=== PATIENT | male | born 1950 | race Caucasian/White ===

== ENCOUNTER 2019-11-08 09:12 | Outpatient (CLI) | payer MEDICARE, SELFPAY ==
[2019-11-08 09:25] LABS: Basophils Absolute Auto 0.04 K/mm3 (0.00-0.10); Basophils Percent Auto 0.5 % (0.0-1.0); Eosinophils Percent Auto 2.5 % (1.0-6.0); Hematocrit 52.2 % (37.0-46.0); Hemoglobin 17.5 g/dL (12.4-15.3); Immature Granulocyte Absolute 0.04 K/mm3 (0.00-0.00); Immature Granulocyte Percent A 0.5 % (0.0-0.0); Lymphocytes Absolute Auto 1.35 K/mm3 (1.10-4.50); Lymphocytes Percent Auto 16.7 % (18.0-42.0); Mean Corpuscular HGB Conc 33.5 g/dL (32.0-36.0); Mean Corpuscular Hemoglobin 31.8 pg (27.0-31.0); Mean Corpuscular Volume 94.7 fL (78.0-102.0); Monocytes Absolute Auto 0.78 K/mm3 (0.10-0.90); Monocytes Percent Auto 9.7 % (2.0-11.0); Neutrophils Absolute Auto 5.7 K/mm3 (1.7-7.2); Neutrophils Percent Auto 70.1 % (50.0-70.0); Platelet Count Result 274 K/mm3 (150-420); Red Blood Count 5.51 M/mm3 (4.70-6.10); Red Cell Distribution Width 13.2 % (11.6-14.4); White Blood Count 8.1 K/mm3 (4.8-10.8)
[2019-11-08 09:35] LABS: Hemoglobin A1C 10.1 % (<5.7)
[2019-11-08 10:08] LABS: Alanine Aminotransferase 43 U/L (16-63); Alkaline Phosphatase 67 U/L (46-116); Anion Gap 13.8 mmol/L (7-16); Aspartate Amino Transferase 22 U/L (15-37); Bilirubin,Total 0.5 mg/dL (0.00-1.00); Blood Urea Nitrogen 14 mg/dL (7-18); Carbon Dioxide 31 mmol/L (21-32); Chloride 100 mmol/L (98-108); Cholesterol 111 mg/dL (0-200); Estimated Glomerular Filt Rate 54; Glucose 254 mg/dL (70-99); HDL Direct 41 mg/dL (40-60); LDL Cholesterol Calculated 60 mg/dL (<130); Osmolality Calculated 299 mOsm/kg (285-295); Potassium 4.8 mmol/L (3.5-5.1); Sodium 140 mmol/L (136-145); Total Protein 7.9 g/dL (6.4-8.2); Triglycerides 51 mg/dL (0-150)
== END 2019-11-08 09:13 | disposition home or self-care (01) ==
LOC: CHSLAB 09:17
PROVIDERS: PCP Nurse Practitioner Family; Visit Provider Nurse Practitioner Family
DX: E11.9 Type 2 diabetes mellitus without complications (principal)
CPT/HCPCS: 36415; 80053; 80061; 83036; 85025

== ENCOUNTER 2020-03-27 08:07 | Outpatient (CLI) | payer MEDICARE, SELFPAY ==
[2020-03-27 08:27] LABS: Hemoglobin A1C 6.7 % (<5.7)
[2020-03-27 09:02] LABS: Creatinine Urine 129.05 mg/dL (40-278); MALB Creatinine Ratio 7.2 mg/g (0-30); Microalbumin Urine Random 9.4 mg/L
== END 2020-03-27 08:08 | disposition home or self-care (01) ==
PROVIDERS: PCP Nurse Practitioner Family; Visit Provider Nurse Practitioner Family
DX: E11.9 Type 2 diabetes mellitus without complications (principal)
CPT/HCPCS: 36415; 82043; 83036

== ENCOUNTER 2021-01-30 10:29 | Outpatient (CLI) | payer MEDICARE, SELFPAY ==
[2021-01-30 10:43] LABS: Basophils Absolute Auto 0.03 K/mm3 (0.00-0.10); Basophils Percent Auto 0.4 % (0.0-1.0); Eosinophils Percent Auto 2.6 % (1.0-6.0); Hematocrit 50.7 % (37.0-46.0); Hemoglobin 17.1 g/dL (12.4-15.3); Immature Granulocyte Absolute 0.04 K/mm3 (0.00-0.00); Immature Granulocyte Percent A 0.5 % (0.0-0.0); Lymphocytes Absolute Auto 1.41 K/mm3 (1.10-4.50); Lymphocytes Percent Auto 18.1 % (18.0-42.0); Mean Corpuscular HGB Conc 33.7 g/dL (32.0-36.0); Mean Corpuscular Volume 94.9 fL (78.0-102.0); Mean Platelet Volume 9.5 fl (8.7-11.0); Monocytes Absolute Auto 0.67 K/mm3 (0.10-0.90); Monocytes Percent Auto 8.6 % (2.0-11.0); Neutrophils Absolute Auto 5.5 K/mm3 (1.7-7.2); Neutrophils Percent Auto 69.8 % (50.0-70.0); Platelet Count Result 277 K/mm3 (150-420); Red Blood Count 5.34 M/mm3 (4.70-6.10); Red Cell Distribution Width 13.2 % (11.6-14.4); White Blood Count 7.8 K/mm3 (4.8-10.8)
[2021-01-30 11:28] LABS: Alanine Aminotransferase 52 U/L (16-63); Albumin Level 3.7 g/dL (3.4-5.0); Alkaline Phosphatase 64 U/L (46-116); Anion Gap 7 mmol/L (8-16); Aspartate Amino Transferase 25 U/L (15-37); Bilirubin,Total 0.5 mg/dL (0.00-1.00); Blood Urea Nitrogen 15 mg/dL (7-18); Calcium 10.2 mg/dL (8.5-10.1); Carbon Dioxide 33 mmol/L (21-32); Chloride 101 mmol/L (98-108); Cholesterol 175 mg/dL (0-200); Estimated Glomerular Filt Rate 43; Glucose 148 mg/dL (70-99); HDL Direct 43 mg/dL (40-60); LDL Cholesterol Calculated 123 mg/dL (<130); Osmolality Calculated 295 mOsm/kg (285-295); Potassium 4.2 mmol/L (3.5-5.1); Sodium 141 mmol/L (136-145); Total Protein 7.7 g/dL (6.4-8.2); Triglycerides 47 mg/dL (0-150)
== END 2021-01-30 10:30 | disposition home or self-care (01) ==
LOC: CHSLAB 10:32
PROVIDERS: PCP Nurse Practitioner Family; Visit Provider Nurse Practitioner Family
DX: E11.9 Type 2 diabetes mellitus without complications (principal)
CPT/HCPCS: 36415; 80053; 80061; 83036; 85025

== ENCOUNTER 2021-02-18 08:54 | Outpatient (CLI) | payer MEDICARE, SELFPAY ==
[2021-02-18 09:25] LABS: Basophils Absolute Auto 0.04 K/mm3 (0.00-0.10); Basophils Percent Auto 0.5 % (0.0-1.0); Eosinophils Percent Auto 2.7 % (1.0-6.0); Hemoglobin 17.1 g/dL (12.4-15.3); Immature Granulocyte Absolute 0.02 K/mm3 (0.00-0.00); Immature Granulocyte Percent A 0.3 % (0.0-0.0); Lymphocytes Absolute Auto 1.47 K/mm3 (1.10-4.50); Lymphocytes Percent Auto 19.6 % (18.0-42.0); Mean Corpuscular HGB Conc 33.5 g/dL (32.0-36.0); Mean Corpuscular Hemoglobin 31.7 pg (27.0-31.0); Mean Corpuscular Volume 94.4 fL (78.0-102.0); Mean Platelet Volume 9.6 fl (8.7-11.0); Monocytes Absolute Auto 0.77 K/mm3 (0.10-0.90); Monocytes Percent Auto 10.3 % (2.0-11.0); Neutrophils Percent Auto 66.6 % (50.0-70.0); Platelet Count Result 303 K/mm3 (150-420); Red Cell Distribution Width 13.1 % (11.6-14.4); White Blood Count 7.5 K/mm3 (4.8-10.8)
[2021-02-18 09:47] LABS: Alanine Aminotransferase 49 U/L (16-63); Albumin Level 3.7 g/dL (3.4-5.0); Alkaline Phosphatase 61 U/L (46-116); Anion Gap 5 mmol/L (8-16); Aspartate Amino Transferase 21 U/L (15-37); Bilirubin,Total 0.6 mg/dL (0.00-1.00); Blood Urea Nitrogen 19 mg/dL (7-18); Carbon Dioxide 32 mmol/L (21-32); Chloride 101 mmol/L (98-108); Estimated Glomerular Filt Rate 50; Glucose 128 mg/dL (70-99); Lactate Dehydrogenase 144 U/L (85-227); Osmolality Calculated 290 mOsm/kg (285-295); Potassium 4.5 mmol/L (3.5-5.1); Sodium 138 mmol/L (136-145); Total Protein 7.6 g/dL (6.4-8.2)
[2021-02-18 10:28] LABS: Erythrocyte Sedimentation Rate 4 mm/hr (0-20)
[2021-02-21 21:01] LABS: Erythropoietin (EPO) 7.1 mIU/mL (2.6-18.5)
== END 2021-02-18 08:55 | disposition home or self-care (01) ==
LOC: CHSLAB 08:56
PROVIDERS: PCP Family Medicine; Visit Provider Internal Medicine
DX: D75.1 Secondary polycythemia (principal)
CPT/HCPCS: 36415; 80053; 81270; 81403; 82668; 83615; 85025; 85652

== ENCOUNTER 2021-03-30 08:46 | Outpatient (CLI) | payer MEDICARE, SELFPAY ==
[2021-03-30 09:07] LABS: Basophils Absolute Auto 0.03 K/mm3 (0.00-0.10); Basophils Percent Auto 0.4 % (0.0-1.0); Eosinophils Absolute Auto 0.28 K/mm3 (0.02-0.50); Eosinophils Percent Auto 3.7 % (1.0-6.0); Hematocrit 51.9 % (37.0-46.0); Hemoglobin 17.4 g/dL (12.4-15.3); Immature Granulocyte Absolute 0.02 K/mm3 (0.00-0.00); Immature Granulocyte Percent A 0.3 % (0.0-0.0); Lymphocytes Absolute Auto 1.79 K/mm3 (1.10-4.50); Lymphocytes Percent Auto 23.8 % (18.0-42.0); Mean Corpuscular HGB Conc 33.5 g/dL (32.0-36.0); Mean Corpuscular Hemoglobin 32.2 pg (27.0-31.0); Mean Corpuscular Volume 95.9 fL (78.0-102.0); Mean Platelet Volume 9.3 fl (8.7-11.0); Monocytes Absolute Auto 0.78 K/mm3 (0.10-0.90); Monocytes Percent Auto 10.4 % (2.0-11.0); Neutrophils Absolute Auto 4.6 K/mm3 (1.7-7.2); Neutrophils Percent Auto 61.4 % (50.0-70.0); Platelet Count Result 324 K/mm3 (150-420); Red Blood Count 5.41 M/mm3 (4.70-6.10); White Blood Count 7.5 K/mm3 (4.8-10.8)
== END 2021-03-30 08:47 | disposition home or self-care (01) ==
LOC: CHSLAB 08:50
PROVIDERS: PCP Family Medicine
DX: D75.1 Secondary polycythemia (principal)
CPT/HCPCS: 36415; 85025

== ENCOUNTER 2021-04-27 07:49 | Outpatient (CLI) | payer MEDICARE, SELFPAY ==
[2021-04-27 08:12] LABS: Basophils Absolute Auto 0.03 K/mm3 (0.00-0.10); Basophils Percent Auto 0.4 % (0.0-1.0); Eosinophils Absolute Auto 0.26 K/mm3 (0.02-0.50); Eosinophils Percent Auto 3.3 % (1.0-6.0); Hematocrit 53.2 % (37.0-46.0); Hemoglobin 17.5 g/dL (12.4-15.3); Immature Granulocyte Absolute 0.03 K/mm3 (0.00-0.00); Immature Granulocyte Percent A 0.4 % (0.0-0.0); Lymphocytes Absolute Auto 1.82 K/mm3 (1.10-4.50); Lymphocytes Percent Auto 22.8 % (18.0-42.0); Mean Corpuscular HGB Conc 32.9 g/dL (32.0-36.0); Mean Corpuscular Hemoglobin 31.1 pg (27.0-31.0); Mean Corpuscular Volume 94.7 fL (78.0-102.0); Mean Platelet Volume 9.4 fl (8.7-11.0); Monocytes Absolute Auto 0.85 K/mm3 (0.10-0.90); Monocytes Percent Auto 10.6 % (2.0-11.0); Neutrophils Percent Auto 62.5 % (50.0-70.0); Platelet Count Result 307 K/mm3 (150-420); Red Blood Count 5.62 M/mm3 (4.70-6.10); Red Cell Distribution Width 13.2 % (11.6-14.4)
== END 2021-04-27 07:50 | disposition home or self-care (01) ==
PROVIDERS: PCP Family Medicine
DX: D75.1 Secondary polycythemia (principal)
CPT/HCPCS: 36415; 85025

== ENCOUNTER 2021-06-01 09:10 | Outpatient (CLI) | payer MEDICARE, SELFPAY ==
[2021-06-01 09:23] LABS: Basophils Absolute Auto 0.04 K/mm3 (0.00-0.10); Basophils Percent Auto 0.5 % (0.0-1.0); Eosinophils Absolute Auto 0.27 K/mm3 (0.02-0.50); Eosinophils Percent Auto 3.4 % (1.0-6.0); Hematocrit 51.5 % (37.0-46.0); Hemoglobin 16.9 g/dL (12.4-15.3); Immature Granulocyte Absolute 0.04 K/mm3 (0.00-0.00); Immature Granulocyte Percent A 0.5 % (0.0-0.0); Lymphocytes Absolute Auto 1.65 K/mm3 (1.10-4.50); Mean Corpuscular HGB Conc 32.8 g/dL (32.0-36.0); Mean Corpuscular Hemoglobin 31.8 pg (27.0-31.0); Mean Corpuscular Volume 96.8 fL (78.0-102.0); Mean Platelet Volume 9.1 fl (8.7-11.0); Monocytes Absolute Auto 0.85 K/mm3 (0.10-0.90); Monocytes Percent Auto 10.8 % (2.0-11.0); Neutrophils Percent Auto 63.8 % (50.0-70.0); Platelet Count Result 314 K/mm3 (150-420); Red Blood Count 5.32 M/mm3 (4.70-6.10); Red Cell Distribution Width 13.4 % (11.6-14.4); White Blood Count 7.9 K/mm3 (4.8-10.8)
== END 2021-06-01 09:11 | disposition home or self-care (01) ==
LOC: CHSLAB 09:16
PROVIDERS: PCP Family Medicine
DX: D75.1 Secondary polycythemia (principal)
CPT/HCPCS: 36415; 85025

== ENCOUNTER 2021-06-29 08:17 | Outpatient (CLI) | payer MEDICARE, SELFPAY ==
[2021-06-29 08:41] LABS: Basophils Absolute Auto 0.06 K/mm3 (0.00-0.10); Basophils Percent Auto 0.8 % (0.0-1.0); Eosinophils Absolute Auto 0.33 K/mm3 (0.02-0.50); Eosinophils Percent Auto 4.3 % (1.0-6.0); Hematocrit 52.3 % (37.0-46.0); Hemoglobin 17.3 g/dL (12.4-15.3); Immature Granulocyte Absolute 0.02 K/mm3 (0.00-0.00); Immature Granulocyte Percent A 0.3 % (0.0-0.0); Lymphocytes Absolute Auto 1.84 K/mm3 (1.10-4.50); Lymphocytes Percent Auto 24.1 % (18.0-42.0); Mean Corpuscular HGB Conc 33.1 g/dL (32.0-36.0); Mean Corpuscular Hemoglobin 31.7 pg (27.0-31.0); Mean Platelet Volume 9.4 fl (8.7-11.0); Monocytes Absolute Auto 0.87 K/mm3 (0.10-0.90); Monocytes Percent Auto 11.4 % (2.0-11.0); Neutrophils Absolute Auto 4.5 K/mm3 (1.7-7.2); Neutrophils Percent Auto 59.1 % (50.0-70.0); Platelet Count Result 320 K/mm3 (150-420); Red Blood Count 5.45 M/mm3 (4.70-6.10); Red Cell Distribution Width 13.2 % (11.6-14.4); White Blood Count 7.6 K/mm3 (4.8-10.8)
== END 2021-06-29 08:18 | disposition home or self-care (01) ==
LOC: CHSLAB 08:21
PROVIDERS: PCP Family Medicine
DX: D75.1 Secondary polycythemia (principal)
CPT/HCPCS: 36415; 85025

== ENCOUNTER 2021-07-27 08:27 | Outpatient (CLI) | payer MEDICARE, SELFPAY ==
[2021-07-27 08:38] LABS: Basophils Absolute Auto 0.03 K/mm3 (0.00-0.10); Basophils Percent Auto 0.4 % (0.0-1.0); Eosinophils Absolute Auto 0.28 K/mm3 (0.02-0.50); Eosinophils Percent Auto 3.8 % (1.0-6.0); Hematocrit 52.9 % (37.0-46.0); Hemoglobin 17.4 g/dL (12.4-15.3); Immature Granulocyte Absolute 0.01 K/mm3 (0.00-0.00); Immature Granulocyte Percent A 0.1 % (0.0-0.0); Lymphocytes Absolute Auto 1.83 K/mm3 (1.10-4.50); Lymphocytes Percent Auto 24.6 % (18.0-42.0); Mean Corpuscular HGB Conc 32.9 g/dL (32.0-36.0); Mean Corpuscular Hemoglobin 31.5 pg (27.0-31.0); Mean Corpuscular Volume 95.8 fL (78.0-102.0); Mean Platelet Volume 9.3 fl (8.7-11.0); Monocytes Absolute Auto 0.88 K/mm3 (0.10-0.90); Monocytes Percent Auto 11.8 % (2.0-11.0); Neutrophils Absolute Auto 4.4 K/mm3 (1.7-7.2); Neutrophils Percent Auto 59.3 % (50.0-70.0); Platelet Count Result 311 K/mm3 (150-420); Red Blood Count 5.52 M/mm3 (4.70-6.10); White Blood Count 7.4 K/mm3 (4.8-10.8)
== END 2021-07-27 08:28 | disposition home or self-care (01) ==
LOC: CHSLAB 08:30
PROVIDERS: PCP Family Medicine
DX: D75.1 Secondary polycythemia (principal)
CPT/HCPCS: 36415; 85025

== ENCOUNTER 2021-08-24 08:52 | Outpatient (CLI) | payer MEDICARE, SELFPAY ==
[2021-08-24 09:02] LABS: Basophils Absolute Auto 0.04 K/mm3 (0.00-0.10); Basophils Percent Auto 0.5 % (0.0-1.0); Eosinophils Absolute Auto 0.22 K/mm3 (0.02-0.50); Eosinophils Percent Auto 2.9 % (1.0-6.0); Hematocrit 54.7 % (37.0-46.0); Hemoglobin 17.9 g/dL (12.4-15.3); Immature Granulocyte Absolute 0.03 K/mm3 (0.00-0.00); Immature Granulocyte Percent A 0.4 % (0.0-0.0); Lymphocytes Absolute Auto 1.75 K/mm3 (1.10-4.50); Lymphocytes Percent Auto 23.1 % (18.0-42.0); Mean Corpuscular HGB Conc 32.7 g/dL (32.0-36.0); Mean Corpuscular Hemoglobin 31.3 pg (27.0-31.0); Mean Corpuscular Volume 95.6 fL (78.0-102.0); Mean Platelet Volume 9.2 fl (8.7-11.0); Monocytes Absolute Auto 0.92 K/mm3 (0.10-0.90); Monocytes Percent Auto 12.2 % (2.0-11.0); Neutrophils Absolute Auto 4.6 K/mm3 (1.7-7.2); Neutrophils Percent Auto 60.9 % (50.0-70.0); Platelet Count Result 322 K/mm3 (150-420); Red Blood Count 5.72 M/mm3 (4.70-6.10); Red Cell Distribution Width 13.1 % (11.6-14.4); White Blood Count 7.6 K/mm3 (4.8-10.8)
== END 2021-08-24 08:53 | disposition home or self-care (01) ==
LOC: CHSLAB 08:56
PROVIDERS: PCP Nurse Practitioner Family
DX: D75.1 Secondary polycythemia (principal)
CPT/HCPCS: 36415; 85025

== ENCOUNTER 2021-10-30 08:42 | Outpatient (CLI) | payer MEDICARE, SELFPAY ==
[2021-10-30 08:53] LABS: Basophils Absolute Auto 0.04 K/mm3 (0.00-0.10); Basophils Percent Auto 0.6 % (0.0-1.0); Eosinophils Absolute Auto 0.25 K/mm3 (0.02-0.50); Eosinophils Percent Auto 3.7 % (1.0-6.0); Hemoglobin 17.8 g/dL (12.4-15.3); Immature Granulocyte Absolute 0.01 K/mm3 (0.00-0.00); Immature Granulocyte Percent A 0.1 % (0.0-0.0); Lymphocytes Absolute Auto 1.29 K/mm3 (1.10-4.50); Lymphocytes Percent Auto 19.1 % (18.0-42.0); Mean Corpuscular Hemoglobin 31.3 pg (27.0-31.0); Mean Corpuscular Volume 94.9 fL (78.0-102.0); Mean Platelet Volume 9.3 fl (8.7-11.0); Monocytes Absolute Auto 0.77 K/mm3 (0.10-0.90); Monocytes Percent Auto 11.4 % (2.0-11.0); Neutrophils Absolute Auto 4.4 K/mm3 (1.7-7.2); Neutrophils Percent Auto 65.1 % (50.0-70.0); Platelet Count Result 298 K/mm3 (150-420); Red Blood Count 5.69 M/mm3 (4.70-6.10); Red Cell Distribution Width 13.2 % (11.6-14.4); White Blood Count 6.8 K/mm3 (4.8-10.8)
== END 2021-10-30 08:43 | disposition home or self-care (01) ==
LOC: CHSLAB 08:45
PROVIDERS: PCP Nurse Practitioner Family; Visit Provider Nurse Practitioner
DX: D75.1 Secondary polycythemia (principal)
CPT/HCPCS: 36415; 85025

== ENCOUNTER 2021-12-03 04:04 | Inpatient (IN) | payer MEDICARE, SELFPAY ==
[2021-12-03] VITALS (12 sets, daily range): BP systolic 150–193; BP diastolic 82–110; PULSE 68–80; RESP 15–18; TEMP 36.7–37; O2SAT 93–100; BMI 29.3
--- NOTE | ~2021-12-03 | MR_ITS ---
EXAMINATION: MR brain/brain stem wo con EXAM DATE: 12/05/2021 07:55 INDICATION: Dyphasia and new essential tremor. TECHNIQUE: Magnetic resonance imaging (MRI) of the brain/brain stem obtained without contrast. Melina al T1, axial diffusion, gradient echo (T2*), T1, T2, FLAIR sequences obtained. There is no prior st udy for comparison. FINDINGS: There are no areas of restricted diffusion to suggest acute infarction. There is no acute hemorrhage seen on the T2*, a hemosiderin sensitive sequence. No intraparenchymal brain mass lesion. There is moderate periventricular and subcortical T2/FLAIR signal hyperintensity, nonspecific but pr obably related to small vessel ischemic disease (microangiopathy). There is ventricular prominence out of proportion to sulci which is suspected most likely central atr ophy rather than hydrocephalus. Normal pressure hydrocephalus cannot be excluded (clinical triad debora chris/gait disturbance, dementia, urinary incontinence). There are no extra-axial collections. Flow voids are seen in the cerebral arteries on the T2-weighted sequences consistent with their expected p atency. The orbits are unremarkable. Soft tissue is unremarkable. IMPRESSION: 1. Chronic age related findings. Reviewed, dictated and finalized at location A. OUT OPERATOR
--- NOTE | ~2021-12-03 | CT_ITS ---
EXAMINATION: CTA chest PE protocol DATE: 12/03/2021 08:56 INDICATION: Chest pain and shortness of breath TECHNIQUE: Computed tomography (CT) pulmonary angiogram of the chest was performed with 100 mL Omnipa que-350 intravenous contrast. Additional 3D reconstructions utilizing coronal maximum intensity proje ction (MIP) were performed. Automated exposure control and iterative reconstruction technique were em ployed. The dose-length product was 884.89 mGy-cm. COMPARISON: 07/24/2008 FINDINGS: Excellent contrast opacification of the pulmonary arteries. There is mild streak artifact from dense contrast in the superior vena cava and right atrium. Minimal scattered respiratory motion artifact wh ich does not significantly limit evaluation. No pulmonary embolism. Unilateral calcified pleural plaq ues in the right hemithorax consistent with prior exudative pleural effusion. Linear atelectasis/scar ring in the anterior right middle lobe. Additional mild atelectasis/scarring at the anterior peripher y of the lingula. A few small calcified nodules in the right lower lobe and calcified right hilar lym ph nodes consistent with old granulomatous disease. Unchanged chronic 2 mm noncalcified granuloma in the right lower lobe. No pneumonia, pulmonary edema, pleural effusion or pneumothorax. Heart size is normal. Atherosclerotic coronary artery calcification. No pericardial effusion. No pathologically enl arged thoracic lymphadenopathy. Large calcified gallstone in the nearly decompressed gallbladder. Dif fuse hepatic steatosis. Mild to moderate thoracic spondylosis. Chronic appearing T12 compression frac ture with 40% anterior to central vertebral body height loss. Mild central compression fracture at th e superior endplate of T5 with <20% central vertebral body height loss. IMPRESSION: 1. No pulmonary embolism or other acute cardiopulmonary disease. 2. Cholelithiasis. 3. Diffuse hepatic steatosis. Reviewed, dictated and finalized at location A. S BOBBIN WINDER
--- NOTE | ~2021-12-03 | XR_ITS ---
EXAMINATION: XR chest 1V portable DATE: 12/03/2021 05:01 INDICATION: Chest pain TECHNIQUE: frontal view of the chest was obtained. COMPARISON: Chest radiograph dated 07/19/[address] dated 07/24/2008 FINDINGS: Calcified pleural plaques projecting over the right mid and upper lung zone. Calcified nodule in the right lower lung zones consistent with old granulomatous disease. No other airspace opacities, pulmon wilfrid edema, pleural effusion or pneumothorax. The cardiomediastinal silhouette is normal. IMPRESSION: 1. No acute cardiopulmonary disease. Reviewed, dictated and finalized at location A. WORKER ANIMAL
--- NOTE | ~2021-12-03 | CT_ITS ---
EXAMINATION: CT brain wo con DATE: 12/03/2021 08:55 INDICATION: Weakness and ataxia TECHNIQUE: Computed tomography (CT) of the head was performed without intravenous contrast. The dose- length product was 605.33 mGy-cm. Automated exposure control and iterative reconstruction technique w ere employed. COMPARISON: No prior studies for comparison. FINDINGS: Mild generalized parenchymal volume loss with compensatory dilation of the ventricles. Basi lar cisterns are patent. No midline shift. There are scattered mild periventricular and subcortical w boris matter changes, most likely related to small vessel ischemic disease (microangiopathy). Paranasa l sinuses and right mastoid air cells are pneumatized. There is a left mastoid effusion. No depressed skull fractures. IMPRESSION: 1. No acute intracranial abnormality. 2: Chronic age-related findings. 3: Left mastoid effusion. Reviewed, dictated and finalized at location B. RVISOR DRAWING
--- NOTE | 2021-12-03 03:24 | ECG_ITS ---
Measurements Intervals [place] Rate: 61 P: -49 LA: 157 QRS: 25 QRSD: 101 T: 46 QT: 374 QTc: 379 Interpretive Statements SINUS OR ECTOPIC ATRIAL RHYTHM MINIMAL Q WAVES- INFERIOR LEADS NONSPECIFIC ST & T-WAVE ABNORMALITY- ANTERIOR LEADS BASELINE ARTIFACT- I, II, III, AVR, AVL, AVF, V1-V3 BORDERLINE ECG Electronically Signed On 12-03-2021 5:53:42 OIL EXPELLER by Justin Ricks D.O.
--- NOTE | 2021-12-03 04:16 | ED.CHESTPAIN ---
HPI - Chest Pain General Chief Complaint: Chest Pain <Seb Reis MD - Last Filed: 12/04/21 13:58> Stated Complaint: CHEST PAIN <Seb Reis MD - Last Filed: 12/04/21 13:58> Time Seen by Provider: 12/03/21 04:16 <Seb Reis MD - Last Filed: 12/04/21 13:58> Source: patient <Seb Reis MD - Last Filed: 12/04/21 13:58> Limitations: no limitations <Seb Reis MD - Last Filed: 12/04/21 13:58> History of Present Illness HPI narrative: 71-year-old male, smoker with a history of hypertension, diabetes mellitus, CKD, Dyslipidemia, polycythemia, positive family history of coronary artery disease presents with -- left-sided chest pain for the past few days. His pain got worse 1 hour ago prior to coming to the ER. his maximum pain was rated as 5/10. His current pain level is 1/10. No nausea/vomiting. No shortness of breath. No radiation of the pain. No prior episodes of chest pain or cardiac intervention. the patient received sublingual nitro and aspirin EN route to the hospital. -- patient had a syncopal spell this morning while trying to get up to go to the bathroom. No injuries noted. No loss of consciousness. -- Patient is COVID vaccinated. EKG done by the EMS revealed prominent Q-waves in inferior leads with T flattening in aVL and standard lead 3 <Seb Reis MD - Last Filed: 12/04/21 13:58> MD complaint: chest pain <Seb Reis MD - Last Filed: 12/04/21 13:58> Onset (ago): day(s) <Seb Reis MD - Last Filed: 12/04/21 13:58> Timing of current episode: episodic <Seb Reis MD - Last Filed: 12/04/21 13:58> Prior episodes: No <Seb Reis MD - Last Filed: 12/04/21 13:58> Onset: during rest <Seb Reis MD - Last Filed: 12/04/21 13:58> Pain location: left chest <Seb Reis MD - Last Filed: 12/04/21 13:58> Pain radiation: none <Seb Reis MD - Last Filed: 12/04/21 13:58> Severity: mild <Seb Reis MD - Last Filed: 12/04/21 13:58> Quality: aching <Seb Reis MD - Last Filed: 12/04/21 13:58> Relieving factors: nothing <Seb Reis MD - Last Filed: 12/04/21 13:58> Exacerbating factors: nothing <Seb Reis MD - Last Filed: 12/04/21 13:58> Context: recent illness <Seb Reis MD - Last Filed: 12/04/21 13:58> Treatment prior to arrival: aspirin and nitroglycerin <Seb Reis MD - Last Filed: 12/04/21 13:58> Risk Factors Coronary artery disease risk factors: diabetes, smoking history and hypertension <Seb Reis MD - Last Filed: 12/04/21 13:58> Thoracic aortic dissection risk factors: longstanding hypertension <Seb Reis MD - Last Filed: 12/04/21 13:58> Pulmonary embolism risk factors: morbid obesity <Seb Reis MD - Last Filed: 12/04/21 13:58> Related Data Allergies/Adverse Reactions: Allergies Allergy/AdvReac Type Severity Reaction Status Date / Time Penicillins Allergy Intermediate rash Verified 12/03/21 04:20 <Seb Reis MD - Last Filed: 12/04/21 13:58> Review of Systems Review of Systems: All systems reviewed & are unremarkable except as noted in HPI and below <Seb Reis MD - Last Filed: 12/04/21 13:58> Constitutional: Constitutional: Reports as per HPI and Reports no additional constitutional complaints <Seb Reis MD - Last Filed: 12/04/21 13:58> Eyes: Eyes: Reports as per HPI and Reports no additional eye complaints <Seb Reis MD - Last Filed: 12/04/21 13:58> ENT: Reports system reviewed and no additional complaints, except as documented <Seb Reis MD - Last Filed: 12/04/21 13:58> Cardiovascular: Cardiovascular: Reports as per HPI, Reports no additional cardiovascular complaints and Reports chest pain at rest <Seb Reis MD - Last Filed: 12/04/21 13:58> R
[2021-12-03 04:43] LABS: Basophils Absolute Auto 0.04 K/mm3 (0.00-0.10); Basophils Percent Auto 0.4 % (0.0-1.0); Eosinophils Absolute Auto 0.18 K/mm3 (0.02-0.50); Hemoglobin 16.3 g/dL (12.4-15.3); Immature Granulocyte Absolute 0.03 K/mm3 (0.00-0.00); Immature Granulocyte Percent A 0.3 % (0.0-0.0); Lymphocytes Absolute Auto 0.98 K/mm3 (1.10-4.50); Lymphocytes Percent Auto 10.7 % (18.0-42.0); Mean Corpuscular Hemoglobin 31.6 pg (27.0-31.0); Mean Platelet Volume 9.1 fl (8.7-11.0); Monocytes Absolute Auto 0.89 K/mm3 (0.10-0.90); Monocytes Percent Auto 9.7 % (2.0-11.0); Neutrophils Absolute Auto 7.1 K/mm3 (1.7-7.2); Neutrophils Percent Auto 76.9 % (50.0-70.0); Platelet Count Result 302 K/mm3 (150-420); Red Blood Count 5.16 M/mm3 (4.70-6.10); Red Cell Distribution Width 13.2 % (11.6-14.4); White Blood Count 9.2 K/mm3 (4.8-10.8)
[2021-12-03 04:55] LABS: INR 1.1; Partial Thromboplastin Time 26.9 SEC (23.90-30.70); Prothrombin Time 11.8 Seconds (9.50-12.10)
[2021-12-03 05:05] LABS: Alanine Aminotransferase 43 U/L (16-63); Albumin Level 3.2 g/dL (3.4-5.0); Alkaline Phosphatase 52 U/L (46-116); Anion Gap 9 mmol/L (8-16); Aspartate Amino Transferase 26 U/L (15-37); Bilirubin,Total 0.5 mg/dL (0.00-1.00); Blood Urea Nitrogen 19 mg/dL (7-18); Calcium 9.9 mg/dL (8.5-10.1); Carbon Dioxide 30 mmol/L (21-32); Chloride 102 mmol/L (98-108); Estimated CRCL calculation 32 ml/min; Estimated Glomerular Filt Rate 32; Glucose 117 mg/dL (70-99); Lipase 87 U/L (73-393); NT Pro B Type Natriuretic Pept 3044 pg/mL (0-125); Osmolality Calculated 295 mOsm/kg (285-295); Potassium 3.4 mmol/L (3.5-5.1); Sodium 141 mmol/L (136-145); Total Protein 7.4 g/dL (6.4-8.2)
[2021-12-03 05:17] LABS: Troponin I 48.9 ng/L (0.00-60.4)
[2021-12-03 05:18] LABS: D Dimer 12.89 mg/L (0.19-0.50)
[2021-12-03] MEDS: HEPARIN SODIUM 5,000 UNITS/ML VIAL 7500 UNITS IV PUSH (05:47)
[2021-12-03] MEDS: HEPARIN SOD/D5W 100 UNITS/ML 25,000 UNITS/250 ML BAG 15 UNITS IV CONT (06:04)
[2021-12-03] MEDS: LACTATED RINGERS 1,000 ML 500 ML IV CONT (06:04)
[2021-12-03 07:14] LABS: SARS-CoV-2 RNA PCR Negative (Negative)
[2021-12-03 07:53] LABS: Anion Gap 8 mmol/L (8-16); Blood Urea Nitrogen 18 mg/dL (7-18); Calcium 9.4 mg/dL (8.5-10.1); Carbon Dioxide 29 mmol/L (21-32); Chloride 103 mmol/L (98-108); Estimated CRCL calculation 34 ml/min; Estimated Glomerular Filt Rate 35; Glucose 104 mg/dL (70-99); Osmolality Calculated 291 mOsm/kg (285-295); Potassium 3.2 mmol/L (3.5-5.1); Sodium 140 mmol/L (136-145)
[2021-12-03 07:54] LABS: Troponin I 47.1 ng/L (0.00-60.4)
[2021-12-03] MEDS: LACTATED RINGERS 1,000 ML 150 ML IV CONT (08:32)
[2021-12-03 08:58] LABS: Add Urine Microscopic? YES; Appearance Urine Clear (Clear); Bilirubin Urine Negative (Negative); Blood Urine Negative (Negative); Color Urine Light Yellow (Yellow); Glucose Urine UA Negative (Negative); Ketones Urine Trace (Negative); Leukocyte Esterase Ur Negative (Negative); Nitrate Urine Negative (Negative); Protein Urine Negative (Negative); Specific Grav Ur 1.015 (1.010-1.020); Urobilinogen Urine 0.2 mg/dL (0.2-1.0)
[2021-12-03 09:06] LABS: Base Excess ABG 3.9 mmol/L (0-2); HCO3 ABG 29.1 mmol/L (23-29); Oxygen Content ABG 21.5 %vol (16.0-22.0); Oxygen Saturation ABG 94.9 % (95-97); Oxyhemoglobin 93.2 % (94-100); PCO2 ABG 45.4 mmHg (35-45); PO2 ABG 71.9 mmHg (75-85); Total Hemoglobin 16.4 g/dL (12.0-18.0); pH ABG 7.43 (7.35-7.45)
[2021-12-03 09:07] LABS: Bacteria Urine Trace /hpf; RBC Urine 0-2 /hpf (0-2); WBC Urine None seen /hpf (0-3)
[2021-12-03 09:09] LABS: Modified Allen's Test Pass; Site Drawn RIGHT RADIAL
[2021-12-03 09:10] LABS: Device ROOM AIR
--- NOTE | 2021-12-03 10:49 | PC.NURSE ---
Patient arrived to [facility] via stretcher from ED. Able to transfer self by scooting onto bed. Telemetry initiated. Patient able to voice needs. Oriented to room and call light. at bedside.
[2021-12-03 11:11] LABS: Creatine Kinase 176 U/L (39-308)
[2021-12-03 11:47] LABS: Glucose Point of Care 90 mg/dl (65-105)
[2021-12-03] MEDS: ONDANSETRON INJ 4 MG/2 ML VIAL IV PUSH (12:17)
--- NOTE | 2021-12-03 12:19 | PC.NURSE ---
emesis of undigested food. long pieces of spaghetti noodles cool cloth for forehead and prn zofran given
[2021-12-03] MEDS: POTASSIUM CHLORIDE 20 MEQ TABLET 40 MEQ PO (12:56)
[2021-12-03 14:43] LABS: Troponin I 54.6 ng/L (0.00-60.4)
[2021-12-03] MEDS: POTASSIUM CHLORIDE 20 MEQ TABLET 40 MEQ (15:10)
[2021-12-03] MEDS: lisinopriL 5 MG TABLET PO (15:22)
[2021-12-03 16:46] LABS: Glucose Point of Care 93 mg/dl (65-105)
[2021-12-03] MEDS: DOCUSATE SODIUM 100 MG CAPSULE PO (16:49)
[2021-12-03] MEDS: glipiZIDE 5 MG TABLET PO (16:49)
--- NOTE | 2021-12-03 20:31 | PC.NURSE ---
Call from patient's . stated patient had not received BP medication today before coming to ER. Patient BP elevated. [employer] [facility] [facility] contacted and stated she will initiate orders.
[2021-12-03] MEDS: hydrALAZINE 10 MG TABLET PO (21:03)
[2021-12-03 21:15] LABS: Glucose Point of Care 75 mg/dl (65-105)
[2021-12-03 22:44] LABS: Glucose Point of Care 69 mg/dl (65-105)
[2021-12-03 23:36] LABS: Glucose Point of Care 92 mg/dl (65-105)
[2021-12-04] VITALS (8 sets, daily range): BP systolic 159–180; BP diastolic 82–105; PULSE 61–78; RESP 16–18; TEMP 36.6–36.9; O2SAT 94–98
[2021-12-04 05:18] LABS: Hemoglobin 15.3 g/dL (12.4-15.3); Mean Corpuscular HGB Conc 33.3 g/dL (32.0-36.0); Mean Corpuscular Hemoglobin 31.2 pg (27.0-31.0); Mean Corpuscular Volume 93.9 fL (78.0-102.0); Mean Platelet Volume 9.1 fl (8.7-11.0); Platelet Count Result 257 K/mm3 (150-420); Red Cell Distribution Width 13.5 % (11.6-14.4); White Blood Count 7.1 K/mm3 (4.8-10.8)
[2021-12-04 05:27] LABS: Hemoglobin A1C 6.7 % (<5.7)
[2021-12-04 05:32] LABS: Alanine Aminotransferase 38 U/L (16-63); Albumin Level 3.1 g/dL (3.4-5.0); Alkaline Phosphatase 48 U/L (46-116); Anion Gap 7 mmol/L (8-16); Aspartate Amino Transferase 30 U/L (15-37); Bilirubin,Total 0.5 mg/dL (0.00-1.00); Blood Urea Nitrogen 16 mg/dL (7-18); Calcium 9.4 mg/dL (8.5-10.1); Carbon Dioxide 30 mmol/L (21-32); Chloride 104 mmol/L (98-108); Estimated CRCL calculation 33 ml/min; Estimated Glomerular Filt Rate 33; Glucose 65 mg/dL (70-99); Magnesium 2.1 mg/dL (1.8-2.4); Osmolality Calculated 291 mOsm/kg (285-295); Potassium 3.4 mmol/L (3.5-5.1); Sodium 141 mmol/L (136-145); Total Protein 6.7 g/dL (6.4-8.2)
[2021-12-04 07:00] LABS: Glucose Point of Care 72 mg/dl (65-105)
[2021-12-04 07:47] LABS: Glucose Point of Care 53 mg/dl (65-105)
--- NOTE | 2021-12-04 07:57 | ECHO_ITS ---
Patient Info Name: Josh Veloz Ashburn Age: 71 years : 1950 Gender: Male Ht: 70 in Wt: 203 lbs BSA: 2.15 m2 HR: 71 bpm BP: 159 / 82 mmHg Technical Quality: Good Exam Date: 12/04/2021 8:52 AM Exam Location: [facility] Patient Status: Inpatient Admit Date: 12/03/2021 Staff Ordering Physician: Benja Ta [employer] Information Clerk: Cara Cordon Attending Provider: Cr Bosch MD Referring Physician: Keyon CALLES; Exam Type: CA echo doppler color flow Study Info Indications I51.9 - Heart disease, unspecified Complete two-dimensional, color flow and Doppler transthoracic echocardiogram is performed. Strain analysis performed. Summary 1. Complete two-dimensional, color flow and Doppler transthoracic echocardiogram is performed. 2. Left ventricular chamber dimension is normal. 3. Left ventricular systolic function is normal, estimated at 55-60%. 4. The left ventricular diastolic function is grade I diastolic dysfunction. 5. E/e' 14 is mildly elevated. 6. Global longitudinal strain is abnormal at -12.6%. 7. There is mild to moderate mitral valve regurgitation. 8. No pulmonary hypertension, estimated pulmonary arterial systolic pressure is 11 mmHg. Left Ventricle E/e' 14 is mildly elevated. Global longitudinal strain is abnormal at -12.6%. Left ventricular chamber dimension is normal. Left ventricular systolic function is normal, estimated at 55-60%. The left ventricular diastolic function is grade I diastolic dysfunction. Right Ventricle Right ventricular systolic function is normal and with normal TAPSE 2.3 cm. Right ventricular chamber dimension is normal. Left Atria Left atrial chamber dimension is normal. Right Atria Right atrial chamber dimension is normal. Aortic Valve The aortic valve is trileaflet. There is no aortic valve stenosis. There is no aortic valve regurgitation. Pulmonic Valve There is no pulmonic regurgitation. Mitral Valve There is no mitral valve stenosis. There is mild to moderate mitral valve regurgitation. Tricuspid Valve There is no tricuspid valve regurgitation. No pulmonary hypertension, estimated pulmonary arterial systolic pressure is 11 mmHg. Pericardium/Pleural There is no pericardial effusion. Inferior Vena Cava Normal inferior vena cava with >50% collapse upon inspiration consistent with normal right atrial pressure, 5 mmHg. Aorta The aortic root size at the sinus of Valsalva is normal. Left Ventricular Outflow Tract Name Value Normal LVOT 2D LVOT Diameter 2.1 cm LVOT Doppler LVOT Peak Velocity 100 cm/s LVOT Peak Gradient 4 mmHg LVOT Mean Gradient 2 mmHg LVOT VTI 21 cm LVOT VTI/AV VTI Ratio 0.9 LVOT Stroke Volume 71 ml Mitral Valve Name Value Normal MV Doppler ---
[2021-12-04] MEDS: buPROPion HCL XL (24 HR) 150 MG TABCR 300 MG PO (08:26)
[2021-12-04] MEDS: CALCIUM CARBONATE (OSCAL) 500 MG TABLET PO (08:26)
[2021-12-04] MEDS: ENOXAPARIN 40 MG/0.4 ML SYRINGE SUB-Q (08:26)
[2021-12-04] MEDS: DOCUSATE SODIUM 100 MG CAPSULE PO ×2 (08:27→17:04)
[2021-12-04] MEDS: lisinopriL 5 MG TABLET PO (08:28)
--- NOTE | 2021-12-04 09:06 | PM.IMHP ---
H&P: HPI History of Present Illness Date/Time: 12/04/21 09:06 this is a 71-year-old male who presented to urgent care with complaints of left-sided chest pain and generalized weakness. Patient has a past medical history of nicotine dependence, osteoporosis, polycythemia, type 2 diabetes, hypertension, CKD and nerve palsy of the left eye. According to patient he has had several unexplained falls. He did note head trauma during one of the falls with no apparent injury. During this assessment I noticed the patient had essential tremors. Patient has not informed his primary care physician of these essential tremors and cannot recall when this started. Patient also describes difficulty swallowing for the past couple of days. Vital signs 98.1, 71, 16, 95, 159/82, WBCs 9.2, hemoglobin 16.3, hematocrit 48.0, platelets 302, D-dimer 12.89, sodium 140, potassium 3.2, BUN 18, creatinine 1.91, glucose 104, troponin 47.1, BNP 3044, UA with trace of ketones and bacteria, ABG pH 7.43 CO2 45.5 O2 71.9 bicarb 29.1, CT of the head no acute findings chest x-ray unremarkable, CTA no PE noted., EKG sinus rhythm with a heart rate of 61. Patient will be admitted to rule out HI versus CVA. The patient denies SOB, palpitation, extremity numbness, lightheadedness, dizziness, constipation, diarrhea, chills, or fever. Patient complains of continuous left below the nipple chest discomfort. He also notes that he is having difficulty swallowing. I did examine patient while drinking water no apparent dysphagia. Will consult speech therapy. Chief Complaint: cp, multiple falls Review of Systems Review of Systems: A 14 organ system Review of Systems was performed and pertinent positives included in the HPI, otherwise remaining ROS is negative. [facility] Past Medical History Medical History Age-related cataract of both eyes Need for 23-polyvalent pneumococcal polysaccharide vaccine Nicotine dependence Osteopenia Polycythemia Sixth nerve palsy of left eye Type 2 diabetes mellitus Surgical History Surgical History No history of previous surgery Family History Family History Brother Family history of type 2 diabetes mellitus Family history of coronary artery disease Mother Breast cancer Father Diabetes mellitus Social History Social History Smoking packs per day: 0.20 Smoking cigarettes per day: 4.0 Years smoked: 35 Smoking pack-years: 7.00 Smoking status: Current every day smoker Tobacco type: cigarettes Second hand tobacco smoke exposure: Yes Alcohol intake: never Alcohol use details: 1 drink every 2 weeks Substance use: never Substance use type: marijuana Additional living arrangements comments: , has 2 children 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 Gender identity (if verbalized by the patient): Male Spiritual care concerns: No Meds Home Medications and Allergies Home Medications Medication Instructions Recorded Confirmed Type calcium carbonate 500 mg calcium 500 mg PO DAILY #90 cap 11/03/20 12/03/21 Rx (1,250 mg) capsule ergocalciferol (vitamin D2) 50 mcg 2,000 unit PO DAILY #90 tablet 11/03/20 12/03/21 Rx (2,000 unit) tablet vitamins A,C,J-hkif-cwoebs 7,160 1 tablet PO DAILY #180 tablet 11/03/20 12/03/21 Rx unit-113 mg-100 unit tablet lisinopril 5 mg tablet 5 mg PO DAILY #90 tablet 07/28/21 12/03/21 Rx bupropion HCl 150 mg 24 hr tablet, 300 mg PO QAM #60 tablet 11/09/21 12/03/21 Rx extended release glipizide 5 mg tablet 5 mg PO BID #180 tablet 11/09/21 12/03/21 Rx Allergies Allergy/AdvReac Type Severity Reaction Status Date / Time Penicillins Allergy Intermediate rash Verified 12/03/21 04:20 Vital Signs Vital Signs - 24 hr 02
[2021-12-04] MEDS: hydrALAZINE 5 MG TABLET PO ×4 (09:32→21:08)
[2021-12-04] MEDS: POTASSIUM CHLORIDE 20 MEQ TABLET 40 MEQ PO (10:13)
[2021-12-04] MEDS: ASPIRIN 325 MG ENTERIC TABLET PO (10:13)
[2021-12-04] MEDS: ATORVASTATIN 10 MG TABLET PO (10:14)
[2021-12-04] MEDS: CLOPIDOGREL BISULFATE 75 MG TABLET PO (10:14)
[2021-12-04 10:58] LABS: Folic Acid 7.7 ng/mL (8.6->20); Vitamin B12 294 pg/mL (193-986)
[2021-12-04 11:09] LABS: Thyroid Stimulating Hormone Reflex 1.37 u/IU/mL (0.36-3.74)
[2021-12-04 11:48] LABS: Glucose Point of Care 110 mg/dl (65-105)
[2021-12-04 16:24] LABS: Glucose Point of Care 67 mg/dl (65-105)
[2021-12-04 21:18] LABS: Glucose Point of Care 107 mg/dl (65-105)
[2021-12-05] VITALS: BP 168/82; PULSE 65; RESP 14; TEMP 36.5; O2SAT 96
[2021-12-05 04:00] VITALS: BP 173/95; PULSE 66; PULSE 69; RESP 18; TEMP 36.7; O2SAT 96
--- NOTE | 2021-12-05 04:26 | PC.NURSE ---
Addendum entered by Seb Alfaro RN 12/05/21 05:27: This telegraphic typewriter mechanic contacted the Nurse practitioner, Benja Ta, about how Josh's bp being elevated consistently throughout the night. Benja verbalized to this telegraphic typewriter mechanic that even though the criteria for the prn hydralazine has not been met yet to go ahead and administer the medication to the pt. This telegraphic typewriter mechanic verbalized back to give the prn hydralazine and confirmed the okay to give per SEED PELLETER. Original Note: This telegraphic typewriter mechanic contacted the Nurse practitioner, Benja Ta about how Josh's bp have been elevated consistently throughout the night. Benja verbalized to this telegraphic typewriter mechanic that even though the criteria for the prn hydralazine is not been met yet to go ahead and administer the medication to the pt. This telegraphic typewriter mechanic verbalized back to give the prn hydralazine and confirmed the okay to give per SEED PELLETER.
[2021-12-05] MEDS: hydrALAZINE HCL 20 MG/ML VIAL 5 MG IV PUSH (04:40)
[2021-12-05 05:07] LABS: Hemoglobin 14.9 g/dL (12.4-15.3); Mean Corpuscular HGB Conc 33.1 g/dL (32.0-36.0); Mean Corpuscular Hemoglobin 30.9 pg (27.0-31.0); Mean Corpuscular Volume 93.4 fL (78.0-102.0); Mean Platelet Volume 9.3 fl (8.7-11.0); Platelet Count Result 257 K/mm3 (150-420); Red Blood Count 4.82 M/mm3 (4.70-6.10); Red Cell Distribution Width 13.2 % (11.6-14.4)
[2021-12-05 05:18] LABS: Anion Gap 9 mmol/L (8-16); Blood Urea Nitrogen 14 mg/dL (7-18); Calcium 8.8 mg/dL (8.5-10.1); Carbon Dioxide 27 mmol/L (21-32); Chloride 103 mmol/L (98-108); Estimated CRCL calculation 5 ml/min; Estimated Glomerular Filt Rate 36; Glucose 107 mg/dL (70-99); Osmolality Calculated 288 mOsm/kg (285-295); Potassium 3.6 mmol/L (3.5-5.1); Sodium 139 mmol/L (136-145)
[2021-12-05 05:51] VITALS: BP 173/90
[2021-12-05 06:55] VITALS: BP 172/91
[2021-12-05 07:23] LABS: Glucose Point of Care 89 mg/dl (65-105)
[2021-12-05 08:00] VITALS: BP 164/72; PULSE 74; PULSE 78; RESP 18; TEMP 36.3; O2SAT 95
[2021-12-05] MEDS: ENOXAPARIN 40 MG/0.4 ML SYRINGE SUB-Q (08:25)
[2021-12-05] MEDS: CLOPIDOGREL BISULFATE 75 MG TABLET PO (08:26)
[2021-12-05] MEDS: hydrALAZINE 5 MG TABLET PO (08:26)
[2021-12-05] MEDS: POTASSIUM CHLORIDE 20 MEQ TABLET 40 MEQ PO (08:27)
[2021-12-05] MEDS: CALCIUM CARBONATE (OSCAL) 500 MG TABLET PO (08:27)
[2021-12-05] MEDS: lisinopriL 5 MG TABLET PO (08:28)
[2021-12-05] MEDS: buPROPion HCL XL (24 HR) 150 MG TABCR 300 MG PO (08:28)
[2021-12-05] MEDS: ASPIRIN 325 MG ENTERIC TABLET PO (08:29)
[2021-12-05] MEDS: ATORVASTATIN 10 MG TABLET PO (08:29)
--- NOTE | 2021-12-05 09:43 | P.DS_ITS ---
DS: Admitting Diagnosis Discharge Date 12/05/2021 Admitting Diagnosis Generalized weakness, atypical chest pain DS: Discharge Diagnosis Discharge Diagnosis (1) Atypical chest pain: Code(s): R07.89 - Other chest pain Status: Acute Assessment and Plan: * Not believed to be cardiac related * Possible musculoskeletal related due to patient's multiple falls * Chest x-ray does not indicate fracture or dislocation * EKG sinus with a heart rate of 61 * Troponin 48.9>47.1>54.6 (2) Muscle weakness (generalized): Code(s): M62.81 - Muscle weakness (generalized) Status: Acute Assessment and Plan: * Etiology unknown * Will rule out CVA versus Parkinson's. MRI and CT does not indicate any new infarcts * Patient will discharge with outpatient PT * Speech therapy eval no further intervention needed * Patient will need referral to a neurologist (3) Elevated serum creatinine: Code(s): R79.89 - Other specified abnormal findings of blood chemistry Status: Acute Assessment and Plan: * Improved * BUN/Cr 19/2.08, 191.91/ , 18/2.00, 14/1.89 baseline cr 1.30-1.61 * Repeat BMP in 3 days with results going to primary care physician * CK within normal limits (4) Hypertension: Code(s): I10 - Essential (primary) hypertension Status: Acute Assessment and Plan: * Blood pressure 164/72 blood pressure improved but remain elevated * Continue lisinopril 5 mg daily added hydralazine 10 mg 3 times daily * Patient instructed to take his blood pressure readings daily record results and follow-up with his primary care physician for possible medication adjustments (5) Obesity (BMI 30-39.9): Code(s): E66.9 - Obesity, unspecified Status: Acute Assessment and Plan: * Educated on healthy lifestyle (6) Polycythemia: Code(s): D75.1 - Secondary polycythemia Status: Acute Assessment and Plan: * Chronic * RBCs 5.16>7.0 * Follow-up with primary care physician (7) Type 2 diabetes mellitus: Code(s): E11.9 - Type 2 diabetes mellitus without complications Status: Acute Assessment and Plan: * Patient with hypoglycemic episodes * Discontinue glipizide * Patient instructed to take blood sugar readings 2 times a day record results and give findings to primary care physician for medication adjustment * A1c 6.7 (8) Multiple falls: Code(s): R29.6 - Repeated falls Status: Acute Assessment and Plan: * Rule out CVA versus Parkinson's * Patient was discharged with PT * MRI and CT does not indicate CVA * Patient will need a neurology consult (9) Tremor: Code(s): R25.1 - Tremor, unspecified Status: Acute Assessment and Plan: * Rule out CVA versus Parkinson's * CT no new findings, MRI unremarkable, echo grade 1 diastolic congestive heart failure * Left message with patient's PCP for possible neuro consult (10) Elevated d-dimer: Code(s): R79.89 - Other specified abnormal findings of blood chemistry Status: Acute Assessment and Plan: * Elevated D-dimer * CTA negative for PE, possibly secondary to injury due to falls (11) Elevated brain natriuretic peptide (BNP) level: Code(s): R79.89 - Other specified abnormal findings of blood chemistry Status: Acute Assessment and Plan: * BNP 3044 * Chest x-ray did not indicate pulmonary edema * Echo indicates grade 1 diastolic dysfunction no intervention needed patient is not experiencing any shortness of
--- NOTE | 2021-12-05 09:43 | PM.DS ---
DS: Admitting Diagnosis Discharge Date 12/05/2021 Admitting Diagnosis Generalized weakness, atypical chest pain DS: Discharge Diagnosis Discharge Diagnosis (1) Atypical chest pain: Code(s): R07.89 - Other chest pain Status: Acute Assessment and Plan: Not believed to be cardiac related Possible musculoskeletal related due to patient's multiple falls Chest x-ray does not indicate fracture or dislocation EKG sinus with a heart rate of 61 Troponin 48.9>47.1>54.6 (2) Muscle weakness (generalized): Code(s): M62.81 - Muscle weakness (generalized) Status: Acute Assessment and Plan: Etiology unknown Will rule out CVA versus Parkinson's. MRI and CT does not indicate any new infarcts Patient will discharge with outpatient PT Speech therapy eval no further intervention needed Patient will need referral to a neurologist (3) Elevated serum creatinine: Code(s): R79.89 - Other specified abnormal findings of blood chemistry Status: Acute Assessment and Plan: Improved BUN/Cr 19/2.08, 191.91/ , 18/2.00, 14/1.89 baseline cr 1.30-1.61 Repeat BMP in 3 days with results going to primary care physician CK within normal limits (4) Hypertension: Code(s): I10 - Essential (primary) hypertension Status: Acute Assessment and Plan: Blood pressure 164/72 blood pressure improved but remain elevated Continue lisinopril 5 mg daily added hydralazine 10 mg 3 times daily Patient instructed to take his blood pressure readings daily record results and follow-up with his primary care physician for possible medication adjustments (5) Obesity (BMI 30-39.9): Code(s): E66.9 - Obesity, unspecified Status: Acute Assessment and Plan: Educated on healthy lifestyle (6) Polycythemia: Code(s): D75.1 - Secondary polycythemia Status: Acute Assessment and Plan: Chronic RBCs 5.16>7.0 Follow-up with primary care physician (7) Type 2 diabetes mellitus: Code(s): E11.9 - Type 2 diabetes mellitus without complications Status: Acute Assessment and Plan: Patient with hypoglycemic episodes Discontinue glipizide Patient instructed to take blood sugar readings 2 times a day record results and give findings to primary care physician for medication adjustment A1c 6.7 (8) Multiple falls: Code(s): R29.6 - Repeated falls Status: Acute Assessment and Plan: Rule out CVA versus Parkinson's Patient was discharged with PT MRI and CT does not indicate CVA Patient will need a neurology consult (9) Tremor: Code(s): R25.1 - Tremor, unspecified Status: Acute Assessment and Plan: Rule out CVA versus Parkinson's CT no new findings, MRI unremarkable, echo grade 1 diastolic congestive heart failure Left message with patient's PCP for possible neuro consult (10) Elevated d-dimer: Code(s): R79.89 - Other specified abnormal findings of blood chemistry Status: Acute Assessment and Plan: Elevated D-dimer CTA negative for PE, possibly secondary to injury due to falls (11) Elevated brain natriuretic peptide (BNP) level: Code(s): R79.89 - Other specified abnormal findings of blood chemistry Status: Acute Assessment and Plan: BNP 3044 Chest x-ray did not indicate pulmonary edema Echo indicates grade 1 diastolic dysfunction no intervention needed patient is not experiencing any shortness of breath or edema. Will need to follow-up with primary care physician DS: Summary Hospital Course Hospital Course: this is a 71-year-old male who presented to ED with complaints of left-sided chest pain and generalized weakness. Patient has a past medical history of nicotine dependence, osteoporosis, polycythemia, type 2 diabetes, hypertension, CKD and nerve palsy of the left eye. According to patient he had several unexplained falls. He did note head trauma during
[2021-12-05] MEDS: cloNIDine HCL 0.1 MG TABLET PO (09:58)
--- NOTE | 2021-12-07 11:30 | PC.NURSE ---
Discharge call back complete, nursing went over instructions, no questions regarding instructions, care was excellent, no concerns regarding care
[2021-12-07 15:02] LABS: RPR Screen Non-Reactive (Non-Reactive)
== END 2021-12-05 11:10 | disposition home or self-care (01) | DRG 313 ==
LOC: CHSED 10:10 → CHS2ND 10:16
PROVIDERS: Emergency Medicine; Nurse Practitioner; Admitting Provider Internal Medicine; Emergency Provider Internal Medicine Critical Care Medicine; PCP Nurse Practitioner Family; Visit Provider Internal Medicine
DX: R07.89 Other chest pain (principal); I12.9 Hypertensive chronic kidney disease with stage 1 through stage 4 chronic kidney disease, or unspecified chronic kidney disease; E11.22 Type 2 diabetes mellitus with diabetic chronic kidney disease; N18.9 Chronic kidney disease, unspecified; D75.1 Secondary polycythemia; M62.81 Muscle weakness (generalized); M81.0 Age-related osteoporosis without current pathological fracture; M85.80 Other specified disorders of bone density and structure, unspecified site; E66.9 Obesity, unspecified; R29.6 Repeated falls; R79.89 Other specified abnormal findings of blood chemistry; R25.1 Tremor, unspecified; R79.1 Abnormal coagulation profile; F17.210 Nicotine dependence, cigarettes, uncomplicated; H49.22 Sixth [abducent] nerve palsy, left eye
CPT/HCPCS: 36415; 36600; 70450; 70551; 71045; 71275; 80048; 80053; 81001; 82550; 82607; 82746; 82805; 82948; 83036; 83690; 83735; 83880; 84443; 84484; 85025; 85027; 85380; 85610; 85730; 86592; 87040; 92610; 93005; 93306; 96361; 96365; 96366; 96372; 96375; 97110; 97161; 97165; 97530; 99285; A9270; C9803; G0378; J0360; J1644; J1650; J2405; J7120; Q9967; U0003; U0005

== ENCOUNTER 2021-12-09 09:47 | Outpatient (RCR) | payer MEDICARE, SELFPAY ==
--- NOTE | 2021-12-09 11:01 | PTOPEVAL ---
Thank you for referring Josh Robert to [facility].? The patient is scheduled to be seen for therapy? __3__x/week for 12 visits. Please review, sign, date and return this plan of care ELIA. I agree with and certify that the following plan of care is medically necessary. Referring Physician Date Admitting Provider: Attending Provider: Javier Hampton DO Referring Provider: *PT Outpatient Evaluation Start: 12/09/21 10:07 Freq: Status: Active Protocol: Document 12/09/21 10:07 NICHOLAS (Rec: 12/09/21 11:00 NICHOLAS [email or web address]) Therapy Assessment Status Assessment Status Assessment Status Evaluation Evaluation Information Problem Diagnosis frequent falls, weakness Onset 11/11/21 Subjective Information Pt. reports that he has Query Text:As Reported By Patient/ noticed difficulty in regards Family to his walking and balance over the past month. Pt. reports that he has had 3 falls in the past 2 months. He reports that he has just started using a walker and was not using a walker prior to the past several days. He states that he has not driven in the past month due to his imparied balance. He reports that his has been assisting with his l.e. dressing. He states that his biggest concern is the frequent falls and balance issues. Prior Level of Function Activity Level (Last 3 Months) Occupation retired Hand Dominance Right Activity of Daily Living Ability Independent Indoor/Home Mobility Independent Community Mobility Independent Stairs Ability Independent Functional Cognition (Planning, Shopping Independent , Taking Medications) Cooking Yes Cleaning Yes Laundry Yes Shopping Yes Driving Yes Pain Assessment Self Report Self Report Pain Level 0 Pain Score Pain Score 0: Self Report Lower Extremity Muscle Strength Testing General Lower Extremity Strength Gross Lower Extremity Strength -bilateral hip flexion 4/5 -bilateral knee flexion 4/5 -bilateral knee extension 4/5 -bilateral ankle dorsiflexio
--- NOTE | 2022-01-08 16:37 | PTOPEVAL ---
Thank you for referring Josh Robert to [facility].? The patient is scheduled to be seen for therapy? __2__x/week for 6 visits. Please review, sign, date and return this plan of care ELIA. I agree with and certify that the following plan of care is medically necessary. Referring Physician Date Admitting Provider: Attending Provider: Javier Hampton DO Referring Provider: *PT Outpatient Evaluation Start: 12/09/21 10:07 Freq: Status: Active Protocol: Document 01/08/22 15:18 NICHOLAS (Rec: 01/08/22 16:37 NICHOLAS [email or web address]) Therapy Assessment Status Assessment Status Assessment Status Progress Evaluation Information Problem Subjective Information Pt. has noticed Query Text:As Reported By Patient/ improvement in the patients Family condition. She states that he is going without his walker in the home. Pt. reports that he still requires the walker in the community. He would like to be able to completely go without his walker and be able to walk in the yard and request to continue PT. Pain Assessment Self Report Self Report Pain Level 0 Pain Score Pain Score 0: Self Report Lower Extremity Muscle Strength Testing General Lower Extremity Strength Gross Lower Extremity Strength -bilateral hip flexion 4+/5 -bilateral knee flexion 4+/5 -bilateral knee extension 4+/5 -bilateral ankle dorsiflexion 4+/5 Balance Assessment Tinetti Balance Assessment Sitting Balance Steady, safe Ability to Arise Able, w/o using arms Attempts to Arise Arises on 1st attempt Immediate Standing Balance Steady w/o support Standing Balance Steady, wide stance Nudged Response Steady Standing with Eyes Closed Unsteady Step Pattern Turning 360 Degrees Discontinuous steps Stability Turning 360 Degrees Steady Sitting Down Safe, steady Initiation of Gait No hesitancy Right Foot Step Length Does pass stance foot Right Foot Step Height Completely clears floor Left Foot Step Length Does pass stance foot Left Foot Step Height Completely clears floor Step Symmetry Step length appears equal Step Continuity Stopping or discontinuity Path Description Mild/moderate deviation Trunk Description Marked sway or uses aide Walking Stance Heels apart Assistive Devices Used Ye
== END 2022-01-28 15:36 | disposition home or self-care (01) ==
LOC: CHSPT 09:47
PROVIDERS: PCP Family Medicine; Visit Provider Family Medicine
DX: R29.6 Repeated falls (principal); M62.81 Muscle weakness (generalized); G25.9 Extrapyramidal and movement disorder, unspecified
CPT/HCPCS: 97110; 97112; 97161; 97530

== ENCOUNTER 2021-12-10 08:29 | Outpatient (CLI) | payer MEDICARE, SELFPAY ==
[2021-12-10 09:15] LABS: Basophils Absolute Auto 0.04 K/mm3 (0.00-0.10); Basophils Percent Auto 0.5 % (0.0-1.0); Eosinophils Absolute Auto 0.23 K/mm3 (0.02-0.50); Eosinophils Percent Auto 3.1 % (1.0-6.0); Hematocrit 54.6 % (37.0-46.0); Hemoglobin 18.3 g/dL (12.4-15.3); Immature Granulocyte Absolute 0.03 K/mm3 (0.00-0.00); Immature Granulocyte Percent A 0.4 % (0.0-0.0); Lymphocytes Absolute Auto 1.18 K/mm3 (1.10-4.50); Lymphocytes Percent Auto 16.1 % (18.0-42.0); Mean Corpuscular HGB Conc 33.5 g/dL (32.0-36.0); Mean Corpuscular Hemoglobin 31.2 pg (27.0-31.0); Mean Platelet Volume 9.4 fl (8.7-11.0); Monocytes Absolute Auto 0.68 K/mm3 (0.10-0.90); Monocytes Percent Auto 9.3 % (2.0-11.0); Neutrophils Absolute Auto 5.2 K/mm3 (1.7-7.2); Neutrophils Percent Auto 70.6 % (50.0-70.0); Platelet Count Result 368 K/mm3 (150-420); Red Blood Count 5.87 M/mm3 (4.70-6.10); Red Cell Distribution Width 13.5 % (11.6-14.4); White Blood Count 7.3 K/mm3 (4.8-10.8)
[2021-12-10 11:30] LABS: Alanine Aminotransferase 71 U/L (16-63); Albumin Level 3.7 g/dL (3.4-5.0); Alkaline Phosphatase 100 U/L (46-116); Anion Gap 11 mmol/L (8-16); Aspartate Amino Transferase 29 U/L (15-37); Bilirubin,Total 0.6 mg/dL (0.00-1.00); Blood Urea Nitrogen 24 mg/dL (7-18); Calcium 10.3 mg/dL (8.5-10.1); Carbon Dioxide 27 mmol/L (21-32); Chloride 98 mmol/L (98-108); Estimated Glomerular Filt Rate 28; Glucose 178 mg/dL (70-99); Osmolality Calculated 290 mOsm/kg (285-295); Potassium 4.2 mmol/L (3.5-5.1); Sodium 136 mmol/L (136-145); Total Protein 8.6 g/dL (6.4-8.2)
== END 2021-12-10 08:30 | disposition home or self-care (01) ==
LOC: CHSLAB 08:31
PROVIDERS: PCP Nurse Practitioner Family; Visit Provider Nurse Practitioner
DX: M62.81 Muscle weakness (generalized) (principal); R29.6 Repeated falls; N19 Unspecified kidney failure; D75.1 Secondary polycythemia
CPT/HCPCS: 36415; 80053; 85025

== ENCOUNTER 2021-12-14 07:42 | Outpatient (CLI) | payer MEDICARE, SELFPAY ==
--- NOTE | 2021-12-14 08:35 | EST_ITS ---
Patient Info Name: Josh Robert Age: 71 years : 1950 Gender: Male Ht: 70 in Wt: 203 lbs BSA: 2.15 m2 HR: 91 bpm BP: 140 / 81 mmHg Heart Rhythm: Sinus Rhythm Exam Date: 12/14/2021 8:43 AM Exam Location: [facility] Patient Status: Outpatient Admit Date: 12/14/2021 Staff Ordering Physician: Javier Hampton DO Attending Provider: Javier Hampton DO Exercise Technologist: Jemima Orr CRT Exercise Physician: Callie Mondragon CEP Exam Type: CA stress hazel w NM Study Info A nuclear stress test was performed. History/Risk Factors Hypertension: Yes History/Risk Factors HTN. Summary 1. 1. Negative lexiscan stress test for ischemic ST changes by ECG criteria. 2. 2. Stable hemodynamics throughout the test. 3. 3. Nuclear scan to follow and will be reported separately. Please correlate with it. Protocol: LEXISCAN Stress ECG Details Stage: REST Duration (min): 1 min : 43 sec HR (bpm): 92 SBP (mmHg): 140 DBP (mmHg): 86 Stage: REST Duration (min): 5 min : 2 sec HR (bpm): 90 SBP (mmHg): 140 DBP (mmHg): 86 Stage: STAGE 1 Duration (min): 0 min : 7 sec HR (bpm): 89 SBP (mmHg): 140 DBP (mmHg): 86 Stage: RECOVERY Duration (min): 0 min : 52 sec HR (bpm): 104 SBP (mmHg): 140 DBP (mmHg): 86 Stage: RECOVERY Duration (min): 1 min : 53 sec HR (bpm): 101 SBP (mmHg): 116 DBP (mmHg): 68 Stage: RECOVERY Duration (min): 2 min : 52 sec HR (bpm): 95 SBP (mmHg): 103 DBP (mmHg): 68 Stage: RECOVERY Duration (min): 3 min : 53 sec HR (bpm): 96 SBP (mmHg): 124 DBP (mmHg): 77 Stage: RECOVERY Duration (min): 4 min : 53 sec HR (bpm): 99 SBP (mmHg): 115 DBP (mmHg): 79 Stage: RECOVERY Duration (min): 5 min : 52 sec HR (bpm): 97 SBP (mmHg): 115 DBP (mmHg): 79 Stage: RECOVERY Duration (min): 6 min : 11 sec HR (bpm): 100 SBP (mmHg): 115 DBP (mmHg): 79 Rest HR: 90 bpm Peak HR: 105 bpm Rest Sys BP: 140 mmHg Peak Sys BP: 124 mmHg Max Pred HR: 151 bpm % Max Pred HR: 70 % Target HR: 128 bpm Max RPP: 13,020 bpm*mmHg Termination Reason: Completed Protocol Cardiac Symptoms: Dyspnea Total Time: 0 min : 7 sec Rest Alfaro BP: 86 mmHg Peak Alfaro BP: 77 mmHg Total Dose: 0.4 mg Resting ECG Normal sinus rhythm, inferior infarct, age indeterminate. Stress ECG No ST changes. Arrhythmias Isolated multifocal PVC's. Report Signatures
--- NOTE | 2021-12-14 17:47 | WPDCARIOSTRE ---
Nuclear Stress Test INDICATIONS Indications: Chest pain PROCEDURE Procedure Performed: Myocardial Perf Spect-Multi Procedure: Patient underwent a lexiscan stress test and immediately was injected with 34.4 mCi of cardiolyte. Multiple tomographic images were obtained. These are of good quality. There is a large size, severe intensity inferior perfusion defect during stress imaging. A separate resting images were obtained after patient was injected with 10.4 mCi of cardiolyte. Multiple tomographic images were obtained. These are of good quality. There is a large size, severe intensity inferior perfusion defect during rest imaging. CONCLUSION Conclusion: 1. Myocardial perfusion imaging demonstrating fixed large size inferior perfusion defect suggestive of diaphragmatic attenuation artifact or prior myocardial infarct/scar. 2. No evidence of reversible ischemia. 3. Left ventriculogram demonstrates abnormal measured ejection fraction of 37% with global hypokinesis of left ventricle. 4. TID score is not elevated at 1.2.
== END 2021-12-14 07:43 | disposition home or self-care (01) ==
LOC: CHSCARD 07:43
PROVIDERS: PCP Family Medicine; Visit Provider Family Medicine
DX: R07.89 Other chest pain (principal)
CPT/HCPCS: 78452; 93017; A9502; J2785

== ENCOUNTER 2021-12-31 10:02 | Outpatient (CLI) | payer MEDICARE, SELFPAY ==
[2021-12-31 10:21] LABS: Basophils Absolute Auto 0.03 K/mm3 (0.00-0.10); Basophils Percent Auto 0.4 % (0.0-1.0); Eosinophils Absolute Auto 0.23 K/mm3 (0.02-0.50); Eosinophils Percent Auto 2.7 % (1.0-6.0); Hematocrit 49.1 % (37.0-46.0); Hemoglobin 16.3 g/dL (12.4-15.3); Immature Granulocyte Absolute 0.03 K/mm3 (0.00-0.00); Immature Granulocyte Percent A 0.4 % (0.0-0.0); Lymphocytes Absolute Auto 1.45 K/mm3 (1.10-4.50); Lymphocytes Percent Auto 17.3 % (18.0-42.0); Mean Corpuscular HGB Conc 33.2 g/dL (32.0-36.0); Mean Corpuscular Hemoglobin 31.2 pg (27.0-31.0); Mean Corpuscular Volume 93.9 fL (78.0-102.0); Mean Platelet Volume 9.5 fl (8.7-11.0); Monocytes Absolute Auto 0.86 K/mm3 (0.10-0.90); Monocytes Percent Auto 10.3 % (2.0-11.0); Neutrophils Absolute Auto 5.8 K/mm3 (1.7-7.2); Neutrophils Percent Auto 68.9 % (50.0-70.0); Platelet Count Result 287 K/mm3 (150-420); Red Blood Count 5.23 M/mm3 (4.70-6.10); Red Cell Distribution Width 13.1 % (11.6-14.4); White Blood Count 8.4 K/mm3 (4.8-10.8)
== END 2021-12-31 10:03 | disposition home or self-care (01) ==
LOC: CHSLAB 10:04
PROVIDERS: PCP Family Medicine; Visit Provider Nurse Practitioner
DX: D75.1 Secondary polycythemia (principal)
CPT/HCPCS: 36415; 85025

== ENCOUNTER 2022-02-04 09:08 | Outpatient (CLI) | payer MEDICARE, SELFPAY ==
[2022-02-04 09:30] LABS: Hemoglobin A1C 6.9 % (<5.7)
[2022-02-04 09:46] LABS: Alanine Aminotransferase 12 U/L (16-63); Albumin Level 3.5 g/dL (3.4-5.0); Alkaline Phosphatase 75 U/L (46-116); Anion Gap 9 mmol/L (8-16); Aspartate Amino Transferase 20 U/L (15-37); Bilirubin,Total 0.5 mg/dL (0.00-1.00); Blood Urea Nitrogen 27 mg/dL (7-18); Calcium 9.3 mg/dL (8.5-10.1); Carbon Dioxide 26 mmol/L (21-32); Chloride 100 mmol/L (98-108); Cholesterol 116 mg/dL (0-200); Estimated Glomerular Filt Rate 39; Glucose 204 mg/dL (70-99); HDL Direct 40 mg/dL (40-60); LDL Cholesterol Calculated 61 mg/dL (<130); Osmolality Calculated 291 mOsm/kg (285-295); Potassium 4.2 mmol/L (3.5-5.1); Sodium 135 mmol/L (136-145); Total Protein 7.9 g/dL (6.4-8.2); Triglycerides 76 mg/dL (0-150)
== END 2022-02-04 09:09 | disposition home or self-care (01) ==
LOC: CHSLAB 09:11
PROVIDERS: PCP Family Medicine; Visit Provider Nurse Practitioner Family
DX: I25.10 Atherosclerotic heart disease of native coronary artery without angina pectoris (principal); I25.84 Coronary atherosclerosis due to calcified coronary lesion; I42.0 Dilated cardiomyopathy; E11.69 Type 2 diabetes mellitus with other specified complication; E78.5 Hyperlipidemia, unspecified
CPT/HCPCS: 36415; 80053; 80061; 83036

== ENCOUNTER 2022-05-06 10:32 | Outpatient (CLI) | payer MEDICARE, SELFPAY ==
[2022-05-06 10:46] LABS: Basophils Absolute Auto 0.03 K/mm3 (0.00-0.10); Basophils Percent Auto 0.4 % (0.0-1.0); Eosinophils Absolute Auto 0.21 K/mm3 (0.02-0.50); Eosinophils Percent Auto 2.8 % (1.0-6.0); Hematocrit 50.7 % (37.0-46.0); Hemoglobin 17.1 g/dL (12.4-15.3); Immature Granulocyte Absolute 0.02 K/mm3 (0.00-0.00); Immature Granulocyte Percent A 0.3 % (0.0-0.0); Lymphocytes Absolute Auto 1.58 K/mm3 (1.10-4.50); Lymphocytes Percent Auto 21.2 % (18.0-42.0); Mean Corpuscular HGB Conc 33.7 g/dL (32.0-36.0); Mean Corpuscular Hemoglobin 32.1 pg (27.0-31.0); Mean Corpuscular Volume 95.1 fL (78.0-102.0); Mean Platelet Volume 9.2 fl (8.7-11.0); Monocytes Absolute Auto 0.88 K/mm3 (0.10-0.90); Monocytes Percent Auto 11.8 % (2.0-11.0); Neutrophils Absolute Auto 4.8 K/mm3 (1.7-7.2); Neutrophils Percent Auto 63.5 % (50.0-70.0); Platelet Count Result 275 K/mm3 (150-420); Red Blood Count 5.33 M/mm3 (4.70-6.10); Red Cell Distribution Width 12.9 % (11.6-14.4); White Blood Count 7.5 K/mm3 (4.8-10.8)
== END 2022-05-06 10:33 | disposition home or self-care (01) ==
LOC: CHSLAB 10:34
PROVIDERS: PCP Family Medicine; Visit Provider Nurse Practitioner
DX: D75.1 Secondary polycythemia (principal)
CPT/HCPCS: 36415; 85025

== ENCOUNTER 2022-11-15 07:22 | Outpatient (CLI) | payer MEDICARE, SELFPAY ==
[2022-11-15 08:13] LABS: Basophils Absolute Auto 0.03 K/mm3 (0.00-0.10); Basophils Percent Auto 0.5 % (0.0-1.0); Eosinophils Absolute Auto 0.28 K/mm3 (0.02-0.50); Eosinophils Percent Auto 4.5 % (1.0-6.0); Hematocrit 55.5 % (37.0-46.0); Hemoglobin 17.8 g/dL (12.4-15.3); Immature Granulocyte Absolute 0.01 K/mm3 (0.00-0.00); Immature Granulocyte Percent A 0.2 % (0.0-0.0); Lymphocytes Absolute Auto 1.57 K/mm3 (1.10-4.50); Mean Corpuscular HGB Conc 32.1 g/dL (32.0-36.0); Mean Corpuscular Hemoglobin 31.3 pg (27.0-31.0); Mean Corpuscular Volume 97.5 fL (78.0-102.0); Mean Platelet Volume 9.6 fl (8.7-11.0); Monocytes Absolute Auto 0.76 K/mm3 (0.10-0.90); Monocytes Percent Auto 12.1 % (2.0-11.0); Neutrophils Absolute Auto 3.6 K/mm3 (1.7-7.2); Neutrophils Percent Auto 57.7 % (50.0-70.0); Platelet Count Result 265 K/mm3 (150-420); Red Blood Count 5.69 M/mm3 (4.70-6.10); Red Cell Distribution Width 12.9 % (11.6-14.4); White Blood Count 6.3 K/mm3 (4.8-10.8)
== END 2022-11-15 07:23 | disposition home or self-care (01) ==
LOC: CHSLAB 07:25
PROVIDERS: PCP Family Medicine; Visit Provider Internal Medicine
DX: D75.1 Secondary polycythemia (principal)
CPT/HCPCS: 36415; 85025

== ENCOUNTER 2022-11-26 07:29 | Outpatient (CLI) | payer MEDICARE, SELFPAY ==
[2022-11-26 07:46] LABS: Basophils Absolute Auto 0.03 K/mm3 (0.00-0.10); Basophils Percent Auto 0.4 % (0.0-1.0); Eosinophils Absolute Auto 0.25 K/mm3 (0.02-0.50); Eosinophils Percent Auto 3.1 % (1.0-6.0); Hematocrit 52.9 % (37.0-46.0); Hemoglobin 17.8 g/dL (12.4-15.3); Immature Granulocyte Absolute 0.05 K/mm3 (0.00-0.00); Immature Granulocyte Percent A 0.6 % (0.0-0.0); Lymphocytes Absolute Auto 1.55 K/mm3 (1.10-4.50); Mean Corpuscular HGB Conc 33.6 g/dL (32.0-36.0); Mean Corpuscular Hemoglobin 32.7 pg (27.0-31.0); Mean Corpuscular Volume 97.1 fL (78.0-102.0); Mean Platelet Volume 9.4 fl (8.7-11.0); Monocytes Absolute Auto 0.94 K/mm3 (0.10-0.90); Monocytes Percent Auto 11.5 % (2.0-11.0); Neutrophils Absolute Auto 5.4 K/mm3 (1.7-7.2); Neutrophils Percent Auto 65.4 % (50.0-70.0); Platelet Count Result 259 K/mm3 (150-420); Red Blood Count 5.45 M/mm3 (4.70-6.10); Red Cell Distribution Width 13.1 % (11.6-14.4); White Blood Count 8.2 K/mm3 (4.8-10.8)
[2022-11-26 09:05] LABS: Ferritin 157 ng/mL (26-388); Iron 60 ug/dL (65-175); Percent Iron Saturation 23 % (12-57); Vitamin B12 603 pg/mL (193-986)
== END 2022-11-26 07:30 | disposition home or self-care (01) ==
LOC: CHSLAB 07:32
PROVIDERS: PCP Family Medicine; Visit Provider Physician Assistant Medical
DX: D75.1 Secondary polycythemia (principal); N18.9 Chronic kidney disease, unspecified
CPT/HCPCS: 36415; 82607; 82728; 83540; 83550; 85025

== ENCOUNTER 2022-12-13 14:35 | Outpatient (CLI) | payer MEDICARE, SELFPAY ==
[2022-12-13 14:56] LABS: Basophils Absolute Auto 0.03 K/mm3 (0.00-0.10); Basophils Percent Auto 0.4 % (0.0-1.0); Eosinophils Absolute Auto 0.14 K/mm3 (0.02-0.50); Eosinophils Percent Auto 1.9 % (1.0-6.0); Hematocrit 52.9 % (37.0-46.0); Hemoglobin 17.6 g/dL (12.4-15.3); Immature Granulocyte Absolute 0.02 K/mm3 (0.00-0.00); Immature Granulocyte Percent A 0.3 % (0.0-0.0); Lymphocytes Absolute Auto 1.53 K/mm3 (1.10-4.50); Lymphocytes Percent Auto 21.3 % (18.0-42.0); Mean Corpuscular HGB Conc 33.3 g/dL (32.0-36.0); Mean Corpuscular Hemoglobin 32.2 pg (27.0-31.0); Mean Corpuscular Volume 96.7 fL (78.0-102.0); Mean Platelet Volume 9.2 fl (8.7-11.0); Monocytes Absolute Auto 0.84 K/mm3 (0.10-0.90); Monocytes Percent Auto 11.7 % (2.0-11.0); Neutrophils Absolute Auto 4.6 K/mm3 (1.7-7.2); Neutrophils Percent Auto 64.4 % (50.0-70.0); Platelet Count Result 280 K/mm3 (150-420); Red Blood Count 5.47 M/mm3 (4.70-6.10); Red Cell Distribution Width 13.2 % (11.6-14.4); White Blood Count 7.2 K/mm3 (4.8-10.8)
[2022-12-13 15:47] LABS: Ferritin 130 ng/mL (26-388); Iron 115 ug/dL (65-175); Percent Iron Saturation 47 % (12-57); Vitamin B12 575 pg/mL (193-986)
== END 2022-12-13 14:36 | disposition home or self-care (01) ==
LOC: CHSLAB 14:39
PROVIDERS: PCP Family Medicine; Visit Provider Physician Assistant Medical
DX: D75.1 Secondary polycythemia (principal); N18.9 Chronic kidney disease, unspecified
CPT/HCPCS: 36415; 82607; 82728; 83540; 83550; 85025

== ENCOUNTER 2023-01-24 08:10 | Outpatient (CLI) | payer MEDICARE, SELFPAY ==
[2023-01-24 08:23] LABS: Basophils Absolute Auto 0.03 K/mm3 (0.00-0.10); Basophils Percent Auto 0.5 % (0.0-1.0); Eosinophils Absolute Auto 0.24 K/mm3 (0.02-0.50); Eosinophils Percent Auto 3.6 % (1.0-6.0); Hematocrit 52.1 % (37.0-46.0); Hemoglobin 17.4 g/dL (12.4-15.3); Immature Granulocyte Absolute 0.02 K/mm3 (0.00-0.00); Immature Granulocyte Percent A 0.3 % (0.0-0.0); Lymphocytes Absolute Auto 1.23 K/mm3 (1.10-4.50); Lymphocytes Percent Auto 18.6 % (18.0-42.0); Mean Corpuscular HGB Conc 33.4 g/dL (32.0-36.0); Mean Corpuscular Hemoglobin 32.8 pg (27.0-31.0); Mean Corpuscular Volume 98.1 fL (78.0-102.0); Mean Platelet Volume 9.3 fl (8.7-11.0); Monocytes Absolute Auto 0.79 K/mm3 (0.10-0.90); Monocytes Percent Auto 11.9 % (2.0-11.0); Neutrophils Absolute Auto 4.3 K/mm3 (1.7-7.2); Neutrophils Percent Auto 65.1 % (50.0-70.0); Platelet Count Result 277 K/mm3 (150-420); Red Blood Count 5.31 M/mm3 (4.70-6.10); Red Cell Distribution Width 13.2 % (11.6-14.4); White Blood Count 6.6 K/mm3 (4.8-10.8)
[2023-01-24 09:38] LABS: Ferritin 103 ng/mL (26-388); Iron 66 ug/dL (65-175); Percent Iron Saturation 22 % (12-57); Vitamin B12 632 pg/mL (193-986)
== END 2023-01-24 08:11 | disposition home or self-care (01) ==
LOC: CHSLAB 08:11
PROVIDERS: PCP Family Medicine; Visit Provider Physician Assistant Medical
DX: D75.1 Secondary polycythemia (principal); N18.9 Chronic kidney disease, unspecified
CPT/HCPCS: 36415; 82607; 82728; 83540; 83550; 85025

== ENCOUNTER 2023-02-07 08:12 | Outpatient (CLI) | payer MEDICARE, SELFPAY ==
[2023-02-07 08:29] LABS: Basophils Absolute Auto 0.03 K/mm3 (0.00-0.10); Basophils Percent Auto 0.4 % (0.0-1.0); Eosinophils Absolute Auto 0.23 K/mm3 (0.02-0.50); Hematocrit 52.6 % (37.0-46.0); Hemoglobin 17.4 g/dL (12.4-15.3); Immature Granulocyte Absolute 0.03 K/mm3 (0.00-0.00); Immature Granulocyte Percent A 0.4 % (0.0-0.0); Lymphocytes Absolute Auto 1.46 K/mm3 (1.10-4.50); Lymphocytes Percent Auto 19.2 % (18.0-42.0); Mean Corpuscular HGB Conc 33.1 g/dL (32.0-36.0); Mean Corpuscular Hemoglobin 32.5 pg (27.0-31.0); Mean Corpuscular Volume 98.3 fL (78.0-102.0); Mean Platelet Volume 9.2 fl (8.7-11.0); Monocytes Absolute Auto 0.87 K/mm3 (0.10-0.90); Monocytes Percent Auto 11.4 % (2.0-11.0); Neutrophils Percent Auto 65.6 % (50.0-70.0); Platelet Count Result 257 K/mm3 (150-420); Red Blood Count 5.35 M/mm3 (4.70-6.10); Red Cell Distribution Width 13.1 % (11.6-14.4); White Blood Count 7.6 K/mm3 (4.8-10.8)
== END 2023-02-07 08:13 | disposition home or self-care (01) ==
PROVIDERS: PCP Family Medicine; Visit Provider Internal Medicine
DX: D75.1 Secondary polycythemia (principal)
CPT/HCPCS: 36415; 85025

== ENCOUNTER 2024-06-27 11:54 | Outpatient (CLI) | payer MEDICARE, SELFPAY ==
[2024-06-27 12:09] LABS: Basophils Absolute Auto 0.03 K/mm3 (0.00-0.10); Basophils Percent Auto 0.5 % (0.0-1.0); Eosinophils Absolute Auto 0.19 K/mm3 (0.02-0.50); Eosinophils Percent Auto 2.9 % (1.0-6.0); Hematocrit 54.3 % (37.0-46.0); Hemoglobin 18.1 g/dL (12.4-15.3); Immature Granulocyte Absolute 0.02 K/mm3 (0.00-0.00); Immature Granulocyte Percent A 0.3 % (0.0-0.0); Lymphocytes Absolute Auto 1.22 K/mm3 (1.10-4.50); Lymphocytes Percent Auto 18.6 % (18.0-42.0); Mean Corpuscular HGB Conc 33.3 g/dL (32-36); Mean Corpuscular Hemoglobin 31.6 pg (27.0-31.0); Mean Corpuscular Volume 94.9 fL (78.0-102.0); Mean Platelet Volume 9.5 fl (8.7-11.0); Monocytes Absolute Auto 0.74 K/mm3 (0.10-0.90); Monocytes Percent Auto 11.3 % (2.0-11.0); Neutrophils Absolute Auto 4.36 K/mm3 (1.70-7.20); Neutrophils Percent Auto 66.4 % (50.0-70.0); Platelet Count Result 244 K/mm3 (150-420); Red Blood Count 5.72 M/mm3 (4.70-6.10); Red Cell Distribution Width 13.9 % (11.6-14.4); White Blood Count 6.6 K/mm3 (4.8-10.8)
[2024-06-27 12:17] LABS: Creatinine Urine 61.11 mg/dL (40-278); MALB Creatinine Ratio 75.7 mg/g (0-30); Microalbumin Urine Random 46.3 mg/L
[2024-06-27 12:19] LABS: Hemoglobin A1C 9.5 % (<5.7)
[2024-06-27 12:43] LABS: Alanine Aminotransferase 16 U/L (16-63); Albumin Level 3.6 g/dL (3.4-5.0); Alkaline Phosphatase 73 U/L (46-116); Anion Gap 5 mmol/L (4-12); Aspartate Amino Transferase 20 U/L (15-37); Bilirubin,Total 0.8 mg/dL (0.00-1.00); Blood Urea Nitrogen 22 mg/dL (7-18); Carbon Dioxide 31 mmol/L (21-32); Chloride 99 mmol/L (98-108); Cholesterol 130 mg/dL (0-200); Estimated Glomerular Filt Rate 45; Glucose 234 mg/dL (70-99); HDL Direct 48 mg/dL (40-60); LDL Cholesterol Calculated 66 mg/dL (<130); Osmolality Calculated 291 mOsm/kg (285-295); Sodium 135 mmol/L (136-145); Total Protein 7.7 g/dL (6.4-8.2); Triglycerides 79 mg/dL (0-150)
[2024-06-27 12:54] LABS: Thyroid Stimulating Hormone Reflex 1.25 u/IU/mL (0.36-3.74)
[2024-06-27 16:13] LABS: Ferritin 179 ng/mL (26-388); Vitamin B12 520 pg/mL (193-986)
[2024-06-28 21:38] LABS: Red Blood Cell Folate 393 ng/mL RBC (>280)
== END 2024-06-27 11:55 | disposition home or self-care (01) ==
LOC: CHSLAB 11:55
PROVIDERS: PCP Family Medicine; Visit Provider Nurse Practitioner Family
DX: E11.9 Type 2 diabetes mellitus without complications (principal); E66.9 Obesity, unspecified; F17.200 Nicotine dependence, unspecified, uncomplicated; I10 Essential (primary) hypertension; H60.90 Unspecified otitis externa, unspecified ear; D75.1 Secondary polycythemia
CPT/HCPCS: 36415; 80053; 80061; 82043; 82607; 82728; 82747; 83036; 84443; 85025; 87070; 87075; 87147; 87181; 87186; 87205

== ENCOUNTER 2024-08-09 07:49 | Outpatient (CLI) | payer MEDICARE, SELFPAY ==
--- NOTE | ~2024-08-09 | US_ITS ---
Renal-Bladder ultrasound Clinical History: Chronic kidney disease Technique: Real-time sonographic imaging of the kidneys and urinary bladder was performed. Findings: The right kidney measures 10.0 cm in length and the left kidney measures 11.9 cm. There is no hydronephrosis or renal calculus identified. Renal cortical echogenicity is within normal limits. No renal mass lesion is identified. The urinary bladder is moderately distended at the time of this exam. No intraluminal echoes are iden tified. No abnormal wall thickening is seen. Impression: Unremarkable ultrasound of the kidneys and urinary bladder. Reviewed, dictated and finalized at location M. Impression: Unremarkable ultrasound of the kidneys and urinary bladder.
== END 2024-08-09 07:50 | disposition home or self-care (01) ==
LOC: CHSIMG 07:50
PROVIDERS: PCP Family Medicine; Visit Provider Internal Medicine Nephrology
DX: R80.9 Proteinuria, unspecified (principal); E11.22 Type 2 diabetes mellitus with diabetic chronic kidney disease; N18.31 Chronic kidney disease, stage 3a
CPT/HCPCS: 76775

== ENCOUNTER 2024-09-19 13:47 | Outpatient (CLI) | payer MEDICARE, SELFPAY ==
--- NOTE | ~2024-09-19 | CT_ITS ---
EXAMINATION: CT IAC/mastoids BI wo con DATE: 09/19/2024 14:09 INDICATION: Left-sided otitis media. Chronic maxillary sinusitis. TECHNIQUE: Computed tomography (CT) of the temporal bones was performed without intravenous contrast. Automated exposure control and iterative reconstruction technique were employed. The dose-length pro duct was 233.88 mGy-cm. COMPARISON: head CT 12/03/21 FINDINGS: RIGHT TEMPORAL BONE: The internal auditory canal, cochlea, vestibule, semicircular canals, vestibular aqueduct, carotid ca nal, jugular bulb, facial nerve course, ossicles, scutum, Prussak space, tympanic membrane, mastoid a ir cells, and external auditory canal are normal. LEFT TEMPORAL BONE: The internal auditory canal, cochlea, vestibule, semicircular canals, vestibular aqueduct, carotid ca nal, and jugular bulb are normal. There is near complete opacification of the tympanic cavity and com plete opacification of the mastoid air cells with erosions of bone including erosions of the ossicles and scutum. IMPRESSION: 1. Left otomastoid opacification with erosions of bone, consistent with chronic otitis media versus c holesteatoma. Reviewed, dictated and finalized at location A. RITY RISK ANALYST IMPRESSION: 1. Left otomastoid opacification with erosions of bone, consistent with chronic otitis media versus cholesteatoma.
== END 2024-09-19 13:48 | disposition home or self-care (01) ==
LOC: ANHIMG 13:49
PROVIDERS: PCP Family Medicine; Visit Provider Otolaryngology
DX: J32.0 Chronic maxillary sinusitis (principal); H74.8X2 Other specified disorders of left middle ear and mastoid; H66.90 Otitis media, unspecified, unspecified ear; H72.90 Unspecified perforation of tympanic membrane, unspecified ear; H70.12 Chronic mastoiditis, left ear
CPT/HCPCS: 70480

== ENCOUNTER 2024-09-24 07:43 | Outpatient (CLI) | payer MEDICARE, SELFPAY ==
[2024-09-24 08:48] LABS: Creatinine Urine 123.43 mg/dL (40-278); Total Protein Urine Random 24.5 mg/dL (0.0-11.9)
[2024-09-24 08:53] LABS: Albumin Level 3.6 g/dL (3.4-5.0); Anion Gap 8 mmol/L (4-12); Blood Urea Nitrogen 33 mg/dL (7-18); Calcium 9.5 mg/dL (8.5-10.1); Carbon Dioxide 29 mmol/L (21-32); Chloride 102 mmol/L (98-108); Estimated Glomerular Filt Rate 48; Glucose 145 mg/dL (70-99); Osmolality Calculated 298 mOsm/kg (285-295); Phosphorus 3.5 mg/dL (2.6-4.7); Potassium 4.6 mmol/L (3.5-5.1); Sodium 139 mmol/L (136-145)
[2024-09-25 11:19] LABS: Creatinine, Random Urine 116 mg/dL (20-320); Total Prot/Creat ratio mg/mg 0.164 (0.025-0.148); Total Protein/Creatinine Ratio 164 mg/g creat (25-148)
[2024-09-26 04:14] LABS: Complement C3 111 mg/dL (82-185)
[2024-09-26 08:48] LABS: Protein, Total 7.1 g/dL (6.1-8.1)
[2024-09-26 20:44] LABS: Abnormal Protein Band 1 0.2 g/dL (NONE DETECTED); Albumin 3.8 g/dL (3.8-4.8); Alpha 1 Globulin 0.3 g/dL (0.2-0.3); Alpha 2 Globulin 0.8 g/dL (0.5-0.9); Beta 1 Globulin 0.4 g/dL (0.4-0.6); Gamma Globulin 1.3 g/dL (0.8-1.7)
[2024-09-27 17:18] LABS: Anti Glomerular Basement Memb <1.0 AI
[2024-09-28 04:48] LABS: ANCA Screen NEGATIVE (NEGATIVE)
--- OUTSIDE RECORDS SUMMARY | 2024-09-29 21:00 | XMS_ITS | Encounter Summary ---
Author Organization [facility] Address [address] [place] [address] Care Team Providers Care Interactive Media Marketing Strategist Name Role Phone Harjit Lan MD Primary Care Provider [phone] Encounter Details Date Type Department Care Team (Late st Contact Info) Description 02/07/2019 Orders Only [facility] [address] [place], [place] [id number] Jacobo Khalil MD [address] [place] [address] Localized osteoporosis with current pathological fracture with routine healing, subsequent encounter Social History Tobacco Use Types Packs/Day Years Used Date Smoking Tobacco: Every Day Cigars Smokeless Tobacco: Never Sex and Gender Information Value Date Recorded Sex Assigned at Not on file Gender Identity Not on file Sexual Orientation Not on file documented as of this encounter Plan of Treatment Not on file documented as of this encounter Visit Diagnoses Diagnosis Localized osteoporosis with current pathological fracture with routine healing, subsequent encounter documented in this encounter Care Teams Interactive Media Marketing Strategist Relationship Specialty Start Date End Date Harjit Lan MD [address] [place] [id number] PCP - General 07/21/18 documented as of this encounter
--- OUTSIDE RECORDS SUMMARY | 2024-09-29 21:00 | XMS_ITS | Clinical Summary ---
Author Organization [facility] [address] Address [address] [place] [address] Care Team Providers Care Jukebox Operator Name Role Phone Harjit Lan MD Primary Care Provider [phone] Source Comments [facility] [address],non-owned Affiliates and Associated Physician Practices is amultiple site organization consisting of ambulatory clinics and hospital sitesin [place], [place], [place] and [place]. This disclosure is being madepursuant to the Care Everywhere program and may not contain all information available regarding this patient. Last updated 18.[facility] [address] Allergies No known active allergies Medications * Be aware that medications may not be up to date on this document. Alwaysverify current medications with the patient. Medication Sig Dispensed Refills Start Date End Date Status amitriptyline (ELAVIL) 25 MG tablet Take 25 mg by mouth at bedtime Taking prn Active Calcium Carbonate-Vit D-Min (CALCIUM 1200 PO) Take 600 mg by mouth 2 times daily Active Cholecalciferol (VITAMIN D-3) 1000 UNITS Take 2,000 Units by mouth once daily Active Loratadine (CLARITIN PO) Take 1 tablet by mouth once daily Prn for seasonal allergies. Active Active Problems Problem Noted Date Diagnosed Date Age-related osteoporosis with current pathologic al fracture 07/21/2018 Osteoporosis Social History Tobacco Use Types Packs/Day Years Used Date Smoking Tobacco: Every Day Cigars Smokeless Tobacco: Never Sex and Gender Information Value Date Recorded Sex Assigned at Not on file Gender Identity Not on file Sexual Orientation Not on file Last Filed Vital Signs Vital Sign Reading Time Taken Comments Blood Pressure 130/80 12/08/2018 10:41 AM GINNING OPERATOR Pulse 76 12/08/2018 10:41 AM GINNING OPERATOR Temperature 36.3 ??C (97.4 ??F) 12/08/2018 10:[address] Respiratory Rate 16 12/08/2018 10:41 AM GINNING OPERATOR Oxygen Saturation 97% 12/08/2018 10:41 AM GINNING OPERATOR Inhaled Oxygen Concentration - - Weight 89.4 kg (197 lb 3.2 oz) 12/08/2018 10:41 AM GINNING OPERATOR Height 177.8 cm (5' 10 ) 07/21/2018 1:12 PM CDT Body Mass Index 28.3 07/21/2018 1:12 PM CDT Plan of Treatment Health Maintenance Due Date Last Done Comments BONE DENSITY TESTING 1950 COLOGUARD (AGES 45-75) - COL ON CA SCREENING 1950 COLON MONITORING 1950 COLONOSCOPY - COLON CA SCREENING 1950 CT COLONOGRAPHY - COLON CA SCREENING 1950 Colorectal Cancer Screening 1950 FIT - COLON CA SCREENING 1950 FLEX SIG - COLON CA SCREENING 1950 LIPID TESTING 1950 MEDICARE AWV ? 12 MONTHS 1950 PNEUMOCOCCAL VACCINE 65+ (1 of 2 - PCV) 1958 HEPATITIS C SCREENING 08/02/1970 DTAP/TDAP/TD VACCINES (1 - Tdap) 1971 ZOSTER VACCINE (1 of 2) 2002 AAA SCREENING 2017 SCREENING FOR DIABETES 07/21/2018 DEPRESSION SCREENING 10/10/2023 COVID-19 VACCINE (1 - 2023-2 5 season) 2024 INFLUENZA VACCINE (#1) 2024 Respiratory Syncytial Virus (RSV) Vaccine Pt: or over 60 yrs (1 - 1-dose 75+ series) 2027 HEPATITIS B VACCINE Aged Out No longe r eligible based on patient's age to complete this topic HIB VACCINE Aged Out No longer eligi ble based on patient's age to complete this topic HPV VACCINE Aged Out No longer eligi ble based on patient's age to complete this topic MENINGOCOCCAL VACCINE Aged Out No immanuel alon eligible based on patient's age to complete this topic Care Teams Jukebox Operator Relationship Specialty Start Date End Date Harjit Lan MD [address] [place] [id number] PCP - General 07/21/18
--- OUTSIDE RECORDS SUMMARY | 2024-09-29 21:00 | XMS_ITS | Patient Health Summary ---
Author Organization [facility] Address [address] [place] [address] Care Team Providers Care Product Assurance Engineer Name Role Phone Harjit Lan MD Primary Care Provider [phone] [facility],non-owned Affiliates and Associated Physician Practices is amultiple site organization consisting of ambulatory clinics and hospital sitesin [place], [place], [place] and [place]. This disclosure is being madepursuant to the Care Everywhere program and may not contain all information available regarding this patient. Last updated 18.[facility] Allergies No known active allergies Medications * Be aware that medications may not be up to date on this document. Alwaysverify current medications with the patient. * amitriptyline (ELAVIL) 25 MG tablet Take 25 mg by mouth at bedtime Taking prn * Calcium Carbonate-Vit D-Min (CALCIUM 1200 PO) Take 600 mg by mouth 2 times daily * Cholecalciferol (VITAMIN D-3) 1000 UNITS Take 2,000 Units by mouth once daily * Loratadine (CLARITIN PO) Take 1 tablet by mouth once daily Prn for seasonal allergies. Active Problems Problem Noted Date Diagnosed Date [...] Comments Blood Pressure 130/80 12/08/2018 10:41 AM CAMPUS DIRECTOR Pulse 76 12/08/2018 10:41 AM CAMPUS DIRECTOR Temperature 36.3 ??C (97.4 ??F) 12/08/2018 10:[address] Respiratory Rate 16 12/08/2018 10:41 AM CAMPUS DIRECTOR Oxygen Saturation 97% 12/08/2018 10:41 AM CAMPUS DIRECTOR Inhaled Oxygen Concentration - - Weight 89.4 kg (197 lb 3.2 oz) 12/08/2018 10:41 AM CAMPUS DIRECTOR Height 177.8 cm (5' 10 ) 07/21/2018 1:12 PM CDT Body Mass Index 28.3 07/21/2018 1:12 PM CDT Procedures * LAB RESULTS ORDER(Performed 09/25/2018) Results * LAB RESULTS ORDER (09/25/2018 1:22 PM CAMPUS DIRECTOR) Narrative 09/25/2018 1:22 PM CAMPUS DIRECTOR Ordered by an unspecified provider. Scanned Document LAB - THERAPEUTIC DR CHO MONITORING ORDERABLES Care Teams Product Assurance Engineer Relationship Specialty Start Date End Date Harjit Lan MD [address] [place] [id number] PCP - General 07/21/18
--- OUTSIDE RECORDS SUMMARY | 2024-09-29 21:00 | XMS_ITS | Referral Summary ---
Author Organization [facility] Address [address] [place] [address] Care Team Providers Care Supervisor Scenic Arts Name Role Phone Harjit Lan MD Primary Care Provider [phone] Source Comments [facility],non-owned Affiliates and Associated Physician Practices is amultiple site organization consisting of ambulatory clinics and hospital sitesin [place], [place], [place] and [place]. This disclosure is being madepursuant to the Care Everywhere program and may not contain all information available regarding this patient. Last updated 18.[facility] Allergies No known active allergies Medications * [...] Comments Blood Pressure 130/80 12/08/2018 10:41 AM CAREER COORDINATOR Pulse 76 12/08/2018 10:41 AM CAREER COORDINATOR Temperature 36.3 ??C (97.4 ??F) 12/08/2018 10:[address] Respiratory Rate 16 12/08/2018 10:41 AM CAREER COORDINATOR Oxygen Saturation 97% 12/08/2018 10:41 AM CAREER COORDINATOR Inhaled Oxygen Concentration - - Weight 89.4 kg (197 lb 3.2 oz) 12/08/2018 10:41 AM CAREER COORDINATOR Height 177.8 cm (5' 10 ) 07/21/2018 1:12 PM CDT Body Mass Index 28.3 07/21/2018 1:12 PM CDT Plan of Treatment Not on file Care Teams Supervisor Scenic Arts Relationship Specialty Start Date End Date Harjit Lan MD [address] [place] [phone] PCP - General 07/21/18
--- OUTSIDE RECORDS SUMMARY | 2024-09-29 21:00 | XMS_ITS | Encounter Summary ---
Author Organization [facility] Address [address] [facility] [place] [address] Care Team Providers Care Waxer Name Role Phone Harjit Lan MD Primary Care Provider [phone] Reason for Visit * Reason Comments Osteoporosis Encounter Details Date Type Department Care Team (Late st Contact Info) Description 12/08/2018 10:00 AM STRIP STAMP STRAIGHTENER Office Visit [facility] Endocrinology, Diabetes and Metabolism [address] [place] [address] Jaocbo Khalil MD [address] [place] [address] Localized osteoporosis with current pathological fracture with routine healing, subsequent encounter (Primary Dx); Tobacco use; CKD (chronic kidney disease) stage 3, GFR 30-59 ml/min ([facility]) Social History Tobacco Use Types Packs/Day Years Used Date Smoking Tobacco: Every Day Cigars Smokeless Tobacco: Never Sex and Gender Information Value Date Recorded Sex Assigned at Not on file Gender Identity Not on file Sexual Orientation Not on file documented as of this encounter Last Filed Vital Signs Vital Sign Reading Time Taken Comments Blood Pressure 130/80 12/08/2018 10:41 AM STRIP STAMP STRAIGHTENER Pulse 76 12/08/2018 10:41 AM STRIP STAMP STRAIGHTENER Temperature 36.3 ??C (97.4 ??F) 12/08/2018 10:[address] Respiratory Rate 16 12/08/2018 10:41 AM STRIP STAMP STRAIGHTENER Oxygen Saturation 97% 12/08/2018 10:41 AM STRIP STAMP STRAIGHTENER Inhaled Oxygen Concentration - - Weight 89.4 kg (197 lb 3.2 oz) 12/08/2018 10:41 AM STRIP STAMP STRAIGHTENER Height - - Body Mass Index 28.3 07/21/2018 1:12 PM CDT documented in this encounter Patient Instructions * Patient Instructions* Pan Garcia MD - 12/08/2018 11:26 AM STRIP STAMP STRAIGHTENER Plan - Continue to take Fosamax 70 mg once a week, take it with full glass of water (30 OZ) first thing in the morning and remain in upright position for at least 30 minutes - Continue to take calcium 600 mg twice daily - Continue to take vitamin D 3 2000 units daily - You need repeat kidney function test (blood test) in 3 month - Please stop taking advil or other NSAIDs family like motirin and ibuprofen, if you have pain, please take tylenol, see info below about the use of tylenol - see you back in 6 months P STAMP STRAIGHTENER documented in this encounter Progress Notes * Pan Garcia MD - 12/08/2018 11:07 AM CST HISTORY / PROGRESS NOTE Date: 12/08/2018 Chief Complaint or Purpose for Referral: Chief Complaint Patient presents with ??? Osteoporosis HPI: Josh Robert 68 y.o. male White/ who is referred to the endocrine clinic for evaluation and treatment of osteoporosis. Pt. Was in [place] until 01/2018 when he fell down and had back pain for which he had MRI which showed T12 compression fracture followed by Dexa scan which showed T score of -2.4 at LS and -2.6 at the hip. Denies any other fracture, no personal or FHx of renal stone. No FHx of hip fracture. He is not consuming dairy products regulary, takes calcium carbonate 600 mg BID (elemantal of 400 mg daily), vitamin D 3 2000 units daily. He was started on Fosamax 70 mg weekly in 07/2018 which he took till 10/2018 and ran out of prescription (stated no refill, however in my end showed 11 refills). He was taking it correctly and regularly. No additional fracture or fall since last fall in 01/2018. Denies any other complaints. Past Medical History: Diagnosis Date ??? Osteoporosis No past surgical history on file. No family history on file. Social History Social History ??? Marital status: Single Spouse name: N/A ??? Number of children: N/A ??? Years of education: N/A Occupational History ??? Not on file. Social History Main Topics ??? Smoking status: Current Every Day Smoker Types: Cigars ??? Smokeless tobacco: Never Used ??? Alcohol use Not on file ??? Drug use: Not on file ??? Sexual activity: Not on file Other Topics Concern ??? Not on file Social History Narrative Current Outpatient Prescriptions Medication Sig Dispense Refill ??? alendronate (FOSAMAX) 70 MG tablet Take 1 tablet by mouth every 7 days before meal for 90 days Take in a.m with 30oz of water on empty stomach and remain in up for 30 min 12 tablet 4 ??? amitriptyline (ELAVIL) 25 MG tablet Take 25 mg by mouth at bedtime Taking prn ??? Calcium Carbonate-Vit D-Min (CALCIUM 1200 PO) Take 600 mg by mouth 2 times daily ??? Cholecalciferol (VITAMIN D-3) 1000 UNITS Take 2,000 Units by mouth once daily ??? Loratadine (CLARITIN PO) Take 1 tablet by mouth once daily Prn for seasonal allergies. No current facility-administered medications for this visit. No Known Allergies Physical Exam: Constitutional: Vital Signs: BP 130/80 (BP SITE: RIGHT ARM, BP POSITION: SITTING) Pulse 76 Temp 97.4 ??F (36.3 ??C) (Oral) Resp 16 Wt 197 lb 3.2 oz (89.4 kg) SpO2 97% BMI 28.3 kg/m2 Appearance: WNL Eyes: Conjunctiva/lids WNL ENT, Mouth: Lips/teeth/gums WNL Neck: No masses, symmetrical and Thyroid not enlarged Resp.:Effort nonlabored and Ausculation WNL CVS: Heart palpations wnl and S1, S2; no murmurs GI: no tenderness, normal BS MS: Station and gait WNL Areas Assessed: Head/neck, Spine/ribs/pelvis, R/L lower extremities and R/L upper extremities Skin: No rashes/lesions/ulcers and No induration/nodules Neuro: DTR WNL Psych: Oriented X 3 Labs: 09/19/2019 24 urine: Vol: 1700 cc Calcium: 323 Cr: 1518 S.Cr: 1.66 BUN: 34 eGFR: 44 Assessment: Localized osteoporosis with current pathological fracture with routine healing, subsequent encounter (primary encounter diagnosis) Tobacco use CKD (chronic kidney disease) stage 3, GFR 30-59 ml/min Plan: 1. Continue Fosamax 70 mg weekly, reinforced how to use it correctly 2. Repeat BMP in 3 months 3. Informed to stop all NSAIDs and take tylenol if needed for pain, inform PCP for low kidney function RTC in 6 months Discussed with the attending physician Dr. Simran Gamboa MD Endocrinology Fellow [facility] P STAMP STRAIGHTENER Associated attestation - Jacobo Khalil MD - 12/11/2018 10:57 AM STRIP STAMP STRAIGHTENER I have seen and examined the patient with the fellow and I agree with the findings and plan of careas documented by the fellow. documented in this encounter Plan of Treatment Scheduled Orders Name Type Priority Associated Diagnoses Orde r Schedule BASIC METABOLIC PANEL (CALCIUM TOTAL) Lab Routine Localized osteoporosis with current pathological fracture with routine healing, subsequent encounter Expected: 02/07/2019, Expires: 01/02/2020 documented as of this encounter Visit Diagnoses Diagnosis Localized osteoporosis with current pathological fracture with routine healing, subsequent encounter- Primary Tobacco use Tobacco use disorder CKD (chronic kidney disease) stage 3, GFR 30-59 ml/min (HCC) Chronic kidney disease, Stage III (moderate) documented in this encounter Care Teams Waxer Relationship Specialty Start Date End Date Harjit Lan MD [address] [place] [id number] PCP - General 07/21/18 documented as of this encounter
--- OUTSIDE RECORDS SUMMARY | 2024-09-29 21:00 | XMS_ITS | Encounter Summary ---
Author Organization [facility] Address [address] [place] [address] Phone Care Team Providers Care Neurology Nurse Name Role Phone Javier Hampton MD Primary Care Provider [phone] Azeem Coronel MD Unavailable [phone] Encounter Details Date Type Department Care Team (Late st Contact Info) Description 09/10/2024 Refill [facility] Neu[facility] [address] [place] [phone] Azeem Coronel MD [address] [place] [address] Social History Tobacco Use Types Packs/Day Years Used Date Smoking Tobacco: Every Day Cigarettes 0.5 20 Smokeless Tobacco: Never Alcohol Use Standard Drinks/Week Comments Not Currently 0 (1 standard drink = 0.6 oz pur e alcohol) Sex and Gender Information Value Date Recorded Sex Assigned at Not on file Legal Sex Male 1:50 PM CDT Gender Identity Not on file Sexual Orientation Not on file documented as of this encounter Miscellaneous Notes * Telephone Encounter - Danielle Feldman RN - 09/10/2024 8:39 AM CST Medication(s) refilled and signed per [facility] Chronic Medication Refill Standing Order for Pediatricand Adult Patients. Requested Prescriptions Pending Prescriptions Disp Refills carbidopa-levodopa (SINEMET) 25-100 MG Tablet 90 Tablet 2 Sig: Take 1 Tablet by mouth 3 times daily. Antiparkinson Dopaminergics and COMT Protocol Passed - 09/10/2024 8:38 AM Passed - Visit with relevant provider in the past 9 months or upcoming 90 days Recent Visits Date Type Provider Dept 05/22/24 Office Visit Azeem Coronel MD [facility] Neurology [facility] Showing recent visits within past 270 days and meeting all other requirements Future Appointments Date Type Provider Dept 11/22/24 Appointment Azeem Coronel MD [facility] Neurology [facility] Showing future appointments within next 90 days and meeting all other requirements Passed - Blood pressure on record in past 12 months Clinician-entered: BP Readings from Last 3 Encounters: 05/22/24 122/70 11/15/23 118/78 05/12/23 118/76 Patient-entered: No data recorded ET MECHANIC * Telephone Encounter - Nunu Wall CMA - 09/10/2024 8:38 AM CARPET MECHANIC Requested Prescriptions Pending Prescriptions Disp Refills carbidopa-levodopa (SINEMET) 25-100 MG Tablet 90 Tablet 2 Sig: Take 1 Tablet by mouth 3 times daily. ET MECHANIC documented in this encounter Plan of Treatment Upcoming Encounters Date Type Department Care Team (Late st Contact Info) Description 11/22/2024 9:30 AM CARPET MECHANIC Office Visit [facility] - Neurology [facility] [address] [place] [phone] Azeem Coronel MD [address] [place] [phone] documented as of this encounter Visit Diagnoses Not on filedocumented in this encounter Care Teams Neurology Nurse Relationship Specialty Start Date End Date Javier Hampton MD [address] [place] [id number] PCP - General Family Medicine 12/09/21 Azeem Coronel MD [address] [place] [address] Consulting Physician Neurology 01/26/22 documented as of this encounter
--- OUTSIDE RECORDS SUMMARY | 2024-09-29 21:00 | XMS_ITS | Clinical Summary ---
Author Organization [facility] Address [address] [place] [address] Phone Care Team Providers Care Cottage Cheese Maker Name Role Phone Javier Hampton MD Primary Care Provider [phone] Azeem Coronel MD Unavailable [phone] Allergies Active Allergy Reactions Criticality Noted Date Comments Penicillins Rash 02/12/2021 Medications Cholecalciferol 25 mcg Capsule Take 2,000 Units by mouth. Active Calcium Carbonate (CALCIUM 600 PO) Take 600 mg by mouth. Active aspirin EC 81 MG Tablet Delayed Response Take 81 mg by mouth daily. Active Dapagliflozin Propanediol 10 MG Tablet Take 1 Tablet by mouth daily. 2 Active Multiple Vitamins-Mineral s (PRESERVISION AREDS PO) Take by mouth daily. Active Trulicity 0.75 MG/0.5ML Solution Pen-injector 2 Active metoprolol Succinate (TOPROL-XL) 25 MG TABLET SR 24 HR TAKE 1/2 TABLET BY MOUTH DAILY 2 Active pantoprazole (PROTONIX) 40 MG Tablet Delayed Response TAKE 1 TABLET BY MOUTH EVERY MORNING X 6 WEEKS 2 Active Lancet Device Misc by Does not apply route. Active Blood Glucose-BP Monitor (BLOOD GLUCOSE-WRIST BP MONITOR) Device by Does not apply route. Active atorvastatin (LIPITOR) 40 MG Tablet Take 40 mg by mouth 3 times daily. Active Docusate Sodium (COLACE PO) Take by mouth. Active losartan (COZAAR) 50 MG Tablet Take 50 mg by mouth daily. Active carbidopa-levodo pa (SINEMET) 25-100 MG Tablet Take 1 Tablet by mouth 3 times daily. 90 Tablet 2 4 Active carbidopa-levodo pa (SINEMET) 25-100 MG Tablet Take 1 Tablet by mouth 3 times daily. 90 Tablet 2 4 09/10/20 24 Discontinu ed(Reorder ) Active Problems Problem Noted Date Diagnosed Date Parkinson's disease 05/10/2022 Current smoker 03/11/2021 Polycythemia 02/12/2021 Encounters Date Type Department Care Team Description 09/10/2024 Refill [facility] - Neurology [facility] [address] [place] [address] Azeem Coronel MD from Last 3 Months Immunizations Immunization Administration Dates Next Due Pneumococcal Vaccine Adult - 23 Valent 0 Family History Medical History Relation Name Comments Coronary Artery Disease Brother Diabetes Brother Diabetes Father Breast Cancer Mother Relation Name Status Comments Brother Father Mother Social History Tobacco Use Types Packs/Day Years Used Date Smoking Tobacco: Every Day Cigarettes 0.5 20 Smokeless Tobacco: Never Tobacco Cessation:Ready to Q uit: No Alcohol Use Standard Drinks/Week Comments Not Currently 0 (1 standard drink = 0.6 oz pur e alcohol) Sex and Gender Information Value Date Recorded Sex Assigned at Not on file Legal Sex Male 1:50 PM CDT Gender Identity Not on file Sexual Orientation Not on file Last Filed Vital Signs Vital Sign Reading Time Taken Comments Blood Pressure 122/70 05/22/2024 9:25 AM CDT Pulse 65 05/22/2024 9:25 AM CDT Temperature 36.1 ??C (97 ??F) 05/22/2024 9:25 AM CDT Respiratory Rate 18 05/22/2024 9:25 AM CDT Oxygen Saturation 96% 05/22/2024 9:25 AM CDT Inhaled Oxygen Concentration - - Weight 87.3 kg (192 lb 8 oz) 05/22/2024 9:25 AM CDT Height 180.3 cm (5' 11 ) 05/22/2024 9:25 AM CDT Body Mass Index 26.85 05/22/2024 9:25 AM CDT Plan of Treatment Upcoming Encounters Date Type Department Care Team (Late st Contact Info) Description 11/22/2024 9:30 AM ELECTRICIAN SHOP Office Visit [facility] - Neurology [facility] [address] [place] [address] Azeem Coronel MD [address] [place] [address] Health Maintenance Due Date Last Done Comments Hepatitis C Virus (HCV) Screening 1950 TdaP Immunization 1950 Colonoscopy 1997 Colorectal Cancer Screening 1997 Cologuard 2002 Immunochemical Fecal Occult Blood 2002 Respiratory Syncytial Virus (RSV) Immunization (Adult) (1 - Risk 60-74 years 1-dose series) 2012 Zoster Immunization (2 of 3) 04/11/2013 02/14/2013 AAA Screening Ultrasound 2017 Pneumococcal Immunization (5 0+ years) (2 of 2 - PCV) 11/08/2020 11/08/2019 Influenza Immunization (#1) 2024 SARS-COV-2 Immunization ( season) 2024 09/12/2021, 12/05/2020, 11/14/2020 Hepatitis B Immunization Aged Out No longer eligible based on patient's age to complete this topic Meningococcal Immunization (ACWY) Aged Out No longer eligible b ased on patient's age to complete this topic Rotavirus Immunization Aged Out No lo nger eligible based on patient's age to complete this topic Insurance MEDICARE C [facility] [place] [facility] Care Teams Cottage Cheese Maker Relationship Specialty Start Date End Date Javier Hampton MD [address] [place] [id number] PCP - General Family Medicine 12/09/21 Azeem Coronel MD [address] [place] [address] Consulting Physician Neurology 01/26/22
--- OUTSIDE RECORDS SUMMARY | 2024-09-29 21:00 | XMS_ITS | Encounter Summary ---
Author Organization [facility] Address [address] [facility] [place] [address] Care Team Providers Care Flight Director Name Role Phone Harjit Lan MD Primary Care Provider [phone] Reason for Visit * Reason Comments Establish Care Osteoporosis Encounter Details Date Type Department Care Team (Late st Contact Info) Description 07/21/2018 1:20 PM CDT Office Visit [facility] Endocrinology, Diabetes and Metabolism [address] [place], [place] [id number] Jacobo Khalil MD [address] OF ENDOCRINOLOGY [place], [place] [id number] Age-related osteoporosis with current pathological fracture, initial encounter (Primary Dx) Social History Tobacco Use Types Packs/Day Years Used Date Smoking Tobacco: Every Day Cigars Smokeless Tobacco: Never Sex and Gender Information Value Date Recorded Sex Assigned at Not on file Gender Identity Not on file Sexual Orientation Not on file documented as of this encounter Last Filed Vital Signs Vital Sign Reading Time Taken Comments Blood Pressure 122/80 07/21/2018 1:12 PM CDT Pulse 100 07/21/2018 1:12 PM CDT Temperature 36.4 ??C (97.6 ??F) 07/21/2018 1:12 PM CD T Respiratory Rate - - Oxygen Saturation 99% 07/21/2018 1:12 PM CDT Inhaled Oxygen Concentration - - Weight 82.6 kg (182 lb) 07/21/2018 1:12 PM CDT Height 177.8 cm (5' 10 ) 07/21/2018 1:12 PM CDT Body Mass Index 26.11 07/21/2018 1:12 PM CDT documented in this encounter Patient Instructions * Patient Instructions* Jacobo Khalil MD - 07/21/2018 2:19 PM CDT Calcium 500 mg twice a day Vitamin D 2000 units daily Fosamax 70 mg every week. Take the tablet in the morning, 30 min before eating anything. It is important to not lie down immediately after taking the tablet. documented in this encounter Progress Notes * Jacobo Khalil MD - 07/21/2018 6:23 PM CDT Subjective: Josh Robert is a 67 y.o. male who I am asked to see in consultation for osteoporosis. He was in good health till January 2018 when he fell down and fractured his T12 vertebra. Work up by ortho (Dr. Rossi, [place], [place]) showed T score of -2.4 in lumbar spine and -2.6 in hip. Normal testosterone (513), LH (6) and PTH (26), calcium (10.3) and 1,25 vit D. Since the fracture, he has noticed tingling in the skin on right upper quadrant and lower rib cage (describes it as enhanced sensitivity). Has also noticed similar sensation in upper thighs. Does not have much pain. Takes aspirin or advil prn. No surgical procedure was performed. Past medical history: no significant history No past surgical history No family history of osteoporosis Current Outpatient Prescriptions Medication Sig Dispense Refill ??? amitriptyline (ELAVIL) 25 MG tablet Take 25 mg by mouth at bedtime ??? alendronate (FOSAMAX) 70 MG tablet Take 1 tablet by mouth every 7 days before meal Take in morning with full glass of water on empty stomach and remain upright for 30 min 4 tablet 11 No current facility-administered medications for this visit. No Known Allergies Social History Social History ??? 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 Smoking status: Current Every Day Smoker Types: Cigars ??? Smokeless tobacco: Never Used ??? Alcohol use sometimes Review of Systems A comprehensive review of systems was negative except as described in HPI. No claudication Objective: BP 122/80 (BP SITE: RIGHT ARM, BP POSITION: SITTING, BP CUFF SIZE: 12) Pulse 100 Temp 97.6 ??F (36.4 ??C) (Oral) Ht 5' 10 (1.778 m) Wt 182 lb (82.6 kg) SpO2 99% BMI 26.11 kg/m2 General: alert, cooperative, no distress Oropharynx: no mucous membrane abnormalities Eyes: sclera and conjunctiva clear, EOMI and PERRLA, lids normal Neck: supple, symmetrical, trachea midline, no adenopathy, thyroid: not enlarged, symmetric, no tenderness/mass/nodules, no carotid bruit and no JVD Lung: clear to auscultation bilaterally Heart: regular rate and rhythm, S1, S2 normal, no murmur, click, rub or gallop Abdomen: soft without mass, non-tender, with normal bowel sounds Extremities: extremities normal, atraumatic, no cyanosis or edema. Does not have spinal tenderness. Pulses: Not well palpable in feet. Skin: Warm and dry. no hyperpigmentation, vitiligo, or suspicious lesions Neuro: normal without focal findings mental status, speech normal, alert and oriented x 3 reflexes normal and symmetric Lab Review As above Assessment: Osteoporosis. This diagnosis was discussed and reviewed with the patient including the advantages of drug therapy. Patient preferred oral fosamax. Etiology may be age-related. Need to check for idiopathic hypercalciuria. Vitamin D (25 hydroxy) needs to be checked Plan: Calcium 500 mg twice a day Vitamin D 2000 units daily Fosamax 70 mg every week. Take the tablet in the morning, 30 min before eating anything. It is important to not lie down immediately after taking the tablet. CMP, Vit D, 24h urine for calcium Follow up with ortho for local care of fractured vertebra, if needed. RTC 3 mths documented in this encounter Plan of Treatment Scheduled Orders Name Type Priority Associated Diagnoses Orde r Schedule CALCIUM/CREAT RATIO URINE TIMED PANEL Lab Routine Age-related osteoporosis with current pathological fracture, initial encounter Ordered: 07/21/2018 VITAMIN D 25-HYDROXY Lab Routine Age-related osteoporosis with current pathological fracture, initial encounter Ordered: 07/21/2018 documented as of this encounter Visit Diagnoses Diagnosis Age-related osteoporosis with current pathological fracture, initial encounter- Primary documented in this encounter Care Teams Flight Director Relationship Specialty Start Date End Date Harjit Lan MD [address] [place] [id number] PCP - General 07/21/18 documented as of this encounter
--- OUTSIDE RECORDS SUMMARY | 2024-09-29 21:01 | XMS_ITS | Encounter Summary ---
Author Organization [facility] [employer] [facility] Care Team Providers Care Debt Counselor Name Role Phone Javier Hampton MD Primary Care Provider [phone] Azeem Coronel MD Unavailable [phone] Encounter Details Date Type Department Care Team (Latest Contact Info) Description 05/22/2024 Travel Social History Tobacco Use Types Packs/Day Years [...] as of this encounter Plan of Treatment Upcoming Encounters Date Type Department Care Team (Late st Contact Info) Description 11/22/2024 9:30 AM VOCATIONAL PLACEMENT SPECIALIST Office Visit [facility] - Neurology [facility] [address] [place] [phone] Azeem Coronel MD [address] [place] [address] documented as of this encounter Visit Diagnoses Not on filedocumented in this encounter Care Teams Debt Counselor Relationship Specialty Start Date End Date Javier Hampton MD [address] [place] [id number] PCP - General Family Medicine 12/09/21 Azeem Coronel MD [address] [place] [address] Consulting Physician Neurology 01/26/22 documented as of this encounter
--- OUTSIDE RECORDS SUMMARY | 2024-09-29 21:01 | XMS_ITS | Encounter Summary ---
Author Organization [facility] Address [address] [facility] [place] [address] Phone Care Team Providers Care Environmental Engineering Assistant Name Role Phone Javier Hampton MD Primary Care Provider [phone] Azeem Coronel MD Unavailable [phone] Encounter Details Date Type Department Care Team (Latest Contact Info) Description 12/15/2022 2:30 PM COMMERCIAL SHEET METAL FOREMAN Clinical Support [facility] Oncology Services [address] [place] [phone] Mojgan Rose Reny, PAC [address] [place] [address] Polycythemia (Primary Dx) Discharge Disposition: Discharged to home or Selfcare Social History Tobacco Use Types Packs/Day Years [...] on file Sexual Orientation Not on file COVID-19 Exposure Response Date Recorded In the last 10 days, have yo u been in contact with someone who was confirmed or suspected to have Coronavirus/COVID-19? No / Unsure 12/15/2022 2:03 PM COMMERCIAL SHEET METAL FOREMAN documented as of this encounter Last Filed Vital Signs Vital Sign Reading Time Taken Comments Blood Pressure 124/79 12/15/2022 3:10 PM COMMERCIAL SHEET METAL FOREMAN Pulse 69 12/15/2022 3:10 PM COMMERCIAL SHEET METAL FOREMAN Temperature 36.3 ??C (97.4 ??F) 12/15/2022 2:40 PM CS T Respiratory Rate 18 12/15/2022 2:40 PM COMMERCIAL SHEET METAL FOREMAN Oxygen Saturation 96% 12/15/2022 2:40 PM COMMERCIAL SHEET METAL FOREMAN Inhaled Oxygen Concentration - - Weight - - Height - - Body Mass Index - - documented in this encounter Miscellaneous Notes * Interdisciplinary - Magalie Medrano RN - 12/15/2022 2:30 PM CST Patient to treatment bay. VS obtained. Bottle of water given. 250 ml of blood removed from the RAC per order without incident. Site secured with gauze and coban. After 15 minutes, VS obtained. Patient left treatment bay safely. ERCIAL SHEET METAL FOREMAN documented in this encounter Plan of Treatment Upcoming Encounters Date Type Department Care Team (Late st Contact Info) Description 11/22/2024 9:30 AM COMMERCIAL SHEET METAL FOREMAN Office Visit [facility] - [facility] [address] [place] [address] Azeem Coronel MD [address] [place] [address] documented as of this encounter Visit Diagnoses Diagnosis Polycythemia- Primary Polycythemia vera documented in this encounter Care Teams Environmental Engineering Assistant Relationship Specialty Start Date End Date Javier Hampton MD [address] [place] [address] PCP - General Family Medicine 12/09/21 Azeem Coronel MD [address] [place] [address] Consulting Physician Neurology 01/26/22 documented as of this encounter
--- OUTSIDE RECORDS SUMMARY | 2024-09-29 21:01 | XMS_ITS | Encounter Summary ---
Author Organization [facility] Address [address] [facility] [place] [address] Phone Care Team Providers Care Engagement Executive Name Role Phone Javier Hampton MD Primary Care Provider [phone] Azeem Coronel MD Unavailable [phone] Encounter Details Date Type Department Care Team (Late st Contact Info) Description 12/13/2022 [facility] [address] [place] [address] Jessica Amaya MA [place] Social History Tobacco Use Types Packs/Day Years [...] Coronavirus/COVID-19? No / Unsure 12/15/2022 2:03 PM SPECIAL EFFECTS ARTIST documented as of this encounter Miscellaneous Notes * Telephone Encounter - Jessica Amaya MA - 12/13/2022 11:34 AM CST Per JOAQUÍN,RN, left message on pt's vm that lab orders were faxed to [facility] @ [phone]. Confirmation received--tjo IAL EFFECTS ARTIST documented in this encounter Plan of Treatment Upcoming Encounters Date Type Department Care Team (Late st Contact Info) Description 11/22/2024 9:30 AM SPECIAL EFFECTS ARTIST [facility] [address] [place] [address] Azeem Coronel MD [address] [place] [address] documented as of this encounter Visit Diagnoses Not on filedocumented in this encounter Care Teams Engagement Executive Relationship Specialty Start Date End Date Javier Hampton MD [address] [place] [address] PCP - General Family Medicine 12/09/21 Azeem Coronel MD [address] [place] [address] Consulting Physician Neurology 01/26/22 documented as of this encounter
--- OUTSIDE RECORDS SUMMARY | 2024-09-29 21:01 | XMS_ITS | Encounter Summary ---
Author Organization [facility] Address [address] [place] [address] Phone Care Team Providers Care Assembler Aircraft Power Plant Name Role Phone Javier Snow MD Primary Care Provider [phone] Azeem Coronel MD Unavailable [phone] Reason for Visit * Reason Comments Parkinson's Disease Encounter Details Date Type Department Care Team (Late st Contact Info) Description 05/12/2023 9:45 AM CDT Office Visit [facility] - Neurology [facility] [address] [place] [phone] Azeem Coronel MD [address] [place] [address] Parkinson's disease (HCC) (Primary Dx); Polycythemia Discharge Disposition: Discharged to home or Selfcare [...] suspected to have Coronavirus/COVID-19? No / Unsure 05/11/2023 11:10 AM CDT documented as of this encounter Last Filed Vital Signs Vital Sign Reading Time Taken Comments Blood Pressure 118/76 05/12/2023 9:51 AM CDT Pulse 67 05/12/2023 9:51 AM CDT Temperature 36.2 ??C (97.1 ??F) 05/12/2023 9:51 AM CD T Respiratory Rate 17 05/12/2023 9:51 AM CDT Oxygen Saturation 99% 05/12/2023 9:51 AM CDT Inhaled Oxygen Concentration - - Weight 88.5 kg (195 lb 3.2 oz) 05/12/2023 9:51 A M CDT Height 180.3 cm (5' 11 ) 05/12/2023 9:51 AM CDT Body Mass Index 27.22 05/12/2023 9:51 AM CDT documented in this encounter Progress Notes * Azeem Coronel MD - 05/12/2023 9:45 AM CDT NEUROLOGY CONSULT Date of Service: 05/12/2023 Assessment and Plan Josh was seen today for parkinson's disease. Diagnoses and all orders for this visit: Parkinson's disease (HCC) - Controlled with carbidopa levodopa 1 tab po tid - Will continue to monitor - Encouraged regular exercise Polycythemia - Treated with prn phlebotomy Reason for Consultation: tremor HPI: Josh is a 72-year-old gentleman who presents in follow-up for evaluation of Parkinson's disease. He notes his carbidopa levodopa has been doing well. Tremors are well controlled. No falls, gait freezing memory or depressive symptoms. His notes he is somewhat slower processing things but otherwise is fine. Previous History: Josh presents in follow-up for evaluation of Parkinson's disease. He has noted significant improvement in his tremor since taking the medication. He has not had any issues tolerating it. He is getting treatment 1st constipation was seems to help. Previous History: Josh is a 71 year old who has tremors. He had a recent episode where he tried to get up and couldn't. He went to the ed. he notes prior to that he was getting lightheadedness with standing. He did not get good medical care prior to that and was someone he just never went to the doctor. He notes that in addition to that he has been having tremors which seem to be a little bit worse at rest on the right. If he focuses on it he can stop the tremors. He also has a postural and action tremor. After his fall this was significantly worse. He has been working on balance training exercises and notessignificant improvement in that regard. He has also been seeing doctors in regards to his diabetes.He is working on smoking cessation as well as treatment for polycythemia vera. Past Medical History Positives Diagnosis Date ??? Diabetes mellitus (HCC) ??? Osteopenia ??? Polycythemia No past surgical history on file. Family History Problem Relation Age of Onset ??? Breast Cancer Mother ??? Diabetes Father ??? Diabetes Brother ??? Coronary Artery Disease Brother Social History Tobacco Use ??? Smoking status: Every Day Packs/day: 0.50 Years: 20.00 Pack years: 10.00 Types: Cigarettes ??? Smokeless tobacco: Never Substance Use Topics ??? Alcohol use: Not Currently Allergies Allergen Reactions ??? Penicillins Rash Current Outpatient Medications: ??? aspirin EC 81 MG Tablet Delayed Response, Take 81 mg by mouth daily., Disp: , Rfl: ??? atorvastatin (LIPITOR) 40 MG Tablet, Take 40 mg by mouth 3 times daily., Disp: , Rfl: ??? Blood Glucose-BP Monitor (BLOOD GLUCOSE-WRIST BP MONITOR) Device, by Does not apply route., Disp: , Rfl: ??? buPROPion (WELLBUTRIN) 150 MG XL tablet, daily. (Patient not taking: Reported on 05/12/2023), Disp: , Rfl: ??? Calcium Carbonate (CALCIUM 600 PO), Take 600 mg by mouth., Disp: , Rfl: ??? carbidopa-levodopa (SINEMET) 25-100 MG Tablet, Take 1 Tablet by mouth 3 times daily., Disp: 90 Tablet, Rfl: 2 ??? Cholecalciferol 25 mcg Capsule, Take 2,000 Units by mouth., Disp: , Rfl: ??? Dapagliflozin Propanediol 10 MG Tablet, Take 1 Tablet by mouth daily., Disp: , Rfl: ??? Docusate Sodium (COLACE PO), Take by mouth., Disp: , Rfl: ??? Lancet Device Mis, by Does not apply route., Disp: , Rfl: ??? losartan (COZAAR) 50 MG Tablet, Take 50 mg by mouth daily., Disp: , Rfl: ??? metoprolol Succinate (TOPROL-XL) 25 MG TABLET SR 24 HR, TAKE 1/2 TABLET BY MOUTH DAILY, Disp: ,Rfl: ??? Multiple Vitamins-Minerals (PRESERVISION AREDS PO), Take by mouth daily., Disp: , Rfl: ??? pantoprazole (PROTONIX) 40 MG Tablet Delayed Response, TAKE 1 TABLET BY MOUTH EVERY MORNING X 6WEEKS, Disp: , Rfl: ??? Trulicity 0.75 MG/0.5ML Solution Pen-injector, , Disp: , Rfl: Review of Systems: A 14 point Review of Systems is obtained, and is negative other than that mentioned in the History of Present Illness. Objective: VITALS: Blood pressure 118/76, pulse 67, temperature 97.1 ??F (36.2 ??C), temperature source Temporal, resp. rate 17, height 5' 11 (1.803 m), weight 195 lb 3.2 oz (88.5 kg), SpO2 99 %. Weight: Wt Readings from Last 1 Encounters: 05/12/23 195 lb 3.2 oz (88.5 kg) Body mass index is 27.22 kg/m??. EXAM: General appearance: alert, no distress, cooperative, appears stated age Head: Normocephalic, without obvious abnormality, atraumatic Heart: regular rate and rhythm, S1, S2 normal, no murmur, click, rub or gallop Extremities: extremities normal, atraumatic, no cyanosis or edema Neurologic: Mental: Fully alert and oriented to time, place, person, situation. There is no problem with concentration and attention. Verbal recall-normal. Visuospatial skills- normal. Fund of knowledge is good. Memory is good for recent and remote events. On cranial nerve exam, CN II: visual george are full to confrontation. Fundi are clear without hemorrhage or exudate, discs are sharp.CN III: Pupils are equal, round and reactive bilaterally; CN III,IV, extraocular movements are full with normal saccades and normal pursuits. There are no squarewave jerks. CN VIII: Hearing is intact bilaterally. CN V: Facial sensation is intact; CN VII: face is symmetric. CN IX: Palate elevates symmetrically. CN XII: Tongue is midline. CN XI: Shrug is 5/5. A motor examination was performed Muscles Tested Right Left Deltoid 5/5 5/5 Biceps 5/5 5/5 Triceps 5/5 5/5 Wrist Flexors 5/5 5/5 Wrist Extensors 5/5 5/5 Aeronautical Engineering Teacher 5/5 5/5 Hip Flexors 5/5 5/5 Quadriceps 5/5 5/5 Hamstrings 5/5 5/5 Dorsiflexion 5/5 5/5 EHL 5/5 5/5 Sensory exam is notable for being intact to light touch. Vibration and pin prick are intact. Romberg is negative. Coordination: finger to nose normal bilaterally. DTRs are 2+ bilateral upper and lower extremities. Plantars are downgoing bilaterally Gait is normal. Normal tandem gait, normal heel and toe walking. Normal armswing and turns. Data Review: Radiology Reviewed: yes No results found. CBC: No results found for: WBC, RBC, HEMOGLOBIN, HEMATOCRIT, PLATELETCNT CMP:No results found for: SODIUM, POTASSIUM, CHLORIDE, CO2VEN, ANIONGAP, GLUCOSE, BUN, CREATININE, BCRATIO8, TOTALPROTEIN, ALBUMIN, AGRATIO, CALCIUM, TBIL, AST, SGPTALT, ALKALINEPHO, GFRNA, GFRA Coagulation: No results found for: PTP, INR, PTT Cardiac markers: No results found for: HSTRP, TROPONINI, POCTRP Total time spent on this encounter on this date of service, including pre-visit review of separately obtained history, [id number] interaction performing medically appropriate physical exam, patientcounseling/education, interpretation of diagnostic results, care coordination and documentation was30 minutes. By: Azeem Coronel MD, 05/12/2023, 10:57 AM CDT Primary Care Physician: JAVIER SNOW MD documented in this encounter Plan of Treatment Upcoming Encounters Date Type Department Care Team (Late st Contact Info) Description 11/22/2024 9:30 AM WEAVING TEACHER Office Visit [facility] [address] [place] [address] Azeem Coronel MD [address] [place] [address] documented as of this encounter Visit Diagnoses Diagnosis Parkinson's disease (HCC)- Primary Paralysis agitans Polycythemia Polycythemia vera documented in this encounter Care Teams Assembler Aircraft Power Plant Relationship Specialty Start Date End Date Javier Snow MD [address] [place] [address] PCP - General Family Medicine 12/09/21 Azeem Coronel MD [address] [place] [address] Consulting Physician Neurology 01/26/22 documented as of this encounter
--- OUTSIDE RECORDS SUMMARY | 2024-09-29 21:01 | XMS_ITS | Encounter Summary ---
Author Organization [facility] Address [address] [place] [address] Phone Care Team Providers Care Tenter Frame Operator Name Role Phone Javier Snow MD Primary Care Provider [phone] Azeem Coronel MD Unavailable [phone] Reason for Visit * Reason Comments 6 month f/u parkinson Encounter Details Date Type Department Care Team (Late st Contact Info) Description 11/15/2023 9:30 AM NURSE ANESTHETIST Office Visit [facility] - Neurology [facility] [address] [place] [address] Azeem Coronel MD [address] [place] [address] Parkinson's disease without dyskinesia or fluctuating manifestations (Primary Dx); Polycythemia Discharge Disposition: Discharged to [...] Sign Reading Time Taken Comments Blood Pressure 118/78 11/15/2023 9:40 AM NURSE ANESTHETIST Pulse 69 11/15/2023 9:40 AM NURSE ANESTHETIST Temperature 36.3 ??C (97.4 ??F) 11/15/2023 9:40 AM CS T Respiratory Rate 18 11/15/2023 9:40 AM NURSE ANESTHETIST Oxygen Saturation 96% 11/15/2023 9:40 AM NURSE ANESTHETIST Inhaled Oxygen Concentration - - Weight 88 kg (194 lb) 11/15/2023 9:40 AM NURSE ANESTHETIST Height 180.3 cm (5' 11 ) 11/15/2023 9:40 AM NURSE ANESTHETIST Body Mass Index 27.06 11/15/2023 9:40 AM NURSE ANESTHETIST documented in this encounter Progress Notes * Azeem Coronel MD - 11/15/2023 9:30 AM CST NEUROLOGY CONSULT Date of Service: 11/15/2023 Assessment and Plan Josh was seen today for 6 month f/u parkinson. Diagnoses and all orders for this visit: Parkinson's disease without dyskinesia or fluctuating manifestations - continue carbidopa levodopa 1 tab p.o. t.i.d. - encouraged regular exercise and physical activity Polycythemia - controlled with phlebotomy Reason for Consultation: tremor HPI: Josh presents in follow-up for evaluation of Parkinson's disease. Patient notes significant improvement in his symptoms with carbidopa levodopa. He denies any motor fluctuation or gait freezing balance issues or dyskinesias. Patient denies any significant cognitive issues. Previous History: Josh is a 72-year-old gentleman who presents [...] Diabetes mellitus (HCC) ??? Osteopenia ??? Polycythemia Past Surgical History: Procedure Laterality Date ??? EYE SURGERY Family History Problem Relation Age of Onset ??? Breast Cancer Mother ??? Diabetes Father ??? Diabetes Brother ??? Coronary Artery Disease Brother Social History Tobacco Use ??? Smoking status: Every Day Packs/day: 0.50 Years: 20.00 Additional pack years: 0.00 Total pack years: 10.00 Types: Cigarettes ??? Smokeless tobacco: [...] not apply route., Disp: , Rfl: ??? Calcium Carbonate (CALCIUM [...] of Present Illness. Objective: VITALS: Blood pressure 118/78, pulse 69, temperature 97.4 ??F (36.3 ??C), temperature source Temporal, resp. rate 18, height 5' 11 (1.803 m), weight 194 lb (88 kg), SpO2 96%. Weight: Wt Readings from Last 1 Encounters: 11/15/23 194 lb (88 kg) Body mass index is 27.06 kg/m??. EXAM: General appearance: alert, no distress, [...] Flexors 5/5 5/5 Wrist Extensors 5/5 5/5 Tear Down Man 5/5 5/5 Hip Flexors 5/5 5/5 Quadriceps [...] results found. CBC: No results found for: WBC , RBC , HEMOGLOBIN , HEMATOCRIT , PLATELETCNT CMP:No results found for: SODIUM , POTASSIUM , CHLORIDE , CO2VEN , ANIONGAP , GLUCOSE , BUN , CREATININE , BCRATIO8 , TOTALPROTEIN , ALBUMIN , AGRATIO , CALCIUM , TBIL , AST , SGPTALT , ALKALINEPHO , GFRNA , GFRA Coagulation: No results found for: PTP , INR , PTT Cardiac markers: No results found for: HSTRP , TROPONINI , POCTRP Total time spent on this encounter on this date of service, including pre-visit review of separately obtained history, [id number]-sf-[id number] interaction performing medically appropriate physical exam, patientcounseling/education, interpretation of diagnostic results, care coordination and documentation was30 minutes. By: Azeem Coronel MD, 11/15/2023, 4:11 PM NURSE ANESTHETIST Primary Care Physician: JAVIER SNOW MD E ANESTHETIST documented in this encounter Plan of Treatment Upcoming Encounters Date Type Department Care Team (Late st Contact Info) Description 11/22/2024 9:30 AM NURSE ANESTHETIST Office Visit [facility] - Neurology [facility] [address] [place] [address] Azeem Coronel MD [address] [place] [address] documented as of this encounter Visit Diagnoses Diagnosis Parkinson's disease without dyskinesia or fluctuating manifestations (HCC)- Primary Polycythemia Polycythemia vera documented in this encounter Care Teams Tenter Frame Operator Relationship Specialty Start Date End Date Javier Snow MD [address] [place] [address] PCP - General Family Medicine 12/09/21 Azeem Coronel MD [address] [place] [address] Consulting Physician Neurology 01/26/22 documented as of this encounter
--- OUTSIDE RECORDS SUMMARY | 2024-09-29 21:01 | XMS_ITS | Encounter Summary ---
Author Organization [facility] Address [address] [place] [address] Phone Care Team Providers Care Pediatric Clinical Dietician Name Role Phone Javier Hampton MD Primary Care Provider [phone] Azeem Coronel MD Unavailable [phone] Reason for Visit * Reason Onset Date Comments Medication Refill 12/02/2023 Encounter Details Date Type Department Care Team (Late st Contact Info) Description 12/02/2023 Refill [facility] - Neurology [facility] [address] [place] [address] Azeem Coronel MD [address] [place] [address] Medication Refill Social History Tobacco Use Types Packs/Day Years [...] encounter Miscellaneous Notes * Telephone Encounter - Callie Bustamante RN - 12/02/2023 9:12 AM CST Medication(s) refilled and signed per [facility] Chronic Medication Refill Standing Order for Pediatricand Adult Patients. Requested Prescriptions Pending Prescriptions Disp Refills ??? carbidopa-levodopa (SINEMET) 25-100 MG Tablet 90 Tablet 2 Sig: Take 1 Tablet by mouth 3 times daily. Antiparkinson Dopaminergics and COMT Protocol Passed - 12/02/2023 8:34 AM Passed - Visit with relevant provider in the past 9 months or upcoming 90 days Recent Visits Date Type Provider Dept 11/15/23 Office Visit Azeem Coronel MD [facility]rology [facility] 05/12/23 Office Visit Azeem Coronel MD [facility] Neurology [facility] Showing recent visits within past 270 days and meeting all other requirements Future Appointments No visits were found meeting these conditions. Showing future appointments within next 90 days and meeting all other requirements Passed - Blood pressure on record in past 12 months Clinician-entered: BP Readings from Last 3 Encounters: 11/15/23 118/78 05/12/23 118/76 12/15/22 124/79 Patient-entered: No data recorded R SALES ESTIMATOR documented in this encounter Plan of Treatment Upcoming Encounters Date Type Department Care Team (Late st Contact Info) Description 11/22/2024 9:30 AM SOLAR SALES ESTIMATOR Office Visit [facility] [address] [place] [address] Azeem Coronel MD [address] [place] [address] documented as of this encounter Visit Diagnoses Not on filedocumented in this encounter Care Teams Pediatric Clinical Dietician Relationship Specialty Start Date End Date Javier Hampton MD [address] [place] [address] PCP - General Family Medicine 12/09/21 Azeem Coronel MD [address] [place] [address] Consulting Physician Neurology 01/26/22 documented as of this encounter
--- OUTSIDE RECORDS SUMMARY | 2024-09-29 21:01 | XMS_ITS | Encounter Summary ---
Author Organization [facility] Address [address] [place] [address] Phone Care Team Providers Care Volunteer Services Supervisor Name Role Phone Javier Hampton MD Primary Care Provider [phone] Azeem Coronel MD Unavailable [phone] Reason for Visit * Reason Onset Date Comments Medication Refill 12/17/2022 Encounter Details Date Type Department Care Team (Late st Contact Info) Description 12/17/2022 Refill [facility] - Neurology [facility] [address] [place] [address] Azeem Coronel MD [address] [place] [address] Medication Refill Social History Tobacco Use Types [...] Coronavirus/COVID-19? No / Unsure 12/15/2022 2:03 PM FOSTER CARE CASE MANAGER documented as of this encounter Miscellaneous Notes * Telephone Encounter - Callie Bustamante RN - 12/17/2022 1:12 PM CST Medication(s) [facility] Medication Refill Standing Order for Pediatricand Adult Patients. Requested Prescriptions Pending Prescriptions Disp Refills ??? carbidopa-levodopa (SINEMET) 25-100 MG Tablet 90 Tablet 2 Sig: Take 1 Tablet by mouth 3 times daily. Antiparkinson Dopaminergics and COMT Protocol Passed - 12/17/2022 1:11 PM Passed - Visit with relevant provider in the past 9 months or upcoming 90 days Recent Visits Date Type Provider Dept 10/28/22 Office Visit Azeem Coronel MD [facility] Neurology [facility] 04/27/22 Office Visit Azeem Coronel MD [facility] Neurology [facility] Showing recent visits within past 270 days and meeting all other requirements Future Appointments No visits were found meeting these conditions. Showing future appointments within next 90 days and meeting all other requirements Passed - Blood pressure on record in past 12 months Clinician-entered: BP Readings from Last 3 Encounters: 12/15/22 124/79 12/01/22 135/84 11/17/22 162/80 Patient-entered: No data recorded ER CARE CASE MANAGER documented in this encounter Plan of Treatment Upcoming Encounters Date Type Department Care Team (Late st Contact Info) Description 11/22/2024 9:30 AM FOSTER CARE CASE MANAGER Office [facility] Neu[facility] [address] [place] [address] Azeem Coronel MD [address] [place] [address] documented as of this encounter Visit Diagnoses Not on filedocumented in this encounter Care Teams Volunteer Services Supervisor Relationship Specialty Start Date End Date Javier Hampton MD [address] [place] [address] PCP - General Family Medicine 12/09/21 Azeem Coronel MD [address] [place] [address] Consulting Physician Neurology 01/26/22 documented as of this encounter
--- OUTSIDE RECORDS SUMMARY | 2024-09-29 21:01 | XMS_ITS | Encounter Summary ---
Author Organization [facility] [employer] Care Team Providers Care Homogenizer Operator Name Role Phone Javier Hampton MD Primary Care Provider [phone] Azeem Coronel MD Unavailable [phone] Encounter Details Date Type Department Care Team (Latest Contact Info) Description 12/15/2022 Travel Social History Tobacco Use Types Packs/Day [...] Coronavirus/COVID-19? No / Unsure 12/15/2022 2:03 PM SALES REPRESENTATIVE HEALTH INSURANCE documented as of this encounter Plan of Treatment Upcoming Encounters Date Type Department Care Team (Late st Contact Info) Description 11/22/2024 9:30 AM SALES REPRESENTATIVE HEALTH INSURANCE Office Visit [facility] - Neurology [facility] [address] [place] [address] Azeem Coronel MD [address] [place] [phone] documented as of this encounter Visit Diagnoses Not on filedocumented in this encounter Care Teams Homogenizer Operator Relationship Specialty Start Date End Date Javier Hampton MD [address] [place] [address] PCP - General Family Medicine 12/09/21 Azeem Coronel MD [address] [place] [address] Consulting Physician Neurology 01/26/22 documented as of this encounter
--- OUTSIDE RECORDS SUMMARY | 2024-09-29 21:01 | XMS_ITS | Encounter Summary ---
Author Organization [facility] [employer] Care Team Providers Care Liberal Arts And Humanities Chair Name Role Phone Javier Hampton MD Primary Care Provider [phone] Azeem Coronel MD Unavailable [phone] Encounter Details Date Type Department Care Team (Latest Contact Info) Description 11/30/2022 Travel Social History Tobacco Use Types Packs/Day [...] suspected to have Coronavirus/COVID-19? No / Unsure 11/30/2022 2:39 PM RESIDENTIAL SUBCONTRACTOR documented as of this encounter Plan of Treatment Upcoming Encounters Date Type Department Care Team (Late st Contact Info) Description 11/22/2024 9:30 AM RESIDENTIAL SUBCONTRACTOR Office Visit [facility] - [facility] [address] [place] [phone] Azeem Coronel MD [address] [place] [phone] documented as of this encounter Visit Diagnoses Not on filedocumented in this encounter Care Teams Liberal Arts And Humanities Chair Relationship Specialty Start Date End Date Javier Hampton MD [address] [place] [address] PCP - General Family Medicine 12/09/21 Azeem Coronel MD [address] [place] [address] Consulting Physician Neurology 01/26/22 documented as of this encounter
--- OUTSIDE RECORDS SUMMARY | 2024-09-29 21:01 | XMS_ITS | Encounter Summary ---
Author Organization [facility] Care Team Providers Care Engineering Mgr Name Role Phone Javier Hampton MD Primary Care Provider [phone] Azeem Coronel MD Unavailable [phone] Encounter Details Date Type Department Care Team (Latest Contact Info) Description 10/28/2022 Travel Social History Tobacco Use Types Packs/Day [...] suspected to have Coronavirus/COVID-19? No / Unsure 10/28/2022 9:11 AM HUMAN RESOURCES ANALYST documented as of this encounter Plan of Treatment Upcoming Encounters Date Type Department Care Team (Late st Contact Info) Description 11/22/2024 9:30 AM HUMAN RESOURCES ANALYST Office Visit [facility] - [facility]rology [facility] [address] [place] [phone] Azeem Coronel MD [address] [place] [phone] documented as of this encounter Visit Diagnoses Not on filedocumented in this encounter Care Teams Engineering Mgr Relationship Specialty Start Date End Date Javier Hampton MD [address] [place] [address] PCP - General Family Medicine 12/09/21 Azeem Coronel MD [address] [place] [address] Consulting Physician Neurology 01/26/22 documented as of this encounter
--- OUTSIDE RECORDS SUMMARY | 2024-09-29 21:01 | XMS_ITS | Encounter Summary ---
Author Organization [facility] Address [address] [place] [address] Phone Care Team Providers Care Muskrat Trapper Name Role Phone Javier Hampton MD Primary Care Provider [phone] Claritza Coronel MD Unavailable [phone] Encounter Details Date Type Department Care Team (Late st Contact Info) Description 08/23/2022 Refill [facility] - Neurology [facility] [address] [place] [address] Clairtza Coronel MD [address] [place] [address] Social History Tobacco Use Types [...] encounter Miscellaneous Notes * Telephone Encounter - Nunu Wall I PNEUDRAULIC SYSTEMS MECHANIC - 08/23/2022 4:10 PM CASING GRADER Requested Prescriptions Signed Prescriptions Disp Refills ??? carbidopa-levodopa (SINEMET) 25-100 MG Tablet 90 Tablet 2 Sig: Take 1 Tablet by mouth 3 times daily. Authorizing Provider: CLARITZA CORONEL Ordering User: KAYCE DAMON NG GRADER documented in this encounter Plan of Treatment Upcoming Encounters Date Type Department Care Team (Late st Contact Info) Description 11/22/2024 9:30 AM CASING GRADER Office Visit [facility] - Neurology [facility] [address] [place] [address] Claritza Coronel MD [address] [place] [address] documented as of this encounter Visit Diagnoses Not on filedocumented in this encounter Care Teams Muskrat Trapper Relationship Specialty Start Date End Date Javier Hampton MD [address] [place] [address] PCP - General Family Medicine 12/09/21 Claritza Coronel MD [address] [place] [address] Consulting Physician Neurology 01/26/22 documented as of this encounter
--- OUTSIDE RECORDS SUMMARY | 2024-09-29 21:01 | XMS_ITS | Encounter Summary ---
Author Organization [facility] Address [address] [place] [address] Phone Care Team Providers Care Socially Responsible Investment Adviser Name Role Phone Javier Hampton MD Primary Care Provider [phone] Azeem Coronel MD Unavailable Encounter Details Date Type Department Care Team (Late st Contact Info) Description 06/05/2024 Refill [facility] [address] [place] [address] Azeem Coronel MD [address] [place] [address] Social History Tobacco Use Types [...] Telephone Encounter - Danielle Feldman RN - 06/05/2024 3:36 PM CDT Medication(s) refilled and signed per [facility] Chronic Medication Refill Standing Order for Pediatricand Adult Patients. Requested Prescriptions Pending Prescriptions Disp Refills carbidopa-levodopa (SINEMET) 25-100 MG Tablet 90 Tablet 2 Sig: Take 1 Tablet by mouth 3 times daily. Antiparkinson Dopaminergics and COMT Protocol Passed - 06/05/2024 3:35 PM Passed - Visit with relevant provider in the past 9 months or upcoming 90 days Recent Visits Date Type Provider Dept 05/22/24 Office Visit Azeem Coronel MD [facility] Neurology [facility] 11/15/23 Office Visit Azeem Coronel MD [facility] Neurology [facility] Showing recent visits within past 270 days and meeting all other requirements Future Appointments No visits were found meeting these conditions. Showing future appointments within next 90 days and meeting all other requirements Passed - Blood pressure on record in past 12 months Clinician-entered: BP Readings from Last 3 Encounters: 05/22/24 122/70 11/15/23 118/78 05/12/23 118/76 Patient-entered: No data recorded * Telephone Encounter - Nunu Wall CMA - 06/05/2024 3:35 PM CDT Requested Prescriptions Pending Prescriptions Disp Refills carbidopa-levodopa (SINEMET) 25-100 MG Tablet 90 Tablet 2 Sig: Take 1 Tablet by mouth 3 times daily. documented in this encounter Plan of Treatment Upcoming Encounters Date Type Department Care Team (Late st Contact Info) Description 11/22/2024 9:30 AM PRE SCHOOL TEACHER Office Visit [facility] - Neurology [facility] [address] [place] [address] Azeem Coronel MD [address] [place] [address] documented as of this encounter Visit Diagnoses Not on filedocumented in this encounter Care Teams Socially Responsible Investment Adviser Relationship Specialty Start Date End Date Javier Hampton MD [address] [place] [address] PCP - General Family Medicine 12/09/21 Azeem Coronel MD [address] [place] [address] Consulting Physician Neurology 01/26/22 documented as of this encounter
--- OUTSIDE RECORDS SUMMARY | 2024-09-29 21:01 | XMS_ITS | Encounter Summary ---
Author Organization [facility] Address [address] [place] [address] Phone Care Team Providers Care Locker Room Attendant Name Role Phone Javier Snow MD Primary Care Provider [phone] Azeem Coronel MD Unavailable [phone] Reason for Visit * Reason Comments Parkinson's Disease Encounter Details Date Type Department Care Team (Late st Contact Info) Description 05/22/2024 9:30 AM CDT Office Visit [facility] - [facility]rology [facility] [address] [place] [phone] Azeem Coronel MD [address] [place] [phone] Parkinson's disease without dyskinesia or fluctuating manifestations (HCC) (Primary Dx); Polycythemia Discharge Disposition: Discharged [...] Mass Index 26.85 05/22/2024 9:25 AM CDT documented in this encounter Progress Notes * Azeem Coronel MD - 05/22/2024 9:30 AM CDT NEUROLOGY CONSULT Date of Service: 05/22/2024 Assessment and Plan Josh was seen today for parkinson's disease. Diagnoses and all orders for this visit: Parkinson's disease without dyskinesia or fluctuating manifestations (HCC) - continue on sinemet 25/100 tab po tid Polycythemia Reason for Consultation: tremor HPI: Josh presents in follow-up for evaluation of Parkinson's disease. He seems to be tolerating carbidopa levodopa. Sometimes when he is anxious he shakes significantly more. Previous History: Josh presents in follow-up for [...] vera. Past Medical History Positives Diagnosis Date Diabetes mellitus (HCC) Osteopenia Polycythemia Past Surgical History: Procedure Laterality Date EYE SURGERY Family History Problem Relation Age of Onset Breast Cancer Mother Diabetes Father Diabetes Brother Coronary Artery Disease Brother Social History Tobacco Use Smoking status: Every Day Current packs/day: 0.50 Average packs/day: 0.5 packs/day for 20.0 years (10.0 ttl pk-yrs) Types: Cigarettes Smokeless tobacco: Never Substance Use Topics Alcohol use: Not Currently Allergies Allergen Reactions Penicillins Rash Current Outpatient Medications: aspirin EC 81 MG Tablet Delayed Response, Take 81 mg by mouth daily., Disp: , Rfl: atorvastatin (LIPITOR) 40 MG Tablet, Take 40 mg by mouth 3 times daily., Disp: , Rfl: Blood Glucose-BP Monitor (BLOOD GLUCOSE-WRIST BP MONITOR) Device, by Does not apply route., Disp: ,Rfl: Calcium Carbonate (CALCIUM 600 PO), Take 600 mg by mouth., Disp: , Rfl: carbidopa-levodopa (SINEMET) 25-100 MG Tablet, Take 1 Tablet by mouth 3 times daily., Disp: 90 Tablet, Rfl: 2 Cholecalciferol 25 mcg Capsule, Take 2,000 Units by mouth., Disp: , Rfl: Dapagliflozin Propanediol 10 MG Tablet, Take 1 Tablet by mouth daily., Disp: , Rfl: Docusate Sodium (COLACE PO), Take by mouth., Disp: , Rfl: Lancet Device Misc, by Does not apply route., Disp: , Rfl: losartan (COZAAR) 50 MG Tablet, Take 50 mg by mouth daily., Disp: , Rfl: metoprolol Succinate (TOPROL-XL) 25 MG TABLET SR 24 HR, TAKE 1/2 TABLET BY MOUTH DAILY, Disp: , Rfl: Multiple Vitamins-Minerals (PRESERVISION AREDS PO), Take by mouth daily., Disp: , Rfl: pantoprazole (PROTONIX) 40 MG Tablet Delayed Response, TAKE 1 TABLET BY MOUTH EVERY MORNING X 6 WEEKS, Disp: , Rfl: Trulicity 0.75 MG/0.5ML Solution Pen-injector, , Disp: , Rfl: Review of Systems: A 14 point Review of Systems is obtained, and is negative other than that mentioned in the History of Present Illness. Objective: VITALS: Blood pressure 122/70, pulse 65, temperature 97 ??F (36.1 ??C), temperature source Temporal, resp. rate 18, height 5' 11 (1.803 m), weight 192 lb 8 oz (87.3 kg), SpO2 96%. Weight: Wt Readings from Last 1 Encounters: 05/22/24 192 lb 8 oz (87.3 kg) Body mass index is 26.85 kg/m??. EXAM: General appearance: alert, no distress, [...] Flexors 5/5 5/5 Wrist Extensors 5/5 5/5 University Demonstrator 5/5 5/5 Hip Flexors 5/5 5/5 Quadriceps [...] found for: HSTRP , TROPONINI , POCTRP By: Azeem Coronel MD, 05/22/2024, 9:33 AM CDT Primary Care Physician: JAVIER SNOW MD documented in this encounter Plan of Treatment Upcoming Encounters Date Type Department Care Team (Late st Contact Info) Description 11/22/2024 9:30 AM CLOTHING DESIGNER Office Visit [facility] - Neurology [facility] [address] [place] [address] Azeem Coronel MD [address] [place] [address] documented as of this encounter Visit Diagnoses Diagnosis Parkinson's disease without dyskinesia or fluctuating manifestations (HCC)- Primary Polycythemia Polycythemia vera documented in this encounter Care Teams Locker Room Attendant Relationship Specialty Start Date End Date Javier Snow MD [address] [place] [address] PCP - General Family Medicine 12/09/21 Azeem Coronel MD [address] [place] [address] Consulting Physician Neurology 01/26/22 documented as of this encounter
--- OUTSIDE RECORDS SUMMARY | 2024-09-29 21:01 | XMS_ITS | Encounter Summary ---
Author Organization [facility] Address [address] [place] [address] Phone Care Team Providers Care Customer Support Professional Name Role Phone Javier Hampton MD Primary Care Provider [phone] Azeem Coronel MD Unavailable [phone] Encounter Details Date Type Department Care Team (Late st Contact Info) Description 09/23/2023 Refill [facility] #2 [place] [address] Azeem Coronel MD [address] [place] [address] Social History Tobacco Use Types [...] Telephone Encounter - Callie Bustamante RN - 09/23/2023 12:55 PM CST Medication(s) refilled and signed per [facility] Chronic Medication Refill Standing Order for Pediatricand Adult Patients. Requested Prescriptions Pending Prescriptions Disp Refills ??? carbidopa-levodopa (SINEMET) 25-100 MG Tablet 90 Tablet 2 Sig: Take 1 Tablet by mouth 3 times daily. Antiparkinson Dopaminergics and COMT Protocol Passed - 09/23/2023 8:33 AM Passed - Visit with relevant provider in the past 9 months or upcoming 90 days Recent Visits Date Type Provider Dept 05/12/23 Office Visit Azeem Coronel MD [facility] Neurology [facility] Showing recent visits within past 270 days and meeting all other requirements Future Appointments Date Type Provider Dept 11/15/23 Appointment Azeem Coronel MD [facility]rology [facility] Showing future appointments within next 90 days and meeting all other requirements Passed - Blood pressure on record in past 12 months Clinician-entered: BP Readings from Last 3 Encounters: 05/12/23 118/76 12/15/22 124/79 12/01/22 135/84 Patient-entered: No data recorded ATTENDANT * Telephone Encounter - Nunu Wall CMA - 09/23/2023 8:33 AM ROOM ATTENDANT Requested Prescriptions Pending Prescriptions Disp Refills ??? carbidopa-levodopa (SINEMET) 25-100 MG Tablet 90 Tablet 2 Sig: Take 1 Tablet by mouth 3 times daily. ATTENDANT documented in this encounter Plan of Treatment Upcoming Encounters Date Type Department Care Team (Late st Contact Info) Description 11/22/2024 9:30 AM ROOM ATTENDANT Office Visit [facility] - Neurology [facility] [address] [place] [address] Azeem Coronel MD [address] [place] [address] documented as of this encounter Visit Diagnoses Not on filedocumented in this encounter Care Teams Customer Support Professional Relationship Specialty Start Date End Date Javier Hampton MD [address] [place] [address] PCP - General Family Medicine 12/09/21 Azeem Coronel MD [address] [place] [address] Consulting Physician Neurology 01/26/22 documented as of this encounter
--- OUTSIDE RECORDS SUMMARY | 2024-09-29 21:01 | XMS_ITS | Encounter Summary ---
Author Organization [facility] Address [address] [place] [address] Phone Care Team Providers Care Rv Mechanic Name Role Phone Javier Snow MD Primary Care Provider [phone] Azeem Coronel MD Unavailable [phone] Reason for Visit * Reason Comments Parkinson's Disease Encounter Details Date Type Department Care Team (Late st Contact Info) Description 10/28/2022 9:30 AM DEPUTY CORONER Office Visit [facility] - Neurology [facility] [address] [place] [address] Azeem Coronel MD [address] [place] [address] Parkinson's disease (HCC) (Primary Dx); Polycythemia Discharge Disposition: Discharged to home or Selfcare Social History Tobacco Use Types Packs/Day Years Used Date Smoking Tobacco: Every Day Cigarettes 0.5 20 Smokeless Tobacco: Never Tobacco Cessation:Ready to Q uit: Not Asked; Counseling Given: Not Answered Alcohol Use Standard Drinks/Week Comments Not Currently [...] Coronavirus/COVID-19? No / Unsure 10/28/2022 9:11 AM DEPUTY CORONER documented as of this encounter Last Filed Vital Signs Vital Sign Reading Time Taken Comments Blood Pressure 120/80 10/28/2022 9:42 AM DEPUTY CORONER Pulse 67 10/28/2022 9:42 AM DEPUTY CORONER Temperature 36.5 ??C (97.7 ??F) 10/28/2022 9:42 AM CS T Respiratory Rate 17 10/28/2022 9:42 AM DEPUTY CORONER Oxygen Saturation 95% 10/28/2022 9:42 AM DEPUTY CORONER Inhaled Oxygen Concentration - - Weight 90.5 kg (199 lb 9.6 oz) 10/28/2022 9:42 A M DEPUTY CORONER Height 180.3 cm (5' 11 ) 10/28/2022 9:42 AM DEPUTY CORONER Body Mass Index 27.84 10/28/2022 9:42 AM DEPUTY CORONER documented in this encounter Progress Notes * Azeem Coronel MD - 10/28/2022 9:30 AM CST NEUROLOGY CONSULT Date of Service: 10/31/2022 Assessment and Plan Josh was seen today for parkinson's disease. Diagnoses and all orders for this visit: Parkinson's disease (HCC) - Continue sinemet 25/100 1 tab po tid - Encouraged regular exercise Polycythemia Reason for Consultation: tremor HPI: Josh is doing well with his current dose of sinemet. NO new issues. Previous History: Josh presents in follow-up for [...] he was getting lightheadedness with standing. He didnot get good medical care prior to that [...] been working on balance training exercises and notes significant improvement in that regard. He has also been seeing doctors in regards to his diabetes. He is working on smoking cessation as well [...] MG Tablet, Take 40 mg by mouth daily., Disp: , Rfl: ??? Blood Glucose-BP Monitor (BLOOD GLUCOSE-WRIST BP MONITOR) Device, by Does not apply route., Disp: , Rfl: ??? buPROPion (WELLBUTRIN) 150 MG XL tablet, daily., Disp: , Rfl: ??? Calcium Carbonate (CALCIUM [...] mouth., Disp: , Rfl: ??? Lancet Device Misc, by Does not apply [...] of Present Illness. Objective: VITALS: Blood pressure 120/80, pulse 67, temperature 97.7 ??F (36.5 ??C), temperature source Tympanic, resp. rate 17, height 5' 11 (1.803 m), weight 199 lb 9.6 oz (90.5 kg), SpO2 95 %. Weight: Wt Readings from Last 1 Encounters: 10/28/22 199 lb 9.6 oz (90.5 kg) Body mass index is 27.84 kg/m??. EXAM: General appearance: alert, no distress, [...] Flexors 5/5 5/5 Wrist Extensors 5/5 5/5 Advertising Sales Manager 5/5 5/5 Hip Flexors 5/5 5/5 Quadriceps [...] and toe walking. Normal armswing and turns. Part III: MDS UPDRS (Parkinson's Motor examination) Dyskinesia: 3a Is the patient on medication for treating the symptoms of Parkinson's disease?: Yes 3b If the patient is receiving medication for treating the symptoms of Parkinson's disease fly thepatient's clinical state using the following definitions:: ON: On is the typical functional state when patients are receiving medication and have a good response. 3c Is the patient on levodopa?: Yes 3.C1 If yes, time of last levodopa dose?: 0700 Speech: 3.1 Speech: 0 Normal: No speech problems Facial expression: 3.2 Facial Expression: 0 Normal: Normal facial expression. Rigidity: 3.3a Rigidity - Neck: 0 Normal: No rigidity. 3.3b Rigidity - RUE: 0 Normal: No rigidity. 3.3c Rigidity - LUE: 0 Normal: No rigidity. 3.3d Rigidity - RLE: 0 Normal: No rigidity. 3.3e Rigidity - LLE: 0 Normal: No rigidity. Finger tappin.4a Finger Tapping - Right hand: 0 Normal: No problems. 3.4b Finger Tapping - left hand: 0 Normal: No problems. Hand movements: 3.5a Hand movements - Right hand: 0 Normal: No problems. 3.5b Hand movements - Left hand: 0 Normal: No problems. Pronation-Supination movements of hands: 3.6a Pronation - Supination movements - Right hand: 0 Normal: No problems. 3.6b Pronation - Supination movements - Left hand: 0 Normal: No problems. Toe tappin.7a Toe Tapping - Right foot: 0 Normal: No problems. 3.7a Toe Tapping - Left foot: 0 Normal: No problems. Leg agility: 3.8a Leg agility - Right le Normal: No problems. 3.8b Leg agility - Left le Normal: No problems. Arising from chair: 3.9 Arising from chair: 0 Normal: No problems. Able to arise quickly without hesitation. Gait: 3.10 Gait: 0 Normal: No problems. Freezing of gait: 3.11 Freezing of Gait: 0 Normal: No freezing. Postural stability: 3.12 Postural Stability: 0 Normal: No problems. Recovers with one or two steps. Posture: 3.13 Posture: 0 Normal: No problems. Global spontaneity of movement (Body bradykinesia): 3.14 Global spontaneity of movement: 0 Normal: No problems. Postural tremor of the hands: 3.15a Postural tremor - Right hand: 0 Normal: No tremor. 3.15b Postural tremor - Left hand: 0 Normal: No tremor. Kinetic tremor of the hands: 3.16a Kinetic tremor - Right hand: 0 Normal: No tremor. 3.16b Kinetic tremor - Left hand: 0 Normal: No tremor. Rest tremor amplitude: 3.17a Rest tremor amplitude - RUE: 2 Mild: > 1 cm but < 3 cm in maximal amplitude. 3.17b Rest tremor amplitude - LUE: 2 Mild: > 1 cm but < 3 cm in maximal amplitude. 3.17c Rest tremor amplitude - RLE: 0 Normal: No tremor. 3.17d Rest tremor amplitude - LLE: 0 Normal: No tremor. 3.17e Rest tremor amplitude - Lip/jaw: 0 Normal: No tremor. Constancy of rest tremor: 3.18 Constancy of rest tremor: 1 Slight: Tremor at rest is present < 25% of the entire examination period. Ross and Yahr stage: Ross and Yahr Stage: 1 Unilateral involvement only MDS UPDRS total score: MDS UPDRS Part III Score: 6 Dyskinesia impact on part III ratings: No data recorded MDS UPDRS note documented on 10/31/22 by Azeem Coronel MD Data Review: Radiology Reviewed: yes No results [...] including pre-visit review of separately obtained history, [id number] interaction performing medically appropriate physical exam, patientcounseling/education, interpretation of diagnostic results, care coordination and documentation was30 minutes. By: Azeem Coronel MD, 10/31/2022, 4:59 PM DEPUTY CORONER Primary Care Physician: JAVIER SNOW MD TY CORONER documented in this encounter Plan of Treatment Upcoming Encounters Date Type Department Care Team (Late st Contact Info) Description 11/22/2024 9:30 AM DEPUTY CORONER Office Visit [facility] - [facility] [address]2 [place] [address] Azeem Coronel MD [address] [place] [address] documented as of this encounter Visit Diagnoses Diagnosis Parkinson's disease (HCC)- Primary Paralysis agitans Polycythemia Polycythemia vera documented in this encounter Care Teams Rv Mechanic Relationship Specialty Start Date End Date Javier Snow MD [address] [place] [address] PCP - General Family Medicine 12/09/21 Azeem Coronel MD [address] [place] [address] Consulting Physician Neurology 01/26/22 documented as of this encounter
--- OUTSIDE RECORDS SUMMARY | 2024-09-29 21:01 | XMS_ITS | Encounter Summary ---
Author Organization [facility] Care Team Providers Care Recruiting Administrator Name Role Phone Javier Hampton MD Primary Care Provider [phone] Azeem Coronel MD Unavailable [phone] Encounter Details Date Type Department Care Team (Latest Contact Info) Description 11/15/2023 Travel Social History Tobacco Use Types Packs/Day [...] st Contact Info) Description 11/22/2024 9:30 AM COMPUTER SECURITY MANAGER Office Visit [facility] - Neurology [facility] [address] [place] [address] Azeem Coronel MD [address] [place] [address] documented as of this encounter Visit Diagnoses Not on filedocumented in this encounter Care Teams Recruiting Administrator Relationship Specialty Start Date End Date Javier Hampton MD [address] [place] [address] PCP - General Family Medicine 12/09/21 Azeem Coronel MD [address] [place] [address] Consulting Physician Neurology 01/26/22 documented as of this encounter
--- OUTSIDE RECORDS SUMMARY | 2024-09-29 21:01 | XMS_ITS | Encounter Summary ---
Author Organization [facility] Care Team Providers Care Bronzer Name Role Phone Javier Hampton MD Primary Care Provider [phone] Azeem Coronel MD Unavailable [phone] Encounter Details Date Type Department Care Team (Latest Contact Info) Description 05/11/2023 Travel Social History Tobacco Use Types Packs/Day [...] AM CDT documented as of this encounter Plan of Treatment Upcoming Encounters Date Type Department Care Team (Late st Contact Info) Description 11/22/2024 9:30 AM TEMPLATE LAYOUT WORKER Office Visit [facility] - Neurology [facility] [address] [place] [address] Azeem Coronel MD [address] [place] [address] documented as of this encounter Visit Diagnoses Not on filedocumented in this encounter Care Teams Bronzer Relationship Specialty Start Date End Date Javier Hampton MD [address] [place] [address] PCP - General Family Medicine 12/09/21 Azeem Coronel MD [address] [place] [address] Consulting Physician Neurology 01/26/22 documented as of this encounter
--- OUTSIDE RECORDS SUMMARY | 2024-09-29 21:01 | XMS_ITS | Encounter Summary ---
Author Organization [facility] Address [address] [facility] [place] [address] Phone Care Team Providers Care Lime Filter Operator Name Role Phone Javier Hampton MD Primary Care Provider [phone] Azeem Coronel MD Unavailable [phone] Encounter Details Date Type Department Care Team (Late st Contact Info) Description 11/[facility]20[facility] [address] [place] [address] Jesscia Amaya MA [place] Social History Tobacco Use Types Packs/Day Years [...] Coronavirus/COVID-19? No / Unsure 12/15/2022 2:03 PM ASSEMBLING MACHINE OPERATOR documented as of this encounter Miscellaneous Notes * Telephone Encounter - Jessica Amaya MA - 11/08/2022 3:24 PM CST Per pt request, lab orders faxed to [facility] @ [phone]. Confirmation received--tjo MBLING MACHINE OPERATOR documented in this encounter Plan of Treatment Upcoming Encounters Date Type Department Care Team (Late st Contact Info) Description 11/22/2024 9:30 AM ASSEMBLING MACHINE OPERATOR [facility] [address] [place] [address] Azeem Coronel MD [address] [place] [address] documented as of this encounter Visit Diagnoses Not on filedocumented in this encounter Care Teams Lime Filter Operator Relationship Specialty Start Date End Date Javier Hampton MD [address] [place] [address] PCP - General Family Medicine 12/09/21 Azeem Coronel MD [address] [place] [address] Consulting Physician Neurology 01/26/22 documented as of this encounter
--- OUTSIDE RECORDS SUMMARY | 2024-09-29 21:01 | XMS_ITS | Encounter Summary ---
Author Organization [facility] Address [address] [facility] [place] [address] Phone Care Team Providers Care Medical Orderly Name Role Phone Javier Hampton MD Primary Care Provider [phone] Azeem Coronel MD Unavailable [phone] Encounter Details Date Type Department Care Team (Latest Contact Info) Description 11/17/2022 2:00 PM FOREST LAW AND POLICY PROFESSOR Clinical Support [facility] Oncology Services [address] [place] [address] Mojgan Rose Reny, PAC [address] [place] [address] Polycythemia (Primary Dx) Discharge Disposition: Discharged to [...] suspected to have Coronavirus/COVID-19? No / Unsure 11/16/2022 2:19 PM FOREST LAW AND POLICY PROFESSOR documented as of this encounter Progress Notes * Jody Ellsworth RN - 11/17/2022 2:00 PM CST 1340 Patient to Infusion for phlebotomy as verbally ordered to remove 250ml today per Mojgan TRIPLETT.BP 158/87. Patient given water/snack. Phlebotomy of 250ml performed without concern. Patient tolerated well. Gauze/coban to site. Patient observed x15 minutes continuing to drink water. BP rechecked 155/85. AVS given per Mojgan Hawkins. Patient discharged. ST LAW AND POLICY PROFESSOR documented in this encounter Plan of Treatment Upcoming Encounters Date Type Department Care Team (Late st Contact Info) Description 11/22/2024 9:30 AM FOREST LAW AND POLICY PROFESSOR [facility] [address] [place] [address] Azeem Coronel MD [address] [place] [address] documented as of this encounter Visit Diagnoses Diagnosis Polycythemia- Primary Polycythemia vera documented in this encounter Care Teams Medical Orderly Relationship Specialty Start Date End Date Javier Hampton MD [address] [place] [address] PCP - General Family Medicine 12/09/21 Azeem Coronel MD [address] [place] [address] Consulting Physician Neurology 01/26/22 documented as of this encounter
--- OUTSIDE RECORDS SUMMARY | 2024-09-29 21:01 | XMS_ITS | Encounter Summary ---
Author Organization [facility] Address [address] [place] [address] Phone Care Team Providers Care Recharger Name Role Phone Javier Hampton MD Primary Care Provider [phone] Azeem Coronel MD Unavailable [phone] Reason for Visit * Reason Onset Date Comments Medication Refill 06/23/2023 Encounter Details Date Type Department Care Team (Late st Contact Info) Description 06/23/2023 Refill [facility] - Neurology [facility] [address] [place] [address] Azeem Coronel MD [address] [place] [address] Medication Refill Social History Tobacco Use Types [...] Telephone Encounter - Callie Bustamante RN - 06/23/2023 10:58 AM CDT Medication(s) refilled and signed per [facility] Chronic Medication Refill Standing Order for Pediatricand Adult Patients. Requested Prescriptions Pending Prescriptions Disp Refills ??? carbidopa-levodopa (SINEMET) 25-100 MG Tablet 90 Tablet 2 Sig: Take 1 Tablet by mouth 3 times daily. Antiparkinson Dopaminergics and COMT Protocol Passed - 06/23/2023 10:58 AM Passed - Visit with relevant provider in the past 9 months or upcoming 90 days Recent Visits Date Type Provider Dept 05/12/23 Office Visit Azeem Coronel MD [facility] Neurology [facility] 10/28/22 Office Visit Azeem Coronel MD [facility] Neurology [facility] Showing recent visits within past 270 days and meeting all other requirements Future Appointments No visits were found meeting these conditions. Showing future appointments within next 90 days and meeting all other requirements Passed - Blood pressure on record in past 12 months Clinician-entered: BP Readings from Last 3 Encounters: 05/12/23 118/76 12/15/22 124/79 12/01/22 135/84 Patient-entered: No data recorded documented in this encounter Plan of Treatment Upcoming Encounters Date Type Department Care Team (Late st Contact Info) Description 11/22/2024 9:30 AM CAR EXAMINER [facility] [address] [place] [address] Azeem Coronel MD [address] [place] [address] documented as of this encounter Visit Diagnoses Not on filedocumented in this encounter Care Teams Recharger Relationship Specialty Start Date End Date Javier Hampton MD [address] [place] [address] PCP - General Family Medicine 12/09/21 Azeem Coronel MD [address] [place] [address] Consulting Physician Neurology 01/26/22 documented as of this encounter
--- OUTSIDE RECORDS SUMMARY | 2024-09-29 21:01 | XMS_ITS | Encounter Summary ---
Author Organization [facility] Address [address] [place] [address] Phone Care Team Providers Care Roll Icer Name Role Phone Javier Hampton MD Primary Care Provider [phone] Azeem Coronel MD Unavailable [phone] Reason for Visit * Reason Onset Date Comments Medication Refill 03/16/2023 Encounter Details Date Type Department Care Team (Late st Contact Info) Description 03/16/2023 Refill [facility] - Neurology [facility] [address] [place] [address] Azeem Coronel MD [address] [place] [address] Medication Refill Social History Tobacco Use Types [...] Telephone Encounter - Callie Bustamante RN - 03/16/2023 9:04 AM CDT Medication(s) refilled and signed per [facility] Chronic Medication Refill Standing Order for Pediatricand Adult Patients. Requested Prescriptions Pending Prescriptions Disp Refills ??? carbidopa-levodopa (SINEMET) 25-100 MG Tablet 90 Tablet 2 Sig: Take 1 Tablet by mouth 3 times daily. Antiparkinson Dopaminergics and COMT Protocol Passed - 03/16/2023 9:04 AM Passed - Visit with relevant provider in the past 9 months or upcoming 90 days Recent Visits Date Type Provider Dept 10/28/22 Office Visit Azeem Coronel MD [facility] Neurology [facility] Showing recent visits within past 270 days and meeting all other requirements Future Appointments Date Type Provider Dept 04/28/23 Appointment Azeem Coronel MD [facility] Neurology [facility] Showing future appointments within next 90 days and meeting all other requirements Passed - Blood pressure on record in past 12 months Clinician-entered: BP Readings from Last 3 Encounters: 12/15/22 124/79 12/01/22 135/84 11/17/22 162/80 Patient-entered: No data recorded documented in this encounter Plan of Treatment Upcoming Encounters Date Type Department Care Team (Late st Contact Info) Description 11/22/2024 9:30 AM WINCH DRIVER Office Visit [facility] - Neurology [facility] [address] [place] [address] Azeem Coronel MD [address] [place] [address] documented as of this encounter Visit Diagnoses Not on filedocumented in this encounter Care Teams Roll Icer Relationship Specialty Start Date End Date Javier Hampton MD [address] [place] [address] PCP - General Family Medicine 12/09/21 Azeem Coronel MD [address] [place] [address] Consulting Physician Neurology 01/26/22 documented as of this encounter
--- OUTSIDE RECORDS SUMMARY | 2024-09-29 21:01 | XMS_ITS | Encounter Summary ---
Author Organization [facility] Address [address] [facility] [place] [address] Phone Care Team Providers Care Film Recordist Name Role Phone Javier Hampton MD Primary Care Provider [phone] Azeem Coronel MD Unavailable [phone] Encounter Details Date Type Department Care Team (Latest Contact Info) Description 12/01/2022 10:30 AM PROVIDER RELATIONS REP Clinical Support [facility] Oncology Services [address] [place] [address] Mojgan Rose Reny, PAC [address] [place] [address] Polycythemia (Primary Dx) Discharge Disposition: Discharged to [...] Coronavirus/COVID-19? No / Unsure 11/30/2022 2:39 PM PROVIDER RELATIONS REP documented as of this encounter Last Filed Vital Signs Vital Sign Reading Time Taken Comments Blood Pressure 135/84 12/01/2022 11:15 AM PROVIDER RELATIONS REP Pulse 69 12/01/2022 11:15 AM PROVIDER RELATIONS REP Temperature 36.1 ??C (97 ??F) 12/01/2022 10:40 AM PROVIDER RELATIONS REP Respiratory Rate 16 12/01/2022 10:40 AM PROVIDER RELATIONS REP Oxygen Saturation 97% 12/01/2022 10:40 AM PROVIDER RELATIONS REP Inhaled Oxygen Concentration - - Weight - - Height - - Body Mass Index - - documented in this encounter Miscellaneous Notes * Interdisciplinary - Wellington Flor RN - 12/01/2022 10:30 AM CST Pt ambulated to treatment room. Vitals obtained. 250mL phlebotomy collected from RAC without incident. Gauze and coband applied to site. Snack and water offered. 15 min vitals obtained. Pt left in stable condition. IDER RELATIONS REP documented in this encounter Plan of Treatment Upcoming Encounters Date Type Department Care Team (Late st Contact Info) Description 11/22/2024 9:30 AM PROVIDER RELATIONS REP [facility] Visit [facility] - Neurology [facility] [address] [place] [address] Azeem Coronel MD [address] [place] [address] documented as of this encounter Visit Diagnoses Diagnosis Polycythemia- Primary Polycythemia vera documented in this encounter Care Teams Film Recordist Relationship Specialty Start Date End Date Javier Hampton MD [address] [place] [address] PCP - General Family Medicine 12/09/21 Azeem Coronel MD [address] [place] [address] Consulting Physician Neurology 01/26/22 documented as of this encounter
--- OUTSIDE RECORDS SUMMARY | 2024-09-29 21:01 | XMS_ITS | Encounter Summary ---
Author Organization [facility] [employer] [facility] Care Team Providers Care Screen Printing Loader Unloader Name Role Phone Javier Hampton MD Primary Care Provider [phone] Azeem Coronel MD Unavailable [phone] Encounter Details Date Type Department Care Team (Latest Contact Info) Description 11/16/2022 Travel Social History Tobacco Use Types Packs/Day [...] Coronavirus/COVID-19? No / Unsure 11/16/2022 2:19 PM AGENCY MANAGER documented as of this encounter Plan of Treatment Upcoming Encounters Date Type Department Care Team (Late st Contact Info) Description 11/22/2024 9:30 AM AGENCY MANAGER Office Visit [facility] - Neurology [facility] [address] [place] [address] Azeem Coronel MD [address] [place] [address] documented as of this encounter Visit Diagnoses Not on filedocumented in this encounter Care Teams Screen Printing Loader Unloader Relationship Specialty Start Date End Date Javier Hampton MD [address] [place] [address] PCP - General Family Medicine 12/09/21 Azeem Coronel MD [address] [place] [address] Consulting Physician Neurology 01/26/22 documented as of this encounter
--- OUTSIDE RECORDS SUMMARY | 2024-09-29 21:01 | XMS_ITS | Encounter Summary ---
Author Organization [facility] Address [address] [facility] [place] [address] Phone Care Team Providers Care Statistical Assistant Name Role Phone Javier Hampton MD Primary Care Provider [phone] Azeem Coronel MD Unavailable [phone] Encounter Details Date Type Department Care Team (Late st Contact Info) Description 01/25/2023 [facility]phone [facility] [address] [place] [address] Arnulfo Hull MD [address] [place], [place] [phone] Social History Tobacco Use Types Packs/Day Years [...] encounter Miscellaneous Notes * Telephone Encounter - Juliet Martinez RN - 01/25/2023 9:14 AM CDT Call placed to Josh to verify if he is having any symptoms of needing a phlebotomy. Pt states that he is not having any symptoms and feels great. Pt notified of appointment in two weeks. Pt is asking whether he can have us mail him some new lab orders. Labs orders printed and mailed topt. documented in this encounter Plan of Treatment Upcoming Encounters Date Type Department Care Team (Late st Contact Info) Description 11/22/2024 9:30 AM MUSIC STORE MANAGER Office Visit [facility] - Neurology [facility] [address] [place] [address] Azeem Coronel MD [address] [place] [address] Scheduled Orders Name Type Priority Associated Diagnoses Orde r Schedule COMPLETE BLOOD COUNT (CBC) WITH DIFF Lab STAT Polycythemia 24 Occurrences starting 01/25/2023 until 01/26/2024 documented as of this encounter Procedures Procedure Name Priority Date/Time Associated Diagnosis Comments COMPLETE BLOOD COUNT (CBC) WITH DIFF Routine 02/07/2023 12:00 AM CDT documented in this encounter Results * COMPLETE BLOOD COUNT (CBC) WITH DIFF (02/07/2023 12:00 AM CDT) 02/07/2023 Arnulfo Marika Hull MD HEMATOLOGY ORDERABLES Fi nal Result SCAN documented in this encounter Visit Diagnoses Diagnosis Polycythemia- Primary Polycythemia vera documented in this encounter Care Teams Statistical Assistant Relationship Specialty Start Date End Date Javier Hampton MD [address] [place] [address] PCP - General Family Medicine 12/09/21 Azeem Coronel MD [address] [place] [address] Consulting Physician Neurology 01/26/22 documented as of this encounter
--- OUTSIDE RECORDS SUMMARY | 2024-09-29 21:01 | XMS_ITS | Encounter Summary ---
Author Organization [facility] Address [address] [place] [address] Phone Care Team Providers Care Furnace Operator Name Role Phone Javier Hampton MD Primary Care Provider [phone] Azeem Coronel MD Unavailable [phone] Reason for Visit * Reason Onset Date Comments Medication Refill 03/07/2024 Encounter Details Date Type Department Care Team (Late st Contact Info) Description 03/07/2024 Refill [facility] - Neurology [facility] [address] [place] [address] Azeem Coronel MD [address] [place] [address] Medication Refill Social History Tobacco Use Types [...] Telephone Encounter - Danielle Feldman RN - 03/07/2024 2:19 PM CDT Medication(s) refilled and signed per [facility] Chronic Medication Refill Standing Order for Pediatricand Adult Patients. Requested Prescriptions Pending Prescriptions Disp Refills carbidopa-levodopa (SINEMET) 25-100 MG Tablet 90 Tablet 2 Sig: Take 1 Tablet by mouth 3 times daily. Antiparkinson Dopaminergics and COMT Protocol Passed - 03/07/2024 2:19 PM Passed - Visit with relevant provider in the past 9 months or upcoming 90 days Recent Visits Date Type Provider Dept 11/15/23 Office Visit Azeem Coronel MD [facility] Neurology [facility] Showing recent visits within past 270 days and meeting all other requirements Future Appointments Date Type Provider Dept 05/22/24 Appointment Azeem Coronel MD [facility] Neurology [facility] Showing future appointments within next 90 days and meeting all other requirements Passed - Blood pressure on record in past 12 months Clinician-entered: BP Readings from Last 3 Encounters: 11/15/23 118/78 05/12/23 118/76 12/15/22 124/79 Patient-entered: No data recorded * Telephone Encounter - Danielle Feldman RN - 03/07/2024 2:19 PM CDT Carbidopa/levodopa refill documented in this encounter Plan of Treatment Upcoming Encounters Date Type Department Care Team (Late st Contact Info) Description 11/22/2024 9:30 AM KINDERGARTEN TUTOR Office Visit [facility] - Neu[facility] [address] [place] [address] Azeem Coronel MD [address] [place] [address] documented as of this encounter Visit Diagnoses Not on filedocumented in this encounter Care Teams Furnace Operator Relationship Specialty Start Date End Date Javier Hampton MD [address] [place] [address] PCP - General Family Medicine 12/09/21 Azeem Coronel MD [address] [place] [address] Consulting Physician Neurology 01/26/22 documented as of this encounter
--- OUTSIDE RECORDS SUMMARY | 2024-09-29 21:01 | XMS_ITS | Encounter Summary ---
Author Organization [facility] Address [address] [place] [address] Phone Care Team Providers Care Orthopaedic Nurse Name Role Phone Javier Hampton MD Primary Care Provider [phone] Azeem Coronel MD Unavailable [phone] Reason for Visit * Reason Comments Follow-up Encounter Details Date Type Department Care Team (Late st Contact Info) Description 11/17/2022 1:00 PM PIPE SUPERVISOR Office Visit [facility] On[facility] Services [address] [place] [id number] Mojgan Rose, PAC [address] [place] [address] Polycythemia (Primary Dx); Current smoker; Chronic kidney disease, unspecified CKD stage Discharge Disposition: Discharged to home or Selfcare [...] Coronavirus/COVID-19? No / Unsure 11/16/2022 2:19 PM PIPE SUPERVISOR documented as of this encounter Last Filed Vital Signs Vital Sign Reading Time Taken Comments Blood Pressure 162/80 11/17/2022 1:12 PM PIPE SUPERVISOR Pulse 79 11/17/2022 1:12 PM PIPE SUPERVISOR Temperature 36.5 ??C (97.7 ??F) 11/17/2022 1:12 PM CS T Respiratory Rate 17 11/17/2022 1:12 PM PIPE SUPERVISOR Oxygen Saturation 96% 11/17/2022 1:12 PM PIPE SUPERVISOR Inhaled Oxygen Concentration - - Weight 90.6 kg (199 lb 12.8 oz) 11/17/2022 1:12 PM PIPE SUPERVISOR Height 180.3 cm (5' 11 ) 11/17/2022 1:12 PM PIPE SUPERVISOR Body Mass Index 27.87 11/17/2022 1:12 PM PIPE SUPERVISOR documented in this encounter Patient Instructions * Patient Instructions* Mojgan Rose Reny, PAC - 11/17/2022 1:00 PM PIPE SUPERVISOR Reviewed causes of polycythemia Reviewed adverse effects of polycythemia Reviewed pass therapies-reports did have a syncopal episode with his last therapeutic phlebotomy. Recommend therapeutic phlebotomy of 250 mL every 2 weeks for hemoglobin greater than 17.5- standingorder for CBC every 2 weeks x4 provided Encouraged to discontinue use of tobacco Encouraged to increase hydration with at least 64 oz of water per day Discussed benefits of low-dose screening CT-reports will discuss with primary care provider If you had lab work or other testing ordered at this visit, we will contact you regarding the results once all results have been received and reviewed. You may be able to see results in your my chart as they come in, please remember the computer is only given parameters for what is ???normal?? or ???abnormal?? . The significance of anything in the ???abnormal?? range is based on the remaining test results. Again we will contact you when we have received and reviewed all the results. If you were advised to have a procedure and have not heard from our office or the appropriate department within 2 weeks please call to schedule. If you were referred to an outside facility or advised to have a procedure at an outside facility and have not heard from that facility in 2-4 weeks call us. All patients are expected to check in with registration 15 minutes prior to all appointments. Please schedule follow-up in near future to discuss any concerns that were not addressed fully at today's office visit. To continue to provide excellent patient care, you may receive a survey regarding your visit today.To help us serve you better, please complete and return. These surveys are completely anonymous. If you have any concerns/ questions regarding today's visit, please call. If you experience any new or worsening symptoms, please call or go to the emergency department. SUPERVISOR SUPERVISOR documented in this encounter Progress Notes * Mojgan Rose PAC - 11/17/2022 1:00 PM CST Outpatient Hem/Onc Progress Note Josh Robert is a 72 y.o. male seen today for follow up polycythemia/ tobacco abuse/ CKD/ Parkinson's. Is accompanied by his . Reports feeling good. Denies any unusual fatigue/chest pain/shortness of breath. Reports did recently return from vacation. While they were on vacation did not drinkas much water as usual because of water tasted bad. Reports was able to walk across airport twice without extreme shortness of breath. Denies diagnosis of emphysema but reports has been smoking for significant period of time. Did have annual chest x-rays while he works at [employer] however has been retired for 12 years. Has never had low- dose CT screen. ECOG PERFORMANCE STATUS: 0 DIAGNOSIS/TREATMENT HISTORY: Reviewed patients past medical, surgical, social, and family history. Outpatient Medications Marked as Taking for the 11/17/22 encounter (Office Visit) with Elvis Rose PAC Medication Sig Dispense Refill ??? aspirin EC 81 MG Tablet Delayed Response Take 81 mg by mouth daily. ??? atorvastatin (LIPITOR) 40 MG Tablet Take 40 mg by mouth 3 times daily. ??? Blood Glucose-BP Monitor (BLOOD GLUCOSE-WRIST BP MONITOR) Device by Does not apply route. ??? buPROPion (WELLBUTRIN) 150 MG XL tablet daily. ??? Calcium Carbonate (CALCIUM 600 PO) Take 600 mg by mouth. ??? carbidopa-levodopa (SINEMET) 25-100 MG Tablet Take 1 Tablet by mouth 3 times daily. 90 Tablet 2 ??? Cholecalciferol 25 mcg Capsule Take 2,000 Units by mouth. ??? Dapagliflozin Propanediol 10 MG Tablet Take 1 Tablet by mouth daily. ??? Docusate Sodium (COLACE PO) Take by mouth. ??? Lancet Device Misc by Does not apply route. ??? losartan (COZAAR) 50 MG Tablet Take 50 mg by mouth daily. ??? metoprolol Succinate (TOPROL-XL) 25 MG TABLET SR 24 HR TAKE 1/2 TABLET BY MOUTH DAILY ??? Multiple Vitamins-Minerals (PRESERVISION AREDS PO) Take by mouth daily. ??? pantoprazole (PROTONIX) 40 MG Tablet Delayed Response TAKE 1 TABLET BY MOUTH EVERY MORNING X 6 WEEKS ??? Trulicity 0.75 MG/0.5ML Solution Pen-injector Allergies as of 11/17/2022 - Reviewed 11/17/2022 Allergen Reaction Noted ??? Penicillins Rash 02/12/2021 Physical Exam GENERAL:Well developed, well nourished, in no acute distress. AAO x3. Cooperative. HEENT:Normocephalic. PERRLA. Nonicteric. NECK:Supple/ non tender/ full ROM. LYMPH NODES:No adenopathy. CARDIOVASCULAR:RRR/ S1S2/ No m/g/c/r. PULMONARY: Respirations easy and regular. Breath sounds clear bilaterally. No rhonchi/ rales/ wheezes. GI: Abdomen soft, nondistended. No tenderness, rebound, guarding or mass. No hepatosplenomegaly. Bowel sounds normoactive. MUSCULOSKELETAL:Full ROM all extremities. No tenderness/ swelling/ crepitus. SKIN: General-warm, pink and dry. No rashes/ lesions. PSYCHIATRIC:Euthymic. Affect congruent with mood. Normal thought processes. PAIN ASSESSMENT: 0 DATA: 11/15/2022 CBC: WBC 6.3 Hgb 17.8 Hct 55.5 Platelets 265 ANC 3.6 Assessment: Diagnoses and all orders for this visit: Polycythemia - COMPLETE BLOOD COUNT (CBC) WITH DIFF; Standing - COMPLETE BLOOD COUNT (CBC) WITH DIFF; Future - VITAMIN B12; Future - FERRITIN; Future - IRON W/IRON BINDING CAPACITY; Future Current smoker Chronic kidney disease, unspecified CKD stage - FERRITIN; Future - IRON W/IRON BINDING CAPACITY; Future Plan: Recommended proceeding with therapeutic phlebotomy today. Reports after previous therapeutic phlebotomy experience episode of syncope. Recommendation at this time is to proceed with phlebotomy 250 mL, repeat CBC in 2 weeks and then proceed with an additional 250 still indicated. Expressed understanding and agrees. Will proceed with CBC every 2 weeks and therapeutic phlebotomy as indicated for hemoglobin greater than 17.5. Did advise ideal recommendation Is 1717.5. Offered to order low-dose screening CT, declines at this time wishes to discuss with primary care provider. Diagnoses and all orders for this visit: Polycythemia - COMPLETE BLOOD COUNT (CBC) WITH DIFF; Standing - COMPLETE BLOOD COUNT (CBC) WITH DIFF; Future - VITAMIN B12; Future - FERRITIN; Future - IRON W/IRON BINDING CAPACITY; Future Current smoker Chronic kidney disease, unspecified CKD stage - FERRITIN; Future - IRON W/IRON BINDING CAPACITY; Future No follow-ups on file. Patient Instructions Reviewed causes of polycythemia Reviewed adverse effects of polycythemia Reviewed pass therapies-reports did have a syncopal episode with his last therapeutic phlebotomy. Recommend therapeutic phlebotomy of 250 mL every 2 weeks for hemoglobin greater than 17.5- standingorder for CBC every 2 weeks x4 provided Encouraged to discontinue use of tobacco Encouraged to increase hydration with at least 64 oz of water per day Discussed benefits of low-dose screening CT-reports will discuss with primary care provider If you had lab work or other testing ordered at this visit, we will contact you regarding the results once all results have been received and reviewed. You may be able to see results in your my chart as they come in, please remember the computer is only given parameters for what is ???normal?? or ???abnormal?? . The significance of anything in the ???abnormal?? range is based on the remaining test results. Again we will contact you when we have received and reviewed all the results. If you were advised to have a procedure and have not heard from our office or the appropriate department within 2 weeks please call to schedule. If you were referred to an outside facility or advised to have a procedure at an outside facility and have not heard from that facility in 2-4 weeks call us. All patients are expected to check in with registration 15 minutes prior to all appointments. Please schedule follow-up in near future to discuss any concerns that were not addressed fully at today's office visit. To continue to provide excellent patient care, you may receive a survey regarding your visit today.To help us serve you better, please complete and return. These surveys are completely anonymous. If you have any concerns/ questions regarding today's visit, please call. If you experience any new or worsening symptoms, please call or go to the emergency department. The patient was given an opportunity to ask questions, and all questions answered to patient's satisfaction. Patient verbalizes understanding of the plan as outlined above. SUPERVISOR documented in this encounter Miscellaneous Notes * Interdisciplinary - Jessica Amaya MA - 11/17/2022 1:00 PM CST Follow up. No pain, today. Meds reviewed with pt and are up to date--tjo SUPERVISOR documented in this encounter Plan of Treatment Upcoming Encounters Date Type Department Care Team (Late st Contact Info) Description 11/22/2024 9:30 AM PIPE SUPERVISOR Office Visit [facility] - Neurology - [place] [address] [place] [address] Azeem Coronel MD [address] [place] [address] Scheduled Orders Name Type Priority Associated Diagnoses Orde r Schedule COMPLETE BLOOD COUNT (CBC) WITH DIFF Lab Routine Polycythemia every 2 weeks for 4 Occurrences starting 11/17/2022 until 02/14/2023 documented as of this encounter Procedures Procedure Name Priority Date/Time Associated Diagnosis Comments VITAMIN B12 Routine 12/13/2022 12:00 AM PIPE SUPERVISOR Polycythemia IRON W/IRON BINDING CAPACITY Routine 12/13/2022 12:00 AM PIPE SUPERVISOR Polycythemia Chronic kidney disease, unspecified CKD stage FERRITIN Routine 12/13/2022 12:00 AM PIPE SUPERVISOR Polycythemia Chronic kidney disease, unspecified CKD stage COMPLETE BLOOD COUNT (CBC) WITH DIFF Routine 12/13/2022 12:00 AM PIPE SUPERVISOR Polycythemia COMPLETE BLOOD COUNT (CBC) WITH DIFF Routine 11/26/2022 12:00 AM PIPE SUPERVISOR documented in this encounter Results * IRON W/IRON BINDING CAPACITY (12/13/2022 12:00 AM PIPE SUPERVISOR) Blood 12/13/2022 [facility] PAC CHEMISTRY ORDERABLES Jeannette l Result Performing Organization Address City/State/ZIP Nv de Phone Number SCAN * FERRITIN (12/13/2022 12:00 AM PIPE SUPERVISOR) Blood 12/13/2022 [facility] PAC CHEMISTRY ORDERABLES Jeannette l Result Performing Organization Address City/[facility] de Phone Number SCAN * VITAMIN B12 (12/13/2022 12:00 AM PIPE SUPERVISOR) Blood 12/13/2022 [facility] PAC CHEMISTRY ORDERABLES Jeannette l Result Performing Organization Address City/[facility] de Phone Number SCAN * COMPLETE BLOOD COUNT (CBC) WITH DIFF (12/13/2022 12:00 AM PIPE SUPERVISOR) Blood 12/13/2022 [facility] PAC HEMATOLOGY ORDERABLES Fin al Result Performing Organization Address City/[facility] Co de Phone Number SCAN * COMPLETE BLOOD COUNT (CBC) WITH DIFF (11/26/2022 12:00 AM PIPE SUPERVISOR) 11/26/2022 [facility] PAC HEMATOLOGY ORDERABLES Fin al Result Performing Organization Address City/[facility] de Phone Number SCAN documented in this encounter Visit Diagnoses Diagnosis Polycythemia- Primary Polycythemia vera Current smoker Tobacco use disorder Chronic kidney disease, unspecified CKD stage documented in this encounter Care Teams Orthopaedic Nurse Relationship Specialty Start Date End Date Javier Hampton MD [address] [place] [address] PCP - General Family Medicine 12/09/21 Azeem Coronel MD [address] [place] [phone] Consulting Physician Neurology 01/26/22 documented as of this encounter
--- OUTSIDE RECORDS SUMMARY | 2024-09-29 21:02 | XMS_ITS | Encounter Summary ---
Author Organization [facility] Address [address] [place] [address] Phone Care Team Providers Care Termite Helper Name Role Phone Syeda Fontanez APRN Primary Care Provider [phone] Reason for Visit * Reason Comments Follow-up Encounter Details Date Type Department Care Team (Late st Contact Info) Description 06/03/2021 1:00 PM CDT Office Visit [facility] Oncology Services [address] [place] [address] Faina Amanda APRN, SLAT TWISTER [address] [place] [address] Polycythemia (Primary Dx) Discharge Disposition: Discharged to home or Selfcare Social History Tobacco Use Types Packs/Day Years Used Date Smoking Tobacco: Every Day Cigarettes 0.5 20 Smokeless Tobacco: Never Alcohol Use Standard Drinks/Week Comments Yes 0 (1 standard drink = 0.6 oz pur e alcohol) Sex and Gender Information Value Date Recorded Sex Assigned at Not on file Legal Sex Male 1:50 PM CDT Gender Identity Not on file Sexual Orientation Not on file COVID-19 Exposure Response Date Recorded In the last month, have you been in contact with someone who was confirmed or suspected to have Coronavirus / COVID-19? No / Unsure 06/03/2021 1:01 PM CDT documented as of this encounter Last Filed Vital Signs Vital Sign Reading Time Taken Comments Blood Pressure 128/90 06/03/2021 1:10 PM CDT Pulse 69 06/03/2021 1:10 PM CDT Temperature 36.6 ??C (97.8 ??F) 06/03/2021 1:10 PM CD T Respiratory Rate 18 06/03/2021 1:10 PM CDT Oxygen Saturation 97% 06/03/2021 1:10 PM CDT Inhaled Oxygen Concentration - - Weight 95.3 kg (210 lb 1.6 oz) 06/03/2021 1:10 P M CDT Height 180.3 cm (5' 11 ) 06/03/2021 1:10 PM CDT Body Mass Index 29.3 06/03/2021 1:10 PM CDT documented in this encounter Progress Notes * Faina Amanda APN, CNP - 06/03/2021 1:00 PM CDT Outpatient Hem/Onc Progress Note Chief Complaint: Polycythemia Josh Robert is a 70 y.o. male seen today for follow up of Polycythemia. Patient has h/o CKD, DMII, osteoporosis and HTN. On Fosamax for osteoporosis. Patient smokes 1/2 pack/day. Patient has no new complaints. Outpatient Medications Marked as Taking for the 06/03/21 encounter (Office Visit) with Faina Amanda APN, CNP Medication Sig Dispense Refill ??? aspirin EC 81 MG Tablet Delayed Response Take 81 mg by mouth daily. ??? Calcium Carbonate (CALCIUM 600 PO) Take 600 mg by mouth. ??? Cholecalciferol 25 mcg Capsule Take 2,000 Units by mouth. ??? glipiZIDE (GLUCOTROL) 5 MG Tablet Take 5 mg by mouth 2 times daily. ??? lisinopril (PRINIVIL, ZESTRIL) 5 MG Tablet Take 5 mg by mouth daily. Allergies as of 06/03/2021 - Reviewed 06/03/2021 Allergen Reaction Noted ??? Penicillins Rash 02/12/2021 ECO VITAL SIGNS: Vitals: 06/03/21 1310 BP: 128/90 BP Location: Right Arm BP Position: Sitting BP Cuff Size: Large Pulse: 69 Resp: 18 Temp: 97.8 ??F (36.6 ??C) SpO2: 97% Weight: 210 lb 1.6 oz (95.3 kg) Height: 5' 11 (1.803 m) Physical Exam A&Ox3 HRRR L, CTA Abdomen soft, bowel sounds positive, nontender to palpation No edema of lower extremities noted Labs:06/12/20- WBC 7.5 Hem 17.1 Hct 51.0 Plt 303Na 138 K 4.5 CL 101 Co2 32 Bun 19 Creat 1.40 Edgard 10.0 T.Bili 0.6 AST 21 Alt 49 LD 141 Alk Phos 61 Alb 3.7 Finesse 2- neg Assessment: 1. Polycythemia 2. CKD 3. Osteoporosis?? 4. Current tobacco abuse ?? Plan: 1. Polycythemia- Jak2 negative. No phlebotomy needed today. Patient encouraged to continue hydration and low-dose aspirin. ?? Hematocrit (HCT):??Polycythemia is considered when the hematocrit is greater than 48% in women and 52% in men. ?? Hemoglobin (HGB):??Polycythemia is considered when a hemoglobin level of greater than 16.5g/dL in women or hemoglobin level greater than18.5 g/dL in men. Polycythemia can be divided into two categories; primary and secondary. ?? Primary polycythemia:??In primary polycythemia the increase in red blood cells is due to inherent problems in the process of red blood cell production. Secondary polycythemia:??Secondary polycythemia generally occurs as a response to other factors or underlying conditions that promote red blood cell production. 2. CKD-continue follow-up with PCP 3. Osteoporosis-on calcium daily 4. Cigarette tobacco smoking abuse: Cigarette tobacco smoking abuse counseling cessation given. ?? RTC: 2 months. CBC and monthly phlebotomies. Total time spent on this encounter on this date of service, including pre-visit review of separately obtained history, [id number] interaction performing medically appropriate physical exam, patientcounseling/education, interpretation of diagnostic results, care coordination and documentation was30 minutes. The patient was given an opportunity to ask questions, and all questions answered to patient's satisfaction. Patient verbalizes understanding of the plan as outlined above. Faina Amanda APN, [place] 06/03/2021 1:21 PM CDT documented in this encounter Miscellaneous Notes * Interdisciplinary - Jessica Amaya MA - 06/03/2021 1:00 PM CDT Follow up. No pain, today. Per pt, his meds are unchanged--tjo documented in this encounter Plan of Treatment Upcoming Encounters Date Type Department Care Team (Late st Contact Info) Description 11/22/2024 9:30 AM LIGHTNING PROTECTION INSTALLER Office Visit [facility] - Neurology [facility] [address] [place] [address] Azeem Coronel MD [address] [place] [address] Scheduled Orders Name Type Priority Associated Diagnoses Orde r Schedule COMPLETE BLOOD COUNT (CBC) WITH DIFF Lab Routine Polycythemia monthly for 10 Occurrences starting 06/03/2021 until 06/03/2022 documented as of this encounter Procedures Procedure Name Priority Date/Time Associated Diagnosis Comments COMPLETE BLOOD COUNT (CBC) WITH DIFF Routine 07/27/2021 12:00 AM CDT documented in this encounter Results * COMPLETE BLOOD COUNT (CBC) WITH DIFF (07/27/2021 12:00 AM CDT) 07/27/2021 us Faina Amanda APRN, SLAT TWISTER HEMATOLOGY ORDERABLES Fi nal Result SCAN documented in this encounter Visit Diagnoses Diagnosis Polycythemia- Primary Polycythemia vera documented in this encounter Care Teams Termite Helper Relationship Specialty Start Date End Date Syeda Fontanez APRN [address] [place] [address] PCP - General Family Medicine 02/12/21 12/08/21 documented as of this encounter
--- OUTSIDE RECORDS SUMMARY | 2024-09-29 21:02 | XMS_ITS | Encounter Summary ---
Author Organization [facility] Care Team Providers Care Orchestra Musician Name Role Phone Javier Hampton MD Primary Care Provider [phone] Encounter Details Date Type Department Care Team (Latest Contact Info) Description 01/05/2022 Travel Social History Tobacco Use Types Packs/Day [...] suspected to have Coronavirus/COVID-19? No / Unsure 01/05/2022 3:25 PM CDT documented as of this encounter Plan of Treatment Upcoming Encounters Date Type Department Care Team (Late st Contact Info) Description 11/22/2024 9:30 AM MEDICAL SECRETARY TEACHER Office Visit [facility] - Neurology - [place] [address] [place] [address] Azeem Coronel MD [address] [place] [address] documented as of this encounter Visit Diagnoses Not on filedocumented in this encounter Care Teams Orchestra Musician Relationship Specialty Start Date End Date Javeir Hampton MD [address] [place] [address] PCP - General Family Medicine 12/09/21 documented as of this encounter
--- OUTSIDE RECORDS SUMMARY | 2024-09-29 21:02 | XMS_ITS | Encounter Summary ---
Author Organization [facility] Address [address] [place] [address] Phone Care Team Providers Care Machine Hoop Maker Name Role Phone Javier Snow MD Primary Care Provider [phone] Azeem Coronel MD Unavailable [phone] Reason for Visit * Reason Comments Tremors Referral Dr. Golden boswell * Consult, Test & Initiate Treatment (Routine) - Closed Specialty Diagnoses / Procedures Referred By Contac t Referred To Contact Neurology Diagnoses Tremor, unspecified Javier Snow MD [address] [place] [address] Phone: tel: fax: [facility] - Neurology - [place] [address] [place] [address] Phone: tel: fax: Referral ID Status Reason Start Date Expiration Date Visits Re quested Visits Authorized [id number] Closed 1 1 Encounter Details Date Type Department Care Team (Late st Contact Info) Description 01/26/2022 9:45 AM CDT Office Visit [facility] - Neurology - [place] [address] [place] [address] Azeem Coronel MD [address] [place] [address] Parkinson's disease (HCC) (Primary Dx) Discharge Disposition: Discharged to home or Selfcare Social History Tobacco Use Types Packs/Day Years Used Date Smoking Tobacco: Every Day Cigarettes 0.5 20 Smokeless Tobacco: Never Tobacco Cessation:Ready to Q uit: Yes Alcohol Use Standard Drinks/Week Comments Not Currently 0 (1 standard drink = 0.6 oz pur e alcohol) Sex and Gender Information Value Date Recorded Sex Assigned at Not on file Legal Sex Male 1:50 PM CDT Gender Identity Not on file Sexual Orientation Not on file COVID-19 Exposure Response Date Recorded In the last 10 days, have benito u been in contact with someone who was confirmed or suspected to have Coronavirus/COVID-19? No / Unsure 01/26/2022 9:22 AM CDT documented as of this encounter Last Filed Vital Signs Vital Sign Reading Time Taken Comments Blood Pressure 126/80 01/26/2022 9:41 AM CDT Pulse 117 01/26/2022 9:41 AM CDT Temperature 36.4 ??C (97.6 ??F) 01/26/2022 9:41 AM CD T Respiratory Rate 17 01/26/2022 9:41 AM CDT Oxygen Saturation 99% 01/26/2022 9:41 AM CDT Inhaled Oxygen Concentration - - Weight 89.5 kg (197 lb 6.4 oz) 01/26/2022 9:41 A M CDT Height 180.3 cm (5' 11 ) 01/26/2022 9:41 AM CDT Body Mass Index 27.53 01/26/2022 9:41 AM CDT documented in this encounter Progress Notes * Azeem Coronel MD - 01/26/2022 9:45 AM CDT NEUROLOGY CONSULT Date of Service: 01/26/2022 Assessment and Plan Josh was seen today for tremors. Diagnoses and all orders for this visit: Parkinson's disease (HCC) - patient's tremor is predominantly a parkinsonian tremor - patient also has prominent non motor symptoms of Parkinson's such as constipation, dream reenactment behavior, orthostatic hypotension and anxiety - will start patient on carbidopa levodopa and taper the dose up 1 tab p.o. t.i.d. Other orders - carbidopa-levodopa (SINEMET) 25-100 MG Tablet; Take 0.5 Tablets by mouth 3 times daily for 7 days, THEN 1 Tablet 3 times daily for 83 days. 1/2 hour before eating Reason for Consultation: tremor HPI: Josh is a 71 year old who [...] Social History Tobacco Use ??? Smoking status: Current Every Day Smoker Packs/day: 0.50 Years: 20.00 Pack years: 10.00 Types: Cigarettes ??? Smokeless tobacco: Never Used Substance Use Topics ??? Alcohol use: Not [...] mg by mouth., Disp: , Rfl: ??? Cholecalciferol 25 mcg Capsule, Take 2,000 Units by mouth., Disp: , Rfl: ??? Dapagliflozin Propanediol 10 MG Tablet, Take 1 Tablet by mouth daily., Disp: , Rfl: ??? DEXTROSE, DIABETIC USE, PO, Take by mouth. Indications: 40% gel every 15 mins prn for hypogycemia (Patient not taking: Reported on 01/26/2022), Disp: , Rfl: ??? Docusate Sodium (COLACE PO), Take by mouth., Disp: , Rfl: ??? Lancet Device Misc, by Does not apply route., Disp: , Rfl: ??? lisinopril-hydroCHLOROthiazide (PRINZIDE, ZESTORETIC) 20-25 MG Tablet, Take 1 Tablet by mouth daily. (Patient not taking: No sig reported), Disp: , Rfl: ??? metoprolol Succinate (TOPROL-XL) [...] of Present Illness. Objective: VITALS: Blood pressure 126/80, pulse (!) 117, temperature 97.6 ??F (36.4 ??C), temperature source Tympanic, resp. rate 17, height 5' 11 (1.803 m), weight 197 lb 6.4 oz (89.5 kg), SpO2 99 %. Weight: Wt Readings from Last 1 Encounters: 01/26/22 197 lb 6.4 oz (89.5 kg) Body mass index is 27.53 kg/m??. EXAM: General appearance: alert, no distress, [...] Flexors 5/5 5/5 Wrist Extensors 5/5 5/5 Carton Marker Machine 5/5 5/5 Hip Flexors 5/5 5/5 Quadriceps [...] for treating the symptoms of Parkinson's disease?: No 3c Is the patient on levodopa?: No Speech: 3.1 Speech: 0 Normal: No speech problems Facial expression: 3.2 Facial Expression: 0 Normal: Normal facial expression. Rigidity: 3.3a Rigidity - Neck: 0 Normal: No rigidity. 3.3b Rigidity - RUE: 1 Slight: Rigidity only detected with activation maneuver. 3.3c Rigidity - LUE: 1 Slight: Rigidity only detected with activation maneuver. 3.3d Rigidity - RLE: 0 Normal: No [...] one or two steps. Posture: 3.13 Posture: 1 Slight: Not quite erect, but posture could be normal for older person Global spontaneity of movement (Body bradykinesia): 3.14 Global spontaneity of movement: 0 Normal: No problems. Postural tremor of the hands: 3.15a Postural tremor - Right hand: 1 Slight: Tremor is present but less than 1 cm in amplitude. 3.15b Postural tremor - Left hand: 1 Slight: Tremor is present but less than 1 cm in amplitude. Kinetic tremor of the hands: 3.16a Kinetic tremor - Right hand: 1 Slight: Tremor is present but less than 1 cm in amplitude. 3.16b Kinetic tremor - Left hand: 1 Slight: Tremor is present but less than 1 cm in amplitude. Rest tremor amplitude: 3.17a Rest tremor amplitude - RUE: 3 Moderate: 3-10 cm in maximan amplitude 3.17b Rest tremor amplitude - LUE: 3 Moderate: 3-10 cm in maximan amplitude 3.17c Rest tremor amplitude - RLE: 2 Mild: > 1 cm but < 3 cm in maximal amplitude. 3.17d Rest tremor amplitude - LLE: 2 Mild: > 1 cm but < 3 cm in maximal amplitude. 3.17e Rest tremor amplitude - Lip/jaw: 0 Normal: No tremor. Constancy of rest tremor: 3.18 Constancy of rest tremor: 2 Mild: Tremor at rest is present < 26-50% of the entire examination period. Ross and Yahr stage: Ross and Yahr Stage: 2 Bilateral involvement without impairment of balance MDS UPDRS total score: MDS UPDRS Part III Score: 21 Dyskinesia impact on part III ratings: No data recorded MDS UPDRS note documented on 01/26/22 by Azeem Coronel MD Data Review: Radiology Reviewed: yes No results found. CBC: No results found for: WBC, RBC, HEMOGLOBIN, HEMATOCRIT, PLATELETCNT CMP:No results found for: SODIUM, POTASSIUM, CHLORIDE, CO2VEN, ANIONGAP, GLUCOSE, BUN, CREATININE, BCRATIO8, TOTALPROTEIN, ALBUMIN, AGRATIO, CALCIUM, TBIL, SGPTALT, ALKALINEPHO, GFRNA, GFRA Coagulation: No results found for: PTP, INR, PTT Cardiac markers: No results found for: HSTRP, TROPONINI, POCTRP Total time spent on this encounter on this date of service, including pre-visit review of separately obtained history, [id number]-oz-[id number] interaction performing medically appropriate physical exam, patientcounseling/education, interpretation of diagnostic results, care coordination and documentation was45 minutes. By: Azeem Coronel MD, 01/26/2022, 9:50 AM CDT Primary Care Physician: JAVIER SNOW MD documented in this encounter Plan of Treatment Upcoming Encounters Date Type Department Care Team (Late st Contact Info) Description 11/22/2024 9:30 AM CLOTHES SEPARATOR Office Visit [facility] - Neurology [facility] [address] [place] [address] Azeem Coronel MD [address] [place] [address] documented as of this encounter Visit Diagnoses Diagnosis Parkinson's disease (HCC)- Primary Paralysis agitans documented in this encounter Care Teams Machine Hoop Maker Relationship Specialty Start Date End Date Javier Snow MD [address] [place] [address] PCP - General Family Medicine 12/09/21 Azeem Coronel MD [address] [place] [address] Consulting Physician Neurology 01/26/22 documented as of this encounter
--- OUTSIDE RECORDS SUMMARY | 2024-09-29 21:02 | XMS_ITS | Encounter Summary ---
Author Organization [facility] Care Team Providers Care Furnace Clerk Name Role Phone Syeda Fontanez APRN Primary Care Provider [phone] Encounter Details Date Type Department Care Team (Latest Contact Info) Description 06/03/2021 Travel Social History Tobacco Use Types Packs/Day [...] st Contact Info) Description 11/22/2024 9:30 AM GROUP WORKER Office Visit [facility] - [facility] [address] [place] [address] Azeem Coronel MD [address] [place] [id number] documented as of this encounter Visit Diagnoses Not on filedocumented in this encounter Care Teams Furnace Clerk Relationship Specialty Start Date End Date Syeda Fontanez APRN [address] [place] [address] PCP - General Family Medicine 02/12/21 12/08/21 documented as of this encounter
--- OUTSIDE RECORDS SUMMARY | 2024-09-29 21:02 | XMS_ITS | Encounter Summary ---
Author Organization [facility] Care Team Providers Care Shoe Stainer Name Role Phone Javier Hampton MD Primary Care Provider [phone] Azeem Coronel MD Unavailable [phone] Encounter Details Date Type Department Care Team (Latest Contact Info) Description 04/27/2022 Travel Social History Tobacco Use Types Packs/Day [...] suspected to have Coronavirus/COVID-19? No / Unsure 04/27/2022 9:10 AM CDT documented as of this encounter Plan of Treatment Upcoming Encounters Date Type Department Care Team (Late st Contact Info) Description 11/22/2024 9:30 AM DIRECTOR OF SOCIAL WORK Office Visit [facility] - Neurology [facility] [address] [place] [address] Azeem Coronel MD [address] [place] [address] documented as of this encounter Visit Diagnoses Not on filedocumented in this encounter Care Teams Shoe Stainer Relationship Specialty Start Date End Date Javier Hampton MD [address] [place] [address] PCP - General Family Medicine 12/09/21 Azeem Coronel MD [address] [place] [address] Consulting Physician Neurology 01/26/22 documented as of this encounter
--- OUTSIDE RECORDS SUMMARY | 2024-09-29 21:02 | XMS_ITS | Encounter Summary ---
Author Organization [facility] Address [address] [place] [address] Phone Care Team Providers Care Director Of Acquisitions Name Role Phone Javier Hampton MD Primary Care Provider Azeem Coronel MD Unavailable Encounter Details Date Type Department Care Team (Late Contact Info) Description 07/05/2022 Telephone [facility] - Neurology [facility] [address] [place] [address] Azeem Coronel MD [address] [place] [address] Social History Tobacco Use Types [...] Telephone Encounter - Callie Bustamante RN - 07/05/2022 1:43 PM CDT Carbidopa/levodopa refill documented in this encounter Plan of Treatment Upcoming Encounters Date Type Department Care Team (Late st Contact Info) Description 11/22/2024 9:30 AM ENGINEERING WRITER Office Visit [facility] - Neurology [facility] [address] [place] [address] Azeem Coronel MD [address] [place] [address] documented as of this encounter Visit Diagnoses Not on filedocumented in this encounter Care Teams Director Of Acquisitions Relationship Specialty Start Date End Date Javier Hampton MD [address] [place] [address] PCP - General Family Medicine 12/09/21 Azeem Coronel MD [address] [place] [address] Consulting Physician Neurology 01/26/22 documented as of this encounter
--- OUTSIDE RECORDS SUMMARY | 2024-09-29 21:02 | XMS_ITS | Encounter Summary ---
Author Organization [facility] Care Team Providers Care Apron Cleaner Name Role Phone Javier Hampton MD Primary Care Provider [phone] Azeem Coronel MD Unavailable [phone] Encounter Details Date Type Department Care Team (Latest Contact Info) Description 01/26/2022 Travel Social History Tobacco Use Types Packs/Day [...] st Contact Info) Description 11/22/2024 9:30 AM SOLID PROPELLANT PROCESSOR Office Visit [facility] - Neurology [facility] [address] [place] [address] Azeem Coronel MD [address] [place] [address] documented as of this encounter Visit Diagnoses Not on filedocumented in this encounter Care Teams Apron Cleaner Relationship Specialty Start Date End Date Javier Hampton MD [address] [place] [address] PCP - General Family Medicine 12/09/21 Azeem Coronel MD [address] [place] [address] Consulting Physician Neurology 01/26/22 documented as of this encounter
--- OUTSIDE RECORDS SUMMARY | 2024-09-29 21:02 | XMS_ITS | Encounter Summary ---
Author Organization [facility] Address [address] [facility] [place] [address] Phone Care Team Providers Care Shelter Supervisor Name Role Phone Syeda Fontanez APRN Primary Care Provider [phone] Reason for Visit * Reason Comments Follow-up * Auth/Cert Specialty Diagnoses / Procedures Referred By Hilton t Referred To Contact Referral ID Status Reason Start Date Expiration Date Visits Re quested Visits Authorized [id number] 1 1 Encounter Details Date Type Department Care Team (Late st Contact Info) Description 11/02/2021 10:30 AM VEHICLE CALIBRATION ENGINEER Office Visit [facility] [address] [place] [address] Faina Amanda APRN, WATER TREATMENT PLANT ENGINEER [address] [place] [address] Polycythemia (Primary Dx) Discharge Disposition: Discharged to [...] have Coronavirus / COVID-19? No / Unsure 11/02/2021 10:13 AM VEHICLE CALIBRATION ENGINEER documented as of this encounter Last Filed Vital Signs Vital Sign Reading Time Taken Comments Blood Pressure 161/83 11/02/2021 10:30 AM VEHICLE CALIBRATION ENGINEER Pulse 80 11/02/2021 10:30 AM VEHICLE CALIBRATION ENGINEER Temperature 36.3 ??C (97.3 ??F) 11/02/2021 10:[address] Respiratory Rate 18 11/02/2021 10:30 AM VEHICLE CALIBRATION ENGINEER Oxygen Saturation 94% 11/02/2021 10:30 AM VEHICLE CALIBRATION ENGINEER Inhaled Oxygen Concentration - - Weight 94.9 kg (209 lb 3.2 oz) 11/02/2021 10:30 AM VEHICLE CALIBRATION ENGINEER Height 180.3 cm (5' 11 ) 11/02/2021 10:30 AM VEHICLE CALIBRATION ENGINEER Body Mass Index 29.18 11/02/2021 10:30 AM VEHICLE CALIBRATION ENGINEER documented in this encounter Progress Notes * Faina Amanda APRN, CNP - 11/02/2021 10:30 AM CST Outpatient Hem/Onc Progress Note Chief Complaint: Josh Robert is a 71 y.o. male seen today for follow up of Polycythemia.??Patient has h/o CKD, DMII, osteoporosis and HTN. Patient smokes 1/2 pack/day. Patient has no new complaints. Patient denies ETOH. Denies increased SOB, swelling in extremities. Outpatient Medications Marked as Taking for the 11/02/21 encounter (Office Visit) with Faina Amanda APRN, CNP Medication Sig Dispense Refill ??? aspirin [...] mg by mouth daily. Allergies as of 11/02/2021 - Reviewed 11/02/2021 Allergen Reaction Noted ??? Penicillins Rash 02/12/2021 ECO VITAL SIGNS: Vitals: 11/02/21 1030 BP: 161/83 BP Location: Right Arm BP Position: Sitting BP Cuff Size: Large Pulse: 80 Resp: 18 Temp: 97.3 ??F (36.3 ??C) SpO2: 94% Weight: 209 lb 3.2 oz (94.9 kg) Height: 5' 11 (1.803 m) Physical Exam A&Ox3 HRRR L, CTA Abdomen soft, bowel sounds positive, nontender to palpation No edema of lower extremities noted Labs: [facility] : 10/30/2021 WBC 6.8 Hem 17.8 Hct 54.0 Plt 298 Assessment: 1. Polycythemia 2. CKD 3. Osteoporosis?? 4. Current tobacco abuse Plan: 1. Polycythemia: Refuses phlebotomy.States he passed out last time. Disscused smoking cessation, hydration. Discussed possible treatment with medication. ?Hematocrit (HCT):??Polycythemia is considered when the hematocrit is [...] follow-up with PCP 3. Osteoporosis-on calcium daily 4.??Cigarette tobacco smoking abuse: ??Cigarette tobacco smoking abuse counseling cessation given. ?? RTC: 1 months. CBC monthly Total time spent on this encounter on this date of service, including pre-visit review of separately obtained history, [id number] interaction performing medically appropriate physical exam, patientcounseling/education, interpretation of diagnostic results, care coordination and documentation was30 minutes. The patient was given an opportunity to ask questions, and all questions answered to patient's satisfaction. Patient verbalizes understanding of the plan as outlined above. Faina Amanda APRN, CNP 11/02/2021 6:22 PM VEHICLE CALIBRATION ENGINEER CLE CALIBRATION ENGINEER documented in this encounter Miscellaneous Notes * Interdisciplinary - Analia Bautista - 11/02/2021 10:30 AM CST The patient has no physical complaints during today's visit and a pain score of 0. CLE CALIBRATION ENGINEER documented in this encounter Plan of Treatment Upcoming Encounters Date Type Department Care Team (Late st Contact Info) Description 11/22/2024 9:30 AM VEHICLE CALIBRATION ENGINEER Office Visit [facility] - Neurology [facility] [address] [place] [address] Azeem Coronel MD [address] [place] [address] documented as of this encounter Procedures Procedure Name Priority Date/Time Associated Diagnosis Comments COMPLETE BLOOD COUNT (CBC) WITH DIFF Routine 12/31/2021 12:00 AM CDT Polycythemia documented in this encounter Results * COMPLETE BLOOD COUNT (CBC) WITH DIFF (12/31/2021 12:00 AM CDT) Blood 12/31/2021 Faina Amanda APRN, CNP HEMATOLOGY ORDERABLES [facility] Result SCAN documented in this encounter Visit Diagnoses Diagnosis Polycythemia- Primary Polycythemia vera documented in this encounter Care Teams Shelter Supervisor Relationship Specialty Start Date End Date Syeda Fontanez APRN [address] [place] [address] PCP - General Family Medicine 02/12/21 12/08/21 documented as of this encounter
--- OUTSIDE RECORDS SUMMARY | 2024-09-29 21:02 | XMS_ITS | Encounter Summary ---
Author Organization [facility] Address [address] [facility] [place] [address] Phone Care Team Providers Care Marzipan Maker Name Role Phone Javier Hampton MD Primary Care Provider [phone] Reason for Visit * Reason Comments Follow-up * Auth/Cert Specialty Diagnoses / Procedures Referred By Contac t Referred To Contact Referral ID Status Reason Start Date Expiration Date Visits Re quested Visits Authorized [id number] 1 1 Encounter Details Date Type Department Care Team (Late st Contact Info) Description 01/05/2022 3:20 PM CDT Office Visit [facility] Oncology Services [address] [place] [address] Arnulfo Hull MD [address] [place] [address] Polycythemia (Primary Dx); Current smoker Discharge Disposition: Discharged to home or Selfcare [...] Sign Reading Time Taken Comments Blood Pressure 163/89 01/05/2022 4:11 PM CDT Pulse 62 01/05/2022 4:11 PM CDT Temperature 36.4 ??C (97.6 ??F) 01/05/2022 4:11 PM CD T Respiratory Rate 18 01/05/2022 4:11 PM CDT Oxygen Saturation 97% 01/05/2022 4:11 PM CDT Inhaled Oxygen Concentration - - Weight 89.9 kg (198 lb 3.2 oz) 01/05/2022 4:11 P M CDT Height 180.3 cm (5' 11 ) 01/05/2022 4:11 PM CDT Body Mass Index 27.64 01/05/2022 4:11 PM CDT documented in this encounter Progress Notes * Lisa Nettles - 01/05/2022 3:20 PM CDT Outpatient Hem/Onc Progress Note PROGRESS NOTE Josh Robert is a 71 y.o. male seen today for follow up of polycythemia. He is here today with his Soniya. Josh is currently ambulating with the assistance of a walker due to lower extremityweakness. Patient reports loosing strength in his legs causing him to fall and hit his head on 12/03/21. Cardiac event and stroke have been ruled out, noting irregular heart beat. Josh reports he isscheduled to see cardiology on 01/06/22 for continued evaluation. Patient reports that he started daily monitoring of his blood sugar, due to it running high while admitted at [facility]. Patient reports fasting blood sugars are ranging between 133-145. Josh continues to take Dapagliflozin Propanediol 10 mg daily with Trulicity injections weekly. Josh continues to have tremor with shuffling noted while walking. He continues to take Fosamax 70 mg weekly to maintain bone strength, taking Calcium 600 mg daily. Josh reports he decreased the amount of cigarette tobacco used. Patient reports an improvement inbreathing since decreasing cigarette use. He denies noting symptoms when hemoglobin becomes elevated. He denies noting headache, congestion, or flushing. ECOG PERFORMANCE STATUS: 0 DIAGNOSIS/TREATMENT HISTORY: Reviewed patients past medical, surgical, social, and family history. Outpatient Medications Marked as Taking for the 01/05/22 encounter (Office Visit) with Arnulfo Hull MD Medication Sig Dispense Refill ??? aspirin EC 81 MG Tablet Delayed Response Take 81 mg by mouth daily. ??? buPROPion (WELLBUTRIN) 150 MG XL tablet daily. ??? Calcium Carbonate (CALCIUM 600 PO) Take 600 mg by mouth. ??? Cholecalciferol 25 mcg Capsule Take 2,000 Units by mouth. ??? Dapagliflozin Propanediol 10 MG Tablet Take 1 Tablet by mouth daily. ??? metoprolol Succinate (TOPROL-XL) 25 MG TABLET SR 24 HR TAKE 1/2 TABLET BY MOUTH DAILY ??? Multiple Vitamins-Minerals (PRESERVISION AREDS PO) Take by mouth daily. ??? pantoprazole (PROTONIX) 40 MG Tablet Delayed Response TAKE 1 TABLET BY MOUTH EVERY MORNING X 6 WEEKS ??? Trulicity 0.75 MG/0.5ML Solution Pen-injector Allergies as of 01/05/2022 - Reviewed 01/05/2022 Allergen Reaction Noted ??? Penicillins Rash 02/12/2021 REVIEW OF SYSTEMS Review of Systems Constitutional: Negative for flushing Respiratory: Negative for shortness of breath. Cardiovascular: Negative for leg swelling. Neurological: Positive for tremors (worse when tired or anxious, noting mild improvement) and weakness (bilateral lower extremity weakness). Negative for headaches. Physical Exam Physical Exam PAIN ASSESSMENT: no verbal pain complaints today. DATA: 12/31/21 LABS OSH: CBC WBC 8.4 RBC 5.23 HGB 16.3 HCT 49.1 PLT 287 ANC 5.8 DIAGNOSTIC IMAGING STUDIES: Nothing new found Assessment: 1. Polycythemia 2. CKD 3. Osteoporosis 4. Current tobacco abuse Plan: No need for phlebotomy today as hemoglobin is less than 16.5 2. I explained to??Josh and his ??that polycythemia is a condition that results in an increased level of circulating red blood cells in the bloodstream.Polycythemia can be divided into two categories; primary and secondary. ?? Primary polycythemia:??In primary polycythemia the increase in red blood cells is due to inherent problems in the process of red blood cell production. ?? Secondary polycythemia:??Secondary polycythemia generally occurs as a response to other factors or underlying conditions that promote red blood cell production. 3. Please present to Dr. Coronel for evaluation and treatment of cause of tremor and shuffling while walking. We will continue to monitor these symptoms during subsequent follow ups. 4. Continue to follow up with PCP and other specialists for management of your chronic medical conditions. Follow up in 4 months with CBC prior The patient was given an opportunity to ask questions, and all questions answered to patient's satisfaction. Patient verbalizes understanding of the plan as outlined above. The documentation for this visit was completed by Lisa Nettles acting as a scribe for Arnulfo Ibarra MD. 01/05/2022, 4:16 PM CDT * Arnulfo Hull MD - 01/05/2022 3:20 PM CDT Outpatient Hem/Onc Progress Note PROGRESS NOTE Josh Robert is a 71 y.o. male seen today for follow up of polycythemia. He is here today with his Soniya. Josh is currently ambulating with the assistance of a walker due to lower extremityweakness. Patient reports losing strength in his legs causing him to fall and hit his head on 12/03/21. Cardiac event and stroke have been ruled out, noting irregular heart beat. Josh reports he is scheduled to see cardiology on 01/06/22 for continued evaluation. Patient reports that he started daily monitoring of his blood sugar, due to it running high while admitted at [facility]. Patient reports fasting blood sugars are ranging between 133-145. Josh continues to take Dapagliflozin Propanediol 10 mg daily with Trulicity injections weekly. Josh continues to have tremor with shuffling noted while walking. He continues to take Fosamax 70 mg weekly to maintain bone strength, taking Calcium 600 mg daily. Josh reports he decreased the amount of cigarette tobacco used. Patient reports an improvement inbreathing since decreasing cigarette use. He denies noting symptoms when hemoglobin becomes elevated. He denies noting headache, congestion, or flushing. ECOG PERFORMANCE STATUS:PS 1-2 DIAGNOSIS/TREATMENT HISTORY: Reviewed patients past medical, surgical, social, and family history. Outpatient Medications Marked as Taking for the 01/05/22 encounter (Office Visit) with Arnulfo Hull MD Medication Sig Dispense Refill ??? aspirin EC 81 MG Tablet Delayed Response Take 81 mg by mouth daily. ??? buPROPion (WELLBUTRIN) 150 MG XL tablet daily. ??? Calcium Carbonate (CALCIUM 600 PO) Take 600 mg by mouth. ??? Cholecalciferol 25 mcg Capsule Take 2,000 Units by mouth. ??? Dapagliflozin Propanediol 10 MG Tablet Take 1 Tablet by mouth daily. ??? metoprolol Succinate (TOPROL-XL) 25 MG TABLET SR 24 HR TAKE 1/2 TABLET BY MOUTH DAILY ??? Multiple Vitamins-Minerals (PRESERVISION AREDS PO) Take by mouth daily. ??? pantoprazole (PROTONIX) 40 MG Tablet Delayed Response TAKE 1 TABLET BY MOUTH EVERY MORNING X 6 WEEKS ??? Trulicity 0.75 MG/0.5ML Solution Pen-injector Allergies as of 01/05/2022 - Reviewed 01/05/2022 Allergen Reaction Noted ??? Penicillins Rash 02/12/2021 REVIEW OF SYSTEMS Review of Systems Constitutional: Negative for flushing Respiratory: Negative for shortness of breath. Cardiovascular: Negative for leg swelling. Neurological: Positive for tremors (worse when tired or anxious, noting mild improvement) and weakness (bilateral lower extremity weakness). Negative for headaches. Physical Exam Physical Exam PAIN ASSESSMENT: no verbal pain complaints today. DATA: 12/31/21 LABS OSH: CBC WBC 8.4 RBC 5.23 HGB 16.3 HCT 49.1 PLT 287 ANC 5.8 DIAGNOSTIC IMAGING STUDIES: Nothing new found Assessment: 1. Polycythemia. Sec to smoking. 2. CKD 3. Osteoporosis 4. Current tobacco abuse 5. Recent movement d/o- tremor and weakness. Awaiting eval by neurology Plan: 1. Reviewed above clinical data including recent symptoms, labs with patient and family. 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 Discussed diagnosis, treatment options and prognostic implication of disease. Our goal is to keep HGB less than 16.5 to 17. No need for phlebotomy today as hemoglobin is less than 16.5 2. Discussed importance of decreasing /quitting smoking 3. Please present to Dr. Coronel for evaluation and treatment of cause of tremor and shuffling while walking. We will continue to monitor these symptoms during subsequent follow ups. 4. Continue to follow up with PCP and other specialists for management of your chronic medical conditions. Follow up in 4 months with CBC prior The patient was given an opportunity to ask questions, and all questions answered to patient's satisfaction. Patient verbalizes understanding of the plan as outlined above. The documentation for this visit was completed by Lisa Nettles acting as a scribe for Arnulfo Ibarra MD. The documentation recorded by the scribe was completed while in the exam room with me and the patient.?? The documentation accurately reflects the service I personally performed and the decisions made by me. I have confirmed and edited the documentation as necessary. Arnulfo Hull MD documented in this encounter Miscellaneous Notes * Interdisciplinary - Analia Bautista - 01/05/2022 3:20 PM CDT The patient has no complaints during today's visit and a pain score of 0. He was recently hospitalized due to losing consciousness after having chest pain. Was hospitalized at [facility] for 2 days. documented in this encounter Plan of Treatment Upcoming Encounters Date Type Department Care Team (Late st Contact Info) Description 11/22/2024 9:30 AM FAMILY PRESERVATION OFFICER Office Visit [facility] - Neurology [facility] [address] [place] [address] Azeem Coronel MD [address] [place] [address] documented as of this encounter Results * COMPLETE BLOOD COUNT (CBC) WITH DIFF (05/06/2022) Blood 05/06/2022 us Arnulfo Hull MD HEMATOLOGY ORDERABLES Fi nal Result documented in this encounter Visit Diagnoses Diagnosis Polycythemia- Primary Polycythemia vera Current smoker Tobacco use disorder documented in this encounter Care Teams Marzipan Maker Relationship Specialty Start Date End Date Buschling, Javier, MD [address] [place] [address] PCP - General Family Medicine 12/09/21 documented as of this encounter
--- OUTSIDE RECORDS SUMMARY | 2024-09-29 21:02 | XMS_ITS | Encounter Summary ---
Author Organization [facility] Address [address] [place] [address] Phone Care Team Providers Care Glue Spreader Name Role Phone Syeda Fontanez APRN Primary Care Provider [phone] Reason for Visit * Reason Comments Follow-up * Auth/Cert Specialty Diagnoses / Procedures Referred By Hilton t Referred To Contact Referral ID Status Reason Start Date Expiration Date Visits Re quested Visits Authorized [id number] 1 1 Encounter Details Date Type Department Care Team (Late st Contact Info) Description 04/01/2021 1:00 PM CDT Office Visit [facility] Oncology Services [address] [place] [address] Faina Amanda APRN, SILK OPENER [address] [place] [address] Polycythemia (Primary Dx) Discharge Disposition: Discharged to [...] have Coronavirus / COVID-19? No / Unsure 04/01/2021 1:00 PM CDT documented as of this encounter Last Filed Vital Signs Vital Sign Reading Time Taken Comments Blood Pressure 132/80 04/01/2021 1:09 PM CDT Pulse 69 04/01/2021 1:09 PM CDT Temperature 36.2 ??C (97.2 ??F) 04/01/2021 1:09 PM CD T Respiratory Rate 18 04/01/2021 1:09 PM CDT Oxygen Saturation 96% 04/01/2021 1:09 PM CDT Inhaled Oxygen Concentration - - Weight 95 kg (209 lb 8 oz) 04/01/2021 1:09 PM CD T Height 180.3 cm (5' 11 ) 04/01/2021 1:09 PM CDT Body Mass Index 29.22 04/01/2021 1:09 PM CDT documented in this encounter Progress Notes * Faina Amanda APN, CNP - 04/01/2021 1:00 PM CDT Outpatient Hem/Onc Progress Note Chief Complaint: Polycythemia Josh Robert is a 70 y.o. male seen today for follow up of polycythemia. Patient has h/o CKD, DMII, osteoporosis and HTN. On Fosamax for osteoporosis. Patient smokes 1/2 pack/day. Patient has no new complaints. Outpatient Medications Marked as Taking for the 04/01/21 encounter (Office Visit) with Faina Amanda APN, [...] mg by mouth daily. Allergies as of 04/01/2021 - Reviewed 04/01/2021 Allergen Reaction Noted ??? Penicillins Rash 02/12/2021 VITAL SIGNS: Vitals: 04/01/21 1309 BP: 132/80 BP Location: Left Arm BP Position: Sitting BP Cuff Size: Regular Pulse: 69 Resp: 18 Temp: 97.2 ??F (36.2 ??C) SpO2: 96% Weight: 209 lb 8 oz (95 kg) Height: 5' 11 (1.803 m) Labs: Seema: 03/30/21: WBC 7.5 Hem 17.4 Hem 51.9 Plt 324 Assessment: ?? 1. Polycythemia 2. CKD 3. Osteoporosis 4. Current tobacco abuse ?? Plan: 1. [...] tobacco smoking abuse counseling cessation given. ?? Total time spent on this encounter on this date of service, including pre-visit review of separately obtained history, [id number] interaction performing medically appropriate physical exam, patientcounseling/education, interpretation of diagnostic results, care coordination and documentation was30 minutes. The patient was given an opportunity to ask questions, and all questions answered to patient's satisfaction. Patient verbalizes understanding of the plan as outlined above. Faina Amanda APN, SHARRON 04/01/2021 2:05 PM CDT documented in this encounter Miscellaneous Notes * Interdisciplinary - Jessica Amaya MA - 04/01/2021 1:00 PM CDT Follow up. No pain, today. Per pt, his meds and preferred pharmacy are unchanged--tjo documented in this encounter Plan of Treatment Upcoming Encounters Date Type Department Care Team (Late st Contact Info) Description 11/22/2024 9:30 AM ASSOCIATE PROFESSOR OF COUNSELING Office Visit [facility] - Neurology [facility] [address] [place] [address] Azeem Coronel MD [address] [place] [address] Scheduled Orders Name Type Priority Associated Diagnoses Orde r Schedule COMPLETE BLOOD COUNT (CBC) WITH DIFF Lab Routine Polycythemia 10 Occurrences starting 04/01/2021 until 10/01/2022, 1 completed documented as of this encounter Procedures Procedure Name Priority Date/Time Associated Diagnosis Comments COMPLETE BLOOD COUNT (CBC) WITH DIFF Routine 08/24/2021 12:00 AM ASSOCIATE PROFESSOR OF COUNSELING documented in this encounter Results * COMPLETE BLOOD COUNT (CBC) WITH DIFF (08/24/2021 12:00 AM ASSOCIATE PROFESSOR OF COUNSELING) 08/24/2021 Faina Amanda APRN, CNP HEMATOLOGY ORDERABLES Fi nal Result SCAN * COMPLETE BLOOD COUNT (CBC) WITH DIFF (06/01/2021) Blood Faina Amanda APRN, CNP HEMATOLOGY ORDERABLES Fi nal Result documented in this encounter Visit Diagnoses Diagnosis Polycythemia- Primary Polycythemia vera documented in this encounter Care Teams Glue Spreader Relationship Specialty Start Date End Date Syeda Fontanez APRN [address] [place] [address] PCP - General Family Medicine 02/12/21 12/08/21 documented as of this encounter
--- OUTSIDE RECORDS SUMMARY | 2024-09-29 21:02 | XMS_ITS | Encounter Summary ---
Author Organization [facility] Address [address] [place] [address] Phone Care Team Providers Care Tubular Splitting Machine Tender Name Role Phone Syeda Fontanez APRN Primary Care Provider [phone] Javier Hampton MD Primary Care Provider [phone] Azeem Coronel MD Unavailable [phone] Encounter Details Date Type Department Care Team (Late st Contact Info) Description 12/03/2021 Telephone [facility] On[facility] [address] [place] [address] Arnulfo Hull MD [address] [place] [address] Social History Tobacco Use Types Packs/Day Years [...] encounter Miscellaneous Notes * Telephone Encounter - Analia Bautista Fernando - 12/03/2021 8:42 AM CST The patient's called stating Mr. Robert had fallen at their home at approximately 3 a.m.. Whenshe was able to get to him, she states he felt as if he had a heart attack. He was taken to [facility] where a heart attack was ruled out. They do however want to admit him for observation of his lungs and to administer antibiotics. Mrs. Robert is wanting Mr. Robert transferred to [facility]. I instructed her that she could put in a request with [facility] for the transfer and seeif the hospital is able to meet her wishes. MARKER documented in this encounter Plan of Treatment Upcoming Encounters Date Type Department Care Team (Late st Contact Info) Description 11/22/2024 9:30 AM LINEMARKER Office Visit [facility] - Neurology - [place] [address] [place] [address] Azeem Coronel MD [address] [place] [address] documented as of this encounter Visit Diagnoses Not on filedocumented in this encounter Care Teams Tubular Splitting Machine Tender Relationship Specialty Start Date End Date Sydea Fontanez APRN [address] [place] [address] PCP - General Family Medicine 02/12/21 12/08/21 Javier Hampton MD [address] [place] [address] PCP - General Family Medicine 12/09/21 Azeem Coronel MD [address] [place] [address] Consulting Physician Neurology 01/26/22 documented as of this encounter
--- OUTSIDE RECORDS SUMMARY | 2024-09-29 21:02 | XMS_ITS | Encounter Summary ---
Author Organization [facility] [employer] Care Team Providers Care Office Technology Professor Name Role Phone Javier Hampton MD Primary Care Provider Encounter Details Date Type Department Care Team (Latest Contact Info) Description 12/10/2021 Travel Social History Tobacco Use Types Packs/Day [...] have Coronavirus / COVID-19? No / Unsure 12/10/2021 3:14 PM SIGNAL REPAIRER documented as of this encounter Plan of Treatment Upcoming Encounters Date Type Department Care Team (Late st Contact Info) Description 11/22/2024 9:30 AM SIGNAL REPAIRER Office Visit [facility] - Neurology [facility] [address] [place] [address] Azeem Coronel MD [address] [place] [address] documented as of this encounter Visit Diagnoses Not on filedocumented in this encounter Care Teams Office Technology Professor Relationship Specialty Start Date End Date Javier Hampton MD [address] [place] [address] PCP - General Family Medicine 12/09/21 documented as of this encounter
--- OUTSIDE RECORDS SUMMARY | 2024-09-29 21:02 | XMS_ITS | Encounter Summary ---
Author Organization [facility] Address [address] [facility] [place] [address] Phone Care Team Providers Care Bat Lathe Operator Name Role Phone Syeda Fontanez APRN Primary Care Provider [phone] Encounter Details Date Type Department Care Team (Latest Contact Info) Description 04/29/2021 1:00 PM CDT Clinical Support [facility] Oncology Services [address] [place] [id number] Faina Amanda APRN, WATER SERVICE DISPATCHER [address] [place] [address] Polycythemia (Primary Dx) Discharge Disposition: Discharged to [...] have Coronavirus / COVID-19? No / Unsure 04/29/2021 12:53 PM CDT documented as of this encounter Last Filed Vital Signs Vital Sign Reading Time Taken Comments Blood Pressure 130/72 04/29/2021 2:28 PM CDT Pulse 69 04/29/2021 2:28 PM CDT Temperature 36.6 ??C (97.8 ??F) 04/29/2021 1:00 PM CD T Respiratory Rate 18 04/29/2021 1:00 PM CDT Oxygen Saturation 98% 04/29/2021 1:18 PM CDT Inhaled Oxygen Concentration - - Weight - - Height - - Body Mass Index - - documented in this encounter Miscellaneous Notes * Interdisciplinary - Erin Gaytan RN - 04/29/2021 1:00 PM CDT Patient ambulated into treatment room. Vitals obtained. Reviewed labs with archana Mejia to continue with phlebotomy 500ML. Prior to starting, patient given snack and water Phlebotomy completed but patient became pale, clammy and diaphoretic and passed out as this nurse was getting ready to removeneedle. Patient lost consciousness for approximately 2-3 seconds. Needle removed immediately, patient laid back in chair with legs up and cool wash cloth to forehead, vitals obtained and LEAF SUCKER OPERATOR called [facility]. Patient alert and oriented x 4. Patient told LEAF SUCKER OPERATOR that he has not eaten today and hasn't had much to drink either. Per LEAF SUCKER OPERATOR, IV obtained and 1000ml NS bolus started. Patient no longer pale, diaphoretic, or clammy. Has drank approximately 480ml water and is eating a snack at this time * Interdisciplinary - Erin Gaytan RN - 04/29/2021 1:00 PM CDT Fluids completed as ordered. Vitals obtained. Patient reports no dizziness, lightheadedness, no further clamminess or diaphoresis. IV removed, gauze and coban applied. Encouraged patient to eat and drink plenty of fluids prior to coming to next appointment, verbalized understanding. Left treatment in stable condition documented in this encounter Plan of Treatment Upcoming Encounters Date Type Department Care Team (Late st Contact Info) Description 11/22/2024 9:30 AM CODIFIER Office Visit [facility] - Neurology [facility] [address] [place] [address] Azeem Coronel MD [address] [place] [address] documented as of this encounter Visit Diagnoses Diagnosis Polycythemia- Primary Polycythemia vera documented in this encounter Administered Medications Inactive Administered Medications - up to 3 most recent administrations Medication Order MAR Action Action Date Dose Rate Site 0.9 % sodium chloride solution at 999 mL/hr, Intravenous, ONCE, 1 dose, On Tue04/29/21 at 1400Indications:Polycythemi a New Bag 04/29/2021 1:26 PM CDT 1,000 mL 999 mL/hr SODIUM CHLORIDE 0.9 % IV SOLN 1 dose, Starting on Tue04/29/21 at 1322, Until Tue04/29/21 at 1326, Created by cabinet override documented in this encounter Care Teams Bat Lathe Operator Relationship Specialty Start Date End Date Syeda Fontanez APRN [address] [place] [address] PCP - General Family Medicine 02/12/21 12/08/21 documented as of this encounter
--- OUTSIDE RECORDS SUMMARY | 2024-09-29 21:02 | XMS_ITS | Encounter Summary ---
Author Organization [facility] Address [address] [place] [address] Phone Care Team Providers Care Emergency Operator Name Role Phone Javier Hampton MD Primary Care Provider [phone] Azeem Coronel MD Unavailable [phone] Encounter Details Date Type Department Care Team (Late st Contact Info) Description 08/09/2022 Refill [facility] - Neurology [facility] [address] [place] [address] Azeem Coronel MD [address] [place] [address] Social History Tobacco Use Types [...] Notes * Telephone Encounter - Nunu Wall CMA - 08/09/2022 10:13 AM CDT Requested Prescriptions Pending Prescriptions Disp Refills ??? carbidopa-levodopa (SINEMET) 25-100 MG Tablet 90 Tablet 0 Sig: Take 1 Tablet by mouth 3 times daily. documented in this encounter Plan of Treatment Upcoming Encounters Date Type Department Care Team (Late st Contact Info) Description 11/22/2024 9:30 AM DAYTIME CAREGIVER Office Visit [facility] - [facility]rology [facility] [address] [place] [address] Azeem Coronel MD [address] [place] [address] documented as of this encounter Visit Diagnoses Not on filedocumented in this encounter Care Teams Emergency Operator Relationship Specialty Start Date End Date Javier Hampton MD [address] [place] [address] PCP - General Family Medicine 12/09/21 Azeem Coronel MD [address] [place] [address] Consulting Physician Neurology 01/26/22 documented as of this encounter
--- OUTSIDE RECORDS SUMMARY | 2024-09-29 21:02 | XMS_ITS | Encounter Summary ---
Author Organization [facility] Address [address] [place] [address] Phone Care Team Providers Care Tie Carrier Name Role Phone Javier Snow MD Primary Care Provider [phone] Azeem Coronel MD Unavailable [phone] Reason for Visit * Reason Comments Tremors Follow up Encounter Details Date Type Department Care Team (Late st Contact Info) Description 04/27/2022 9:30 AM CDT Office Visit [facility] - Neurology [facility] [address] [place] [address] Azeem Coronel MD [address] [place] [id number] Parkinson's disease (HCC) (Primary Dx); Polycythemia Discharge [...] Sign Reading Time Taken Comments Blood Pressure 122/72 04/27/2022 9:14 AM CDT Pulse 78 04/27/2022 9:14 AM CDT Temperature 36.2 ??C (97.2 ??F) 04/27/2022 9:14 AM CD T Respiratory Rate 18 04/27/2022 9:14 AM CDT Oxygen Saturation 98% 04/27/2022 9:14 AM CDT Inhaled Oxygen Concentration - - Weight 88 kg (194 lb) 04/27/2022 9:14 AM CDT Height 180.3 cm (5' 11 ) 04/27/2022 9:14 AM CDT Body Mass Index 27.06 04/27/2022 9:14 AM CDT documented in this encounter Progress Notes * Azeem Coronel MD - 04/27/2022 9:30 AM CDT NEUROLOGY CONSULT Date of Service: 04/27/2022 Assessment and Plan Josh was seen today for tremors. Diagnoses and all orders for this visit: Parkinson's disease (HCC) - Josh notes benefit with carbidopa living - his UPDRS score has improved from 22 to 6 - encourage him to start a regular exercise program to improve his gait imbalance and prevent further disability as his disease progresses Polycythemia Reason for Consultation: tremor HPI: Josh [...] ??? carbidopa-levodopa (SINEMET) 25-100 MG Tablet, Take 0.5 Tablets by mouth 3 times daily for 7 days, THEN 1 Tablet 3 times daily for 83 days. 1/2 hour before eating, Disp: 259.5 Tablet, Rfl: 0 ??? Cholecalciferol 25 mcg Capsule, Take 2,000 Units by mouth., Disp: , Rfl: ??? Dapagliflozin Propanediol 10 MG Tablet, Take 1 Tablet by mouth daily., Disp: , Rfl: ??? Docusate Sodium (COLACE PO), Take by mouth., Disp: , Rfl: ??? Lancet Device Mis, by Does not apply route., Disp: , Rfl: ??? metoprolol Succinate (TOPROL-XL) [...] of Present Illness. Objective: VITALS: Blood pressure 122/72, pulse 78, temperature 97.2 ??F (36.2 ??C), resp. rate 18, height 5' 11 (1.803 m), weight 194 lb (88 kg), SpO2 98 %. Weight: Wt Readings from Last 1 Encounters: 04/27/22 194 lb (88 kg) Body mass index [...] Flexors 5/5 5/5 Wrist Extensors 5/5 5/5 Cone Chocolate Dipper 5/5 5/5 Hip Flexors 5/5 5/5 Quadriceps [...] data recorded MDS UPDRS note documented on 04/27/22 by Azeem Coronel MD Data Review: Radiology [...] including pre-visit review of separately obtained history, [id number] interaction performing medically appropriate physical exam, patientcounseling/education, interpretation of diagnostic results, care coordination and documentation was30 minutes. By: Azeem Coronel MD, 04/27/2022, 9:42 AM CDT Primary Care Physician: JAVIER SNOW MD documented in this encounter Plan of Treatment Upcoming Encounters Date Type Department Care Team (Late st Contact Info) Description 11/22/2024 9:30 AM INVOICING SPECIALIST Office Visit [facility] - Neurology [facility] [address] [place] [address] Azeem Coronel MD [address] [place] [address] documented as of this encounter Visit Diagnoses Diagnosis Parkinson's disease (HCC)- Primary Paralysis agitans Polycythemia Polycythemia vera documented in this encounter Care Teams Tie Carrier Relationship Specialty Start Date End Date Javier Snow MD [address] [place] [address] PCP - General Family Medicine 12/09/21 Azeem Coronel MD [address] [place] [phone] Consulting Physician Neurology 01/26/22 documented as of this encounter
--- OUTSIDE RECORDS SUMMARY | 2024-09-29 21:02 | XMS_ITS | Encounter Summary ---
Author Organization [facility] Address [address] [facility] [place] [address] Phone Care Team Providers Care Wealth Management Director Name Role Phone Javier Hampton MD Primary Care Provider [phone] Reason for Visit * Reason Comments Follow-up * Auth/Cert Specialty Diagnoses / Procedures Referred By Contyoko t Referred To Contact Referral ID Status Reason Start Date Expiration Date Visits Re quested Visits Authorized [id number] 1 1 Encounter Details Date Type Department Care Team (Late st Contact Info) Description 12/10/2021 3:30 PM CUPOLA HOIST OPERATOR Office Visit [facility] [address] [place] [address] Faina Amanda, CANCER CENTER DIRECTOR, HOG PUSHER [address] [place] [address] Polycythemia (Primary Dx) Discharge Disposition: Discharged to [...] COVID-19? No / Unsure 12/10/2021 3:14 PM CUPOLA HOIST OPERATOR documented as of this encounter Last Filed Vital Signs Vital Sign Reading Time Taken Comments Blood Pressure 142/62 12/10/2021 3:53 PM CUPOLA HOIST OPERATOR Pulse 55 12/10/2021 3:53 PM CUPOLA HOIST OPERATOR Temperature 36.6 ??C (97.9 ??F) 12/10/2021 3:53 PM CS T Respiratory Rate 16 12/10/2021 3:53 PM CUPOLA HOIST OPERATOR Oxygen Saturation 91% 12/10/2021 3:53 PM CUPOLA HOIST OPERATOR Inhaled Oxygen Concentration - - Weight 88.8 kg (195 lb 11.2 oz) 12/10/2021 3:53 PM CUPOLA HOIST OPERATOR Height 180.3 cm (5' 11 ) 12/10/2021 3:53 PM CUPOLA HOIST OPERATOR Body Mass Index 27.29 12/10/2021 3:53 PM CUPOLA HOIST OPERATOR documented in this encounter Progress Notes * Faina Amanda APRN, CNP - 12/10/2021 3:30 PM CST Outpatient Hem/Onc Progress Note Chief Complaint: Polycythemia Josh Robert is a 71 y.o. male seen today for follow up of Polycythemia.??Patient has h/o CKD, DMII, osteoporosis and HTN. Patient smokes 1/2 pack/day. Patient has no new complaints. Patient denies ETOH. Denies increased SOB, swelling in extremities. Patient fell, hit head and now ambulates withroller walker. Assessed in [place] ED. To see neurology in 01/2022 at [facility]. Patient complaining of generalized tremors. states symptoms appeared in past few days. Outpatient Medications Marked as Taking for the 12/10/21 encounter (Office Visit) with Faina Amanda APRN, CNP Medication Sig Dispense Refill ??? aspirin EC 81 MG Tablet Delayed Response Take 81 mg by mouth daily. ??? buPROPion (WELLBUTRIN) 150 MG XL tablet daily. ??? Calcium Carbonate (CALCIUM 600 PO) Take 600 mg by mouth. ??? Cholecalciferol 25 mcg Capsule Take 2,000 Units by mouth. ??? DEXTROSE, DIABETIC USE, PO Take by mouth. Indications: 40% gel every 15 mins prn for hypogycemia ??? Farxiga 5 MG Tablet Take 1 Tablet by mouth daily. ??? lisinopril-hydroCHLOROthiazide (PRINZIDE, ZESTORETIC) 20-25 MG Tablet Take 1 Tablet by mouth daily. ??? Multiple Vitamins-Minerals (PRESERVISION AREDS PO) Take by mouth daily. Allergies as of 12/10/2021 - Reviewed 12/10/2021 Allergen Reaction Noted ??? Penicillins Rash 02/12/2021 ECO VITAL SIGNS: Vitals: 12/10/21 1553 BP: 142/62 BP Location: Right Arm BP Position: Sitting BP Cuff Size: Regular Pulse: 55 Resp: 16 Temp: 97.9 ??F (36.6 ??C) SpO2: 91% Weight: 195 lb 11.2 oz (88.8 kg) Height: 5' 11 (1.803 m) Physical Exam A&Ox3 HRRR L, CTA Abdomen soft, bowel sounds positive, nontender to palpation No edema of lower extremities noted Tremors noted in upper extremities Ambulating with walker, gait unsteady Labs: [facility] : 12/10/2020 WBC 7.3 Hem 18.3 Hct 54.6 Plt 368 Na 136 K 4.2 CL98 CO2 27 BUN 24 Creat 2.36 Glucose 178 GFR 28 Calcium 10.3 T. Bili 0.6 AST 29 ALT 71 T. Protein 8.6 Albumin 3.7 Alk Phos 100 Assessment: 1. Polycythemia 2. CKD 3. Osteoporosis?? 4. Current tobacco abuse Plan: 1. Polycythemia: Refuses phlebotomy.States he passed out last time. Disscused smoking cessation, hydration. Discussed possible treatment with medication. ?Hematocrit (HCT):??Polycythemia is considered when the hematocrit is greater than 52% in men. ?? Hemoglobin (HGB):??Polycythemia is considered when a hemoglobin level greater than 18.5 g/dL in men 2. CKD-continue follow-up with PCP 3. Osteoporosis-on calcium daily 4.??Cigarette tobacco smoking abuse: ?? Patient placed on Wellbutrin by PCP. Patient smoking 4 cigarettes per day. Patient congratulated on decreasing smoking. ?? RTC: 2 weeks. CBC before next RTC in [place]. Phelbotomy held today. H&H 18.3 and 54.6. Reassess in 2 weeks. Total time spent on this encounter on this date of service, including pre-visit review of separately obtained history, [id number] interaction performing medically appropriate physical exam, patientcounseling/education, interpretation of diagnostic results, care coordination and documentation was30 minutes. The patient was given an opportunity to ask questions, and all questions answered to patient's satisfaction. Patient verbalizes understanding of the plan as outlined above. Faina Amanda APRN, CNP 12/10/2021 7:18 PM CUPOLA HOIST OPERATOR LA HOIST OPERATOR documented in this encounter Plan of Treatment Upcoming Encounters Date Type Department Care Team (Late st Contact Info) Description 11/22/2024 9:30 AM CUPOLA HOIST OPERATOR Office Visit [facility] - Neurology - [place] [address] [place] [address] Azeem Coronel MD [address] [place] [address] Scheduled Orders Name Type Priority Associated Diagnoses Orde r Schedule COMPLETE BLOOD COUNT (CBC) WITH DIFF Lab Routine Polycythemia 12 Occurrences starting 12/10/2021 until 06/12/2023 documented as of this encounter Procedures Procedure Name Priority Date/Time Associated Diagnosis Comments COMPLETE BLOOD COUNT (CBC) WITH DIFF Routine 12/10/2021 12:00 AM CUPOLA HOIST OPERATOR documented in this encounter Results * COMPLETE BLOOD COUNT (CBC) WITH DIFF (12/10/2021 12:00 AM CUPOLA HOIST OPERATOR) Blood 12/10/2021 us Faina Amanda APRN, CNP HEMATOLOGY ORDERABLES Ed ited Result - Final SCAN documented in this encounter Visit Diagnoses Diagnosis Polycythemia- Primary Polycythemia vera documented in this encounter Care Teams Wealth Management Director Relationship Specialty Start Date End Date Javier Hampton MD [address] [place] [address] PCP - General Family Medicine 12/09/21 documented as of this encounter
--- OUTSIDE RECORDS SUMMARY | 2024-09-29 21:02 | XMS_ITS | Encounter Summary ---
Author Organization [facility] Address [address] [place] [address] Phone Care Team Providers Care Business Continuity Planning Director Name Role Phone Javier Hampton MD Primary Care Provider [phone] Azeem Coronel MD Unavailable [phone] Encounter Details Date Type Department Care Team (Late st Contact Info) Description 04/05/2022 Refill [facility] - Neurology [facility] [address] [place] [address] Azeem Coronel MD [address] [place] [address] Social History Tobacco Use Types [...] Notes * Telephone Encounter - Nunu Wall I, [facility] - 04/05/2022 9:01 AM CDT Requested Prescriptions Pending Prescriptions Disp Refills ??? carbidopa-levodopa (SINEMET) 25-100 MG Tablet 259.5 Tablet 0 Sig: Take 0.5 Tablets by mouth 3 times daily for 7 days, THEN 1 Tablet 3 times daily for 83 days. 1/2 hour before eating documented in this encounter Plan of Treatment Upcoming Encounters Date Type Department Care Team (Late st Contact Info) Description 11/22/2024 9:30 AM NURSERY TECHNICIAN [facility] Visit [facility] - Neurology [facility] [address] [place] [address] Azeem Coronel MD [address] [place] [address] documented as of this encounter Visit Diagnoses Diagnosis Parkinson's disease (HCC)- Primary Paralysis agitans documented in this encounter Care Teams Business Continuity Planning Director Relationship Specialty Start Date End Date Javier Hampton MD [address] [place] [address] PCP - General Family Medicine 12/09/21 Azeem Coronel MD [address] [place] [address] Consulting Physician Neurology 01/26/22 documented as of this encounter
--- OUTSIDE RECORDS SUMMARY | 2024-09-29 21:02 | XMS_ITS | Encounter Summary ---
Author Organization [facility] Care Team Providers Care Flux Tube Attendant Name Role Phone Syeda Fontanez APRN Primary Care Provider [phone] Encounter Details Date Type Department Care Team (Latest Contact Info) Description 04/01/2021 Travel Social History Tobacco Use Types Packs/Day [...] st Contact Info) Description 11/22/2024 9:30 AM PRINCIPAL BIOSTATISTICIAN Office Visit [facility] - Neurology [facility] [address] [place] [address] Azeem Coronel MD [address] [place] [phone] documented as of this encounter Visit Diagnoses Not on filedocumented in this encounter Care Teams Flux Tube Attendant Relationship Specialty Start Date End Date Syeda Fontanez APRN [address] [place] [address] PCP - General Family Medicine 02/12/21 12/08/21 documented as of this encounter
--- OUTSIDE RECORDS SUMMARY | 2024-09-29 21:02 | XMS_ITS | Encounter Summary ---
Author Organization [facility] Address [address] [facility] [place] [address] Phone Care Team Providers Care Cooler Worker Name Role Phone Javier Hampton MD Primary Care Provider [phone] Azeem Coronel MD Unavailable [phone] Reason for Visit * Reason Comments Follow-up * Auth/Cert Specialty Diagnoses / Procedures Referred By Hilton arenas Referred To Contact Referral ID Status Reason Start Date Expiration Date Visits Re quested Visits Authorized [id number] 1 1 Encounter Details Date Type Department Care Team (Late st Contact Info) Description 05/10/2022 2:00 PM CDT Office Visit [facility] On[facility] [address] [place] [phone] Arnulfo Hull MD [address] [place], [place] [id number] Polycythemia (Primary Dx); Current smoker; Parkinson's disease (HCC) Discharge Disposition: Discharged to home or Selfcare [...] suspected to have Coronavirus/COVID-19? No / Unsure 05/10/2022 1:43 PM CDT documented as of this encounter Last Filed Vital Signs Vital Sign Reading Time Taken Comments Blood Pressure 131/66 05/10/2022 2:27 PM CDT Pulse 61 05/10/2022 2:27 PM CDT Temperature 36.3 ??C (97.4 ??F) 05/10/2022 2:27 PM CD T Respiratory Rate 18 05/10/2022 2:27 PM CDT Oxygen Saturation 98% 05/10/2022 2:27 PM CDT Inhaled Oxygen Concentration - - Weight 89 kg (196 lb 4.8 oz) 05/10/2022 2:27 PM CDT Height 180.3 cm (5' 11 ) 05/10/2022 2:27 PM CDT Body Mass Index 27.38 05/10/2022 2:27 PM CDT documented in this encounter Progress Notes * Lisa Nettles - 05/10/2022 2:00 PM CDT Outpatient Hem/Onc Progress Note PROGRESS NOTE Josh Robert is a 71 y.o. male seen today for follow up of polycythemia. He is here today with his Soniya. Josh last underwent phlebotomy on 04/29/21. Josh reports feeling worse after undergoing this procedure. Patient denies any headache occurring. Josh reports being diagnosed with Parkinson's Disease through Dr. Coronel. He reports improvement in tremor with Carbidopa-Levodopa 25-10 mg TID. Patient reports fasting blood sugars are ranging between 133-145. Josh continues to takeDapagliflozin Propanediol 10 mg daily with Trulicity injections weekly. Josh continues to have tremor with shuffling noted while walking. He continues to take Fosamax 70 mg weekly to maintain bone strength, taking Calcium 600 mg daily. Patient denies any dyspnea or changes in breathing, denying inhalers. He denies any anxiety or depression. He reports drinking at least 64 oz of fluid daily, noting 30% contains caffeine. Josh reports he continues to smoke denying any change in consumption since I last saw him. DIAGNOSIS/TREATMENT HISTORY: Reviewed patients past medical, surgical, social, and family history. Outpatient Medications Marked as Taking for the 05/10/22 encounter (Office Visit) with Arnulfo Hull MD Medication Sig Dispense Refill ??? aspirin EC 81 MG Tablet Delayed Response Take 81 mg by mouth daily. ??? atorvastatin (LIPITOR) 40 MG Tablet Take 40 mg by mouth daily. ??? Blood Glucose-BP Monitor (BLOOD GLUCOSE-WRIST BP MONITOR) Device by Does not apply route. ??? buPROPion (WELLBUTRIN) 150 MG XL tablet daily. ??? Calcium Carbonate (CALCIUM 600 PO) Take 600 mg by mouth. ??? carbidopa-levodopa (SINEMET) 25-100 MG Tablet Take 0.5 Tablets by mouth 3 times daily for 7 days, THEN 1 Tablet 3 times daily for 83 days. 1/2 hour before eating 259.5 Tablet 0 ??? Cholecalciferol 25 mcg Capsule Take 2,000 Units by mouth. ??? Dapagliflozin Propanediol 10 MG Tablet Take 1 Tablet by mouth daily. ??? Docusate Sodium (COLACE PO) Take by mouth. ??? Lancet Device Misc by Does not apply route. ??? metoprolol Succinate (TOPROL-XL) 25 MG TABLET SR 24 HR TAKE 1/2 TABLET BY MOUTH DAILY ??? Multiple Vitamins-Minerals (PRESERVISION AREDS PO) Take by mouth daily. ??? pantoprazole (PROTONIX) 40 MG Tablet Delayed Response TAKE 1 TABLET BY MOUTH EVERY MORNING X 6 WEEKS ??? Trulicity 0.75 MG/0.5ML Solution Pen-injector Allergies as of 05/10/2022 - Reviewed 04/27/2022 Allergen Reaction Noted ??? Penicillins Rash 02/12/2021 REVIEW OF SYSTEMS Review of Systems Constitutional: Negative for flushing Respiratory: Negative for shortness of breath. Cardiovascular: Negative for leg swelling. Neurological: Positive for tremors (improved with medication). Negative for weakness (improved) andheadaches. Physical Exam Physical Exam PAIN ASSESSMENT: no verbal pain complaints today. DATA: 05/06/22 LABS OSH: CBC WBC 7.5 RBC 5.33 HGB 17.1 PLT 275 ANC 4.8 12/31/21 LABS OSH: CBC WBC 8.4 RBC 5.23 HGB 16.3 HCT 49.1 PLT 287 ANC 5.8 DIAGNOSTIC IMAGING STUDIES: Nothing new found Assessment: 1. Polycythemia. Sec to smoking. 2. CKD 3. Osteoporosis 4. Current tobacco abuse 5. Recent movement d/o- tremor and weakness. Awaiting eval by neurology Plan: 2. Discussed importance of decreasing /quitting smoking 3. Continue to do physical therapy exercises at home to help maintain muscle strength. He should continue to follow with Dr. Coronel for management of Parkinson's Disease. 4. Continue to follow up with PCP and other specialists for management of your chronic medical conditions. Follow up in 6 months with CBC prior The patient was given an opportunity to ask questions, and all questions answered to patient's satisfaction. Patient verbalizes understanding of the plan as outlined above. The documentation for this visit was completed by Lisa Nettles acting as a scribe for Arnulfo Ibarra MD. * Arnulfo Hull MD - 05/10/2022 2:00 PM CDT Outpatient Hem/Onc Progress Note PROGRESS NOTE Josh Robert is a 71 y.o. male seen today for follow up of polycythemia. He is here today with his Soniya. Josh last underwent phlebotomy on 04/29/21. Josh reports feeling worse after undergoing this procedure. Patient denies any headache occurring. Josh reports being diagnosed with Parkinson's Disease through Dr. Coronel. He reports improvement in tremor with Carbidopa-Levodopa 25-10 mg TID. Patient reports fasting blood sugars are ranging between 133-145. Josh continues to takeDapagliflozin Propanediol 10 mg daily with Trulicity injections weekly. Josh continues to have tremor with shuffling noted while walking. He continues to take Fosamax 70 mg weekly to maintain bone strength, taking Calcium 600 mg daily. Patient denies any dyspnea or changes in breathing, denying inhalers. He denies any anxiety or depression. He reports drinking at least 64 oz of fluid daily, noting 30% contains caffeine. Josh reports he continues to smoke denying any change in consumption since I last saw him. Reviewed patients past medical, surgical, social, and family history. Outpatient Medications Marked as Taking for the 05/10/22 encounter (Office Visit) with Arnulfo Hull MD Medication Sig Dispense Refill ??? aspirin EC 81 MG Tablet Delayed Response Take 81 mg by mouth daily. ??? atorvastatin (LIPITOR) 40 MG Tablet Take 40 mg by mouth daily. ??? Blood Glucose-BP Monitor (BLOOD GLUCOSE-WRIST BP MONITOR) Device by Does not apply route. ??? buPROPion (WELLBUTRIN) 150 MG XL tablet daily. ??? Calcium Carbonate (CALCIUM 600 PO) Take 600 mg by mouth. ??? carbidopa-levodopa (SINEMET) 25-100 MG Tablet Take 0.5 Tablets by mouth 3 times daily for 7 days, THEN 1 Tablet 3 times daily for 83 days. 1/2 hour before eating 259.5 Tablet 0 ??? Cholecalciferol 25 mcg Capsule Take 2,000 Units by mouth. ??? Dapagliflozin Propanediol 10 MG Tablet Take 1 Tablet by mouth daily. ??? Docusate Sodium (COLACE PO) Take by mouth. ??? Lancet Device Misc by Does not apply route. ??? metoprolol Succinate (TOPROL-XL) 25 MG TABLET SR 24 HR TAKE 1/2 TABLET BY MOUTH DAILY ??? Multiple Vitamins-Minerals (PRESERVISION AREDS PO) Take by mouth daily. ??? pantoprazole (PROTONIX) 40 MG Tablet Delayed Response TAKE 1 TABLET BY MOUTH EVERY MORNING X 6 WEEKS ??? Trulicity 0.75 MG/0.5ML Solution Pen-injector Allergies as of 05/10/2022 - Reviewed 04/27/2022 Allergen Reaction Noted ??? Penicillins Rash 02/12/2021 REVIEW OF SYSTEMS Review of Systems Constitutional: Negative for flushing Respiratory: Negative for shortness of breath. Cardiovascular: Negative for leg swelling. Neurological: Positive for tremors (improved with medication). Negative for weakness (improved) andheadaches. Physical Exam Physical Exam PAIN ASSESSMENT: no verbal pain complaints today. DATA: 05/06/22 LABS OSH: CBC WBC 7.5 RBC 5.33 HGB 17.1 PLT 275 ANC 4.8 12/31/21 LABS OSH: CBC WBC 8.4 RBC 5.23 HGB 16.3 HCT 49.1 PLT 287 ANC 5.8 DIAGNOSTIC IMAGING STUDIES: Nothing new found Assessment: 1. Polycythemia. Sec to smoking. 2. CKD 3. Osteoporosis 4. Current tobacco abuse 5. Recent movement d/o- tremor and weakness. Diagnosed with Parkinson disease Plan: 1. Reviewed above clinical data including recent symptoms, labs, imaging and pathology results withpatient and family. 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 Discussed diagnosis, treatment options and prognostic implication of disease. Our goal is to keep HGB less than 17- 17.5. Today his hemoglobin is 17.1 and he has no symptoms so will hold off phlebotomy. Recheck CBC in 6 months and phlebotomy if hemoglobin greater than 17.5 or if there are symptoms of hyperviscosity. Discussed diagnosis, treatment options and prognostic implication of disease. 2. Discussed importance of decreasing /quitting smoking 3. Continue to do physical therapy exercises at home to help maintain muscle strength. He should continue to follow with Dr. Coronel for management of Parkinson's Disease. 4. Continue to follow up with PCP and other specialists for management of your chronic medical conditions. Follow up in 6 months with CBC prior The patient was [...] the documentation as necessary. Arnulfo Hull MD 05/10/2022, 2:55 PM CDT documented in this encounter Miscellaneous Notes * Interdisciplinary - Analia Bautista - 05/10/2022 2:00 PM CDT The patient has no complaints during today's visit and a pain score of 0. documented in this encounter Plan of Treatment Upcoming Encounters Date Type Department Care Team (Late st Contact Info) Description 11/22/2024 9:30 AM FREELANCE DIRECTOR Office Visit [facility] - Neurology [facility] [address] [place] [address] Azeem Coronel MD [address] [place] [address] documented as of this encounter Procedures Procedure Name Priority Date/Time Associated Diagnosis Comments COMPLETE BLOOD COUNT (CBC) WITH DIFF Routine 11/15/2022 12:00 AM FREELANCE DIRECTOR Polycythemia documented in this encounter Results * COMPLETE BLOOD COUNT (CBC) WITH DIFF (11/15/2022 12:00 AM FREELANCE DIRECTOR) Blood 11/15/2022 Arnulfo Hull MD HEMATOLOGY ORDERABLES Fi nal Result SCAN documented in this encounter Visit Diagnoses Diagnosis Polycythemia- Primary Polycythemia vera Current smoker Tobacco use disorder Parkinson's disease (HCC) Paralysis agitans documented in this encounter Care Teams Cooler Worker Relationship Specialty Start Date End Date Javier Hampton MD [address] [place] [id number] PCP - General Family Medicine 12/09/21 Azeem Coronel MD [address] [place] [address] Consulting Physician Neurology 01/26/22 documented as of this encounter
--- OUTSIDE RECORDS SUMMARY | 2024-09-29 21:02 | XMS_ITS | Encounter Summary ---
Author Organization [facility] Care Team Providers Care Animal Anatomy Teacher Name Role Phone Syeda Fontanez APRN Primary Care Provider [phone] Encounter Details Date Type Department Care Team (Latest Contact Info) Description 04/29/2021 Travel Social History Tobacco Use Types Packs/Day [...] st Contact Info) Description 11/22/2024 9:30 AM ENGINEER PROCESS Office Visit [facility] - Neurology [facility] [address] [place] [phone] Azeem Coronel MD [address] [place] [phone] documented as of this encounter Visit Diagnoses Not on filedocumented in this encounter Care Teams Animal Anatomy Teacher Relationship Specialty Start Date End Date Syeda Fontanez APRN [address] [place] [address] PCP - General Family Medicine 02/12/21 12/08/21 documented as of this encounter
--- OUTSIDE RECORDS SUMMARY | 2024-09-29 21:02 | XMS_ITS | Encounter Summary ---
Author Organization [facility] Care Team Providers Care Heel Nail Rasper Name Role Phone Javier Hampton MD Primary Care Provider [phone] Azeem Coronel MD Unavailable [phone] Encounter Details Date Type Department Care Team (Latest Contact Info) Description 05/10/2022 Travel Social History Tobacco Use Types Packs/Day [...] st Contact Info) Description 11/22/2024 9:30 AM INTELLIGENCE ANALYST Office Visit [facility] - Neurology [facility] [address] [place] [address] Azeem Coronel MD [address] [place] [phone] documented as of this encounter Visit Diagnoses Not on filedocumented in this encounter Care Teams Heel Nail Rasper Relationship Specialty Start Date End Date Javier Hampton MD [address] [place] [address] PCP - General Family Medicine 12/09/21 Azeem Coronel MD [address] [place] [address] Consulting Physician Neurology 01/26/22 documented as of this encounter
--- OUTSIDE RECORDS SUMMARY | 2024-09-29 21:02 | XMS_ITS | Encounter Summary ---
Author Organization [facility] Care Team Providers Care Manager Residential Name Role Phone Syeda Fontanez APRN Primary Care Provider [phone] Encounter Details Date Type Department Care Team (Latest Contact Info) Description 11/02/2021 Travel Social History Tobacco Use Types Packs/Day [...] COVID-19? No / Unsure 11/02/2021 10:13 AM FLOOR MECHANIC documented as of this encounter Plan of Treatment Upcoming Encounters Date Type Department Care Team (Late st Contact Info) Description 11/22/2024 9:30 AM FLOOR MECHANIC Office Visit [facility] - Neurology - [place] [address] [place] [phone] Azeem Coronel MD [address] [place] [address] documented as of this encounter Visit Diagnoses Not on filedocumented in this encounter Care Teams Manager Residential Relationship Specialty Start Date End Date Syeda Fontanez APRN [address] [place] [address] PCP - General Family Medicine 02/12/21 12/08/21 documented as of this encounter
--- OUTSIDE RECORDS SUMMARY | 2024-09-29 21:03 | XMS_ITS | Encounter Summary ---
Author Organization [facility] Care Team Providers Care Parts Casting Machine Operator Name Role Phone Syeda Fontanez APRN Primary Care Provider [phone] Encounter Details Date Type Department Care Team (Latest Contact Info) Description 03/04/2021 Travel Social History Tobacco Use Types Packs/Day [...] have Coronavirus / COVID-19? No / Unsure 03/04/2021 9:44 AM CDT documented as of this encounter Plan of Treatment Upcoming Encounters Date Type Department Care Team (Late st Contact Info) Description 11/22/2024 9:30 AM MORTGAGE PROTECTION SALES Office Visit [facility] - Neurology [facility] [address] [place] [phone] Azeem Coronel MD [address] [place] [phone] documented as of this encounter Visit Diagnoses Not on filedocumented in this encounter Care Teams Parts Casting Machine Operator Relationship Specialty Start Date End Date Syeda Fontanez APRN [address] [place] [address] PCP - General Family Medicine 02/12/21 12/08/21 documented as of this encounter
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
--- OUTSIDE RECORDS SUMMARY | 2024-09-29 21:03 | XMS_ITS | Encounter Summary ---
Author Organization [facility] Address [address] [facility] [place] [address] Phone Care Team Providers Care Website/Blog Editor Name Role Phone Syeda Fontanez APRN Primary Care Provider +1- [phone] Reason for Visit * Reason Comments Follow-up Encounter Details Date Type Department Care Team (Late st Contact Info) Description 03/04/2021 9:30 AM CDT Office Visit [facility] Oncology Services [address] [place] [phone] Arnulfo Hull MD [address] [place] [address] Faina Amanda APRN, MANAGER LOGISTIC [address] [place] [address] Polycythemia (Primary Dx) Discharge Disposition: Discharged to [...] Sign Reading Time Taken Comments Blood Pressure 128/72 03/04/2021 10:04 AM CDT Pulse 71 03/04/2021 10:04 AM CDT Temperature 36.5 ??C (97.7 ??F) 03/04/2021 10:04 AM C DT Respiratory Rate 18 03/04/2021 10:04 AM CDT Oxygen Saturation 96% 03/04/2021 10:04 AM CDT Inhaled Oxygen Concentration - - Weight 95.3 kg (210 lb 3.2 oz) 03/04/2021 10:04 AM CDT Height 180.3 cm (5' 11 ) 03/04/2021 10:04 AM CDT Body Mass Index 29.32 03/04/2021 10:04 AM CDT documented in this encounter Progress Notes * Faina Amanda APN, CNP - 03/04/2021 9:30 AM CDT Outpatient Hem/Onc Progress Note Chief Complaint: Polycythemia Josh Robert is a 70 y.o. male seen today for follow up of polycythemia. Patient has h/o CKD, DMII, osteoporosis and HTN. On Fosamax for osteoporosis. Patient smokes 1/2 pack/day. Patient has no new complaints. Outpatient Medications Marked as Taking for the 03/04/21 encounter (Office Visit) with Faina Amanda APN, CNP Medication Sig Dispense Refill ??? Calcium Carbonate (CALCIUM 600 PO) Take 600 mg by mouth. ??? Cholecalciferol 25 mcg Capsule Take 2,000 Units by mouth. ??? glipiZIDE (GLUCOTROL) 5 MG Tablet Take 5 mg by mouth 2 times daily. ??? lisinopril (PRINIVIL, ZESTRIL) 5 MG Tablet Take 5 mg by mouth daily. Allergies as of 03/04/2021 - Reviewed 03/04/2021 Allergen Reaction Noted ??? Penicillins Rash 02/12/2021 VITAL SIGNS: Vitals: 03/04/21 1004 BP: 128/72 BP Location: Left Arm BP Position: Sitting BP Cuff Size: Large Pulse: 71 Resp: 18 Temp: 97.7 ??F (36.5 ??C) SpO2: 96% Weight: 210 lb 3.2 oz (95.3 kg) Height: 5' 11 (1.803 m) Labs: Seema 02/18/2021: Jak2 negative Na 138 K 4.5 CL 101 CO2 32 BUN 19 Creat 1.40 Glucose 128 Calcium 10.0 T. Bili 0.6 AST 21 ALT 49 LD 144 T. Protein Alb 3.7 WBC 7.5 Hem 17.1 Hem 51.0 Plt 303 Erythropoietin 7.1 Assessment: ?? 1. Polycythemia 2. CKD 3. Osteoporosis 4. Current tobacco abuse ?? Plan: 1. Polycythemia- Jak2 negative. ?? Hematocrit (HCT):??Polycythemia is considered when the [...] that promote red blood cell production. 2. CKD 3. Osteoporosis 4. Current tobacco abuse ?? Total time spent on this encounter on this date of service, including pre-visit review of separately obtained history, [id number] interaction performing medically appropriate physical exam, patientcounseling/education, interpretation of diagnostic results, care coordination and documentation was30 minutes. The patient was given an opportunity to ask questions, and all questions answered to patient's satisfaction. Patient verbalizes understanding of the plan as outlined above. Faian Amanda APN, SHARRON 03/04/2021 10:22 AM CDT documented in this encounter Miscellaneous Notes * Interdisciplinary - Jessica Amaya MA - 03/04/2021 9:30 AM CDT Follow up. No pain, today. Per pt, his meds are unchanged--tjo documented in this encounter Plan of Treatment Upcoming Encounters Date Type Department Care Team (Late st Contact Info) Description 11/22/2024 9:30 AM MILLER HELPER Office Visit [facility] [address] [place] [address] Azeem Coronel MD [address] [place] [address] Scheduled Orders Name Type Priority Associated Diagnoses Orde r Schedule COMPLETE BLOOD COUNT (CBC) WITH DIFF Lab Routine Polycythemia Expected: 06/04/2021, Expires: 09/04/2021 COMPLETE BLOOD COUNT (CBC) WITH DIFF Lab Routine Polycythemia monthly for 10 Occurrences starting 03/04/2021 until 09/04/2022 documented as of this encounter Procedures Procedure Name Priority Date/Time Associated Diagnosis Comments COMPLETE BLOOD COUNT (CBC) WITH DIFF Routine 08/24/2021 12:00 AM MILLER HELPER documented in this encounter Results * COMPLETE BLOOD COUNT (CBC) WITH DIFF (08/24/2021 12:00 AM MILLER HELPER) 08/24/2021 us Faina Amanda APRN, MANAGER LOGISTIC HEMATOLOGY ORDERABLES Fi nal Result SCAN documented in this encounter Visit Diagnoses Diagnosis Polycythemia- Primary Polycythemia vera documented in this encounter Care Teams Website/Blog Editor Relationship Specialty Start Date End Date Syeda Fontanez APRN [address] [place] [address] PCP - General Family Medicine 02/12/21 12/08/21 documented as of this encounter
--- OUTSIDE RECORDS SUMMARY | 2024-09-29 21:03 | XMS_ITS | Encounter Summary ---
Author Organization [facility] Care Team Providers Care Director Call Name Role Phone Syeda Fontanez APRN Primary Care Provider +1- [phone] Encounter Details Date Type Department Care Team (Latest Contact Info) Description 02/12/2021 Travel Social History Tobacco Use Types Packs/Day [...] have Coronavirus / COVID-19? No / Unsure 02/12/2021 1:17 PM CDT documented as of this encounter Plan of Treatment Upcoming Encounters Date Type Department Care Team (Late st Contact Info) Description 11/22/2024 9:30 AM CIGAR BANDER Office Visit [facility] - Neurology [facility] [address] [place] [phone] Azeem Coronel MD [address] [place] [phone] documented as of this encounter Visit Diagnoses Not on filedocumented in this encounter Care Teams Director Call Relationship Specialty Start Date End Date Syeda Fontanez APRN [address] [place] [address] PCP - General Family Medicine 02/12/21 12/08/21 documented as of this encounter
--- OUTSIDE RECORDS SUMMARY | 2024-09-29 21:05 | XMS_ITS | Encounter Summary ---
Author Organization [facility] Address [address] [place] [address] Care Team Providers Care Dot Etcher Apprentice Name Role Phone Javier Hampton DO Primary Care Provider Reason for Referral * Cardiology (Routine) - Closed Specialty Diagnoses / Procedures Referred By Contac t Referred To Contact Diagnoses Dilated cardiomyopathy (CMS/HCC) (HCC) Procedures Transthoracic Echo Complete W Doppler/CF Ting Dsouza NP [address] [address] Phone: tel: fax: [facility] Referral ID Status Reason Start Date Expiration Date Visits Re quested Visits Authorized [id number] Closed 02/16/2022 03/18/2023 1 1 Reason for Visit * Reason Comments Follow-up 6 wk f/u on coronary calcification Encounter Details Date Type Department Care Team (Late st Contact Info) Description 02/16/2022 1:00 PM CDT Office Visit [facility] [address] [place] [phone] Ting Dsouza NP [address] [address] Dilated cardiomyopathy (CMS/HCC) (HCC) (Primary Dx); Nonrheumatic mitral valve regurgitation; Coronary artery calcification; Essential hypertension; Hyperlipidemia associated with type 2 diabetes mellitus (HCC); 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); Tobacco use Social History Tobacco Use Types Packs/Day Years Used Date Smoking Tobacco: Some Days Cigarettes Last attempted to quit: 12/07/2021 Smokeless Tobacco: Never AUDIT-C Answer Date Recorded Q1: How often do you have a drink containing alc ohol? Never 01/06/2022 Average Number of Drinks Not on file 022 Frequency of Binge Drinking Not on file 12/10 Sex and Gender Information Value Date Recorded Sex Assigned at Not on file Legal Sex Male 9:34 AM EQUIPMENT SCHEDULER Gender Identity Not on file Sexual Orientation Not on file documented as of this encounter Last Filed Vital Signs Vital Sign Reading Time Taken Comments Blood Pressure 136/78 02/16/2022 1:00 PM CDT Pulse 74 02/16/2022 1:00 PM CDT Temperature - - Respiratory Rate - - Oxygen Saturation 97% 02/16/2022 1:00 PM CDT Inhaled Oxygen Concentration - - Weight 87.1 kg (192 lb) 02/16/2022 1:00 PM CDT Height 177.8 cm (5' 10 ) 02/16/2022 1:00 PM CDT Body Mass Index 27.55 02/16/2022 1:00 PM CDT documented in this encounter Progress Notes * Ting Dsouza NP - 02/16/2022 1:00 PM CDT Images from the original note were not included. [facility] [address] [place] [address] Date of Visit: 02/16/2022 Patient ID: Josh Robert 1950 Chief Complaint Patient presents with ??? Follow-up 6 wk f/u on coronary calcification Josh Robert is a 71 y.o. male who is a newly established patient of Dr. Barone with an abnormal stress test coming to the office for short interval follow-up after starting atorvastatin. History of Present Illness: Josh Robert is a 71 y.o. male whom I was asked to see by Dr. Zhu for my advice and opinionregarding the patient's new onset of heart disease and abnormal stress test, in consultation. The patient has a history of polycythemia (periodic phlebotomy by Dr. Nichole) and was diagnosed lastmonth with hypertension diabetes, chronic kidney disease. He smoked less than 1 pack per day and quit last month. 01/06/2033 Initial Office Consultation with Dr. Barone:: Mr. Robert previously thought he was healthy (aside from periodic phlebotomy for his polycythemia) but has had trouble with tremors and some balance problems and falls over the last several months. On 12/03/2021 he got up to go to the bathroom and ???went down?? with weakness. He had no syncope but injured his chest on some furniture. He was lightheaded afterwards but denied any chest pain or shortness of breath. His heard him fall,found him leaning up against some furniture awake and talking, and called an ambulance [facility]. He was diagnosed with weakness , tremor , DM, CKD and HTN. Current medicines are all new. SBP was running 180-190's. He now uses a walker now and is getting Phy Tx, going to see a neurologist in January for evaluation to see Dr. Coronel. Hospital evaluation and subsequent testing as below. BS now runs 130. Blood pressure usually runs in the 140s aftermedication , 160s to 170s prior to his medication . Quit smoking. Only CP was after his fall when he injured chest. He has never had any chest pressure , tightness, squeezing or any typical anginal symptoms. Does have some SUAREZ; Now a long walk or splitting wood (previously) makes him SOB. 02/18/2021 creatinine 1.4 11/2021 A1c 6.7 , creatinine 1.86, GFR 36, troponins negative 12/2021 BUN 24, creatinine 2.36, GFR 28, glucose 178, hematocrit 55 12/15/2019 Lexiscan: Large fixed inferior defect suggestive of diaphragmatic attenuation or prior myocardial infarct, no reversible ischemia, EF 37% with global hypokinesis. ([facility]) 11/13/2021 echo: EF 55-60%, diastolic dysfunction, strain-13%, [id number] MR ([facility]) 12/03/2021 CT of the chest: No PE, diffuse hepatic steatosis, calcified coronary arteries 12/03/2021 CT of the head: Negative 12/03/2021 chest x-ray: Unremarkable 12/03/2021 EKG on my personal review shows sinus rhythm rate 61, nonspecific ST changes, Q-waves inferiorly and laterally. POC lipids as below EKG today shows NSR rate 73, Q-waves inferiorly and laterally consistent with old inferior ME, normal intervals no ischemic changes, no change compared to 12/03/2021. 12/07/[address] Zhu reviewed. Tremor, generalized muscle weakness recommendedphysical therapy, Neurology evaluation, stress test as above 02/16/2022 office visit with TAYA Dsouza: He returns for follow-up accompanied by his . He has since seen a neurologist and has been diagnosed with Parkinson's disease, started on Sinemet. He has also been started on lisinopril by PCP. His only complaint is that he has had a little dizziness which seems to have correlated with increasing the dose of Sinemet. Typical home blood pressure checks have been about systolic 135 and diastolic high 70s/low 80s. He is still struggling to quit smoking. 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 Records that I personally reviewed on the day of this visit include: (the interpretation is outlined in the HPI above) 01/06/[address] Barone, 01/26/[address] Coronel, 02/04/2022 lab results I have also reviewed: allergies, current medications, past family history, past medical history, past social history, past surgical history and problem list Medical History: Past Medical History: Diagnosis Date ??? Chronic kidney disease 2021 ??? Coronary artery calcification 2021 ??? Diabetes mellitus (HCC) 2021 ??? Hyperlipidemia 2021 ??? Hypertension 2021 ??? Polycythemia Dr. Nichole History reviewed. No pertinent surgical history. Social History Tobacco Use ??? Smoking status: Former Smoker Types: Cigarettes Quit date: 12/07/2021 Years since quittin.1 ??? Smokeless tobacco: Never Used Vaping Use ??? Vaping Use: Never used Substance Use Topics ??? Drug use: Yes Types: Marijuana Family History Problem Relation Age of Onset ??? Heart disease Mother age 78 ??? Kidney failure Father age 83 Review of Systems Constitutional: Negative for diaphoresis, fever, malaise/fatigue, weight gain and weight loss. HENT: Negative for hearing loss. Eyes: Negative for visual disturbance. Cardiovascular: Negative for chest pain, claudication, dyspnea on exertion, leg swelling, orthopnea, palpitations, paroxysmal nocturnal dyspnea and syncope. Respiratory: Negative for cough, hemoptysis, shortness of breath, snoring and wheezing. Hematologic/Lymphatic: Does not bruise/bleed easily. Skin: Negative for poor wound healing and rash. Musculoskeletal: Negative for joint pain and myalgias. Gastrointestinal: Positive for heartburn. Negative for nausea and vomiting. Genitourinary: Negative for hematuria. Neurological: Positive for dizziness. Negative for headaches and light-headedness. Psychiatric/Behavioral: Negative for depression. The patient is not nervous/anxious. Vital Signs: BP 136/78 (BP Location: Left arm, Patient Position: Sitting) Pulse 74 Ht 177.8 cm (5' 10 ) Wt87.1 kg (192 lb) SpO2 97% BMI 27.55 kg/m?? Physical Exam Constitutional: General: He is not in acute distress. Appearance: He is well-developed. HENT: Head: Normocephalic and atraumatic. Nose: Comments: Wearing a mask Eyes: General: No scleral icterus. Conjunctiva/sclera: Conjunctivae normal. Neck: Vascular: No JVD. Trachea: No tracheal deviation. Cardiovascular: Rate and Rhythm: Normal rate and regular rhythm. Heart sounds: Normal heart sounds. No murmur heard. Pulmonary: Effort: Pulmonary effort is normal. No respiratory distress. Breath sounds: Normal breath sounds. Skin: General: Skin is warm and dry. Neurological: Mental Status: He is alert and oriented to person, place, and time. Comments: Ambulates with a cane Psychiatric: Mood and Affect: Mood normal. Behavior: Behavior normal. Allergies Allergen Reactions ??? Penicillins Rash Current Outpatient Medications: ??? aspirin 81 mg enteric coated tablet, Take 81 mg by mouth daily, Disp: , Rfl: ??? atorvastatin (LIPITOR) 40 mg tablet, Take 1 tablet (40 mg total) by mouth daily, Disp: 30 tablet, Rfl: 11 ??? buPROPion XL (WELLBUTRIN XL) 150 mg 24 hr tablet, , Disp: , Rfl: ??? calcium carbonate (CALCIUM 600 ORAL), Take by mouth, Disp: , Rfl: ??? carbidopa-levodopa (SINEMET) 25-100 mg per tablet, Take 1 tablet by mouth 3 (three) times a day, Disp: , Rfl: ??? cholecalciferol (VITAMIN D-3) 1,000 unit capsule, Take 2,000 Units by mouth, Disp: , Rfl: ??? lisinopriL (PRINIVIL,ZESTRIL) 20 mg tablet, Take 20 mg by mouth daily, Disp: , Rfl: ??? metoprolol XL (TOPROL-XL) 25 mg extended release tablet, Take 12.5 mg by mouth daily, Disp: , Rfl: ??? pantoprazole DR (PROTONIX) 40 mg EC tablet, TAKE 1 TABLET BY MOUTH EVERY MORNING X 6 WEEKS, Disp: , Rfl: ??? Trulicity 0.75 mg/0.5 mL pen injector, , Disp: , Rfl: No results found for: POTASSIUM, BUNSER, CREATININE, CHOL, TRIG, LDL, LDLCALC, HDL No results found for: WBC, HGB, HCT, MCV, PLT 02/18/2021 creatinine 1.4 11/2021 A1c 6.7 , creatinine 1.86, GFR 36, troponins negative 12/2021 BUN 24, creatinine 2.36, GFR 28, glucose 178, hematocrit 55 01/06/2022 POC lipids: TC 197, HDL 42, TG 105, LDL 134 02/04/2022 fasting lipid panel: TC 116, HDL 40, TG 76, LDL 61 02/04/2022 CMP: K 4.2, BUN 27, creatinine 1.75, GFR 39, AST 20, ALT 12, alk-phos 75, hemoglobin A1c6.9 Assessment: Diagnoses and all orders for this visit: Dilated cardiomyopathy (CMS/HCC) (HCC) (Primary) - Transthoracic Echo Complete W Doppler/CF; Future Nonrheumatic mitral valve regurgitation Coronary artery calcification Essential hypertension Hyperlipidemia associated with type 2 diabetes mellitus (HCC) 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) Tobacco use Plan/Recommendations: Cardiomyopathy currently appears asymptomatic. He appears euvolemic. Continue metoprolol and lisinopril. Plan to reassess LV function by echo at the end of the year. Previous echo in November showed mild to moderate MR. We will reassess this by echo again at the end of the year. He has an abnormal stress test and coronary artery calcification seen on CT. He remains asymptomatic. We will continue medical therapy and encourage heart healthy lifestyle. LDL has reached goal after initiation of atorvastatin. I advised him to continue aspirin, atorvastatin, lisinopril and metoprolol. I advised him to stay physically active and follow a heart healthy diet. I also encouraged himto continue working on smoking cessation because of the immense benefit this would give his heart. Blood pressure is borderline. Because of his CKD and diabetes, it would be ideal for him to reach agoal blood pressure below 130/80. I advised him to continue monitoring this at home and continue following with PCP regarding the hypertension. Continue metoprolol and lisinopril. Diabetes is being managed by PCP. Recent hemoglobin A1c was 6.9. Continue Trulicity. Creatinine appears to be remaining stable. Continue to monitor. Unfortunately he continues to smoke in states it is more out of boredom her habit. I gave him some suggestions on quit strategy and we would be happy to assist him with smoking cessation further if he requests. Return to the office in September for repeat echocardiogram and have a follow-up visit with Dr. Barone shortly thereafter. Call us sooner with questions or concerns, particularly if any chest discomfort develops for any new dyspnea on exertion, and I explained this to the patient and his in detail the symptoms he would need to notify us for if they occurred.. 02/16/2022 ERNST Espinoza- Nurse Practitioner with [facility] This note is dictated and transcribed using Epic! Direct Software. Field Engineer variancesmay occur. Despite proofreading, typographical errors may occur. documented in this encounter Plan of Treatment Not on file documented as of this encounter Results * TRANSTHORACIC ECHO (TTE) COMPLETE W DOPPLER/CF W CONTRAST (08/23/2022 1:39 PM EQUIPMENT SCHEDULER) Anatomical Region Laterality Modality Ultrasound 08/23/2022 11:4 3 AM EQUIPMENT SCHEDULER Narrative 08/23/2022 8:36 PM EQUIPMENT SCHEDULER [facility] [address], [place] [address] [address], [place] [address] P:[phone] P:[phone] Echocardiographic Report Patient Name: JOSH ROBERT : 1950 Study Date: 08/23/2022 11:43:49 AM Gender: M Tech: Location: [place] Ref.Provider: TING DSOUZA Height(Cm): 178 BSA: 2.05 Weight(Kg): 87.09 Heart Rate: 56 BP: 126/71 Quality: Definity contrast agent used to enhance endocardial border definition Order Provider: TING DSOUZA Procedures: Echocardiographic Report: Transthoracic echocardiogram with complete 2D, M-Mode, color Doppler examination and Definity contrast. Indications: Cardiomyopathy. Measurements: 2D/M Mode ?Doppler ? Measurement ?Value ?Normal Range ? Measurement ?Value ?Normal Range ? EF Mod ? 54 ?AV Mean PG ? 3 ?mmHg ? EF MM ?56 ? [ 55 - 70 ] % ?AV Peak Bryant ?1.28 ? m/s ? LVIDd 2D ? 4.55 ? [ 3.90 - 5.30 ] cm ? AV Peak PG ? 7 ?mmHg ? LVIDd MM ? 5.42 ? [ 3.90 - 5.30 ] cm ? AV VTI ? 0.25 ? cm ? LVIDs 2D ? 4.30 ? [ 2.30 - 3.90 ] cm ? LVOT Peak Bryant ?0.78 ? [ 0.70 - 1.10 ] m/s ? LVIDs MM ? 3.83 ? [ 2.30 - 3.90 ] cm ? LVOT VTI ? 0.19 ? cm ? LVPWd 2D ? 1.08 ? [ 0.60 - 1.00 ] cm ? MV E Peak Bryant ?0.58 ? [ 0.60 - 1.30 ] m/s ? LVPWd MM ? 1.00 ? [ 0.60 - 1.00 ] cm ? MV A Peak Bryant ?0.71 ? [ 0.40 - 0.80 ] m/s ? IVSd 2D ?0.91 ? [ 0.60 - 0.90 ] cm ? MV Decel Time ?209 ?[ 150 - 200 ] msec ? IVSd MM ?1.08 ? [ 0.60 - 0.90 ] cm ? PV Peak Bryant ?0.87 ? [ 0.40 - 0.80 ] m/s ? LA Dimension MM ?4.58 ? [ 2.70 - 3.80 ] cm ? E' ? 0.08 ? AoR Diam MM ?3.58 ? [ 2.60 - 3.70 ] cm ? E/E' ? 8 ? LA Volume Index ?24.00 ?[ 16.00 - 28.00 ] cc/m2 ? ACS MM ? 2.08 ? cm ? Findings: Interpretation Site: Exam was interpreted at [facility]. Left Ventricle: Normal left ventricular size. Definity contrast agent used to visually enhance endocardial wall motion and contractility. Lot Number: [id number]. Left ventricular wall thickness upper limits of normal. Normal left ventricular diastolic function. Ejection fraction is visually estimated at 50-55 %. Ejection fraction is measured at 54 %. These segments of the LV are hypokinetic: apical segment. Right Ventricle: Normal right ventricular size. Normal right ventricular systolic function. The right ventricle is not well visualized. Left Atrium: There is mild enlargement of left atrium. Normal left atrial pressure based on pulmonary vein inflow. Right Atrium: The right atrium is normal in size. Atrial Septum: Left to right colorflow in the mid atria suggestive of a large PFO or possibly a small secundum ASD. Mitral Valve: Mild mitral valve regurgitation. Aortic Valve: Normal appearance of the aortic valve. Tricuspid Valve: Right ventricular systolic pressure could not be estimated due to inadequate visualization of the tricuspid regurgitation jet. Trivial regurgitation in the tricuspid valve. Pulmonic Valve: Normal appearance of the pulmonic valve. Pericardium: Normal pericardium with no significant pericardial effusion. Aorta: Normal aortic root. Sinus of Valsalva is normal. Sinotubular junction is normal. Ascending aorta is normal. Aortic arch is normal. Descending aorta is normal. IVC: Normal size and normal respiratory collapse consistent with normal right atrial pressure (<5 mmHg). Pulmonary Artery: Normal pulmonary artery size. Conclusions: Normal left ventricular size. Left ventricular wall thickness upper limits of normal. Normal left ventricular diastolic function. Ejection fraction is visually estimated at 50-55 %. Ejection fraction is measured at 54 %. These segments of the LV are hypokinetic: apical segment. There is mild enlargement of left atrium. Left to right colorflow in the mid atria suggestive of a large PFO or possibly a small secundum ASD. Mild mitral valve regurgitation. Normal sinus rhythm. Technically difficult study with limited views. Definity contrast agent used. Compared to the Echo of 11/2021, there is not significant change. Electronically Signed By: Sneha Barone MD, [facility] 2022-08-23 20:36:34 EQUIPMENT SCHEDULER Procedure Note Sneha Barone MD - 08/23/2022 [facility] [address] [facility] [address] [id number] [address] [facility] [address] [place] [address] P:[phone] P:[phone] Echocardiographic Report Patient Name: JOSH ROBERTPatient ID: [id number] : [id number] Date: 08/23/2022 11:43:49 AM Gender: MAccession #: [id number] Tech: GMLocation: [place] Ref.Provider: TING DSOUZAHeight(Cm): 178 BSA: 2.05Weight(Kg): 87.09 Heart Rate: 56BP: 126/71 Quality: Definity contrast agent used to enhance endocardial borderdefinitionOrder Provider: ITNG DSOUZA Procedures: Echocardiographic Report: Transthoracic echocardiogram with complete 2D, M-Mode, color Dopplerexamination and Definity contrast. Indications: Cardiomyopathy. Measurements: 2D/M Mode Doppler Measurement Value Normal Range MeasurementValue Normal Range EF Mod 54 AV Mean PG 3mmHg EF MM 56 [ 55 - 70 ] % AV Peak Vel1.28 m/s LVIDd 2D 4.55 [ 3.90 - 5.30 ] cm AV Peak PG 7mmHg LVIDd MM 5.42 [ 3.90 - 5.30 ] cm AV VTI0.25 cm LVIDs 2D 4.30 [ 2.30 - 3.90 ] cm LVOT Peak Vel0.78 [ 0.70 - 1.10 ] m/s LVIDs MM 3.83 [ 2.30 - 3.90 ] cm LVOT VTI0.19 cm LVPWd 2D 1.08 [ 0.60 - 1.00 ] cm MV E Peak Vel0.58 [ 0.60 - 1.30 ] m/s LVPWd MM 1.00 [ 0.60 - 1.00 ] cm MV A Peak Vel0.71 [ 0.40 - 0.80 ] m/s IVSd 2D 0.91 [ 0.60 - 0.90 ] cm MV Decel Snki111 [ 150 - 200 ] msec IVSd MM 1.08 [ 0.60 - 0.90 ] cm PV Peak Vel0.87 [ 0.40 - 0.80 ] m/s LA Dimension MM 4.58 [ 2.70 - 3.80 ] cm E'0.08 AoR Diam MM 3.58 [ 2.60 - 3.70 ] cm E/E' 8 LA Volume Index 24.00 [ 16.00 - 28.00 ] cc/m2 ACS MM 2.08 cm Findings: Interpretation Site: Exam was interpreted at [facility]. Left Ventricle: Normal left ventricular size. Definity contrast agent used to visuallyenhance endocardial wall motion and contractility. Lot Number: [id number]. Leftventricular wall thickness upper limits of normal. Normal left ventricular diastolicfunction. Ejection fraction is visually estimated at 50-55 %. Ejection fraction is measuredat 54 %. These segments of the LV are hypokinetic: apical segment. Right Ventricle: Normal right ventricular size. Normal right ventricular systolic function.The right ventricle is not well visualized. Left Atrium: There is mild enlargement of left atrium. Normal left atrial pressurebased on pulmonary vein inflow. Right Atrium: The right atrium is normal in size. Atrial Septum: Left to right colorflow in the mid atria suggestive of a large PFO orpossibly a small secundum ASD. Mitral Valve: Mild mitral valve regurgitation. Aortic Valve: Normal appearance of the aortic valve. Tricuspid Valve: Right ventricular systolic pressure could not be estimated due toinadequate visualization of the tricuspid regurgitation jet. Trivial regurgitation inthe tricuspid valve. Pulmonic Valve: Normal appearance of the pulmonic valve. Pericardium: Normal pericardium with no significant pericardial effusion. Aorta: Normal aortic root. Sinus of Valsalva is normal. Sinotubular junction isnormal. Ascending aorta is normal. Aortic arch is normal. Descending aorta isnormal. IVC: Normal size and normal respiratory collapse consistent with normal rightatrial pressure (<5 mmHg). Pulmonary Artery: Normal pulmonary artery size. Conclusions: Normal left ventricular size. Left ventricular wall thickness upper limitsof normal. Normal left ventricular diastolic function. Ejection fraction is visuallyestimated at 50-55 %. Ejection fraction is measured at 54 %. These segments of the LVare hypokinetic: apical segment. There is mild enlargement of left atrium. Left to right colorflow in the mid atria suggestive of a large PFO orpossibly a small secundum ASD. Mild mitral valve regurgitation. Normal sinus rhythm. Technically difficult study with limited views. Definity contrast agentused. Compared to the Echo of 11/2021, there is not significant change. Electronically Signed By: Sneha Barone MD, [facility] 2022-08-23 20:36:34 EQUIPMENT SCHEDULER Ting Dsouza NP CV ECHO PROCEDURES Final Result documented in this encounter Visit Diagnoses Diagnosis Dilated cardiomyopathy (CMS/HCC) (HCC)- Primary Other primary cardiomyopathies Nonrheumatic mitral valve regurgitation Coronary artery calcification Essential hypertension Unspecified essential hypertension Hyperlipidemia associated with type 2 diabetes mellitus (HCC) 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) Tobacco use Dilated cardiomyopathy (CMS/HCC) (HCC) Other primary cardiomyopathies documented in this encounter Historical Medications * This list may reflect changes made after this encounter. carbidopa-levodop a (SINEMET) 25-100 mg per tablet Take 1 tablet by mouth 3 (three) times a day 01/26/2022 lisinopriL (PRINIVIL,ZESTRIL ) 20 mg tablet Take 1 tablet (20 mg total) by mouth daily 02/04/2022 08/24/2022 added in this encounter Care Teams Dot Etcher Apprentice Relationship Specialty Start Date End Date Javier Hampton DO [address] [place] [address] PCP - General Family Medicine 12/15/21 documented as of this encounter
--- OUTSIDE RECORDS SUMMARY | 2024-09-29 21:05 | XMS_ITS | Encounter Summary ---
Author Organization [facility] Address [address] [facility] [address] [place] [address] Care Team Providers Care Carry Out Clerk Name Role Phone Javier Hampton DO Primary Care Provider Reason for Visit * Cardiology (Routine) - Closed Specialty Diagnoses / Procedures Referred By Contac t Referred To Contact Diagnoses Dilated cardiomyopathy (CMS/HCC) (HCC) Procedures Transthoracic Echo Complete W Doppler/CF Ting Dsouza NP [address] [address] Phone: tel: fax: [facility] Referral ID Status Reason Start Date Expiration Date Visits Re quested Visits Authorized [id number] Closed 02/16/2022 03/18/2023 1 1 Encounter Details Date Type Department Care Team (Latest Contact Info) Description 08/23/2022 1:00 PM CIVIL PREPAREDNESS OFFICER Ancillary Procedure [facility] Cardiology [address] [address] Dilated cardiomyopathy (CMS/HCC) (HCC) Social History Tobacco Use Types Packs/Day Years [...] on file Legal Sex Male 9:34 AM CIVIL PREPAREDNESS OFFICER Gender Identity Not on file Sexual Orientation Not on file documented as of this encounter Plan of Treatment Not on file documented as of this encounter Procedures Procedure Name Priority Date/Time Associated Diagnosis Comments TRANSTHORACIC ECHO (TTE) COMPLETE W DOPPLER/CF W CONTRAST Routine 08/23/2022 1:39 PM CIVIL PREPAREDNESS OFFICER Dilated cardiomyopathy (CMS/HCC) (HCC) documented in this encounter Results * TRANSTHORACIC ECHO (TTE) COMPLETE W DOPPLER/CF W CONTRAST (08/23/2022 1:39 PM CIVIL PREPAREDNESS OFFICER) Anatomical Region Laterality Modality Ultrasound 08/23/2022 11:4 3 AM CIVIL PREPAREDNESS OFFICER Narrative 08/23/2022 8:36 PM CIVIL PREPAREDNESS OFFICER [facility] Cardiology [address] [facility] [address], [place] [address] [address], [place] [address] P:[phone] P:[phone] Echocardiographic Report Patient Name: JOSH ROBERT : 10 Study Date: 08/23/2022 11:43:49 AM Gender: M Tech: Location: [place] Ref.Provider: TING DSOUZA Height(Cm): 178 BSA: 2.05 [...] Findings: Interpretation Site: Exam was interpreted at [facility] [place]. Left Ventricle: Normal left ventricular size. Definity [...] change. Electronically Signed By: Sneha Barone MD, [facility] 2022-08-23 20:36:34 CIVIL PREPAREDNESS OFFICER Procedure Note Sneha Barone MD - 08/23/2022 [facility] Cardiology [address] [facility] [address], [place] [address] [address] [facility] [address], [place] [address] P:[phone] P:[phone] Echocardiographic Report Patient Name: JOSH ROBERTPatient ID: [id number] : [id number] Date: 08/23/2022 11:43:49 AM Gender: MAccession #: [id number] Tech: GMLocation: [place] Ref.Provider: TING DSOUZAHeight(Cm): 178 BSA: 2.05Weight(Kg): 87.09 Heart Rate: 56BP: 126/71 Quality: Definity contrast agent used to enhance endocardial borderdefinitionOrder Provider: TING DSOUZA Procedures: Echocardiographic Report: Transthoracic [...] 0.60 - 0.90 ] cm MV Decel [id number] [ 150 - 200 ] msec IVSd [...] Findings: Interpretation Site: Exam was interpreted at [facility]. Left Ventricle: Normal left ventricular size. Definity [...] change. Electronically Signed By: Sneha Barone MD, [facility] 2022-08-23 20:36:34 CIVIL PREPAREDNESS OFFICER Ting Dsouza NP CV ECHO PROCEDURES Final Result documented in this encounter Visit Diagnoses Diagnosis Dilated cardiomyopathy (CMS/HCC) (HCC) Other primary cardiomyopathies documented in this encounter Administered Medications Inactive Administered Medications - up to 3 most recent administrations Medication Order MAR Action Action Date Dose Rate Site perflutren lipid (DEFINITY) 1.5 mL in sodium chloride 0.9% 10 mL syringe 1-10 mL, intravenous, Once in imaging, contrast, Starting on 08/23/22 at 1317, For 1 dose Contrast Given 08/23/2022 1:51 PM CIVIL PREPAREDNESS OFFICER 1 mL documented in this encounter Orders Medications Ordered That Sergey ht Not Have Been Administered Count Last Ordered Date First Ordered Date perflutren lipid (DEFINITY) 1.5 mL in sodium chloride 0.9% 10 mL syringe 1 08/23/2022 documented in this encounter Care Teams Carry Out Clerk Relationship Specialty Start Date End Date Javier Hampton DO [address] [place] [address] PCP - General Family Medicine 12/15/21 documented as of this encounter
--- OUTSIDE RECORDS SUMMARY | 2024-09-29 21:05 | XMS_ITS | Encounter Summary ---
Author Organization [facility] Address [address] [facility] [address] [place] [address] Care Team Providers Care Rubber Cutting Machine Tender Name Role Phone Javier Hampton DO Primary Care Provider Reason for Visit * Reason Comments Follow-up 3 mo Encounter Details Date Type Department Care Team (Late st Contact Info) Description 11/23/2022 10:30 AM BOTANY TECHNICIAN Office Visit [facility] Cardiology [address] [facility] [address] [place] [address] Aiyana Waterman NP [address] [facility] [address] [place] [address] Lipid screening (Primary Dx); Essential hypertension; Dilated cardiomyopathy (CMS/HCC) (HCC); Nonrheumatic mitral valve regurgitation; Coronary artery disease involving [place] valley coronary artery of [place] valley heart without angina pectoris; Hyperlipidemia associated with type 2 diabetes mellitus (HCC) Social History Tobacco Use Types Packs/Day Years Used Date Smoking Tobacco: Some Days Cigarettes Last attempted to quit: 12/07/2021 Smokeless Tobacco: Never Tobacco Cessation:Ready to Q uit: Not Asked; Counseling Given: Not Answered AUDIT-C Answer Date Recorded Q1: How often do you have a drink containing alc ohol? Never 01/06/2022 Average Number of Drinks Not on file 022 Frequency of Binge Drinking Not on file 12/10 Sex and Gender Information Value Date Recorded Sex Assigned at Not on file Legal Sex Male 9:34 AM BOTANY TECHNICIAN Gender Identity Not on file Sexual Orientation Not on file documented as of this encounter Last Filed Vital Signs Vital Sign Reading Time Taken Comments Blood Pressure 128/80 11/23/2022 10:32 AM BOTANY TECHNICIAN Pulse 82 11/23/2022 10:32 AM BOTANY TECHNICIAN Temperature - - Respiratory Rate - - Oxygen Saturation 99% 11/23/2022 10:32 AM BOTANY TECHNICIAN Inhaled Oxygen Concentration - - Weight 90.3 kg (199 lb) 11/23/2022 10:32 AM BOTANY TECHNICIAN Height 177.8 cm (5' 10 ) 11/23/2022 10:32 AM BOTANY TECHNICIAN Body Mass Index 28.55 11/23/2022 10:32 AM BOTANY TECHNICIAN documented in this encounter Progress Notes * Aiyana Waterman, TAYA - 11/23/2022 10:30 AM CST Images from the original note were not included. [facility] Cardiology [address] [place] [address] Date of Visit: 11/23/2022 Patient ID: Josh Robert 1950 Chief Complaint Patient presents with Follow-up 3 mo Josh Robert is a 72 y.o. male who is an established patient of Dr. Barone with asymptomatic CAD returning to the office for hypertension follow-up. History of Present Illness: Josh Robert is a 72 y.o. male whom I was asked to see by Dr. Zhu for my advice and opinionregarding the patient's new onset of heart disease and abnormal stress test, in consultation. The patient has a history of polycythemia (periodic phlebotomy by Dr. Nichole) and was diagnosed lastmonth with hypertension diabetes, chronic kidney disease. He smoked less than 1 pack per day and quit last month. 01/06/2022 Initial Office Consultation with Dr. Barone:: Mr. [...] and [facility] an [facility]. He was diagnosed with [...] reversible ischemia, EF 37% with global hypokinesis. ([facility]) 11/13/2021 echo: EF 55-60%, diastolic dysfunction, strain-13%, [id number] MR ([facility]) 12/03/2021 CT of the chest: No PE, diffuse hepatic steatosis, calcified coronary arteries 12/03/2021 CT of the head: Negative 12/03/2021 chest x-ray: Unremarkable 12/03/2021 EKG on my personal review shows sinus rhythm rate 61, nonspecific ST changes, Q-waves inferiorly and laterally. POC lipids as below EKG today shows NSR rate 73, Q-waves inferiorly and laterally consistent with old inferior OR, normal intervals no ischemic changes, no change compared to 12/03/2021. 12/07/[address] Zhu reviewed. Tremor, generalized muscle weakness recommendedphysical therapy, Neurology evaluation, stress test as above 02/16/2022 office visit with TAYA Waterman: He returns for follow-up accompanied by his [...] He is still struggling to quit smoking. 11/23/2022 office visit with TAYA Waterman: Losartan was increased at the last visit for better blood pressure control and he returns for follow-up. He reports recent home blood pressure readings of systolic 138-140, diastolic 80-90. He has no complaints or concerns today. Physical activity consists of housework like laundry and dishes and he will use a stationary bike/foot pedal machine 10 min per day. 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 Records that I personally reviewed on the day of this visit include: (the interpretation is outlined in the HPI above) 08/24/[address] Barone I have also reviewed: allergies, current medications, past family history, past medical history, past social history, past surgical history and problem list Medical History: Past Medical History: Diagnosis Date CAD (coronary artery disease) Chronic kidney disease 2021 Coronary artery calcification 2021 Diabetes mellitus (HCC) 2021 Hyperlipidemia 2021 Hypertension 2021 Parkinson's disease (CMS/HCC) (HCC) Polycythemia Dr. Nichole History reviewed. No pertinent surgical history. Social History Tobacco Use Smoking status: Former Smoker Types: Cigarettes Quit date: 12/07/2021 Years since quittin.1 Smokeless tobacco: Never Used Vaping Use Vaping Use: Never used Substance Use Topics Drug use: Yes Types: Marijuana Family History Problem Relation Age of Onset Heart disease Mother age 78 Kidney failure Father age 83 Review of Systems Constitutional: Negative for malaise/fatigue, weight gain and weight loss. Cardiovascular: Negative for chest pain, claudication, dyspnea on exertion, leg swelling, near-syncope, orthopnea, palpitations, paroxysmal nocturnal dyspnea and syncope. Respiratory: Negative for cough, shortness of breath and sleep disturbances due to breathing. Hematologic/Lymphatic: Negative for bleeding problem. Does not bruise/bleed easily. Musculoskeletal: Positive for joint pain (right knee). Neurological: Positive for tremors. Negative for dizziness and light-headedness. Vital Signs: BP 128/80 (BP Location: Left arm, Patient Position: Sitting) Pulse 82 Ht 177.8 cm (5' 10 ) Wt90.3 kg (199 lb) SpO2 99% BMI 28.55 kg/m?? Physical Exam Constitutional: General: He is [...] and oriented to person, place, and time. Motor: Tremor present. Comments: Ambulates with a cane Psychiatric: Mood and Affect: Mood normal. Behavior: Behavior normal. Allergies Allergen Reactions Penicillins Rash Current Outpatient Medications: aspirin 81 mg enteric coated tablet, Take 1 tablet (81 mg total) by mouth daily, Disp: , Rfl: atorvastatin (LIPITOR) 40 mg tablet, Take 1 tablet (40 mg total) by mouth daily, Disp: 30 tablet, Rfl: 11 buPROPion XL (WELLBUTRIN XL) 150 mg 24 hr tablet, , Disp: , Rfl: calcium carbonate (CALCIUM 600 ORAL), Take by mouth, Disp: , Rfl: carbidopa-levodopa (SINEMET) 25-100 mg per tablet, Take 1 tablet by mouth 3 (three) times a day, Disp: , Rfl: cholecalciferol (VITAMIN D-3) 1,000 unit capsule, Take 2 capsules (2,000 Units total) by mouth, Disp: , Rfl: Farxiga 10 mg tablet, Take 1 tablet (10 mg total) by mouth daily, Disp: , Rfl: losartan (COZAAR) 50 mg tablet, Take 1 tablet (50 mg total) by mouth daily, Disp: 90 tablet, Rfl: 3 metoprolol XL (TOPROL-XL) 25 mg extended release tablet, Take 0.5 tablets (12.5 mg total) by mouth daily, Disp: , Rfl: pantoprazole DR (PROTONIX) 40 mg EC tablet, TAKE 1 TABLET BY MOUTH EVERY MORNING X 6 WEEKS, Disp: ,Rfl: Trulicity 0.75 mg/0.5 mL pen injector, , Disp: , Rfl: vitamins A,C,T-hzxf-yrjqfw (ICaps AREDS) 7,160-113-100 icyn-rw-gtey tablet,delayed release (DR/EC),Take 1 tablet by mouth daily, Disp: , Rfl: No results found for: [...] 20, ALT 12, alk-phos 75, hemoglobin A1c6.9 11/23/2022 POC lipid panel: TC 127, HDL 37, TG 99, LDL 70 Assessment: Diagnoses and all orders for this visit: Lipid screening (Primary) - POCT lipid panel Essential hypertension Dilated cardiomyopathy (CMS/HCC) (HCC) Nonrheumatic mitral valve regurgitation Coronary artery disease involving [place] coronary artery of [place] heart without angina pectoris Hyperlipidemia associated with type 2 diabetes mellitus (HCC) Plan/Recommendations: Losartan was increased at the last visit and he tolerated this without any perceived problems but there has not been much improvement in his blood pressure. I reminded him that goal blood pressure isbelow 130/80 the majority of the time. I will ask his PCP if we can increase metoprolol to 25 mg daily to help blood pressure. Resting heart rate is the 70s and 80s so I think he will tolerate this well. Cardiomyopathy currently appears asymptomatic. He appears euvolemic. Continue metoprolol and losartan. Previous echo showed mild to moderate MR. Continue to monitor by periodic echocardiograms. He has an abnormal stress test and coronary artery calcification seen on CT. He remains asymptomatic. We will continue medical therapy and encourage heart healthy lifestyle. LDL is at goal. I advisedhim to stay physically active and increase exercise sessions to 20-30 minutes. Point of care lipid testing today also shows a glucose of 257 which is postprandial but still high.I advised him to consider checking some postprandial blood sugars and record these for his PCP at next follow-up. Keep the previously scheduled follow-up visit with Dr. Barone in February. Call sooner with questions or concerns. 11/23/2022 Aiyana Waterman ANP- Nurse Practitioner with [facility] This note is dictated and transcribed using [employer] Software. Systems Requirements Planner variances may occur. Despite proofreading, typographical errors may occur. [place] TECHNICIAN documented in this encounter Plan of Treatment Not on file documented as of this encounter Procedures Procedure Name Priority Date/Time Associated Diagnosis Comments POCT LIPID PANEL Routine 11/23/2022 10:3 7 AM BOTANY TECHNICIAN Lipid screening documented in this encounter Results * POCT lipid panel (11/23/2022 10:37 AM BOTANY TECHNICIAN) Cholesterol, POC 127 mg/dL HDL, POC 37 mg/dL Triglycerides, POC 99 mg/dL LDL Cholesterol POC 70 mg/dL Chol/HDL Ratio, POC 1.9 Non-HDL Cholesterol, POC 90 mg/dL Cholesterol Total, POC 127 mg/dL Capillary blood 11/23/2022 1 0:37 AM BOTANY TECHNICIAN Aiyana Waterman GLAZING MACHINE OPERATOR POINT OF CARE TEST ORDERA BLES Final Result documented in this encounter Visit Diagnoses Diagnosis Lipid screening- Primary Screening for lipoid disorders Essential hypertension Unspecified essential hypertension Dilated cardiomyopathy (CMS/HCC) (HCC) Other primary cardiomyopathies Nonrheumatic mitral valve regurgitation Coronary artery disease involving [place] coronary artery of [place] heart without angina pectoris Hyperlipidemia associated with type 2 diabetes mellitus (HCC) documented in this encounter Care Teams Rubber Cutting Machine Tender Relationship Specialty Start Date End Date Javier Hampton DO [address] [place] [address] PCP - General Family Medicine 12/15/21 documented as of this encounter
--- OUTSIDE RECORDS SUMMARY | 2024-09-29 21:05 | XMS_ITS | Encounter Summary ---
Author Organization [facility] Address [address] [facility] [address] [place] [address] Care Team Providers Care Public Information Director Name Role Phone FranJavier field Primary Care Provider Encounter Details Date Type Department Care Team (Late st Contact Info) Description 11/23/[address] [facility] Cardiology [address] [place] [address] Sneha Barone MD [address] [place] [address] Social History Tobacco Use Types Packs/Day Years [...] on file Legal Sex Male 9:34 AM STEAM TURBINE OPERATOR Gender Identity Not on file Sexual Orientation Not on file documented as of this encounter Miscellaneous Notes * Telephone Encounter - Aiyana Waterman NP - 11/23/2022 2:59 PM STEAM TURBINE OPERATOR See other telephone thread with same date. M TURBINE OPERATOR * Telephone Encounter - Shanel James RN - 11/23/2022 2:49 PM CST noted M TURBINE OPERATOR * Telephone Encounter - Elisabeth Bradshaw - 11/23/2022 2:[address] Hampton's office returned call. Our Nurse was on another call. Dr. Zhu's MA said to let our nurse know that Dr Zhu sent in a new prescription for the increased dose of metoprolol, M TURBINE OPERATOR documented in this encounter Plan of Treatment Not on file documented as of this encounter Visit Diagnoses Not on filedocumented in this encounter Care Teams Public Information Director Relationship Specialty Start Date End Date Javier Hampton DO [address] [place] [address] PCP - General Family Medicine 12/15/21 documented as of this encounter
--- OUTSIDE RECORDS SUMMARY | 2024-09-29 21:05 | XMS_ITS | Encounter Summary ---
Author Organization [facility] Address [address] [facility] [address] [place] [address] Care Team Providers Care Mortgage Loan Officer Originator Name Role Phone Javier Hampton DO Primary Care Provider Encounter Details Date Type Department Care Team (Late st Contact Info) Description 12/15/2021 Orders Only [facility] Cardiology [address] [facility] [address] [place] [phone] ProviderKandy MD [address] [place], [place] [id number] Social History Tobacco Use Types Packs/Day Years Used Date Smoking Tobacco: Never Assessed Sex and Gender Information Value Date Recorded Sex Assigned at Not on file Legal Sex Male 9:34 AM MEDICAL STENOGRAPHER Gender Identity Not on file Sexual Orientation Not on file documented as of this encounter Plan of Treatment Not on file documented as of this encounter Procedures Procedure Name Priority Date/Time Associated Diagnosis Comments CARDIOLOGY DOCUMENT SCAN Routine 12/15/2021 documented in this encounter Results * SCAN - CARDIOLOGY (12/15/2021) Anatomical Region Laterality Modality Other us Historical Provider [facility] JUAN MCDONOUGH Final Result documented in this encounter Visit Diagnoses Not on filedocumented in this encounter Care Teams Mortgage Loan Officer Originator Relationship Specialty Start Date End Date Javier Hampton DO [address] [place] [address] PCP - General Family Medicine 12/15/21 documented as of this encounter
--- OUTSIDE RECORDS SUMMARY | 2024-09-29 21:05 | XMS_ITS | Clinical Summary ---
Author Organization [facility] [address] [facility] 162 Address [address] [facility] [address] [place] [address] Care Team Providers Care Manufacturing Machine Operator Name Role Phone Javier Hamptonh Primary Care Provider Allergies Active Allergy Reactions Criticality Noted Date Comments Penicillins Rash Medium 02/12/2021 Medications metoprolol XL (TOPROL-XL) 25 mg extended release tablet Take 0.5 tablets (12.5 mg total) by mouth daily [address] (PROTONIX) 40 mg EC tablet TAKE 1 TABLET BY MOUTH EVERY MORNING X 6 WEEKS 2 Active buPROPion XL (WELLBUTRIN XL) 150 mg 24 hr tablet 2 Active aspirin 81 mg enteric coated tablet Take 1 tablet (81 mg total) by mouth daily Active cholecalciferol (VITAMIN D-3) 1,000 unit capsule Take 2 capsules (2,000 Units total) by mouth Active Trulicity 0.75 mg/0.5 mL pen injector 2 Active calcium carbonate (CALCIUM 600 ORAL) Take by mouth Active carbidopa-levodopa (SINEMET) 25-100 mg per tablet Take 1 tablet by mouth 3 (three) times a day 2 Active Farxiga 10 mg tablet Take 1 tablet (10 mg total) by mouth daily 2 Active vitamins A,C,L-fxwa-akcgwt (ICaps AREDS) 7,160-113-100 gdbv-fx-sxty tablet,delayed release (DR/EC) Take 1 tablet by mouth daily Active atorvastatin (LIPITOR) 40 mg tabletIndications:H yperlipidemia associated with type 2 diabetes mellitus (HCC),Coronary artery calcification Take 1 tablet (40 mg total) by mouth daily 90 tablet 3 4 Active losartan (COZAAR) 50 mg tabletIndications:C ardiomyopathy, ischemic,Essential hypertension,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),Dilated cardiomyopathy (CMS/HCC) (HCC) Take 1 tablet (50 mg total) by mouth daily 90 tablet 3 4 08/01/20 25 Active Active Problems Problem Noted Date Diagnosed Date Parkinson's disease 03/01/2023 Cardiomyopathy, ischemic 08/24/2022 Coronary artery disease invo lving com[place] coronary artery of com[place] heart without angina pectoris 01/06/2022 Dilated cardiomyopathy (CMS/HCC) 01/06/2022 Essential hypertension 01/06/2022 Hyperlipidemia associated with type 2 diabetes m ellitus 01/06/2022 Tobacco use 01/06/2022 Polycythemia 01/06/2022 Falls 01/06/2022 Nonrheumatic mitral valve regurgitation 01/07/20 22 CKD stage 3 due to type 2 diabetes mellitus 12/10 Medical History Medical History Date Comments Hypertension 2021 Diabetes mellitus (HCC) [address] Nichole Hyperlipidemia 2021 Chronic kidney disease 2021 Coronary artery calcification 2021 CAD (coronary artery disease) Parkinson's disease (HCC) Family History Medical History Relation Name Comments Kidney failure Father age 83 Heart disease Mother age 78 Relation Name Status Comments Father (Age 83) Mother (Age 78) Social History Tobacco Use Types Packs/Day Years [...] of Binge Drinking Not on file 12/10 Personal Safety Answer Date Recorded Getting School Help Needed Not on file 10/12 Sex and Gender Information Value Date Recorded Sex Assigned at Not on file Legal Sex Male 9:34 AM GARDENING MANAGER Gender Identity Not on file Sexual Orientation Not on file Obstetrics History Last Filed Vital Signs Vital Sign Reading Time Taken Comments Blood Pressure 130/86 03/12/2024 2:40 PM CDT Pulse 65 03/12/2024 2:40 PM CDT Temperature - - Respiratory Rate - - Oxygen Saturation 98% 03/12/2024 2:40 PM CDT Inhaled Oxygen Concentration - - Weight 88.9 kg (196 lb) 03/12/2024 2:40 PM CDT Height 177.8 cm (5' 10 ) 03/12/2024 2:40 PM CDT Body Mass Index 28.12 03/12/2024 2:40 PM CDT Plan of Treatment Health Maintenance Due Date Last Done Comments Albumin Creatinine Ratio, Urine 1950 Colon Cancer Screening-Colonoscopy 1950 Depression Screening 1950 Fall Risk Assessment 1950 Hemoglobin A1C 1950 Hepatitis C Screening 1950 eGFR 1950 Dilated Eye Exam 1952 Foot Exam 1952 DTaP/Tdap/Td Vaccine (1 - Tdap) 1963 Hepatitis B Screening 1970 Zoster Vaccine (2 of 3) 04/11/2013 02/14/2013 Abdominal Aortic Aneurysm (A AA) Screen 2017 Well Visit 65+ 2017 Pneumococcal vaccine 65+ (2 of 2 - PCV) 11/08/2020 11/08/2019 Lipid Panel 11/23/2023 11/23/2022, 04/05/2022, 01/06/2022 Covid-19 Vaccine ( season) 2024 09/12/2021, 12/05/2020, 11/14/2020 Influenza Vaccine (#1) 2024 Procedures Procedure Name Priority Date/Time Associated Diagnosis Comments POCT LIPID PANEL Routine 11/23/2022 10:3 7 AM GARDENING MANAGER Lipid screening from Last 3 Months or Most Recently Relevant to Health Maintenance Results * POCT lipid panel (11/23/2022 10:37 AM GARDENING MANAGER) Cholesterol, POC 127 mg/dL HDL, POC 37 mg/dL Triglycerides, POC 99 mg/dL LDL Cholesterol POC 70 mg/dL Chol/HDL Ratio, POC 1.9 Non-HDL Cholesterol, POC 90 mg/dL Cholesterol Total, POC 127 mg/dL Capillary blood 11/23/2022 1 0:37 AM GARDENING MANAGER Aiyana Waterman NP POINT OF CARE TEST ORDERA BLES Final Result from Last 3 Months or Most Recently Relevant to Health Maintenance Insurance MEDICARE SOLUTIONS MED[employer]ARE [employer]IONS Care Teams Manufacturing Machine Operator Relationship Specialty Start Date End Date Javier Hampton DO [address] [place] [address] PCP - General Family Medicine 12/15/21
--- OUTSIDE RECORDS SUMMARY | 2024-09-29 21:05 | XMS_ITS | Encounter Summary ---
Author Organization [facility] Healthcare Address [address] [place] [address] Care Team Providers Care Public Health Worker Name Role Phone Unavailable Primary Care Provider Unavailabl e Encounter Details Date Type Department Care Team (Late st Contact Info) Description 06/05/2009 3:22 PM CDT - 06/05/2009 11:59 PM CDT Hospital Encounter [facility] Social History Tobacco Use Types Packs/Day Years Used Date Smoking Tobacco: Never Assessed Sex and Gender Information Value Date Recorded Sex Assigned at Not on file Legal Sex Male 9:34 AM COMPOSITION PROFESSOR Gender Identity Not on file Sexual Orientation Not on file documented as of this encounter Plan of Treatment Not on file documented as of this encounter Visit Diagnoses Not on filedocumented in this encounter
--- OUTSIDE RECORDS SUMMARY | 2024-09-29 21:05 | XMS_ITS | Encounter Summary ---
Author Organization [facility] Healthcare Address [address] [place] [address] Care Team Providers Care Foundation Director Name Role Phone Javier Hampton DO Primary Care Provider Reason for Visit * Reason Comments Annual Exam Encounter Details Date Type Department Care Team (Late st Contact Info) Description 03/12/2024 3:00 PM CDT Office Visit [facility] Cardiology [address] [facility] 102 [place] [address] Aiyana Waterman NP [address] [email or web address] [address] [place], [place] [id number] Coronary artery disease involving [place] coronary artery of [place] heart without angina pectoris; Cardiomyopathy, ischemic; Nonrheumatic mitral valve regurgitation; PFO (patent foramen ovale); Essential hypertension Social History Tobacco Use Types Packs/Day Years [...] on file Legal Sex Male 9:34 AM VP FOUNDATION Gender Identity Not on file Sexual Orientation [...] Mass Index 28.12 03/12/2024 2:40 PM CDT documented in this encounter Progress Notes * Aiyana Waterman, TAYA - 03/12/2024 3:00 PM CDT Images from the original note were not included. [facility] Cardiology [address] [place] [address] Date of Visit: 03/12/2024 Patient ID: Josh Robert 1950 Chief Complaint Patient presents with Annual Exam Josh Robert is a 73 y.o. male who is an established patient of Dr. Barone with asymptomatic CAD returning to the office for annual follow-up. History of Present Illness: Josh Robert is a 73 y.o. male whom I was asked to [...] and called an [facility]. He was diagnosed with weakness [...] reversible ischemia, EF 37% with global hypokinesis. ([facility]) 11/13/2021 echo: EF 55-60%, diastolic dysfunction, strain-13%, yuxn-nj-onlggcsm MR ([facility]) 12/03/2021 CT of the chest: No PE, diffuse hepatic steatosis, calcified coronary arteries 12/03/2021 CT of the head: Negative 12/03/2021 chest x-ray: Unremarkable 12/03/2021 EKG on my personal review shows sinus rhythm rate 61, nonspecific ST changes, Q-waves inferiorly and laterally. POC lipids as below EKG today shows NSR rate 73, Q-waves inferiorly and laterally consistent with old inferior NH, normal intervals no ischemic changes, no change compared to 12/03/2021. 12/07/[address] Zhu reviewed. Tremor, generalized muscle weakness recommendedphysical therapy, Neurology evaluation, stress test as above 02/16/2022 office visit with TAYA Tana: He returns for follow-up accompanied by his [...] bike/foot pedal machine 10 min per day. 03/01/[address] Barone: Doing good. No complaints at all. Here w/ . ChecksBP at home SBP alwys < 150 before meds. Active, cleaned out garage and works on cars. Parkinson's stable, no trouble walking, sometimes momentarily slow w/ decision-making. No chest pain, SUAREZ, dizziness, palpitations, or edema. Smokes 1/2 ppd. DM good, blood sugar usually runs 110-140. 03/12/2024 office visit with TAYA Waterman: He is here for annual visit accompanied by his . No cardiac concerns. Checks BP every morning before medicine with a typical reading of 130/80. Parkinson's symptoms have not progressed. 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 Records that I personally reviewed on the day of this visit include: (the interpretation is outlined in the HPI above) 03/01/[address] Barone. Today's POC lipid panel result. I have also reviewed: allergies, current medications, past family history, past medical history, past social history, past surgical history and problem list Medical History: Past Medical History: Diagnosis Date CAD (coronary artery disease) Chronic kidney disease 2021 Coronary artery calcification 2021 Diabetes mellitus (HCC) 2021 Hyperlipidemia 2021 Hypertension 2021 Parkinson's disease (HCC) Polycythemia Dr. Nichole History reviewed. No [...] weight loss. Cardiovascular: Negative for chest pain, dyspnea on exertion, leg swelling, near-syncope, orthopnea, palpitations, paroxysmal nocturnal dyspnea and syncope. Respiratory: Negative for cough, shortness of breath and sleep disturbances due to breathing. Hematologic/Lymphatic: Negative for bleeding problem. Does not bruise/bleed easily. Vital Signs: BP 130/86 (BP Location: Right arm, Patient Position: Sitting) Pulse 65 Ht 177.8 cm (5' 10 ) Wt 88.9 kg (196 lb) SpO2 98% BMI 28.12 kg/m?? Physical Exam Constitutional: General: He is not in acute distress. Appearance: He is well-developed. HENT: Head: Normocephalic and atraumatic. Eyes: General: No scleral icterus. Conjunctiva/sclera: Conjunctivae [...] (40 mg total) by mouth daily, Disp: 90 tablet, Rfl: 3 calcium carbonate (CALCIUM 600 ORAL), Take by [...] pen injector, , Disp: , Rfl: vitamins A,C,K-gpzu-fozjku (ICaps AREDS) 7,160-113-100 ycnx-yc-udnp tablet,delayed release (DR/EC),Take 1 tablet by mouth daily, Disp: , Rfl: buPROPion XL (WELLBUTRIN XL) 150 mg 24 hr tablet, , Disp: , Rfl: No results found for: POTASSIUM , BUNSER , CREATININE , CHOL , TRIG , LDL , LDLCALC , HDL No results found for: WBC , HGB , HCT , MCV , PLT 02/18/2021 creatinine 1.4 11/2021 A1c 6.7 [...] Diagnoses and all orders for this visit: Coronary artery disease involving [place] coronary artery of [place] heart without angina pectoris Cardiomyopathy, ischemic Nonrheumatic mitral valve regurgitation PFO (patent foramen ovale) Essential hypertension Plan/Recommendations: Has presumed CAD based on stress testing showing a fixed defect but no reversible ischemia and calcified coronary arteries seen on chest CT. He denies any symptoms concerning for angina. Point of care lipid test ran an error, even after 2 attempts. I will request his most recent lipid panel from PCP. Continue medical therapy with aspirin, atorvastatin, metoprolol. Possible ischemic cardiomyopathy, EF was 37% on stress test but 55% on echo. He denies any symptomsconcerning for decompensated heart failure. Continue losartan and metoprolol. He is known to have tdum-gs-hkcgzncf MR and a PFO. Last echo was August 29, 2022. It would be reasonable to reassess these on an echo again next year. Blood pressure control looks fair. Continue losartan and metoprolol. We will transition ongoing care from Dr. Barone to Dr. Gutierrez with annual follow-up but I reminded him to reach out in the interim with any concerns and I will be available to help. 03/12/2024 ERNST Espinoza- Nurse Practitioner with [facility] Cardiology This note is dictated and transcribed using [employer]. Drawer In Stitch Bonding Machine variancesmay occur. Despite proofreading, typographical errors may occur. documented in this encounter Plan of Treatment Not on file documented as of this encounter Visit Diagnoses Diagnosis Coronary artery disease involving [place] coronary artery of [place] heart without angina pectoris Cardiomyopathy, ischemic Other specified forms of chronic ischemic heart disease Nonrheumatic mitral valve regurgitation PFO (patent foramen ovale) Ostium secundum type atrial septal defect Essential hypertension Unspecified essential hypertension documented in this encounter Care Teams Foundation Director Relationship Specialty Start Date End Date Javier Hampton DO [address] [place] [address] PCP - General Family Medicine 12/15/21 documented as of this encounter
--- OUTSIDE RECORDS SUMMARY | 2024-09-29 21:05 | XMS_ITS | Referral Summary ---
Author Organization [facility] [address] [facility] 162 Address [address] [facility] 162 [place] [address] Care Team Providers Care Curriculum Designer Name Role Phone Javier Hampton DO Primary Care Provider Allergies Active Allergy Reactions [...] total) by mouth daily 2 Active vitamins A,C,K-tmck-gefxdp (ICaps AREDS) 7,160-113-100 plbd-by-cahm tablet,delayed release (DR/EC) Take 1 tablet by [...] ischemic 08/24/2022 Coronary artery disease invo lving pechanga coronary artery of pechanga heart without angina pectoris 01/06/2022 Dilated cardiomyopathy (CMS/HCC) 01/06/2022 Essential hypertension 01/06/2022 Hyperlipidemia associated with type 2 diabetes m ellitus 01/06/2022 Tobacco use 01/06/2022 Polycythemia 01/06/2022 Falls 01/06/2022 Nonrheumatic mitral valve regurgitation 01/07/20 22 CKD stage 3 due to type 2 diabetes mellitus 12/10 Social History Tobacco Use Types Packs/Day Years [...] on file 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 Gender Identity Not on file Sexual Orientation [...] 03/12/2024 2:40 PM CDT Plan of Treatment Not on file Procedures Procedure Name Priority Date/Time Associated Diagnosis Comments POCT LIPID PANEL Routine 11/23/2022 10:3 7 AM STAPLE FIBER WASHER Lipid screening from Last 3 Months or Most Recently Relevant to Health Maintenance Results * POCT lipid panel (11/23/2022 10:37 AM STAPLE FIBER WASHER) Cholesterol, POC 127 mg/dL HDL, POC 37 mg/dL Triglycerides, POC 99 mg/dL LDL Cholesterol POC 70 mg/dL Chol/HDL Ratio, POC 1.9 Non-HDL Cholesterol, POC 90 mg/dL Cholesterol Total, POC 127 mg/dL Capillary blood 11/23/2022 1 0:37 AM STAPLE FIBER WASHER Aiyana Waterman NP POINT OF CARE TEST ORDERA BLES Final Result from Last 3 Months or Most Recently Relevant to Health Maintenance Insurance MEDICARE SOLUTIONS [facility] MEDICARE Address: [facility] [address] [place] [address] MEDICARE SOLUTIONS Care Teams Curriculum Designer Relationship Specialty Start Date End Date Javeir Hampton DO [address] [place] [address] PCP - General Family Medicine 12/15/21
--- OUTSIDE RECORDS SUMMARY | 2024-09-29 21:05 | XMS_ITS | Encounter Summary ---
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 Gender Identity Not on file Sexual Orientation Not on file documented as of this encounter Ordered Prescriptions Prescription Sig Dispense Quantity Refills Last Filled Start Date End Date losartan (COZAAR) 50 mg tabletIndications:Di lated cardiomyopathy (CMS/HCC) (HCC),Cardiomyopathy , ischemic,Essential hypertension,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) Take 1 tablet (50 mg total) by mouth daily 90 tablet 3 02/21/2023 3 documented in this encounter Miscellaneous Notes * Telephone Encounter - Suzanne Heard - 02/21/2023 11:26 AM CDT Pt spouse calling in requesting refill for Losartan 50 mg to be sent to [facility] for a 90 day supply. Contact [phone] documented in this encounter Plan of Treatment Not on file documented as of this encounter Visit Diagnoses Diagnosis Dilated cardiomyopathy (CMS/HCC) (HCC) Other primary cardiomyopathies Cardiomyopathy, ischemic Other specified forms of chronic ischemic heart disease Essential hypertension Unspecified essential hypertension 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) documented in this encounter Discontinued Medications Medication Sig Discontinue Reason Start Date End Da te losartan (COZAAR) 50 mg tabletIndications:Dilated cardiomyopathy (CMS/HCC) (HCC),Cardiomyopathy, ischemic,Essential hypertension,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) Take 1 tablet (50 mg total) by mouth daily Reorder 08/24/2022 02/21/2023 documented as of this encounter Care Teams White Sugar Syrup Operator Relationship Specialty Start Date End Date Javier Hampton DO [address] [place] [address] PCP - General Family Medicine 12/15/21 documented as of this encounter
--- OUTSIDE RECORDS SUMMARY | 2024-09-29 21:05 | XMS_ITS | Encounter Summary ---
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 Gender Identity Not on file Sexual Orientation Not on file documented as of this encounter Plan of Treatment Not on file documented as of this encounter Procedures Procedure Name Priority Date/Time Associated Diagnosis Comments LIPID PANEL Routine 02/04/2022 documented in this encounter Results * Lipid panel (02/04/2022) SCRIBED Cholesterol, Total 116 <200 EXTERNAL LAB SCRIBED HDL 40 >40 EXTERNAL LAB SCRIBED LDL 61 <100 EXTERNAL LAB SCRIBED Triglycerides 76 <150 EXTERNAL LAB Blood specimen (specimen) us Historical Provider LAB BLOOD ORDERABLES Edit ed Result - Final EXTERNAL LAB documented in this encounter Visit Diagnoses Not on filedocumented in this encounter Care Teams Inspector Cold Working Relationship Specialty Start Date End Date Javier Hampton DO [address] [place] [address] PCP - General Family Medicine 12/15/21 documented as of this encounter
--- OUTSIDE RECORDS SUMMARY | 2024-09-29 21:05 | XMS_ITS | Encounter Summary ---
Author Organization [facility] Address [address] [place] [address] Care Team Providers Care High [employer] Science Teacher Name Role Phone CarlynLetitia reyesmarge Mary DO Primary Care Provider Reason for Visit * Reason Comments Follow-up 5 mo Encounter Details Date Type Department Care Team (Latest Contact Info) Description 08/24/2022 8:45 AM EXPLOSIVE ORDNANCE DISPOSAL MANAGER Office Visit [facility] Cardiology [address] [facility] [address] [place] [address] Sneha Barone MD [address] [facility] [address] [place] [address] Coronary artery disease involving platinum coronary artery of platinum heart without angina pectoris (Primary Dx); Dilated cardiomyopathy (CMS/HCC) (HCC); Cardiomyopathy, ischemic; Hyperlipidemia associated with type 2 diabetes mellitus (HCC); Essential hypertension; Nonrheumatic mitral valve regurgitation; 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); Fall, subsequent encounter; Tobacco use Social History Tobacco Use Types [...] on file Legal Sex Male 9:34 AM EXPLOSIVE ORDNANCE DISPOSAL MANAGER Gender Identity Not on file Sexual Orientation Not on file documented as of this encounter Last Filed Vital Signs Vital Sign Reading Time Taken Comments Blood Pressure 132/70 08/24/2022 9:25 AM EXPLOSIVE ORDNANCE DISPOSAL MANAGER Pulse 61 08/24/2022 8:57 AM EXPLOSIVE ORDNANCE DISPOSAL MANAGER Temperature - - Respiratory Rate - - Oxygen Saturation 99% 08/24/2022 8:57 AM EXPLOSIVE ORDNANCE DISPOSAL MANAGER Inhaled Oxygen Concentration - - Weight 88.9 kg (196 lb) 08/24/2022 8:57 AM EXPLOSIVE ORDNANCE DISPOSAL MANAGER Height 177.8 cm (5' 10 ) 08/24/2022 8:57 AM EXPLOSIVE ORDNANCE DISPOSAL MANAGER Body Mass Index 28.12 08/24/2022 8:57 AM EXPLOSIVE ORDNANCE DISPOSAL MANAGER documented in this encounter Patient Instructions * Patient Instructions* Sneha Barone MD - 08/24/2022 8:45 AM EXPLOSIVE ORDNANCE DISPOSAL MANAGER When the lisinopril runs out, change to losartan 50 mg dailyu -- for BP, heart and it may be more protective of your kidney function. Call w/ blood pressure measurements after you have been taking losartan for 2 weeks or so. [place] blood pressure: 110-130/60-80 mmHg for most people, most of the time. Higher pressures cause damage to heart, brain, kidneys and blood vessels over months and years. This, in turn, can lead to heart failure, strokes, dementia and kidney disease. OSIVE ORDNANCE DISPOSAL MANAGER documented in this encounter Ordered Prescriptions Prescription Sig Dispense Quantity Refills Last Filled Start Date End Date losartan (COZAAR) 50 mg tabletIndications:Di lated cardiomyopathy (CMS/HCC) (HCC),Cardiomyopathy , ischemic,Essential hypertension,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) Take 1 tablet (50 mg total) by mouth daily 90 tablet 3 08/24/2022 3 documented in this encounter Progress Notes * Sneha Barone MD - 08/24/2022 8:45 AM CST [facility] CARDIOLOGY DATE OF VISIT: 08/24/2022 DATE: 1950 CHIEF COMPLAINT Chief Complaint Patient presents with ??? Follow-up 5 mo HPI Josh Robert is a 72 y.o. male with asymptomatic CAD and an old asymptomatic inferolateral PR. He also has hypertension, diabetes and chronic kidney disease. The patient has a history of Parkinson's disease and polycythemia vera (infrequent phlebotomy by Dr. Nichole? 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 01/06/2033 Initial Office Consultation with Dr. Barone:: [...] and called an ambulance who took [facility]. He was [...] or splitting wood (previously) makes him SOB. My impression was the patient has asymptomatic CAD with an old inferolateral PR. He would no symptoms and no ischemia so I did not think he needed cardiac catheterization but recommended we continue medical therapy. He has a mild cardiomyopathy but I did not add losartan or Entresto at that time because of recent acute kidney injury Will need to follow his [id number] mitral regurgitation. Irecommended statin therapy, continue aspirin and metoprolol and follow-up. 02/16/2022 office visit with TAYA Waterman: He [...] He is still struggling to quit smoking. 08/24/[address] Barone: Doing better, Parkinson's dz better on meds. No falls orsyncope. No heart sx, no anginal sx. Occ GI prob responding well to Pepcid. No SUAREZ. If works in yard a lot he may feel tired.No problems w/ meds, swelling, cramps, palps. BP at home runs 138/76 this a.m., usually 120's/70. BS runs good, around 120. Smokes < 1/2 ppd. Farxiga, lisinopril and Sinemet are new Echo reviewed; EF 50-55%, small PFO versus ASD. Getting blood test done at beginning of the year.. 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 MEDICAL HISTORY Past Medical History: Diagnosis Date ??? CAD (coronary artery disease) ??? Chronic kidney disease 2021 ??? Coronary artery calcification 2021 ??? Diabetes mellitus (HCC) 2021 ??? Hyperlipidemia 2021 ??? Hypertension 2021 ??? Parkinson's disease (CMS/HCC) (HCC) ??? Polycythemia Dr. Nichole Social History Tobacco Use ??? Smoking status: Some Days Types: Cigarettes Last attempt to quit: 12/07/2021 Years since quittin.7 ??? Smokeless tobacco: Never Substance and Sexual Activity ??? Drug use: Yes Types: Marijuana ??? Sexual activity: None Alcohol Use: Not At Risk ??? Frequency of Alcohol Consumption: Never ??? Average Number of Drinks: Not on file ??? Frequency of Binge Drinking: Not on file Family History Problem Relation Age of Onset ??? Heart disease Mother age 78 ??? Kidney failure Father age 83 MEDICATIONS Current Outpatient Medications: ??? aspirin 81 mg enteric coated tablet, Take 1 tablet (81 mg total) by mouth daily, Disp: , Rfl: ??? [...] Take 2 capsules (2,000 Units total) by mouth,Disp: , Rfl: ??? Farxiga 10 mg tablet, Take 1 tablet (10 mg total) by mouth daily, Disp: , Rfl: ??? metoprolol XL (TOPROL-XL) 25 mg extended release tablet, Take 0.5 tablets (12.5 mg total) by mouth daily, Disp: , Rfl: ??? pantoprazole DR (PROTONIX) 40 mg EC tablet, TAKE 1 TABLET BY MOUTH EVERY MORNING X 6 WEEKS, Disp: , Rfl: ??? Trulicity 0.75 mg/0.5 mL pen injector, , Disp: , Rfl: ??? vitamins A,C,W-ttzt-eogjje (ICaps AREDS) 7,160-113-100 czfx-nv-tsrl tablet,delayed release (DR/EC), Take 1 tablet by mouth daily, Disp: , Rfl: ??? losartan (COZAAR) 50 mg tablet, Take 1 tablet (50 mg total) by mouth daily, Disp: 90 tablet, Rfl: 3 ALLERGIES Allergies Allergen Reactions ??? Penicillins Rash REVIEW OF SYSTEMS Review of Systems Constitutional: Positive for malaise/fatigue. HENT: Negative for congestion. Eyes: Negative for visual disturbance. Cardiovascular: Negative for chest pain, dyspnea on exertion, irregular heartbeat, palpitations andsyncope. Respiratory: Negative for cough, shortness of breath and wheezing. Hematologic/Lymphatic: Negative for bleeding problem. Gastrointestinal: Negative for abdominal pain. Genitourinary: Negative for hematuria. Neurological: Positive for tremors. Negative for dizziness. Psychiatric/Behavioral: Negative for depression. PHYSICAL EXAM Blood pressure 132/70, pulse 61, height 177.8 cm (5' 10 ), weight 88.9 kg (196 lb), SpO2 99 %. Body mass index is 28.12 kg/m??. Physical Exam Constitutional: Appearance: Normal appearance. He is well-developed. Comments: Pleasant middle-aged male accompanied by his , no distress has a tremor Initial BP 152/66, later 132/70 Neck: Thyroid: No thyromegaly. Vascular: No carotid bruit. Cardiovascular: Rate and Rhythm: Normal rate and regular rhythm. Pulses: Dorsalis pedis pulses are 1+ on the right side and 1+ on the left side. Heart sounds: Murmur heard. Gallop: 1/6 JENNIFER left sternal border. Pulmonary: Effort: Pulmonary effort is normal. No respiratory distress. Breath sounds: Normal breath sounds. Abdominal: General: There is no distension. Palpations: Abdomen is soft. Musculoskeletal: General: No swelling. Skin: General: Skin is warm and dry. Neurological: Mental Status: He is alert and oriented to person, place, and time. Psychiatric: Mood and Affect: Mood normal. Behavior: Behavior normal. LABS AND OTHER DIAGNOSTIC TESTS No results found for: WBC, HGB, HCT, MCV, PLT Chemistry No results found for: SODIUM, POTASSIUM, CHLORIDE, CO2, BUNSER, CREATININE, GLUCOSE No results found for: CALCIUM, ALKPHOS, AST, ALT, BILITOT No results found for: GLUCOSE, CALCIUM, SODIUM, POTASSIUM, CO2, CHLORIDE, BUNSER, CREATININE No results found for: INR, PROTIME No results found for: CHOLHDL Lab Results Component Value Date POCCHOL 197 01/06/2022 Lab Results Component Value Date POCHDL 42 01/06/2022 Lab Results Component Value Date POCLDL 134 01/06/2022 SCRLDL 61 02/04/2022 Lab Results Component Value Date POCTRIG 105 01/06/2022 Lab Results Component Value Date POCCHDLR 4.7 01/06/2022 Lab Results Component Value Date POCNONHDL 155 01/06/2022 Lab Results Component Value Date POCCHLPL 197 01/06/2022 02/18/2021 creatinine 1.4 11/2021 A1c 6.7 , creatinine 1.86, GFR 36, troponins negative 12/2021 BUN 24, creatinine 2.36, GFR 28, glucose 178, hematocrit 55 12/2021 POC lipids: Total cholesterol 197, HDl cho 42, triglycerides 105, LDLchol 134 02/04/2022 BUN 27, creatinine 1.75, GFR 39, potassium 4.2, glucose 204, cholesterol 116, HDL 40, TG76, LDL 61, LFTs normal, A1C 6.9 Cardiac testin12/15/2019 Lexiscan: Large fixed inferior defect suggestive of diaphragmatic attenuation or prior myocardial infarct, no reversible ischemia, EF 37% with global hypokinesis. ([facility]) 11/13/2021 echo: EF 55-60%, diastolic dysfunction, strain-13%, [id number]-ak-wblyrarf MR ([facility]) 08/2022 echo: EF 50-55%, hypokinesis of the apex, large PFO versus small ASD, mild MR. Other testin12/03/2021 CT of the chest: No PE, diffuse hepatic steatosis, calcified coronary arteries 12/03/2021 CT of the head: Negative 12/03/2021 chest x-ray: Unremarkable ASSESSMENT Diagnoses and all orders for this visit: Coronary artery disease involving platinum coronary artery of platinum heart without angina pectoris (Primary) Dilated cardiomyopathy (CMS/HCC) (HCC) - losartan (COZAAR) 50 mg tablet; Take 1 tablet (50 mg total) by mouth daily Cardiomyopathy, ischemic - losartan (COZAAR) 50 mg tablet; Take 1 tablet (50 mg total) by mouth daily Hyperlipidemia associated with type 2 diabetes mellitus (HCC) Essential hypertension - losartan (COZAAR) 50 mg tablet; Take 1 tablet (50 mg total) by mouth daily Nonrheumatic mitral valve regurgitation 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) - losartan (COZAAR) 50 mg tablet; Take 1 tablet (50 mg total) by mouth daily Fall, subsequent encounter Tobacco use Coronary artery calcification/coronary artery disease: The patient has had no anginal symptoms but his EKG is suggestive of an old inferolateral myocardial infarction. His stress test shows a large fixed inferior defect which may be from an old PR versus diaphragmatic attenuation. In addition, he has coronary artery calcification noted by his CT scan. He does not have any reversible ischemia or angina. Continue medical therapy for CAD with aspirin, atorvastatin etcetera.. Cardiomyopathy: The patient's ejection fraction was 37% by Lexiscan and 55-60% by echo, so very disparate measurements. He did have an abnormal LV strain by echo c/w systolic dysfxn. Any case he has at least mild left ventricular systolic dysfunction, related to coronary disease and hypertension. He does have SUAREZ which may be a combination of this as well as COPD from his history of smoking. He has been started on low-dose beta-david and also losartan. His left ventricular function on his echo August 2022 showed improvement. Mitral regurgitation: [id number]-[id number]-gjhwpcaw, follow-up periodically by echo Hypertension: Borderline control, recommend increasing losartan Hyperlipidemia: LDL cholesterol went from 134 to 61 after atorvastatin begun. At goal. Diabetes: Working on it CKD stage 3: With acute kidney injury, possibly due to IV contrast he received for his CTA. Gettingrepeat labs done soon. Falls: With tremor and weakness, diagnosed with Parkinson's disease. No more falls. Tobacco use: Working on it. PLAN/RECOMMENDATIONS Continue aspirin, metoprolol, atorvastatin. Increase losartan to 50 mg a day. Patient will check his blood pressure at home and call me with results Encouraged patient to exercise regularly Follow-up with me in 3 months to re-evaluate BP etcetera, sooner if needed. Sneha Barone MD, [facility] Cardiology Office: [phone] or [phone] Note: Portions of the record may have been created with voice recognition Team Robot Direct Software. Keno Dealer variances may occur. Despite proofreading, typographical errors may occur. OSIVE ORDNANCE DISPOSAL MANAGER documented in this encounter Plan of Treatment Not on file documented as of this encounter Visit Diagnoses Diagnosis Coronary artery disease involving platinum coronary artery of platinum heart without angina pectoris- Primary Dilated cardiomyopathy (CMS/HCC) (HCC) Other primary cardiomyopathies Cardiomyopathy, ischemic Other specified forms of chronic ischemic heart disease Hyperlipidemia associated with type 2 diabetes mellitus (HCC) Essential hypertension Unspecified essential hypertension Nonrheumatic mitral valve regurgitation 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) Fall, subsequent encounter Tobacco use documented in this encounter Discontinued Medications Medication Sig Discontinue Reason Start Date End Da te lisinopriL (PRINIVIL,ZESTRIL) 20 mg tablet Take 1 tablet (20 mg total) by mouth daily 02/04/2022 08/24/2022 documented as of this encounter Historical Medications * This list may reflect changes made after this encounter. vitamins A,C,U-rsqz-yacdxm (ICaps AREDS) 7,160-113-100 krps-py-ucvu tablet,delayed release (DR/EC) Take 1 tablet by mouth daily Farxiga 10 mg tablet Take 1 tablet (10 mg total) by mouth daily 07/05/2022 added in this encounter Care Teams High [employer] Science Teacher Relationship Specialty Start Date End Date Javier Hampton DO [address] [place] [address] PCP - General Family Medicine 12/15/21 documented as of this encounter
--- OUTSIDE RECORDS SUMMARY | 2024-09-29 21:05 | XMS_ITS | Encounter Summary ---
Author Organization [facility] Address [address] [place] [address] Care Team Providers Care Irrigation Worker Name Role Phone Carlynamy Javiermarge Mary DO Primary Care Provider Encounter Details Date Type Department Care Team (Late st Contact Info) Description 11/23/2022 Telephone [facility] Cardiology [address] [place] [address] Aiyana Waterman NP [address] [place] [address] Social History Tobacco Use Types [...] on file Legal Sex Male 9:34 AM BRUSH MAKER Gender Identity Not on file Sexual Orientation Not on file documented as of this encounter Miscellaneous Notes * Telephone Encounter - Aiyana Waterman NP - 11/23/2022 2:59 PM BRUSH MAKER Thank you. I called the patient and spoke to his to let them know. H MAKER * Telephone Encounter - Shanel James RN - 11/23/2022 2:50 PM CST Images from the original note were not included. Dr. Hampton's office returned call. Our Nurse was on another call. Dr. Zhu's MA said to let our nurse know that Dr Zhu sent in a new prescription for the increased dose of metoprolol, Note Sending to [place] as FYI H MAKER * Telephone Encounter - Shanel James RN - 11/23/2022 11:19 AM CST Lm on at [facility] for PCP per below and requested call back. H MAKER * Telephone Encounter - Aiyana Waterman NP - 11/23/2022 11:04 AM BRUSH MAKER I saw patient in the office today for routine follow-up. He follows with Dr. Barone for CAD and cardiomyopathy. Blood pressures are running systolic 130s to 140s, diastolic 80-90, resting heart rate 70-80. I would like to increase metoprolol tartrate from 12.5 mg daily to 25 mg daily to help his blood pressure. Dr. Hampton PCP is the prescriber of this. Will you please call his office and askif he is okay with me increasing the metoprolol? Will he send a new prescription or would he like me to prescribe it? Thank you. H MAKER documented in this encounter Plan of Treatment Not on file documented as of this encounter Visit Diagnoses Not on filedocumented in this encounter Care Teams Irrigation Worker Relationship Specialty Start Date End Date Javier Hampton DO [address] [place] [address] PCP - General Family Medicine 12/15/21 documented as of this encounter
--- OUTSIDE RECORDS SUMMARY | 2024-09-29 21:05 | XMS_ITS | Encounter Summary ---
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
--- OUTSIDE RECORDS SUMMARY | 2024-09-29 21:05 | XMS_ITS | Encounter Summary ---
Author Organization [facility] Address [address] [place] [address] Care Team Providers Care Orthopaedic Physician Assistant Name Role Phone CarlynLetitia reyesmarge Mary DO Primary Care Provider Reason for Visit * Reason Comments Follow-up 3 mo Encounter Details Date Type Department Care Team (Latest Contact Info) Description 03/01/2023 9:00 AM CDT Office Visit [facility] Cardiology [address] [facility] [address] [place] [address] Sneha Barone MD [address] [facility] [address] [place], [place] [id number] Coronary artery disease involving ak chin coronary artery of ak chin heart without angina pectoris (Primary Dx); Cardiomyopathy, ischemic; Nonrheumatic mitral valve regurgitation; Hyperlipidemia associated with type 2 diabetes mellitus (HCC); Essential hypertension; 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); Tobacco use; Parkinson's disease (CMS/HCC) (HCC); Coronary artery calcification; Dilated cardiomyopathy (CMS/HCC) (HCC) Social History Tobacco [...] on file Legal Sex Male 9:34 AM CERTIFIED PARALEGAL Gender Identity Not on file Sexual Orientation Not on file documented as of this encounter Last Filed Vital Signs Vital Sign Reading Time Taken Comments Blood Pressure 112/68 03/01/2023 9:06 AM CDT Pulse 79 03/01/2023 9:06 AM CDT Temperature - - Respiratory Rate - - Oxygen Saturation 98% 03/01/2023 9:06 AM CDT Inhaled Oxygen Concentration - - Weight 88.5 kg (195 lb) 03/01/2023 9:06 AM CDT Height 177.8 cm (5' 10 ) 03/01/2023 9:06 AM CDT Body Mass Index 27.98 03/01/2023 9:06 AM CDT documented in this encounter Ordered Prescriptions Prescription Sig Dispense Quantity Refills Last Filled Start Date End Date losartan (COZAAR) 50 mg tabletIndications:Ca rdiomyopathy, ischemic,Essential hypertension,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),Dilated cardiomyopathy (CMS/HCC) (HCC) Take 1 tablet (50 mg total) by mouth daily 90 tablet 3 03/01/2023 4 atorvastatin (LIPITOR) 40 mg tabletIndications:Hy perlipidemia associated with type 2 diabetes mellitus (HCC),Coronary artery calcification Take 1 tablet (40 mg total) by mouth daily 90 tablet 3 03/01/2023 4 documented in this encounter Progress Notes * Sneha Barone MD - 03/01/2023 9:00 AM CDT [facility] CARDIOLOGY DATE OF VISIT: 03/01/2023 DATE: 1950 CHIEF COMPLAINT Chief Complaint Patient presents with ??? Follow-up 3 mo FU CAD HPI Josh Robert is a 72 y.o. male with asymptomatic CAD and an incidentally found old asymptomatic inferolateral NE by EKG and stress testing. He also has hypertension, diabetes, and chronic kidney disease. The patient has a history of Parkinson's disease and polycythemia vera (infrequent phlebotomy by Dr. Nichole? 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) Ongoing tobacco use. 12/03/2021 ER Visit: He got up to go to the bathroom and ???went down?? with weakness. He had no syncope but injured his chest on some furniture. He was lightheaded afterwards but denied any chest pain or shortness of breath. His heard him fall, found him leaning up against some furniture awake and talking, and called an ambulance who took him to [facility] Emergency Room. He was diagnosed with weakness, tremor , DM, CKD and HTN. 01/06/2022 Initial Office Consultation with Dr. Barone: He now uses a walker for Parkinson's Dz. My impression was the patient has asymptomatic CAD with an old inferolateral NE. He would no symptomsand no ischemia so I did not think he needed cardiac catheterization but recommended we continue medical therapy. He has a mild cardiomyopathy but I did not add losartan or Entresto at that time because of recent acute kidney injury Will need to follow his qkwb-zd-buvtpbpl mitral regurgitation. I recommended statin therapy, continue aspirin and metoprolol and follow-up. 08/24/[address] Barone: Doing [...] 1/2 ppd. Farxiga, lisinopril and Sinemet are new. Increased losartan to 50 mg daily for hypertension. 02/16/2022 office visit with TAYA Waterman: He [...] bike/foot pedal machine 10 min per day. Blood pressure still not at goal. Metoprolol increased. 03/01/[address] Barone: Doing good. No complaints at all. Here w/ . ChecksBP at home SBP alwys < 150 before meds. Active, cleaned out garage and works on cars. Parkinson's stable, no trouble walking, sometimes momentarily slow w/ decision-making. No chest pain, SUAREZ, dizziness, palpitations, or edema. Smokes 1/2 ppd. DM good, blood sugar usually runs 110-140. 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 MEDICAL HISTORY Past Medical History: Diagnosis Date ??? CAD (coronary artery disease) ??? Chronic kidney disease 2021 ??? Coronary artery calcification 2021 ??? Diabetes mellitus (HCC) 2021 ??? Hyperlipidemia 2021 ??? Hypertension 2021 ??? Parkinson's disease (CMS/HCC) (HCC) ??? Polycythemia Dr. Nichole Social History Tobacco Use ??? Smoking status: Some Days Types: Cigarettes Last attempt to quit: 12/07/2021 Years since quittin.2 ??? Smokeless tobacco: Never Substance and Sexual Activity ??? Drug use: Yes Types: Marijuana ??? Sexual activity: None Alcohol Use: Not At Risk (01/06/2022) AUDIT-C ??? Frequency of Alcohol Consumption: Never ??? [...] Rfl: ??? atorvastatin (LIPITOR) 40 mg tablet, TAKE 1 TABLET(40 MG) BY MOUTH DAILY, Disp: 30 tablet, Rfl:9 ??? buPROPion XL (WELLBUTRIN XL) 150 mg [...] mouth daily, Disp: 90 tablet, Rfl: 3 ??? metoprolol XL (TOPROL-XL) 25 mg extended release tablet, Take 0.5 tablets (12.5 mg total) by mouth daily, Disp: , Rfl: ??? pantoprazole DR (PROTONIX) 40 mg EC tablet, TAKE 1 TABLET BY MOUTH EVERY MORNING X 6 WEEKS, Disp: , Rfl: ??? Trulicity 0.75 mg/0.5 mL pen injector, , Disp: , Rfl: ??? vitamins A,C,A-wjfj-rjtxzz (ICaps AREDS) 7,160-113-100 qztu-yr-mbrs tablet,delayed release (DR/EC), Take 1 tablet by mouth daily, Disp: , Rfl: ALLERGIES Allergies Allergen Reactions ??? Penicillins Rash REVIEW OF SYSTEMS Review of Systems Constitutional: Negative for malaise/fatigue. HENT: Negative for congestion. Eyes: Negative for visual disturbance. Cardiovascular: Negative for chest pain, dyspnea on exertion, irregular heartbeat, palpitations andsyncope. Respiratory: Negative for cough, shortness of breath and wheezing. Hematologic/Lymphatic: Negative for bleeding problem. Gastrointestinal: Negative for abdominal pain. Genitourinary: Negative for hematuria. Neurological: Positive for tremors (mild right handed). Negative for dizziness. Psychiatric/Behavioral: Negative for depression. PHYSICAL EXAM Blood pressure 112/68, pulse 79, height 177.8 cm (5' 10 ), weight 88.5 kg (195 lb), SpO2 98 %. Body mass index is 27.98 kg/m??. Physical Exam Constitutional: Appearance: Normal appearance. He is well-developed. Comments: Pleasant middle-aged male accompanied by his , no distress has a tremor Neck: Thyroid: No thyromegaly. Vascular: No carotid [...] CHOLHDL Lab Results Component Value Date POCCHOL 127 11/23/2022 POCCHOL 197 01/06/2022 Lab Results Component Value Date POCHDL 37 11/23/2022 POCHDL 42 01/06/2022 Lab Results Component Value Date POCLDL 70 11/23/2022 POCLDL 134 01/06/2022 SCRLDL 61 02/04/2022 Lab Results Component Value Date POCTRIG 99 11/23/2022 POCTRIG 105 01/06/2022 Lab Results Component Value Date POCCHDLR 1.9 11/23/2022 POCCHDLR 4.7 01/06/2022 Lab Results Component Value Date POCNONHDL 90 11/23/2022 POCNONHDL 155 01/06/2022 Lab Results Component Value Date POCCHLPL 127 11/23/2022 POCCHLPL 197 01/06/2022 02/18/2021 creatinine 1.4 11/2021 [...] reversible ischemia, EF 37% with global hypokinesis. ([facility]) 11/13/2021 echo: EF 55-60%, diastolic dysfunction, strain-13%, yguw-dt-ovjtbsqi MR ([facility]) 08/2022 echo: EF 50-55%, hypokinesis of the apex, large PFO versus small ASD, mild MR. Other testin12/03/2021 CT of the chest: No PE, diffuse hepatic steatosis, calcified coronary arteries 12/03/2021 CT of the head: Negative 12/03/2021 chest x-ray: Unremarkable ASSESSMENT Diagnoses and all orders for this visit: Coronary artery disease involving ak chin coronary artery of ak chin heart without angina pectoris (Primary) Cardiomyopathy, ischemic Nonrheumatic mitral valve regurgitation Hyperlipidemia associated with type 2 diabetes mellitus ([facility]) Essential hypertension CKD stage 3 due to type 2 diabetes mellitus ([facility]) Tobacco use Parkinson's disease (CMS/HCC) ([facility]) Coronary artery calcification/coronary artery disease: Asymptomatic. Incidentally found to have an old inferolateral NE by EKG and stress testing. In addition, he has coronary artery calcification noted by his CT scan. He does not have any reversible ischemia or angina. --Continue medical therapy for CAD with aspirin, atorvastatin etcetera.. Cardiomyopathy: The patient's ejection fraction was 37% by Lexiscan and 55-60% by echo, so very disparate measurements. He did have an abnormal LV strain by echo c/w systolic dysfxn. Any case he has at least mild left ventricular systolic dysfunction, related to coronary disease and hypertension. His left ventricular function on his echo August 2022 showed improvement. --Cont metoprolol, losartan Mitral regurgitation: Ydti-vo-uauszjtg, follow-up periodically by echo Hypertension: Better since losartan increased to 50 mg every day. At goal. --Cont metoprolol --Refilled losartan Hyperlipidemia: LDL cholesterol went from 134 to70 after atorvastatin begun. At goal --Refilled atorvastatin. Diabetes: CKD stage 3: With acute kidney injury, possibly due to IV contrast he received for his CTA. Cant find anything more recent than [facility] creat [facility] 1.75 and GFR 39. Parkinson's Disease:. Tobacco use: Working on it. PLAN/RECOMMENDATIONS FU in 1 year, sooner if needed Sneha Barone MD, [facility] Cardiology Office: [phone] or [phone] Note: Portions of the record may have been created with voice recognition [employer]. Hospital Personnel Director variances may occur. Despite proofreading, typographical errors may occur. documented in this encounter Plan of Treatment Not on file documented as of this encounter Visit Diagnoses Diagnosis Coronary artery disease involving ak chin coronary artery of ak chin heart without angina pectoris- Primary Cardiomyopathy, ischemic Other specified forms of chronic ischemic heart disease Nonrheumatic mitral valve regurgitation Hyperlipidemia associated with type 2 diabetes mellitus (HCC) Essential hypertension Unspecified essential hypertension 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) Tobacco use Parkinson's disease (HCC) Paralysis agitans Coronary artery calcification Dilated cardiomyopathy (CMS/HCC) (HCC) Other primary cardiomyopathies documented in this encounter Discontinued Medications Medication Sig Discontinue Reason Start Date End Da te atorvastatin (LIPITOR) 40 mg tabletIndications:Coronary artery calcification,Hyperlipidem ia associated with type 2 diabetes mellitus (HCC) TAKE 1 TABLET(40 MG) BY MOUTH DAILY Reorder 01/03/2023 03/01/2023 losartan (COZAAR) 50 mg tabletIndications:Dilated cardiomyopathy (CMS/HCC) (HCC),Cardiomyopathy, ischemic,Essential hypertension,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) Take 1 tablet (50 mg total) by mouth daily Reorder 02/21/2023 03/01/2023 documented as of this encounter Care Teams Orthopaedic Physician Assistant Relationship Specialty Start Date End Date Javier Hampton DO [address] [place] [address] PCP - General Family Medicine 12/15/21 documented as of this encounter
--- OUTSIDE RECORDS SUMMARY | 2024-09-29 21:05 | XMS_ITS | Encounter Summary ---
Author Organization [facility] Address [address] [id number] Care Team Providers Care Government Documents Librarian Name Role Phone Javier Hampton DO Primary Care Provider Reason for Visit * Reason Comments New Patient Congestive Heart Failure Abnormal Cardiac Testing Abnormal stress test * Consultation (Routine) - Closed Specialty Diagnoses / Procedures Referred By Contac t Referred To Contact Cardiology Diagnoses Systolic congestive heart failure, unspecified HF chronicity (HCC) Javier Hampton DO [address] [place] [address] Phone: tel: fax: [facility] Medical [facility] Cardiology [address] [facility] [address] [address] Phone: tel: fax: Referral ID Status Reason Start Date Expiration Date V isits Requested Visits Authorized [id number] Closed Specialty Services Required 12/15/2021 01/14/2023 1 1 Encounter Details Date Type Department Care Team (Latest Contact Info) Description 01/06/2022 3:45 PM CDT Office Visit [facility] Cardiology [address] [facility] [address] [place] [address] Sneha Barone MD [address] [facility] [address] [place] [id number] Coronary artery calcification (Primary Dx); Dilated cardiomyopathy (CMS/HCC) (HCC); Systolic congestive heart failure, unspecified HF chronicity (HCC); Nonrheumatic mitral valve regurgitation; Essential hypertension; Hyperlipidemia associated with type 2 diabetes mellitus (HCC); 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); Fall, subsequent encounter; Former smoker; Polycythemia Social History Tobacco Use Types Packs/Day Years Used Date Smoking Tobacco: Former Cigarettes Q uit: 12/07/2021 Smokeless Tobacco: Never AUDIT-C Answer Date Recorded Q1: How often do you have a drink containing alc ohol? 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 Gender Identity Not on file Sexual Orientation Not on file documented as of this encounter Last Filed Vital Signs Vital Sign Reading Time Taken Comments Blood Pressure 132/82 01/06/2022 3:47 PM CDT Pulse 65 01/06/2022 3:47 PM CDT Temperature - - Respiratory Rate - - Oxygen Saturation 97% 01/06/2022 3:47 PM CDT Inhaled Oxygen Concentration - - Weight 89.8 kg (198 lb) 01/06/2022 3:47 PM CDT Height 177.8 cm (5' 10 ) 01/06/2022 3:47 PM CDT Body Mass Index 28.41 01/06/2022 3:47 PM CDT documented in this encounter Patient Instructions * Patient Instructions* Sneha Barone MD - 01/06/2022 3:45 PM CDT Total cholesterol 197, HDl cho 42, triglycerides 105, LDLchol 134 Aiming for the bad LDl chol to be < 70 and < 50 would be even better [place] blood pressure is 790278/60-80 mmhg documented in this encounter Ordered Prescriptions Prescription Sig Dispense Quantity Refills Last Filled Start Date End Date atorvastatin (LIPITOR) 40 mg tabletIndications: Coronary artery calcification,Hype rlipidemia associated with type 2 diabetes mellitus (HCC) Take 1 tablet (40 mg total) by mouth daily 30 tablet 11 01/06/2022 01/03/2023 documented in this encounter Progress Notes * Sneha Barone MD - 01/06/2022 3:45 PM CDT [facility] CARDIOLOGY DATE OF VISIT: 01/06/2022 DATE: 1950 CHIEF COMPLAINT Chief Complaint Patient presents with ??? New Patient ??? Congestive Heart Failure ??? Abnormal Cardiac Testing Abnormal stress test HPI Josh Robert is a 71 y.o. male [...] and called an ambulance who took himto Count Includes [facility] Emergency Room. He was diagnosed with weakness [...] reversible ischemia, EF 37% with global hypokinesis. ([facility]) 11/13/2021 echo: EF 55-60%, diastolic dysfunction, strain-13%, [id number]-[id number] MR (Count Includes [facility]) 12/03/2021 CT of the chest: No PE, diffuse hepatic steatosis, calcified coronary arteries 12/03/2021 CT of the head: Negative 12/03/2021 chest x-ray: Unremarkable 12/03/2021 EKG on my personal review shows sinus rhythm rate 61, nonspecific ST changes, Q-waves inferiorly and laterally. POC lipids as below EKG today shows NSR rate 73, Q-waves inferiorly and laterally consistent with old inferior IN, normal intervals no ischemic changes, no change compared to 12/03/2021. 12/07/[address] Zhu reviewed. 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 MEDICAL HISTORY Past Medical History: Diagnosis Date ??? Diabetes mellitus (HCC) ??? Hypertension Social History Tobacco Use ??? Smoking status: Former Smoker Types: Cigarettes Quit date: 12/07/2021 Years since quittin.0 ??? Smokeless tobacco: Never Used Vaping Use ??? Vaping Use: Never used Substance Use Topics ??? Drug use: Yes Types: Marijuana Family History Problem Relation Age of Onset ??? Heart disease Mother ??? Kidney failure Father MEDICATIONS Current Outpatient Medications: ??? aspirin 81 mg enteric coated tablet, Take 81 mg by mouth daily, Disp: , Rfl: ??? buPROPion XL (WELLBUTRIN XL) 150 mg 24 hr tablet, , Disp: , Rfl: ??? calcium carbonate (CALCIUM 600 ORAL), Take by mouth, Disp: , Rfl: ??? cholecalciferol (VITAMIN D-3) 1,000 unit capsule, Take 2,000 Units by mouth, Disp: , Rfl: ??? metoprolol XL (TOPROL-XL) 25 mg extended release tablet, Take 12.5 mg by mouth daily, Disp: , Rfl: ??? pantoprazole DR (PROTONIX) 40 mg EC tablet, TAKE 1 TABLET BY MOUTH EVERY MORNING X 6 WEEKS, Disp: , Rfl: ??? Trulicity 0.75 mg/0.5 mL pen injector, , Disp: , Rfl: ??? atorvastatin (LIPITOR) 40 mg tablet, Take 1 tablet (40 mg total) by mouth daily, Disp: 30 tablet, Rfl: 11 ALLERGIES Allergies Allergen Reactions ??? Penicillins Rash REVIEW OF SYSTEMS Review of Systems Constitutional: Positive for malaise/fatigue. HENT: Negative for congestion. Eyes: Negative for visual disturbance. Cardiovascular: Positive for dyspnea on exertion. Negative for chest pain, irregular heartbeat, palpitations and syncope. Respiratory: Negative for cough, shortness of breath and wheezing. Hematologic/Lymphatic: Negative for bleeding problem. Musculoskeletal: Positive for falls. Gastrointestinal: Negative for abdominal pain. Genitourinary: Negative for hematuria. Neurological: Positive for tremors. Negative for dizziness. Psychiatric/Behavioral: Negative for depression. PHYSICAL EXAM Blood pressure 132/82, pulse 65, height 177.8 cm (5' 10 ), weight 89.8 kg (198 lb), SpO2 97 %. Body mass index is 28.41 kg/m??. Physical Exam Constitutional: Appearance: Normal appearance. He is well-developed. Comments: Pleasant middle-aged male accompanied by his , using a walker, no distress has a tremor Later blood pressure 134/60 mmHg Neck: Thyroid: No thyromegaly. Vascular: No carotid [...] INR, PROTIME No results found for: CHOLHDL No results found for: CHOL, POCCHOL No results found for: HDL, POCHDL No results found for: LDLCALC, CLDL, HIRISKLDL, LDL, LDLC, LDLDIRECT, LDLMED, LDLP, POCLDL, SCRLDL,SMALLLDLP, TOTLDLC No results found for: TRIG, POCTRIG No results found for: POCCHDLR No results found for: POCNONHDL No results found for: POCCHLPL 12/2021 POC lipids: Total cholesterol 197, HDl cho 42, triglycerides 105, LDLchol 134 ASSESSMENT Diagnoses and all orders for this visit: Coronary artery calcification (Primary) - atorvastatin (LIPITOR) 40 mg tablet; Take 1 tablet (40 mg total) by mouth daily - Lipid panel; Future - Comprehensive metabolic panel; Future Dilated cardiomyopathy (CMS/HCC) (HCC) - Lipid panel; Future - Comprehensive metabolic panel; Future Systolic congestive heart failure, unspecified HF chronicity (HCC) - Ambulatory referral to Cardiology Nonrheumatic mitral valve regurgitation Essential hypertension Hyperlipidemia associated with type 2 diabetes mellitus (HCC) - atorvastatin (LIPITOR) 40 mg tablet; Take 1 tablet (40 mg total) by mouth daily - Lipid panel; Future - Comprehensive metabolic panel; Future 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) Fall, subsequent encounter Former smoker Polycythemia Coronary artery calcification/coronary artery disease: The patient has had no anginal symptoms but his EKG is suggestive of an old inferolateral myocardial infarction. His stress test shows a large fixed inferior defect which may be from an old IN versus diaphragmatic attenuation. In addition, he has coronary artery calcification noted by his CT scan. Since he does not have any reversible ischemia or angina I do not think we need to proceed with cardiac catheterization, particularly in view of his worsening chronic kidney disease which can be exacerbated with IV contrast. I recommend medical therapy for CAD. Cardiomyopathy: The patient's ejection fraction was 37% [...] has been started on low-dose beta-david and I would like to add losartan or Entresto but with his worsening renal function I will hold off for now. Mitral regurgitation: [id number], follow-up periodically by echo Hypertension: On small dose of medications but improving Hyperlipidemia: Recommend statin therapy Diabetes: New diagnosis, working on it CKD stage 3: With acute kidney injury, possibly due to IV contrast he received for his CTA. Falls: With tremor and weakness, seeing a neurologist to rule out underlying neurologic problems such as Parkinson's disease Former smoker: Quitting. Polycythemia: Getting periodic phlebotomy by Dr. Nichole. PLAN/RECOMMENDATIONS Continue aspirin and metoprolol Add atorvastatin 40 mg q.p.m.. Risks and benefits reviewed. CMP and lipids in 6 weeks Follow-up with me in 6 weeks. Anticipate starting losartan or Entresto at that time in titrating meds as blood pressure tolerates Re-evaluate left ventricular function with an echo in the next several months Counseled patient and his that he has [id number]-ly-scigkmsh heart disease, perhaps an old heart attack, CAD, evaluation and treatment, signs and symptoms to be aware of etcetera. Further recommendations to follow. Thank you very much for your kind referral. My total encounter time on 01/06/2022 was 65 minutes which was spent in the activities documented inthe note. This includes time spent prior to the visit and after the visit in direct care of the patient. This time does not include time spent in any separately reportable services. Sneha Barone MD, [facility] Cardiology Office: [phone] or [phone] Note: Portions of the record may have been created with voice recognition [employer] Software. Social Sciences Chair variances may occur. Despite proofreading, typographical errors may occur. documented in this encounter Plan of Treatment Not on file documented as of this encounter Procedures Procedure Name Priority Date/Time Associated Diagnosis Comments POCT LIPID PANEL Routine 01/06/2022 5:40 PM CDT Coronary artery calcification Hyperlipidemia associated with type 2 diabetes mellitus (HCC) ECG 12-LEAD Routine 01/06/2022 Coronary artery calcification Essential hypertension documented in this encounter Results * POCT lipid panel (01/06/2022 5:40 PM CDT) Cholesterol, POC 197 mg/dL HDL, POC 42 mg/dL Triglycerides, POC 105 mg/dL LDL Cholesterol POC 134 mg/dL Chol/HDL Ratio, POC 4.7 Non-HDL Cholesterol, POC 155 mg/dL Cholesterol Total, POC 197 mg/dL Capillary blood 01/06/2022 5 :40 PM CDT us Sneha Barone MD POINT OF CARE TEST ORDERABL ES Final Result * ECG 12 lead (01/06/2022) us Sneha Barone MD ECG ORDERABLES Edited Resu lt - Final documented in this encounter Visit Diagnoses Diagnosis Coronary artery calcification- Primary Dilated cardiomyopathy (CMS/HCC) (HCC) Other primary cardiomyopathies Systolic congestive heart failure, unspecified HF chronicity (HCC) Nonrheumatic mitral valve regurgitation Essential hypertension Unspecified essential hypertension Hyperlipidemia associated with type 2 diabetes mellitus (HCC) 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) Fall, subsequent encounter Former smoker Personal history of tobacco use, presenting hazards to health Polycythemia Polycythemia, secondary documented in this encounter Historical Medications * This list may reflect changes made after this encounter. calcium carbonate (CALCIUM 600 ORAL) Take by mouth Trulicity 0.75 mg/0.5 mL pen injector 12/31/2021 cholecalciferol (VITAMIN D-3) 1,000 unit capsule Take 2 capsules (2,000 Units total) by mouth aspirin 81 mg enteric coated tablet Take 1 tablet (81 mg total) by mouth daily buPROPion XL (WELLBUTRIN XL) 150 mg 24 hr tablet 12/15/[address] (PROTONIX) 40 mg EC tablet TAKE 1 TABLET BY MOUTH EVERY MORNING X 6 WEEKS 12/28/2021 metoprolol XL (TOPROL-XL) 25 mg extended release tablet Take 0.5 tablets (12.5 mg total) by mouth daily 12/28/2021 added in this encounter Orders Outpatient Referral Count Last Ordered Date Fir st Ordered Date AMB REFERRAL TO CARDIOLOGY 1 01/06/2022 documented in this encounter Care Teams Government Documents Librarian Relationship Specialty Start Date End Date Javier Hampton DO [address] [place] [address] PCP - General Family Medicine 12/15/21 documented as of this encounter
--- OUTSIDE RECORDS SUMMARY | 2024-09-29 21:05 | XMS_ITS | Encounter Summary ---
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
== END 2024-09-24 07:44 | disposition home or self-care (01) ==
LOC: CHSLAB 07:44
PROVIDERS: PCP Family Medicine; Visit Provider Internal Medicine Nephrology
DX: R80.9 Proteinuria, unspecified (principal); E11.22 Type 2 diabetes mellitus with diabetic chronic kidney disease; N18.31 Chronic kidney disease, stage 3a
CPT/HCPCS: 36415; 80069; 82570; 83520; 84155; 84156; 84165; 84166; 86036; 86038; 86039; 86160; 86225

== ENCOUNTER 2025-01-25 08:35 | Outpatient (CLI) | payer MEDICARE, SELFPAY ==
--- OUTSIDE RECORDS SUMMARY | 2025-01-25 08:41 | XMS_ITS | Clinical Summary ---
Author Organization [facility] [address] [facility] [address] [facility] [address] [place] [address] Care Team Providers Care Coiled Coil Inspector Name Role Phone Javier Hampton Primary Care Provider Allergies Active Allergy Reactions Criticality Noted Date Comments Penicillins Rash Medium 02/12/2021 Medications metoprolol XL (TOPROL-XL) 25 mg extended release tablet Take 0.5 tablets (12.5 mg total) by mouth every morning 12/29/19 22 Active aspirin 81 mg enteric coated tablet Take 1 tablet (81 mg total) by mouth every morning Active cholecalciferol (VITAMIN D-3) 1,000 unit capsule Take 2 capsules (2,000 Units total) by mouth every morning Active calcium carbonate (CALCIUM 600 ORAL) Take by mouth every morning Active carbidopa-levodopa (SINEMET) 25-100 mg per tablet Take 1 tablet by mouth 3 (three) times a day 01/27/20 22 Active Farxiga 10 mg tablet Take 1 tablet (10 mg total) by mouth every morning 07/05/20 22 Active vitamins A,C,M-cdru-tjiawf (ICaps AREDS) 7,160-113-100 kkjm-ac-jdtd tablet,delayed release (DR/EC) Take 1 tablet by mouth daily after lunch Active atorvastatin (LIPITOR) 40 mg tabletIndications: Hyperlipidemia associated with type 2 diabetes mellitus (HCC),Coronary artery calcification Take 1 tablet (40 mg total) by mouth daily 90 tablet 3 08/01/20 24 Active Additional Information Patient taking differently:40 mg oralEvery morning, Informant: Self, Spouse/Significant Other, Reported on 12/14/2024 losartan (COZAAR) 50 mg tabletIndications: Cardiomyopathy, ischemic,Essential hypertension,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),Dilated cardiomyopathy (HCC) Take 1 tablet (50 mg total) by mouth daily 90 tablet 3 08/01/20 24 025 Active Additional Information Patient taking differently:50 mg oralEvery morning, Informant: Self, Spouse/Significant Other, Reported on 12/14/2024 amitriptyline (ELAVIL) 25 mg tablet Take 1 tablet (25 mg total) by mouth nightly Active Trulicity 1.5 mg/0.5 mL pen injector Inject 0.5 mL (1.5 mg total) under the skin once a week 10/31/19 25 Active famotidine (PEPCID ORAL) Take by mouth as needed Active docusate sodium (COLACE) 100 mg capsule Take 1 capsule (100 mg total) by mouth every morning Active ofloxacin (FLOXIN) 0.3 % otic solution Administer 5 drops into the left ear 2 (two) times a day Start 3 days after surgery and continue until your follow up appointment 10 mL 3 12/18/19 25 Active HYDROcodone-acetam inophen (NORCO) 5-325 mg per tabletIndications: Pain Take 1 tablet by mouth every 6 (six) hours as needed for pain (breakthrough pain) 15 tablet 12/15/19 25 Active Active Problems Problem Noted Date Diagnosed Date Cholesteatoma of mastoid, left ear 12/18/2024 Chronic mastoiditis of left side 12/18/2024 Parkinson's disease 03/01/2023 Cardiomyopathy, ischemic 08/24/2022 Coronary artery disease invo lving [place] coronary artery of [place] heart without angina pectoris 01/06/2022 Dilated cardiomyopathy 01/06/2022 Essential hypertension 01/06/2022 Hyperlipidemia associated with type 2 diabetes m ellitus 01/06/2022 Tobacco use 01/06/2022 Polycythemia 01/06/2022 Falls 01/06/2022 Nonrheumatic mitral valve regurgitation 01/07/20 CKD stage 3 due to type 2 diabetes mellitus 12/10 Current smoker 03/11/2021 Age-related osteoporosis with current pathologic al fracture 07/21/2018 Encounters Date Type Department Care Team Description 01/23/2025 10:00 AM CDT Office Visit [facility] Otolaryngology [address] [place] [address] Connie Venegas MD 12/14/2024 11:55 AM TUBE LANCER Anesthesia Event [facility] [address] [place] [id number] Lisandro Garcia MD Botkin, Amanda Marie, NP 12/14/2024 11:50 AM TUBE LANCER - 12/14/2024 2:35 PM TUBE LANCER Surgery [facility] [address] [place] [id number] Connie Venegas MD TYMPANOPLASTY WITH CANAL WALL DOWN MASTOIDECTOMY. 12/14/2024 10:02 AM TUBE LANCER - 12/14/2024 4:39 PM TUBE LANCER Hospital Encounter [facility] [address] [place] [address] Connie Venegas MD Chronic mastoiditis of left side [H70.12] (Primary Dx); Cholesteatoma of mastoid, left ear Discharge Disposition: Discharge to home or self care 11/08/2024 9:00 AM TUBE LANCER Office Visit [facility] E[facility] [address] [place] [address] [address] [place] [phone] Connie Venegas MD Cholesteatoma of mastoid, left ear; Conductive hearing loss, unilateral, left ear, with unrestricted hearing on the contralateral side 11/08/2024 8:40 AM TUBE LANCER Procedure visit [facility] Otolaryngology [address] [place] [address] [address] [place] [phone] Mixed conductive and sensorineural hearing loss of left ear with restricted hearing of right ear (Primary Dx); Sensorineural hearing loss (SNHL) of right ear with restricted hearing of left ear 11/05/2024 8:35 AM TUBE LANCER - 11/05/2024 11:59 PM TUBE LANCER Hospital Encounter [facility] [address] [place] [address] Discharge Disposition: Discharge to home or self care from Last 3 Months Immunizations Immunization Administration Dates Next Due Pneumococcal Polysaccharide PPV23 11/08/2019 ZOSTER LIVE 02/14/2013 Surgical History Surgery Date Site/Laterality Comments GRAFT EAR CARTILAGE 12/14/2024 Ear/Left Procedure: GRAFT EAR CARTILAGE.; Surgeon: Connie Venegas MD; Location: [facility]PERATING [facility]; Service: Otolaryngology; Laterality: Left; TYMPANOPLASTY W/ MASTOIDECTOMY 12/14/2024 Ear/Left Procedure: TYMPANOPLASTY WITH CANAL WALL DOWN MASTOIDECTOMY.; Surgeon: Connie Venegas MD; Location: [facility]; Service: Otolaryngology; Laterality: Left; Medical History Medical History Date Comments Hypertension 2021 Diabetes mellitus (HCC) [address] Nichole Hyperlipidemia 2021 Chronic kidney disease 2021 Coronary artery calcification 2021 CAD (coronary artery disease) Parkinson's disease (HCC) CHF (congestive heart failure) (HCC) PFO (patent foramen ovale) Family History Medical History Relation Name Comments Kidney failure Father age 83 Heart disease Mother age 78 Relation Name Status Comments Father (Age 83) Mother (Age 78) Social History Tobacco Use Types Packs/Day Years Used Date Smoking Tobacco: Some Days Cigarettes Last attempted to quit: 12/07/2021 Smokeless Tobacco: Never Tobacco Cessation:Ready to Q uit: Not Asked; Counseling Given: Not Answered Comments:1/2 pk/ day AUDIT-C Answer Date Recorded Q1: How often do you have a drink containing alcohol? Never 12/14/2024 Q2: How many drinks containi ng alcohol do you have on a typical day when you are drinking? Patient does not drink Q3: How often do you have si x or more drinks on one occasion? Never 12/14/2024 Personal Safety Answer Date Recorded Have you ever been in or are you currently in a harmful physical or emotional relationship or is someone making you feel afraid or unsafe? Denies 12/14/2024 Sex and Gender Information Value Date Recorded Sex Assigned at Not on file Legal Sex Male 9:34 AM TUBE LANCER Gender Identity Not on file Sexual Orientation Not on file Obstetrics History Last Filed Vital Signs Vital Sign Reading Time Taken Comments Blood Pressure 123/62 12/14/2024 4:20 PM TUBE LANCER Pulse 83 12/14/2024 4:25 PM TUBE LANCER Temperature 36 C (96.8 F) 12/14/2024 3:30 PM TUBE LANCER Respiratory Rate 15 12/14/2024 4:25 PM TUBE LANCER Oxygen Saturation 96% 12/14/2024 4:25 PM TUBE LANCER Inhaled Oxygen Concentration - - Weight 86.6 kg (191 lb) 12/14/2024 10:14 AM TUBE LANCER Height 179.1 cm (5' 10.5 ) 12/14/2024 10:[address] Body Mass Index 27.02 12/14/2024 10:14 AM TUBE LANCER Plan of Treatment Health Maintenance Due Date Last Done Comments Albumin Creatinine Ratio, Urine 1950 Colon Cancer Screening-Colonoscopy 1950 Depression Screening 1950 Hemoglobin A1C 1950 Hepatitis C Screening [...] season) 2024 09/12/2021, 12/05/2020, 11/14/2020 Influenza Vaccine (Season Ended) 2025 Fall Risk Assessment 12/14/2025 12/14/2024 Procedures Procedure Name Priority Date/Time Associated Diagnosis Comments POCT GLUCOSE DEVICE Routine 12/14/2024 3 :30 PM TUBE LANCER POCT GLUCOSE DEVICE Routine 12/14/2024 1 :34 PM TUBE LANCER SURGICAL PATHOLOGY Routine 12/14/2024 1: 20 PM TUBE LANCER Cholesteatoma of mastoid, left ear AEROBIC AND ANAEROBIC CULTURE AND GRAM STAIN Routine 12/14/2024 12:25 PM TUBE LANCER TX AN PROCEDURE PLACEHOLDER Routine 12/14/2024 12:15 PM TUBE LANCER TX AN ELECTIVE ENDOTRACHEAL AIRWAY Routine 12/14/2024 12:15 PM TUBE LANCER TYMPANOPLASTY WITH MASTOIDECTOMY. 12/14/2024 12:00 PM TUBE LANCER Cholesteatoma of mastoid, left ear Special Needs Microscope, NIMS TX GRAFT EAR CRTLG AUTOGENOUS NOSE/EAR 12/14/2024 12:00 PM TUBE LANCER Cholesteatoma of mastoid, left ear Special Needs Microscope, NIMS POCT GLUCOSE DEVICE Routine 12/14/2024 1 1:13 AM TUBE LANCER POCT GLUCOSE DEVICE Routine 12/14/2024 1 0:26 AM TUBE LANCER AUDBASE RESULTS 11/08/2024 8:21 [address] TUBE LANCER NEURO [address] OUTSIDE REFERENCE Routine 11/05/2024 8:35 AM TUBE LANCER POCT LIPID PANEL Routine 11/23/2022 10:3 7 AM TUBE LANCER Lipid screening from Last 3 Months or Most Recently Relevant to Health Maintenance Results * POCT glucose (12/14/2024 3:30 PM TUBE LANCER) Glucose, POC 155 70 - 199 mg/dL Comment: Interpretive Data Glucose is assumed to be non-fasting. Fasting Glucose reference ranges are: 0 - 150 years: 70 mg/dL - 99 mg/dL Current interpretive data was last revised on 2014. POC Performer [id number] CROW ERNST POC Device Number [id number] CROW ERNST Blood 12/14/2024 3:30 PM TUBE LANCER 12/14/2024 3:30 PM TUBE LANCER us Nedim Durakovic MD LAB POCT ORDERABLES - DEVICE Final Result Performing Organization Address [facility] Co de Phone Number CROW BJW[facility] [address] [facility] [place] [address] * POCT glucose (12/14/2024 1:34 PM TUBE LANCER) Glucose, POC 142 70 - 199 mg/dL Comment: Interpretive Data Glucose is assumed to be non-fasting. Fasting Glucose reference ranges are: 0 - 150 years: 70 mg/dL - 99 mg/dL Current interpretive data was last revised on 2014. POC Performer [id number] [employer] BJWCH POC Device Number [id number] [employer] BJW[facility] Blood 12/14/2024 1:34 PM TUBE LANCER 12/14/2024 1:34 PM TUBE LANCER Connie Venegas MD LAB POCT ORDERABLES - DEVICE Final Result Performing Organization Address [facility] de Phone Number CROW BJW[facility] [address] [facility] Department [place] [employer] [place] [address] * Surgical pathology (12/14/2024 1:20 PM TUBE LANCER) Tissue specimen (specimen) (Middle ear contents) 12/14/2024 1:20 PM TUBE LANCER Narrative PATHOLOGY TEMP LLB FOR ASP - 12/18/2024 10:21 AM CDT EPIC results best viewed via link to PDF [facility] of Surgical Pathology [address] [facility], [place] [address] Note to Patients: This report may contain a detailed description of human tissue sent by a health care provider to the laboratory for pathologic evaluation. The content of this report is essential for diagnosis and may provide important critical findings. This information may be unfamiliar to patients to review without a medical professional present. It is advised that the patient review this report in the presence of a health care provider who can answer questions and explain the details. SURGICAL PATHOLOGY REPORT FINAL Patient Name: JOSH ROBERT Gender: M : 1950 (Age: 74) Address: [address] [place], [place] [id number] Hospital #: [id number] Taken:12/14/2024 Received:12/14/2024 Reported: 12/18/2024 Patient Type: BWC EP SAME Client BJW Service: Surgery Location: Physician(s): Elaine Carmona D.O. Diagnosis: Middle ear, left mastoid contents, mastoidectomy: - Cholesteatoma - No evidence of malignancy 12/17/2024 08:45 By this signature, I attest that the above diagnosis is based upon my personal examination of the slides(and/or other material indicated in the diagnosis). Rachel Sanchez MD, PhD Report Electronically Reviewed and Signed Out By Rachel Sanchez MD, PhD 12/18/2024 10:21:17 Microscopic Description and Comment: Microscopic examination shows an abundance of plasma cells with some intermixed small mature appearing lymphocytes. In situ hybridization studies (with appropriate controls) for kappa and lambda were performed to further characterize the plasma cells present. These studies show there to be a polytypic plasma cell population with a kappa:lambda ratio within normal limits. Rachel Woods M.D. History: The patient is a 74-year-old man presenting for cholesteatoma of mastoid, left ear. Operative procedure: Tympanoplasty with canal wall down mastoidectomy and reconstruction ossicular chain and graft cartilage. Specimen(s) Received: A: Left mastoid contents Gross Description: Received in formalin, labeled with the patient s identifiers and left mastoid contents and consists of multiple ellison-red fragment(s) of soft tissue with an aggregate measurement of 2.5 x 1.4 x 0.4 cm. Labeled A1. Jar 0. elsw/12/14/2024 18:57 PA(s): Mariia Calvo By this signature, I attest that the above diagnosis is based upon my personal examination of the slides(and/or other material). Addenda/Procedures Microscopic slide review and interpretation for this case was performed at [facility], Department of Surgical Pathology, [address] [place] [id number], [place] [address] CLIA # [id number] The performance characteristics of some immunohistochemical stains, fluorescence in-situ hybridization tests and immunophenotyping by flow cytometry cited in this report (if any) were determined by the Surgical Pathology and Flow Cytometry Departments at [facility] as part of an ongoing quality systems technician program and in compliance with federally mandated regulations drawn from the Clinical Laboratory Improvement Act of 1988 (CLIA '88). Some of these tests rely on the use of analyte specific reagents and are subject to specific labeling requirements by the US Food and Drug Administration. Such diagnostic tests may only be performed in a facility that is certified by the Department of Health and Human Services as a high complexity laboratory under CLIA '88. The FDA has determined that such clearance or approval is not necessary. This test is used for clinical purposes. It should not be regarded as investigational or for research. Nevertheless, federal rules concerning the medical use of analyte specific reagents require that the following disclaimer be attached to the report: This test was developed and its performance characteristics determined by the Surgical Pathology and Flow Cytometry Departments of [facility]. It has not been cleared or approved by the U. S. Food and Drug Administration. IMAGES AND SCANNED DOCUMENTS, IF INCLUDED, ONLY VIEWABLE IN PDF VERSION OF REPORT Connie Venegas MD LAB PATHOLOGY ORDERABLES Jeannette michel Result PATHOLOGY TEMP LLB FOR ASP * (ABNORMAL) Aerobic and anaerobic culture and gram stain Wound Ear, left (12/14/2024 12:25 PM TUBE LANCER) Direct Specimen Exam Stain: No polymorphonuclear leukocytes seen. Few Gram Positive Cocci Comment:Testing performed by : [facility], [address] [facility] [place]., [address] Report Final Report: Few Mixed aerobic and anaerobic microorganisms (.) CROW ERNST Comment:Testing performed by : [facility], [address] [facility] [place]., [address] Organism MIXED AEROBIC AND ANAEROBIC MICROORGANISMS CROW ERNST Wound (Ear, left) 12/14/2024 12:25 PM TUBE LANCER 12/14/2024 6:32 PM TUBE LANCER Zechariah MARIA BJWCH - 12/18/2024 8:47 AM CDT Specimen received on an ESwab. Testing performed by [facility] Microbiology Laboratory ([phone]) Specimens submitted from normally sterile body sites will have all bacterial morphotypes identified. Specimens that contain grossly mixed randy and/or are from body sites that are not normally sterile will be examined for Staphylococcus aureus, Pseudomonas aeruginosa, beta-hemolytic strep, vancomycin-resistant Enterococcus, Bacteroides, Parabacteroides, Clostridium perfringens and fungus. If any of these are isolated, the organism will be reported. Current interpretive data was last revised on 2019. Connie Venegas MD LAB MICROBIOLOGY - GENERAL OR DERABLES Final Result CROW COROANCH [address] [facility]. [place] [address] * TX AN ELECTIVE ENDOTRACHEAL AIRWAY, TX AN PROCEDURE PLACEHOLDER (12/14/2024 12:15 PM TUBE LANCER) Narrative Светлана Garcia CRNA - 12/14/2024 12:15 PM TUBE LANCER Светлана Garcia CRNA 12/14/2024 12:15 PM Airway Patient location: OR Urgency: elective Date/time: 12/14/2024 12:07 PM Indications for airway management: anesthesia Difficult airway: no Staff: Supervising provider: Lisandro Garcia MD Placed by: CONTROL SYSTEMS DEVELOPER: Светлана Garcia CRNA Emergent airway documentation: Risks and benefits discussed: yes Consent obtained: yes Consent given by: patient Airway prep: Preoxygenated: yes Patient position: sniffing MILS maintained throughout: yes Mask difficulty assessment: 0 - not attempted Spontaneous ventilation during airway: absent Sedation level during airway: GA Final airway details: Final airway type: endotracheal airway Tube type: ETT ETT size: 7.5 mm Cuffed: yes Technique used for successful ETT placement: direct laryngoscopy Insertion site: oral Blade type: Christopher Blade size: 4 Cormack-Lehane (direct): grade I - full view of glottis Cuff volume: 7 mL Cuff inflated with: air ETT to teeth: 22 cm Placement verified by: auscultation and CO2 detection Airway secured with: silk tape Number of attempts: 1 Lisandro Garcia MD ANESTHESIA ORDERABLES Fin al Result * POCT glucose (12/14/2024 11:13 AM TUBE LANCER) Glucose, POC 158 70 - 199 mg/dL Comment: Interpretive Data Glucose is assumed to be non-fasting. Fasting Glucose reference ranges are: 0 - 150 years: 70 mg/dL - 99 mg/dL Current interpretive data was last revised on 2014. POC Performer [id number] [facility] POC Device Number [id number] [facility] Blood 12/14/2024 11:1 3 AM TUBE LANCER 12/14/2024 11:13 AM TUBE LANCER Connie Venegas MD LAB POCT ORDERABLES - DEVICE Final Result Performing Organization Address [facility] de Phone Number [facility] [address] [place] [address] * POCT glucose (12/14/2024 10:26 AM TUBE LANCER) Glucose, POC 193 70 - 199 mg/dL Comment: Interpretive Data Glucose is assumed to be non-fasting. Fasting Glucose reference ranges are: 0 - 150 years: 70 mg/dL - 99 mg/dL Current interpretive data was last revised on 2014. POC Performer [id number] [facility] POC Device Number [id number] [facility] Blood 12/14/2024 10:2 6 AM TUBE LANCER 12/14/2024 10:26 AM TUBE LANCER Connie Venegas MD LAB POCT ORDERABLES - DEVICE Final Result Performing Organization Address [facility] de Phone Number [facility] [address] [facility] [place] [address] * Aud[employer] Results (11/08/2024 8:21 AM TUBE LANCER) Provider Scanning AUDIOLOGY SERVICES ORDERABLES Final Result * Neuro CT Outside Reference (11/05/2024 8:35 AM TUBE LANCER) Impressions RAD_PACS_BJ - 11/05/2024 8:35 AM TUBE LANCER These images are for Reference purposes only and have not been reviewed by [facility] Radiology. There will be no report generated by a [facility] Radiologist. Narrative RAD_PACS_BJ - 11/05/2024 8:35 AM TUBE LANCER EXAMINATION: Images For Reference Purposes Only Connie Venegas MD IMG CT PROCEDURES Final Resul t RAD_PACS_[facility] * POCT lipid panel (11/23/2022 10:37 AM TUBE LANCER) Cholesterol, POC 127 mg/dL HDL, POC 37 mg/dL Triglycerides, POC 99 mg/dL LDL Cholesterol POC 70 mg/dL Chol/HDL Ratio, POC 1.9 Non-HDL Cholesterol, POC 90 mg/dL Cholesterol Total, POC 127 mg/dL Capillary blood 11/23/2022 1 0:37 AM TUBE LANCER Aiyana Waterman NP POINT OF CARE TEST ORDERA BLES Final Result from Last 3 Months or Most Recently Relevant to Health Maintenance Insurance [facility] MEDICARE [facility]VANTAGE [facility] MEDICARE ADVANTAGE Care Teams Coiled Coil Inspector Relationship Specialty Start Date End Date Javier Hampton DO [address] [place] [address] PCP - General Family Medicine 12/15/21
--- OUTSIDE RECORDS SUMMARY | 2025-01-25 08:41 | XMS_ITS | Clinical Summary ---
Author Organization [facility] Address [address] [place] [address] Phone Care Team Providers Care Bottle Machine Operator Name Role Phone Javier Hampton MD Primary Care Provider [phone] Azeem Coronel MD Unavailable [phone] Allergies Active Allergy Reactions Criticality Noted Date Comments Penicillins Rash 02/12/2021 Medications Cholecalciferol 25 mcg Capsule Take 2,000 Units by mouth. Active Calcium Carbonate (CALCIUM 600 PO) Take 600 mg by mouth. Active aspirin EC 81 MG Tablet Delayed Response Take 81 mg by mouth daily. Active Dapagliflozin Propanediol 10 MG Tablet Take 1 Tablet by mouth daily. 12/07/2021 Active Multiple Vitamins-Mineral s (PRESERVISION AREDS PO) Take by mouth daily. Active Trulicity 0.75 MG/0.5ML Solution Pen-injector 12/31/2021 Active metoprolol Succinate (TOPROL-XL) 25 MG TABLET SR 24 HR TAKE 1/2 TABLET BY MOUTH DAILY 12/28/2021 Active pantoprazole (PROTONIX) 40 MG Tablet Delayed Response TAKE 1 TABLET BY MOUTH EVERY MORNING X 6 WEEKS 12/28/2021 Active Lancet Device Misc by Does not [...] mouth 3 times daily. 90 Tablet 2 12/05/2024 Active Active Problems Problem Noted Date Diagnosed Date Parkinson's disease 05/10/2022 Current smoker 03/11/2021 Polycythemia 02/12/2021 Encounters Date Type Department Care Team Description 12/05/2024 Refill [facility] Neurology [facility] [place] [address] [place] [address] Azeem Coronel MD 11/22/2024 9:30 AM TOOL DESIGN ENGINEER Office Visit [facility] [address] [place] [address] Azeem Coronel MD Parkinson's disease without dyskinesia or fluctuating manifestations (HCC) (Primary Dx); Polycythemia Discharge Disposition: Discharged to home or Selfcare 11/22/2024 Travel from Last 3 Months Immunizations Immunization Administration Dates Next Due Pneumococcal Vaccine Adult - 23 Valent 0 Family History Medical History Relation Name Comments Coronary Artery Disease Brother Diabetes Brother Diabetes Father Breast Cancer Mother Relation Name Status Comments Brother Father Mother Social History Tobacco Use Types Packs/Day Years Used Date Smoking Tobacco: Every Day Cigarettes 0.5 67.3 Started: 10/10/1977 Smokeless Tobacco: Never Tobacco Cessation:Ready to Q [...] Sign Reading Time Taken Comments Blood Pressure 110/74 11/22/2024 9:35 AM TOOL DESIGN ENGINEER Pulse 80 11/22/2024 9:35 AM TOOL DESIGN ENGINEER Temperature 36.6 C (97.9 F) 11/22/2024 9:35 AM TOOL DESIGN ENGINEER Respiratory Rate 17 11/22/2024 9:35 AM TOOL DESIGN ENGINEER Oxygen Saturation 98% 11/22/2024 9:35 AM TOOL DESIGN ENGINEER Inhaled Oxygen Concentration - - Weight 88.5 kg (195 lb 3.2 oz) 11/22/2024 9:35 A M TOOL DESIGN ENGINEER Height 180.3 cm (5' 11 ) 11/22/2024 9:35 AM TOOL DESIGN ENGINEER Body Mass Index 27.22 11/22/2024 9:35 AM TOOL DESIGN ENGINEER Plan of Treatment Upcoming Encounters Date Type Department Care Team (Late st Contact Info) Description 05/28/2025 9:30 AM CDT Office Visit [facility] [address] [place] [address] Azeem Coronel MD [address] [place] [address] Health Maintenance Due Date Last Done Comments Hepatitis C Virus (HCV) Screening 1950 TdaP Immunization 1950 Colonoscopy 1997 Colorectal Cancer Screening 1997 Cologuard 2002 Immunochemical Fecal Occult Blood 2002 Lung Cancer Screening 2002 Respiratory Syncytial Virus (RSV) Immunization (Adult) (1 - Risk 60-74 years 1-dose series) 2012 AAA Screening Ultrasound 2017 Pneumococcal Immunization (50+ years) (2 of 2 - PCV) 11/08/2020 11/08/2019 Influenza Immunization (#1) 2024 SARS-COV-2 Immunization ( season) 2024 06/29/2024, 09/12/2021, 12/05/2020, Additional history exists Zoster Immunization Completed 10/31/2024, 08/07/2024, 02/14/2013 Hepatitis B Immunization Aged Out No longer eligible based on patient's age to complete this topic Meningococcal Immunization (ACWY) Aged Out No longer eligible based on patient's age to complete this topic Rotavirus Immunization Aged Out No lo nger eligible based on patient's age to complete this topic [facility] Care Teams Bottle Machine Operator Relationship Specialty Start Date End Date Javier Hampton MD [address] [place] [id number] PCP - General Family Medicine 12/09/21 Azeem Coronel MD [address] [place] [address] Consulting Physician Neurology 01/26/22
--- OUTSIDE RECORDS SUMMARY | 2025-01-25 08:41 | XMS_ITS | Clinical Summary ---
Author Organization [facility] [employer] Address [address] [place] [address] Care Team Providers Care Pigment And Lacquer Mixer Name Role Phone Harjit Lan MD Primary Care Provider [phone] Source Comments [facility] [employer],non-owned Affiliates and Associated Physician Practices is amultiple site organization consisting of ambulatory clinics and hospital sitesin [place], [place], [place] and [place]. This disclosure is being madepursuant to the Care Everywhere program and may not contain all information available regarding this patient. Last updated 18.[facility] [employer] Allergies No known active allergies Medications * Be aware that medications may not be up to date on this document. Alwaysverify current medications with the patient. amitriptyline (ELAVIL) 25 MG tablet Take 25 [...] at Not on file Legal Sex Male 4:21 PM CDT Gender Identity Not on file Sexual Orientation Not on file Last Filed Vital Signs Vital Sign Reading Time Taken Comments Blood Pressure 130/80 12/08/2018 10:41 AM ANIMAL IMPERSONATOR Pulse 76 12/08/2018 10:41 AM ANIMAL IMPERSONATOR Temperature 36.3 C (97.4 F) 12/08/2018 10:41 AM ANIMAL IMPERSONATOR Respiratory Rate 16 12/08/2018 10:41 AM ANIMAL IMPERSONATOR Oxygen Saturation 97% 12/08/2018 10:41 AM ANIMAL IMPERSONATOR Inhaled Oxygen Concentration - - Weight 89.4 kg (197 lb 3.2 oz) 12/08/2018 10:41 AM ANIMAL IMPERSONATOR Height 177.8 cm (5' 10 ) 07/21/2018 1:12 PM CDT Body Mass Index 28.3 07/21/2018 1:12 PM CDT Plan of Treatment Health Maintenance Due Date Last Done Comments BONE DENSITY TESTING 1950 COLON MONITORING 1950 COLONOSCOPY - COLON CA SCREENING 1950 CT COLONOGRAPHY - COLON CA SCREENING 1950 FIT - COLON CA SCREENING 1950 FLEX SIG - COLON CA SCREENING 1950 HEPATITIS C SCREENING 08/02/1970 DTAP/TDAP/TD VACCINES (1 - Tdap) 1971 PNEUMOCOCCAL VACCINE 50+ (1 of 2 - PCV) 1971 ZOSTER VACCINE (1 of 2) 2002 AAA SCREENING 2017 SCREENING FOR DIABETES 07/21/2018 COVID-19 VACCINE ( - 2023-2 5 season) 2024 DEPRESSION SCREENING 10/10/2024 MEDICARE AWV CALENDAR YEAR 2024 INFLUENZA VACCINE (Season Ended) 2025 COLOGUARD (AGES 45-75) - COL ON CA SCREENING 07/29/2026 07/29/2023 Colorectal Cancer Screening 07/29/2026 Respiratory Syncytial Virus (RSV) Vaccine Pt: or over 60 yrs (1 - 1-dose 75+ series) 2027 LIPID TESTING 11/23/2027 11/23/2022 HEPATITIS B VACCINE Aged Out No longe r eligible based on patient's age to complete this topic HIB VACCINE Aged Out No longer eligi ble based on patient's age to complete this topic HPV VACCINE Aged Out No longer eligi ble based on patient's age to complete this topic MENINGOCOCCAL (Group B) VACC INE SHARED DECISION-MAKING Aged Out No longer eligibl e based on patient's age to complete this topic MENINGOCOCCAL GROUPS A/C/Y/W VACCINE Aged Out No longer eligible b ased on patient's age to complete this topic Insurance MEDICARE [facility] MEDICARE [facility] Care Teams Pigment And Lacquer Mixer Relationship Specialty Start Date End Date Harjit Lan MD [address] [place] [phone] PCP - General 07/21/18
--- OUTSIDE RECORDS SUMMARY | 2025-01-25 08:41 | XMS_ITS | Referral Summary ---
Author Organization [facility] [place] [address] Address [address] [place] [address] Care Team Providers Care Research Assistant Member Name Role Phone Javier Hampton Primary Care Provider Encounters Date Type Department Care Team Description 01/23/2025 10:00 AM CDT Office Visit [facility] Otolaryngology [address], [address] [place] [address] Connie Venegas MD 12/14/2024 11:50 AM NEWS VIDEO EDITOR - 12/14/2024 2:35 PM NEWS VIDEO EDITOR Surgery [facility] [address] [facility] [place], [place] [address] Connie Venegas MD TYMPANOPLASTY WITH CANAL WALL DOWN MASTOIDECTOMY. 12/14/2024 11:55 AM NEWS VIDEO EDITOR Anesthesia Event [facility] [address] [place] [address] Lisandro Garcia MD Botkin, Amanda Marie, NP 12/14/2024 10:02 AM NEWS VIDEO EDITOR - 12/14/2024 4:39 PM NEWS VIDEO EDITOR Hospital Encounter [facility] [address] [place] [address] Connie Venegas MD Chronic mastoiditis of left side [H70.12] (Primary Dx); Cholesteatoma of mastoid, left ear Discharge Disposition: Discharge to home or self care 11/08/2024 8:40 AM NEWS VIDEO EDITOR Procedure visit [facility] Otolaryngology [address] [place] [address] Mixed conductive and sensorineural hearing loss of left ear with restricted hearing of right ear (Primary Dx); Sensorineural hearing loss (SNHL) of right ear with restricted hearing of left ear 11/08/2024 9:00 AM NEWS VIDEO EDITOR Office Visit [facility] ENT [address] [place] [address] Connie Venegas MD Cholesteatoma of mastoid, left ear; Conductive hearing loss, unilateral, left ear, with unrestricted hearing on the contralateral side 11/05/2024 8:35 AM NEWS VIDEO EDITOR - 11/05/2024 11:59 PM NEWS VIDEO EDITOR Hospital Encounter [facility] [address] [place] [id number] Discharge Disposition: Discharge to home or self care from Last 3 Months Allergies Active Allergy Reactions Criticality Noted Date [...] mouth every morning 07/05/20 22 Active vitamins A,C,E-coux-zhesbj (ICaps AREDS) 7,160-113-100 kmgp-dl-ncsk tablet,delayed release (DR/EC) Take 1 tablet by [...] ischemic 08/24/2022 Coronary artery disease invo lving pokagon coronary artery of pokagon heart without angina pectoris 01/06/2022 Dilated cardiomyopathy 01/06/2022 Essential hypertension 01/06/2022 Hyperlipidemia associated with type 2 diabetes m ellitus 01/06/2022 Tobacco use 01/06/2022 Polycythemia 01/06/2022 Falls 01/06/2022 Nonrheumatic mitral valve regurgitation 01/07/20 22 CKD stage 3 due to type 2 diabetes mellitus 12/10 Current smoker 03/11/2021 Age-related osteoporosis with current pathologic al fracture 07/21/2018 Immunizations Immunization Administration Dates Next Due Pneumococcal Polysaccharide PPV23 11/08/2019 ZOSTER LIVE 02/14/2013 Social History Tobacco Use Types Packs/Day Years Used Date Smoking Tobacco: Some Days Cigarettes Last attempted to quit: 12/07/2021 Smokeless Tobacco: Never Tobacco Cessation:Ready to Q uit: Not Asked; Counseling Given: Not Answered Comments:10/11 pk/ day AUDIT-C Answer Date Recorded Q1: [...] on file Legal Sex Male 9:34 AM NEWS VIDEO EDITOR Gender Identity Not on file Sexual Orientation Not on file Last Filed Vital Signs Vital Sign Reading Time Taken Comments Blood Pressure 123/62 12/14/2024 4:20 PM NEWS VIDEO EDITOR Pulse 83 12/14/2024 4:25 PM NEWS VIDEO EDITOR Temperature 36 C (96.8 F) 12/14/2024 3:30 PM NEWS VIDEO EDITOR Respiratory Rate 15 12/14/2024 4:25 PM NEWS VIDEO EDITOR Oxygen Saturation 96% 12/14/2024 4:25 PM NEWS VIDEO EDITOR Inhaled Oxygen Concentration - - Weight 86.6 kg (191 lb) 12/14/2024 10:14 AM NEWS VIDEO EDITOR Height 179.1 cm (5' 10.5 ) 12/14/2024 10:[address] Body Mass Index 27.02 12/14/2024 10:14 AM NEWS VIDEO EDITOR Plan of Treatment Not on file Procedures Procedure Name Priority Date/Time Associated Diagnosis Comments POCT GLUCOSE DEVICE Routine 12/14/2024 3 :30 PM NEWS VIDEO EDITOR POCT GLUCOSE DEVICE Routine 12/14/2024 1 :34 PM NEWS VIDEO EDITOR SURGICAL PATHOLOGY Routine 12/14/2024 1: 20 PM NEWS VIDEO EDITOR Cholesteatoma of mastoid, left ear AEROBIC AND ANAEROBIC CULTURE AND GRAM STAIN Routine 12/14/2024 12:25 PM NEWS VIDEO EDITOR ID AN PROCEDURE PLACEHOLDER Routine 12/14/2024 12:15 PM NEWS VIDEO EDITOR ID AN ELECTIVE ENDOTRACHEAL AIRWAY Routine 12/14/2024 12:15 PM NEWS VIDEO EDITOR TYMPANOPLASTY WITH MASTOIDECTOMY. 12/14/2024 12:00 PM NEWS VIDEO EDITOR Cholesteatoma of mastoid, left ear Special Needs Microscope, NIMS ID GRAFT EAR CRTLG AUTOGENOUS NOSE/EAR 12/14/2024 12:00 PM NEWS VIDEO EDITOR Cholesteatoma of mastoid, left ear Special Needs Microscope, NIMS POCT GLUCOSE DEVICE Routine 12/14/2024 1 1:13 AM NEWS VIDEO EDITOR POCT GLUCOSE DEVICE Routine 12/14/2024 1 0:26 AM NEWS VIDEO EDITOR AUDBASE RESULTS 11/08/2024 8:21 AM NEWS VIDEO EDITOR NEURO CT OUTSIDE REFERENCE Routine 11/05/2024 8:35 AM NEWS VIDEO EDITOR POCT LIPID PANEL Routine 11/23/2022 10:3 7 AM NEWS VIDEO EDITOR Lipid screening from Last 3 Months or Most Recently Relevant to Health Maintenance Results * POCT glucose (12/14/2024 3:30 PM NEWS VIDEO EDITOR) Glucose, POC 155 70 - 199 mg/dL Comment: Interpretive Data Glucose is assumed to be non-fasting. Fasting Glucose reference ranges are: 0 - 150 years: 70 mg/dL - 99 mg/dL Current interpretive data was last revised on 2014. POC Performer [id number] CROW ERNST POC Device Number [id number] [facility] Blood 12/14/2024 3:30 PM NEWS VIDEO EDITOR 12/14/2024 3:30 PM NEWS VIDEO EDITOR Connie Venegas MD LAB POCT ORDERABLES - DEVICE Final Result Performing Organization Address [facility] de Phone Number CROW BJWCH [address] [facility] [place] [address] * POCT glucose (12/14/2024 1:34 PM NEWS VIDEO EDITOR) Glucose, POC 142 70 - 199 mg/dL Comment: Interpretive Data Glucose is assumed to be non-fasting. Fasting Glucose reference ranges are: 0 - 150 years: 70 mg/dL - 99 mg/dL Current interpretive data was last revised on 2014. POC Performer [id number] CROW BJWCH POC Device Number [id number] HEATHERROBBIE BJW[facility] Blood 12/14/2024 1:34 PM NEWS VIDEO EDITOR 12/14/2024 1:34 PM NEWS VIDEO EDITOR Connie Venegas MD LAB POCT ORDERABLES - DEVICE Final Result Performing Organization Address [facility] de Phone Number CROW BJWCH [address] [facility] [place] [address] * Surgical pathology (12/14/2024 1:20 PM NEWS VIDEO EDITOR) Tissue specimen (specimen) (Middle ear contents) 12/14/2024 1:20 PM NEWS VIDEO EDITOR Narrative PATHOLOGY [facility]P [facility] FOR [facility] - 12/18/2024 10:21 AM CDT EPIC results best viewed via link to PDF [facility] [place] [address] Note to Patients: This report may contain [...] Gender: M : 1950 (Age: 74) Address: [address] [id number] Hospital #: [id number] Taken:12/14/2024 Received:12/14/2024 Reported: 12/18/2024 Patient Type: [facility] EP SAME Client [facility] Service: Surgery Location: Physician(s): Elaine Carmona D.O. [...] interpretation for this case was performed at [facility], Department of Surgical Pathology, [address] [facility] [place] [place] [id number], [place] [address] CLIA # [id number] The performance characteristics of some immunohistochemical stains, fluorescence in-situ hybridization tests and immunophenotyping by flow cytometry cited in this report (if any) were determined by the Surgical Pathology and Flow Cytometry Departments at [facility] as part of an ongoing quality control manager program and in compliance with federally mandated [...] Surgical Pathology and Flow Cytometry Departments of [facility]. It has not been cleared or approved by the U. S. Food and Drug Administration. IMAGES AND SCANNED DOCUMENTS, IF INCLUDED, ONLY VIEWABLE IN PDF VERSION OF REPORT Connie Venegas MD LAB PATHOLOGY ORDERABLES Jeannette michel Result [facility] * (ABNORMAL) Aerobic and anaerobic culture and gram stain Wound Ear, left (12/14/2024 12:25 PM NEWS VIDEO EDITOR) Direct Specimen Exam Stain: No polymorphonuclear leukocytes seen. Few Gram Positive Cocci Comment:Testing performed by : [facility], [address] [place]., [address] Report Final Report: Few Mixed aerobic and anaerobic microorganisms (.) CROW ERNST Comment:Testing performed by : [facility], [address] [place]., [address] Organism MIXED AEROBIC AND ANAEROBIC MICROORGANISMS CROW ERNST Wound (Ear, left) 12/14/2024 12:25 PM NEWS VIDEO EDITOR 12/14/2024 6:32 PM NEWS VIDEO EDITOR Zechariah CORONARENETTA - 12/18/2024 8:47 AM CDT Specimen received on an ESwab. Testing performed by [facility] Microbiology Laboratory ([phone]) Specimens submitted from normally sterile body sites [...] - GENERAL OR DERABLES Final Result [facility] [address] [facility] Department [place] [address] * ID AN ELECTIVE ENDOTRACHEAL AIRWAY, ID AN PROCEDURE PLACEHOLDER (12/14/2024 12:15 PM NEWS VIDEO EDITOR) Narrative Светлана Garcia CRNA - 12/14/2024 12:15 PM NEWS VIDEO EDITOR Светлана Garcia CRNA 12/14/2024 12:15 PM Airway Patient location: OR Urgency: elective Date/time: 12/14/2024 12:07 PM Indications for airway management: anesthesia Difficult airway: no Staff: Supervising provider: Lisandro Garcia MD Placed by: FLOOR PERSON: Светлана Garcia CRNA Emergent airway documentation: Risks [...] Result * POCT glucose (12/14/2024 11:13 AM NEWS VIDEO EDITOR) Glucose, POC 158 70 - 199 mg/dL Comment: Interpretive Data Glucose is assumed to be non-fasting. Fasting Glucose reference ranges are: 0 - 150 years: 70 mg/dL - 99 mg/dL Current interpretive data was last revised on 2014. POC Performer [id number] [employer] POC Device Number [id number] CROW [employer] Blood 12/14/2024 11:1 3 AM NEWS VIDEO EDITOR 12/14/2024 11:13 AM NEWS VIDEO EDITOR Connie Venegas MD LAB POCT ORDERABLES - DEVICE Final Result Performing Organization Address [facility] de Phone Number [facility] ELAN [employer]WCH [address] [employer] [place] [address] * POCT glucose (12/14/2024 10:26 AM NEWS VIDEO EDITOR) Glucose, POC 193 70 - 199 mg/dL Comment: Interpretive Data Glucose is assumed to be non-fasting. Fasting Glucose reference ranges are: 0 - 150 years: 70 mg/dL - 99 mg/dL Current interpretive data was last revised on 2014. POC Performer [id number] [employer] POC Device Number [id number] [facility]ITAL[facility] Blood 12/14/2024 10:2 6 AM NEWS VIDEO EDITOR 12/14/2024 10:26 AM NEWS VIDEO EDITOR Connie Venegas MD LAB POCT ORDERABLES - DEVICE Final Result Performing Organization Address [facility] de Phone Number [facility] ELAN [employer]CH [address] [facility] [place] [address] * [employer] Results (11/08/2024 8:21 AM NEWS VIDEO EDITOR) Provider Scanning AUDIOLOGY SERVICES ORDERABLES Final Result * Neuro CT Outside Reference (11/05/2024 8:35 AM NEWS VIDEO EDITOR) Impressions RAD_PACS[facility] - 11/05/2024 8:35 AM NEWS VIDEO EDITOR These images are for Reference purposes only and have not been reviewed by [facility]. There will be no report generated by a [facility] Radiologist. Narrative RAD_PACS_[facility] - 11/05/2024 8:35 AM NEWS VIDEO EDITOR EXAMINATION: Images For Reference Purposes Only Connie Venegas MD IMG CT PROCEDURES Final Resul t RAD_PACS_[facility] * POCT lipid panel (11/23/2022 10:37 AM NEWS VIDEO EDITOR) Cholesterol, POC 127 mg/dL HDL, POC 37 mg/dL Triglycerides, POC 99 mg/dL LDL Cholesterol POC 70 mg/dL Chol/HDL Ratio, POC 1.9 Non-HDL Cholesterol, POC 90 mg/dL Cholesterol Total, POC 127 mg/dL Capillary blood 11/23/2022 1 0:37 AM NEWS VIDEO EDITOR Aiyana Waterman NP POINT OF CARE TEST ORDERA BLES Final Result from Last 3 Months or Most Recently Relevant to Health Maintenance Insurance [facility] MEDICARE ADVANTAGE [facility] MEDICARE ADVANTAGE Care Teams Research Assistant Member Relationship Specialty Start Date End Date Javier Hampton DO [address] [place] [address] PCP - General Family Medicine 12/15/21
--- OUTSIDE RECORDS SUMMARY | 2025-01-25 08:41 | XMS_ITS | Encounter Summary ---
Author Organization [facility] Address [address] [place] [address] Phone Care Team Providers Care Eyewear Manufacturing Supervisor Name Role Phone Syeda Fontanez APRN Primary Care Provider [phone] Javier Hampton MD Primary Care Provider [phone] Azeem Coronel MD Unavailable [phone] Encounter Details Date Type Department Care Team (Late st Contact Info) Description 12/03/2021 Telephone [facility] Oncology Services [address] [place] [address] Arnulfo [place] MD [address] [place] [address] Social History Tobacco Use Types [...] a heart attack. He was taken to [facility] where a heart attack was ruled out. They do however want to admit him for observation of his lungs and to administer antibiotics. Mrs. Robert is wanting Mr. Robert transferred to [facility]. I instructed her that she could put in a request with [facility] for the transfer and seeif the hospital is able to meet her wishes. SUPERVISOR documented in this encounter Plan of Treatment Upcoming Encounters Date Type Department Care Team (Late st Contact Info) Description 05/28/2025 9:30 AM CDT Office Visit [facility] - Neurology - [place] [address] [place] [address] Azeem Coronel MD [address] [place] [address] documented as of this encounter Visit Diagnoses Not on filedocumented in this encounter Care Teams Eyewear Manufacturing Supervisor Relationship Specialty Start Date End Date Syeda Fontanez APRN [address] [place] [address] PCP - General Family Medicine 02/12/21 12/08/21 Javier Hampton MD [address] [place] [address] PCP - General Family Medicine 12/09/21 Azeem Coronel MD [address] [place] [phone] Consulting Physician Neurology 01/26/22 documented as of this encounter
[2025-01-25 09:11] LABS: Albumin Level 3.4 g/dL (3.4-5.0); Anion Gap 6 mmol/L (4-12); Blood Urea Nitrogen 29 mg/dL (7-18); Calcium 9.8 mg/dL (8.5-10.1); Carbon Dioxide 29 mmol/L (21-32); Chloride 101 mmol/L (98-108); Estimated Glomerular Filt Rate 47; Glucose 172 mg/dL (70-99); Osmolality Calculated 291 mOsm/kg (285-295); Phosphorus 3.3 mg/dL (2.6-4.7); Potassium 4.6 mmol/L (3.5-5.1); Sodium 136 mmol/L (136-145)
[2025-01-26 13:37] LABS: Vitamin D 25 Hydroxy 43 ng/mL (30-100)
[2025-01-27 07:19] LABS: Parathyroid Intact 18 pg/mL (16-77)
[2025-01-28 11:52] LABS: Creatinine, Random Urine 62 mg/dL (20-320); Total Protein/Creatinine Ratio 210 mg/g creat (25-148)
[2025-01-28 19:34] LABS: Immunofixation, Serum Normal pattern.
== END 2025-01-25 08:36 | disposition home or self-care (01) ==
LOC: CHSLAB 08:38
PROVIDERS: PCP Family Medicine; Visit Provider Internal Medicine Nephrology
DX: E11.22 Type 2 diabetes mellitus with diabetic chronic kidney disease (principal); R80.9 Proteinuria, unspecified; N18.31 Chronic kidney disease, stage 3a; N25.81 Secondary hyperparathyroidism of renal origin; E55.9 Vitamin D deficiency, unspecified
CPT/HCPCS: 36415; 80069; 82306; 82570; 83970; 84156; 84166; 86334; 86335

== ENCOUNTER 2025-04-16 07:50 | Outpatient (CLI) | payer MEDICARE, SELFPAY ==
--- NOTE | ~2025-04-16 | US_ITS ---
Ultrasound of the Abdominal Aorta INDICATION: Abdominal aortic aneurysm TECHNIQUE: Grayscale, color Doppler, and pulsed Doppler images of the aorta and common iliac arteries were obtained. COMPARISON: None. FINDINGS: Maximum vascular dimensions are as follows: Proximal aorta: 1.9 cm Mid aorta: 2.1 cm Distal aorta: 2.0 cm Right common iliac artery: 1.6 cm Left common iliac artery: 1.2 cm There is no evidence of abdominal aortic aneurysm. IMPRESSION: No abdominal aortic aneurysm. Reviewed, dictated and finalized at location M.
--- OUTSIDE RECORDS SUMMARY | 2025-04-16 07:52 | XMS_ITS | Encounter Summary ---
Author Organization [facility] Address [address] [facility] [address] Phone Care Team Providers Care Commercial Drone Pilot Name Role Phone Syeda Fontanez APRN Primary Care Provider [phone] Javier Hampton MD Primary Care Provider Azeem Coronel MD Unavailable [phone] Encounter Details Date Type Department Care Team (Late st Contact Info) Description 12/03/2021 Telephone [facility] Oncology Services [address] [place] [address] Arnulfo Hull MD [address] [place] [address] Social History Tobacco Use Types [...] a heart attack. He was taken to [facility] where a heart attack was ruled out. They do however want to admit him for observation of his lungs and to administer antibiotics. Mrs. Robert is wanting Mr. Robert transferred to [facility]. I instructed her that she could put in a request with [facility] for the transfer and seeif the hospital is able to meet her wishes. IOPULMONARY TECHNICIAN AND EEG TECH documented in this encounter Plan of Treatment Upcoming Encounters Date Type Department Care Team (Late st Contact Info) Description 05/28/2025 9:30 AM CDT Office Visit [facility] - Neurology - [place] [address] [place] [address] Azeem Coronel MD [address] [place] [address] documented as of this encounter Visit Diagnoses Not on filedocumented in this encounter Care Teams Commercial Drone Pilot Relationship Specialty Start Date End Date Syeda Fontanez APRN [address] [place] [address] PCP - General Family Medicine 02/12/21 12/08/21 Javier Hampton MD [address] [place] [address] PCP - General Family Medicine 12/09/21 Azeem Coronel MD [address] [place] [id number] Consulting Physician Neurology 01/26/22 documented as of this encounter
--- OUTSIDE RECORDS SUMMARY | 2025-04-16 07:52 | XMS_ITS | Clinical Summary ---
Author Organization [facility] Address [address] [place] [address] Care Team Providers Care Refinery Operator Reforming Unit Name Role Phone Harjit Lan MD Primary Care Provider [phone] Source Comments [facility],non-owned Affiliates and Associated Physician Practices is amultiple site organization consisting of ambulatory clinics and hospital sitesin [place], [place], [place] and [place]. This disclosure is being madepursuant to the Care Everywhere program and may not contain all information available regarding this patient. Last updated 18.[facility] Allergies No known active allergies Medications * [...] Comments Blood Pressure 130/80 12/08/2018 10:41 AM BRONC BREAKER Pulse 76 12/08/2018 10:41 AM BRONC BREAKER Temperature 36.3 C (97.4 F) 12/08/2018 10:41 AM BRONC BREAKER Respiratory Rate 16 12/08/2018 10:41 AM BRONC BREAKER Oxygen Saturation 97% 12/08/2018 10:41 AM BRONC BREAKER Inhaled Oxygen Concentration - - Weight 89.4 kg (197 lb 3.2 oz) 12/08/2018 10:41 AM BRONC BREAKER Height 177.8 cm (5' 10) 07/21/2018 1:12 PM CDT Body Mass Index [...] (1 of 2) 2002 AAA SCREENING 2017 COVID-19 VACCINE (1 - 2023-2 5 season) 2024 DEPRESSION SCREENING 10/10/2024 MEDICARE AWV CALENDAR YEAR 2024 INFLUENZA VACCINE (#1) 2025 SCREENING FOR DIABETES 11/23/2025 11/23/2022 COLOGUARD (AGES 45-75) - COL ON CA [...] age to complete this [place] [address] [facility] MEDICARE [facility] Care Teams Refinery Operator Reforming Unit Relationship Specialty Start Date End Date Harjit Lan MD [address] [place] [address] PCP - General 07/21/18
--- OUTSIDE RECORDS SUMMARY | 2025-04-16 07:52 | XMS_ITS | Referral Summary ---
Author Organization [facility] [address] [place] [address] [address] Address [address] [facility] [address] [place] [address] Care Team Providers Care Weight Loss Consultant Name Role Phone Javier Hampton Primary Care Provider Encounters Date Type Department Care Team Description 04/10/2025 Telephone [facility] Medical [facility] Cardiology [address] [facility] [address] [place] [address] Jan Gutierrez MD 03/12/2025 11:15 AM CDT Office Visit [facility] Medical [facility] Cardiology [address] [place] [address] [address] [place] [address] Jan Gutierrez MD Cardiomyopathy, ischemic (Primary Dx); Coronary artery disease involving [place] coronary artery of [place] heart without angina pectoris; Hyperlipidemia associated with type 2 diabetes mellitus (HCC); Nonrheumatic mitral valve regurgitation; Tobacco use 01/23/2025 10:00 AM CDT Office Visit [facility] Otolaryngology [address] [place] [address], [address] [place] [address] Connie Venegas MD Cholesteatoma of mastoid, left ear (Primary Dx) from Last 3 Months Allergies Active Allergy [...] mouth every morning 07/05/20 22 Active vitamins A,C,X-tnfr-lxwass (ICaps AREDS) 7,160-113-100 jdri-pa-mmfl tablet,delayed release (DR/EC) Take 1 tablet by mouth daily after lunch Active atorvastatin (LIPITOR) 40 mg tabletIndications: Hyperlipidemia associated with type 2 diabetes mellitus (HCC),Coronary artery calcification Take 1 tablet (40 mg total) by mouth daily 90 tablet 3 08/01/20 24 Active Additional Information Patient taking differently:40 mg oralEvery morning, Informant: Self, Spouse/Significant Other, Reported on 03/12/2025 losartan (COZAAR) 50 mg tabletIndications: Cardiomyopathy, ischemic,Essential hypertension,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),Dilated cardiomyopathy (HCC) Take 1 tablet (50 mg total) by mouth daily 90 tablet 3 08/01/20 24 025 Active Additional Information Patient taking differently:50 mg oralEvery morning, Informant: Self, Spouse/Significant Other, Reported on 03/12/2025 amitriptyline (ELAVIL) 25 mg tablet Take 1 [...] ischemic 08/24/2022 Coronary artery disease invo lving [place] coronary artery of [place] heart without angina pectoris 01/06/2022 Dilated cardiomyopathy [...] on file Legal Sex Male 9:34 AM TONE ARTIST APPRENTICE Gender Identity Not on file Sexual Orientation Not on file Last Filed Vital Signs Vital Sign Reading Time Taken Comments Blood Pressure 120/78 03/12/2025 10:59 AM CDT Pulse 61 03/12/2025 10:59 AM CDT Temperature 36 C (96.8 F) 12/14/2024 3:30 PM TONE ARTIST APPRENTICE Respiratory Rate 15 12/14/2024 4:25 PM TONE ARTIST APPRENTICE Oxygen Saturation 95% 03/12/2025 10:59 AM CDT Inhaled Oxygen Concentration - - Weight 85.3 kg (188 lb) 03/12/2025 10:59 AM CDT Height 177.8 cm (5' 10) 03/12/2025 10:59 AM CDT Body Mass Index 26.98 03/12/2025 10:59 AM CDT Plan of Treatment Not on file Procedures Procedure Name Priority Date/Time Associated Diagnosis Comments POCT LIPID PANEL Routine 03/12/2025 11:0 1 AM CDT Coronary artery disease involving [place] coronary artery of [place] heart without angina pectoris Hyperlipidemia associated with type 2 diabetes mellitus (HCC) from Last 3 Months Results * POCT lipid panel (03/12/2025 11:01 AM CDT) Cholesterol, POC 117 <200 MG/DL HDL, POC 42 >=40 mg/dL Triglycerides, POC 50 <=149 mg/dL LDL Cholesterol POC 65 <=129 mg/dL Chol/HDL Ratio, POC 1.5 NONE Non-HDL Cholesterol, POC 74 NONE mg/dL Cholesterol Total, POC 117 30 - 199 mg/dL Capillary blood 03/12/2025 1 1:01 AM CDT Jan Gutierrez MD POINT OF CARE TEST ORDERA BLES Final Result from Last 3 Months Insurance [facility] MEDICARE [facility] Address: [address] [address] [place] [address] [facility] MEDICARE ADVANTAGE Care Teams Weight Loss Consultant Relationship Specialty Start Date End Date Javier Hampton DO [address] [place] [address] PCP - General Family Medicine 12/15/21
--- OUTSIDE RECORDS SUMMARY | 2025-04-16 07:52 | XMS_ITS | Clinical Summary ---
Author Organization [facility] Address [address] [place] [address] Phone Care Team Providers Care Railway Traction Line Worker Name Role Phone Javier Hampton MD Primary Care Provider [phone] Azeem Coronel MD Unavailable [phone] Allergies Active Allergy Reactions Criticality Noted Date [...] mouth 3 times daily. 90 Tablet 2 03/11/2025 Active Active Problems Problem Noted Date Diagnosed Date Parkinson's disease 05/10/2022 Current smoker 03/11/2021 Polycythemia 02/12/2021 Encounters Date Type Department Care Team Description 03/11/20[facility] [place] [address] [place] [address] Azeem Coronel MD from Last 3 Months Immunizations Immunization Administration Dates Next Due Pneumococcal Vaccine Adult - 23 Valent 0 Family History Medical History Relation Name Comments Coronary Artery Disease Brother Diabetes Brother Diabetes Father Breast Cancer Mother Relation Name Status Comments Brother Father Mother Social History Tobacco Use Types Packs/Day Years Used Date Smoking Tobacco: Every Day Cigarettes 0.5 67.5 Started: 10/10/1977 Smokeless Tobacco: Never Tobacco Cessation:Ready [...] Comments Blood Pressure 110/74 11/22/2024 9:35 AM CONTRACT FORESTER Pulse 80 11/22/2024 9:35 AM CONTRACT FORESTER Temperature 36.6 C (97.9 F) 11/22/2024 9:35 AM CONTRACT FORESTER Respiratory Rate 17 11/22/2024 9:35 AM CONTRACT FORESTER Oxygen Saturation 98% 11/22/2024 9:35 AM CONTRACT FORESTER Inhaled Oxygen Concentration - - Weight 88.5 kg (195 lb 3.2 oz) 11/22/2024 9:35 A M CONTRACT FORESTER Height 180.3 cm (5' 11) 11/22/2024 9:35 AM CONTRACT FORESTER Body Mass Index 27.22 11/22/2024 9:35 AM CONTRACT FORESTER Plan of Treatment Upcoming Encounters Date Type Department Care Team (Late st Contact Info) Description 05/28/2025 9:30 AM CDT Office Visit [facility] Neurology [facility] [address] [place] [address] Azeem Coronel MD [address] [place] [address] Health Maintenance Due Date Last Done Comments Hepatitis C Virus (HCV) Screening 1950 TdaP Immunization 1950 Colonoscopy 1997 Colorectal Cancer Screening 1997 Cologuard 2002 Immunochemical Fecal Occult Blood 2002 Lung Cancer Screening 2002 Respiratory Syncytial Virus (RSV) Immunization (Adult) (1 - Risk 60-74 years 1-dose series) 2012 AAA Screening Ultrasound 2017 Pneumococcal Immunization (50+ years) (2 of 2 - PCV) 11/08/2020 11/08/2019 SARS-COV-2 Immunization ( season) 2024 06/29/2024, 09/12/2021, 12/05/2020, Additional history exists Influenza Immunization (Season Ended) 2025 Zoster Immunization Completed 10/31/2024, 08/07/2024, 02/14/2013 Hepatitis B Immunization Aged Out No longer eligible based on patient's age to complete this topic Human Papillomavirus (HPV) Immunization Aged Out No longer eligible based on patient's age to complete this topic Meningococcal Immunization (ACWY) Aged Out No longer eligible based on patient's age to complete this topic Rotavirus Immunization Aged Out No lo nger eligible based on patient's age to complete this topic Insurance [facility]ICARE [facility] Care Teams Railway Traction Line Worker Relationship Specialty Start Date End Date Javier Hampton MD [address] [place] [address] PCP - General Family Medicine 12/09/21 Azeem Coronel MD [address] [place] [address] Consulting Physician Neurology 01/26/22
--- OUTSIDE RECORDS SUMMARY | 2025-04-16 07:52 | XMS_ITS | Encounter Summary ---
Author Organization [facility] Address [address] [place] [address] Care Team Providers Care Switchboard Operator Receptionist Name Role Phone Javier Hampton Primary Care Provider Encounter Details Date Type Department Care Team (Late st Contact Info) Description 04/10/2025 Telephone [facility] Cardiology [address] [place] [address] Jan Gutierrez MD [address] [facility] [address] [place] [address] Social History Tobacco Use Types Packs/Day Years Used Date Smoking Tobacco: Some Days Cigarettes Last attempted to quit: 12/07/2021 Smokeless Tobacco: Never Comments:1/2 pk/ day AUDIT-C Answer Date Recorded [...] on file 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 She verbalizes understanding. * Telephone Encounter - Светлана Shelton - 04/10/2025 1:58 PM CDT Odalys returned Samantha Valadez call asking for a call back thank you Contact: * Telephone Encounter - Danelle Stephen NP - 04/10/2025 1:41 PM CDT Reviewed EKG demonstrated normal sinus rhythm, occasional PAC and first-degree AV block, not significantly changed from previous EKG. If he is not having symptoms of hypotension would like him to continue his metoprolol XL 12.5 mg daily for his history of CAD and cardiomyopathy. No indication to stop beta- david in regards to this EKG. Thank you * Telephone Encounter - Samantha Muniz RN - 04/10/2025 1:34 PM CDT EKG scanned under media and attached to this telephone note. Will forward to who is covering forMAF. Please advise. * Telephone Encounter - Samantha Muniz RN - 04/10/2025 1:08 PM CDT LM on with Odalys, advised we have not received EKG she faxed over and requested return call to discuss. * Telephone Encounter - Светлана Shelton - 04/10/2025 11:19 AM CDT Odalys lock/ [facility] called wanting to know if the pt is to continue taking the Bata david she is faxing over the results of an EKG he had done recently as well for MAF to review please advise thank you Contact: documented in this encounter Plan of Treatment Not on file documented as of this encounter Visit Diagnoses Not on filedocumented in this encounter Care Teams Switchboard Operator Receptionist Relationship Specialty Start Date End Date Javier Hampton DO [address] [place] [address] PCP - General Family Medicine 12/15/21 documented as of this encounter
--- OUTSIDE RECORDS SUMMARY | 2025-04-16 07:52 | XMS_ITS | Clinical Summary ---
Author Organization [facility] [address] [facility] [address] Address [address] [facility] [address] [place] [address] Care Team Providers Care Tube Cutter Name Role Phone Javier Hampton Primary Care [...] mouth every morning 07/05/20 22 Active vitamins A,C,R-ijgk-tsenlw (ICaps AREDS) 7,160-113-100 kwsl-kx-ipio tablet,delayed release (DR/EC) Take 1 tablet by [...] Type Department Care Team Description 04/10/2025 Telephone [facility] Medical Group Cardiology [address] [place] [address] Jan Gutierrez MD 03/12/2025 11:15 AM CDT Office Visit [facility] Medical [facility] Cardiology [address] [place] [address] Jan Gutierrez MD Cardiomyopathy, ischemic (Primary Dx); Coronary artery disease involving [place] coronary artery of [place] heart without angina pectoris; Hyperlipidemia associated with type 2 diabetes mellitus (HCC); Nonrheumatic mitral valve regurgitation; Tobacco use 01/23/2025 10:00 AM CDT Office Visit [facility] Otolaryngology [facility] [address] [place] [address] Connie Venegas MD Cholesteatoma of mastoid, left ear (Primary Dx) from Last 3 Months Immunizations Immunization Administration Dates Next Due Pneumococcal Polysaccharide PPV23 11/08/2019 ZOSTER LIVE 02/14/2013 Surgical History Surgery Date Site/Laterality Comments GRAFT EAR CARTILAGE 12/14/2024 Ear/Left Procedure: GRAFT EAR CARTILAGE.; Surgeon: Connie Venegas MD; Location: [facility] OPERATING [facility]; Service: Otolaryngology; Laterality: Left; TYMPANOPLASTY W/ MASTOIDECTOMY 12/14/2024 Ear/Left Procedure: TYMPANOPLASTY WITH CANAL WALL DOWN MASTOIDECTOMY.; Surgeon: Connie Venegas MD; Location: [facility]; Service: Otolaryngology; Laterality: Left; [...] on file 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 Gender Identity Not on file Sexual Orientation Not on file Obstetrics History Last Filed Vital Signs Vital Sign Reading Time Taken Comments Blood Pressure 120/78 03/12/2025 10:59 AM CDT Pulse 61 03/12/2025 10:59 AM CDT Temperature 36 C (96.8 F) 12/14/2024 3:30 PM GREENSKEEPER LABORER Respiratory Rate 15 12/14/2024 4:25 PM GREENSKEEPER LABORER Oxygen Saturation 95% 03/12/2025 10:59 AM CDT Inhaled Oxygen Concentration - - Weight 85.3 kg (188 lb) 03/12/2025 10:59 AM CDT Height 177.8 cm (5' 10) 03/12/2025 10:59 AM CDT Body Mass Index 26.98 03/12/2025 10:59 AM CDT Plan of Treatment Health Maintenance Due [...] (2 of 2 - PCV) 11/08/2020 11/08/2019 Covid-19 Vaccine (2023-2 5 season) 2024 09/12/2021, 12/05/2020, 11/14/2020 Influenza Vaccine (#1) 2025 Fall Risk Assessment 12/14/2025 12/14/2024 Lipid Panel 03/12/2026 03/12/2025, 11/10, 02/04/2022, Additional history exists Procedures Procedure Name Priority Date/Time Associated Diagnosis Comments POCT LIPID PANEL Routine 03/12/2025 11:0 1 AM CDT Coronary artery disease involving [place] coronary artery of [place] heart without angina pectoris Hyperlipidemia associated with [...] Final Result from Last 3 Months Insurance [facility] MEDICARE ADVANTAGE [facility] MEDIC[facility] ADVANTAGE Care Teams Tube Cutter Relationship Specialty Start Date End Date Javier Hampton DO [address] [place] [address] PCP - General Family Medicine 12/15/21
== END 2025-04-16 07:51 | disposition home or self-care (01) ==
LOC: CHSIMG 07:51
PROVIDERS: PCP Nurse Practitioner Family; Visit Provider Family Medicine
DX: I71.40 Abdominal aortic aneurysm, without rupture, unspecified (principal)
CPT/HCPCS: 76706

== ENCOUNTER 2025-05-07 12:42 | Outpatient (CLI) | payer MEDICARE, SELFPAY ==
--- NOTE | ~2025-05-07 | DEXA_ITS ---
Bone Density Report Name: ALEXIS NEAL Age: 74 Sex: Male Ethnicity: White Date of : 1950 Indication: screening for osteoporosis; Referring Provider: JOSE WRAY Study: Bone densitometry was performed. Exam Date: May 07, 2025 Accession number: [id number] Bone Density: Region BMD T-score Z-score Classification AP Spine(L2, L3, L4) 0.841 -2.5 -1.5 Osteoporosis Femoral Neck (Left) 0.621 -2.3 -1.0 Osteopenia Total Hip (Left) 0.777 -1.7 -1.0 Osteopenia Femoral Neck (Right) 0.632 -2.2 -0.9 Osteopenia Total Hip (Right) 0.764 -1.8 -1.0 Osteopenia Femoral Neck Mean 0.626 -2.2 -1.0 Osteopenia Total Hip Mean 0.770 -1.7 -1.0 Osteopenia World Health Organization criteria for BMD impression classify patients as: Normal (T-score at or above -1.0), Osteopenia (T-score between -1.0 and -2.5), or Osteoporosis (T-score at or below -2.5). 10-year Fracture Risk: FRAX not reported because: Some T-score for Spine Total or Hip Total or Femoral Neck at or below -2.5 Clinical Information Provided by Patient: Smokes Has used the following medications: Vitamin D, Calcium Patient maximum height was 70 No regular weight bearing exercise Does not regularly consume dairy products Drinks caffeinated beverages Impression: The patient has osteoporosis, based on the Total Spine T-score. The patient has risk factors, including: smoking. Discussion: INCREASED RISK OF FRACTURE. BONE DENSITY IS UNDESIRABLY LOW AT ONE OR MORE SKELETAL SITES, CONSISTENT WITH OSTEOPOROSIS. This patient's lowest T-score meets the World Health Organization's (WHO) criteria for osteoporosis at one or more sites (T-score -2.5 or below). In untreated patients, the risk of osteoporotic fracture increases approximately two-fold for each 1.0 SD decrease in T-score. Low bone density is not the only risk factor for fracture; also consider factors such as patient's age, frailty or poor health, risk of falling, risk of injury, previous osteoporotic fracture, family history of osteoporosis, cigarette smoking, low body weight, etc. Not everyone with low bone mineral density has osteoporosis; osteomalacia and other metabolic bone disorders should also be considered. Patients who have osteoporosis should be evaluated for specific diseases and conditions (secondary causes) that may cause or contribute to bone loss. The National Osteoporosis Foundation (NOF) recommends pharmacologic intervention for men with BMD at this level (a T-score of -2.5 or below). The patient should follow a healthful lifestyle (good nutrition with adequate calcium and vitamin D, and appropriate weight-bearing exercise). Follow-Up: Consider repeating this study in 2 years to reassess this patient's status, or sooner if there is some new clinical indication. Reported by: DAVID on 05/07/2025 1:50:00 PM. Reviewed, dictated and finalized at location A.
--- NOTE | ~2025-05-07 | CT_ITS ---
CT Scan of the Chest without Contrast: Clinical Indication: Lung cancer screening, nicotine dependence Technique: Contiguous sections were acquired throughout the chest without intravenous contrast. Dose reduction technique was used on this scan by utilizing automated exposure control and iterative recon struction technique. The dose-length product (DLP) was 109.17 mGy-cm. Findings: There is no evidence of any significant mediastinal, hilar or axillary lymphadenopathy. Coronary netta ry calcifications are present. There is no evidence of pleural or pericardial effusion. Calcified pleural plaques are present in the right lung Calcified right lower lobe granulomas are present. There is linear scarring in the right upper lobe a nteriorly. Images through the upper abdomen reveal 3.7 cm peripherally calcified gallstone. T12 compression frac ture present. Impression: Lung RADS 2: Benign appearance. 12 month follow-up screening CT advised. Reviewed, dictated and finalized at [facility]. Impression: Lung RADS 2: Benign appearance. 12 month follow-up screening CT advised.
--- OUTSIDE RECORDS SUMMARY | 2025-05-07 12:46 | XMS_ITS | Clinical Summary ---
Author Organization [facility] Address [address] [place] [address] Phone Care Team Providers Care Lay Brother Name Role Phone aJvier Hampton MD Primary Care Provider [phone] Azeem Coronel MD Unavailable [phone] Allergies Active Allergy Reactions Criticality Noted Date [...] Type Department Care Team Description 03/11/2025 [facility] [place] [address] [place] [address] Azeem Coronel MD from Last 3 Months Immunizations Immunization Administration Dates Next Due Pneumococcal Vaccine Adult - 23 Valent 0 Family History Medical History Relation Name Comments Coronary Artery Disease Brother Diabetes Brother Diabetes Father Breast Cancer Mother Relation Name Status Comments Brother Father Mother Social History Tobacco Use Types Packs/Day Years Used Date Smoking Tobacco: Every Day Cigarettes 0.5 67.6 Started: 10/10/1977 Smokeless Tobacco: Never Tobacco Cessation:Ready [...] Comments Blood Pressure 110/74 11/22/2024 9:35 AM RETAIL SHIFT MANAGER Pulse 80 11/22/2024 9:35 AM RETAIL SHIFT MANAGER Temperature 36.6 C (97.9 F) 11/22/2024 9:35 AM RETAIL SHIFT MANAGER Respiratory Rate 17 11/22/2024 9:35 AM RETAIL SHIFT MANAGER Oxygen Saturation 98% 11/22/2024 9:35 AM RETAIL SHIFT MANAGER Inhaled Oxygen Concentration - - Weight 88.5 kg (195 lb 3.2 oz) 11/22/2024 9:35 A M RETAIL SHIFT MANAGER Height 180.3 cm (5' 11) 11/22/2024 9:35 AM RETAIL SHIFT MANAGER Body Mass Index 27.22 11/22/2024 9:35 AM RETAIL SHIFT MANAGER Plan of Treatment Upcoming Encounters Date Type Department Care Team (Late st Contact Info) Description 05/28/2025 9:30 AM CDT Office Visit [facility] Neurology [facility] [address] [place] [address] Azeem Coronel MD [address] [place] [address] Health Maintenance Due Date Last Done Comments Hepatitis C Virus (HCV) Screening 1950 TdaP Immunization 1952 Cologuard 1997 Colonoscopy 1997 Colorectal Cancer Screening 1997 Immunochemical Fecal Occult Blood 1997 Lung Cancer Screening 2002 Respiratory Syncytial Virus (RSV) Immunization (Adult) (1 - Risk 60-74 years 1-dose series) 2012 AAA Screening Ultrasound 2017 Pneumococcal Immunization (50+ years) (2 of 2 - PCV) 11/08/2020 11/08/2019 SARS-COV-2 Immunization ( season) 2024 06/29/2024, 09/12/2021, 12/05/2020, Additional history exists Influenza Immunization (#1) 2025 Zoster Immunization Completed 10/31/2024, 08/07/2024, 02/14/2013 [...] to complete this topic Insurance [facility] Care Teams Lay Brother Relationship Specialty Start Date End Date Javier Hampton MD [address] [place] [id number] PCP - General Family Medicine 12/09/21 Azeem Coronel MD [address] [place] [address] Consulting Physician Neurology 01/26/22
--- OUTSIDE RECORDS SUMMARY | 2025-05-07 12:46 | XMS_ITS | Referral Summary ---
Author Organization [place] [address] Address [address] [facility] [address] [place] [address] Care Team Providers Care Training Officer Name Role Phone Javier Hampton Primary Care Provider Encounters Date Type Department Care Team Description 04/24/2025 Results Follow-Up [facility] Cardiology [address] [place] [address] [address] [place] [address] Kat Grajeda MD Transthoracic Echo (TTE) Complete W Doppler/CF 04/18/2025 10:15 AM CDT Ancillary Procedure [facility] Cardiology at [address] [place] [address] Cardiomyopathy, ischemic; Coronary artery disease involving [place] coronary artery of [place] heart without angina pectoris; Nonrheumatic mitral valve regurgitation 04/10/2025 Telephone [facility] Cardiology [address] [place] [address] [address] [place] [address] Kat Grajeda MD 03/12/2025 11:15 AM CDT Office Visit [facility] Cardiology [address] [place] [address] [address] [place] [address] Kat Grajeda MD Cardiomyopathy, ischemic (Primary Dx); Coronary artery disease involving [place] coronary artery of [place] heart without angina pectoris; Hyperlipidemia associated with type 2 diabetes mellitus (HCC); Nonrheumatic mitral valve regurgitation; Tobacco use from Last 3 Months Allergies Active Allergy [...] mouth 3 (three) times a day 01/27/20 Active Farxiga 10 mg tablet Take 1 tablet (10 mg total) by mouth every morning 07/05/20 22 Active vitamins A,C,K-iaot-zmjghe (ICaps AREDS) 7,160-113-100 cekw-te-drve tablet,delayed release (DR/EC) Take 1 tablet by [...] under the skin once a week 10/31/19 Active famotidine (PEPCID ORAL) Take by mouth [...] ischemic 08/24/2022 Coronary artery disease invo lving [place] coronary artery of [place] heart without angina pectoris 01/06/2022 Dilated cardiomyopathy [...] on file 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 Gender Identity Not on file Sexual Orientation Not on file Last Filed Vital Signs Vital Sign Reading Time Taken Comments Blood Pressure 120/78 03/12/2025 10:59 AM CDT Pulse 61 03/12/2025 10:59 AM CDT Temperature 36 C (96.8 F) 12/14/2024 3:30 PM WATER SOFTENER INSTALLER Respiratory Rate 15 12/14/2024 4:25 PM WATER SOFTENER INSTALLER Oxygen Saturation 95% 03/12/2025 10:59 AM CDT Inhaled Oxygen Concentration - - Weight 85.3 kg (188 lb) 03/12/2025 10:59 AM CDT Height 177.8 cm (5' 10) 03/12/2025 10:59 AM CDT Body Mass Index 26.98 03/12/2025 10:59 AM CDT Plan of Treatment Not on file Procedures Procedure Name Priority Date/Time Associated Diagnosis Comments TRANSTHORACIC ECHO (TTE) COMPLETE W DOPPLER/CF W CONTRAST Routine 04/18/2025 10:46 AM CDT Cardiomyopathy, ischemic Coronary artery disease involving [place] coronary artery of [place] heart without angina pectoris Nonrheumatic mitral valve regurgitation POCT LIPID PANEL Routine 03/12/2025 11:0 1 AM CDT Coronary artery disease involving [place] coronary artery of [place] heart without angina pectoris Hyperlipidemia associated with type 2 diabetes mellitus (HCC) from Last 3 Months Results * TRANSTHORACIC ECHO (TTE) COMPLETE W DOPPLER/CF W CONTRAST (04/18/2025 10:46 AM CDT) Estimated EF 50 % CONS SCIMAGE EF Mod BP 50 % CONS SCIMAGE Anatomical Region Laterality Modality Ultrasound 04/18/2025 10:1 3 AM CDT Narrative 04/18/2025 5:49 PM CDT [facility] Cardiology [address], [address], [place] [address] P:[phone] P:[phone] Echocardiographic Report Patient Name: JOSH ROBERT P : 1950 Study Date: 04/18/2025 10:13:09 AM Gender: M Office Rn: RENE Location: [facility] Ref Provider: KAT GRAJEDA Height(Cm): 178 BSA: 2.05 Weight(Kg): 85.3 Heart Rate: 63 BP: 120 / 78 Quality: Good Order Provider: KAT GRAJEDA PROCEDURES: Echocardiographic Report: Transthoracic echocardiogram with complete 2D, M-Mode, color Doppler examination and Definity contrast. INDICATIONS: Hx of PFO, I25.5 Ischemic cardiomyopathy, I25.10 Atherosclerotic heart disease of [place] coronary artery without angina pectoris, and I34.0 Nonrheumatic mitral (valve) insufficiency. MEASUREMENTS: 2D/MM Value Range Doppler Value Range EF Mod BP 50 % [ 52 - 72 ] KARIS Vmax 2.50 cm2 [ 2.00 - 4.00 ] EF Teich MM 53 % [ 52 - 72 ] AV Mean PG 2 mmHg Estimated EF 50 % AV Peak Bryant 1.07 m/s [ 1.00 - 1.70 ] LV GLS -11.50 % AV Peak PG 5 mmHg LVIDd 2D 6.25 cm [ 4.20 - 5.80 ] AV VTI 23.01 cm LVIDd MM 6.47 cm [ 4.20 - 5.80 ] LVOT Diam 1.99 cm [ 1.70 - 2.10 ] LVIDs 2D 4.81 cm [ 2.50 - 4.00 ] LVOT Peak Bryant 0.86 m/s [ 0.70 - 1.10 ] LVIDs MM 4.66 cm [ 2.50 - 4.00 ] LVOT VTI 18.45 cm LVPWd 2D 0.96 cm [ 0.60 - 1.00 ] MV E Peak Bryant 0.59 m/s [ 0.60 - 1.30 ] LVPWd MM 1.06 cm [ 0.60 - 1.00 ] MV A Peak Bryant 0.81 m/s [ 1.00 - 1.20 ] IVSd 2D 0.83 cm [ 0.60 - 1.00 ] MV Decel Time 380 msec [ 104 - 258 ] IVSd MM 1.13 cm [ 0.60 - 1.00 ] PV Peak Bryant 0.89 m/s [ 0.40 - 0.80 ] LA Dimension MM 4.07 cm [ 3.00 - 4.00 ] RV S` 0.13 m/s AoR Diam MM 3.83 cm [ 3.10 - 3.70 ] Lateral E` 0.03 m/s [ 0.10 - 0.15 ] LA Volume 47.91 ml [ 18.00 - 58.00 ] Septal E` 0.03 m/s [ 0.08 - 0.15 ] LA Volume Index 23 cc/m2 [ 16 - 28 ] E` 0.03 m/s ACS MM 1.95 cm [ 1.50 - 2.60 ] E/E` 19 RA Volume 31.50 ml 2D/MM Value Range Doppler Value Range - FINDINGS: Interpretation Site: Exam was interpreted at [facility]. Left Ventricle: Definity contrast agent used to visually enhance endocardial wall motion and contractility. Lot Number: [id number]. Mild concentric left ventricular hypertrophy. Mild enlargement of left ventricle cavity. Left ventricular systolic function at the lower limit of normal. Impaired diastolic relaxation Grade I. Ejection fraction is measured at 50 %. Ejection Fraction is visually estimated to be 50 %. Global Longitudinal Strain is -12 %. GLS is abnormal. Resting Segmental Wall Motion Analysis: Total wall motion score is 1.53. There is akinesis of the entire inferolateral wall. There is akinesis of the basal inferior wall. There is hypokinesis of the basal to mid anterolateral wall. There is hypokinesis of the mid inferior wall. The remaining left ventricular segments demonstrate normal wall motion. Right Ventricle: Normal right ventricular size. Normal right ventricular systolic function. Left Atrium: There is mild enlargement of left atrium. Right Atrium: The right atrium is normal in size. Atrial Septum: Normal atrial septum. Mitral Valve: Normal appearance of the mitral valve. Mild to moderate mitral valve regurgitation. There is no hemodynamically significant mitral stenosis by Doppler. Aortic Valve: No evidence of hemodynamically significant aortic stenosis by Doppler. Aortic cusps appear mildly sclerotic. Trileaflet aortic valve. Trace aortic valve regurgitation. Tricuspid Valve: Normal appearance of the tricuspid valve. Right ventricular systolic pressure could not be estimated due to inadequate visualization of the tricuspid regurgitation jet. Trivial regurgitation in the tricuspid valve. Pulmonic Valve: Normal appearance of the pulmonic valve. No pulmonic stenosis. Trivial regurgitation in the pulmonic valve. Pericardium: Normal pericardium with no significant pericardial effusion. Aorta: Sinus of Valsalva is dilated. Sinus of Valsalva 3.8 cm. IVC: Normal size and normal respiratory collapse consistent with normal right atrial pressure (<5 mmHg). CONCLUSIONS: Definity contrast agent used to visually enhance endocardial wall motion and contractility. Lot Number: [id number]. Mild concentric left ventricular hypertrophy. Mild enlargement of left ventricle cavity. Left ventricular systolic function at the lower limit of normal. Impaired diastolic relaxation Grade I. Ejection fraction is measured at 50 %. Ejection Fraction is visually estimated to be 50 %. Global Longitudinal Strain is -12 %. There is mild enlargement of left atrium. Mild to moderate mitral valve regurgitation. Sinus of Valsalva is dilated. Sinus of Valsalva 3.8 cm. Normal sinus rhythm. Electronically Signed By: Kat Grajeda MD 04/18/2025 5:49:01 PM CDT Procedure Note Kat Grajeda MD - 04/18/2025 [facility] Cardiology [address] [facility], [address] [address] P:[phone] P:[phone] Echocardiographic Report Patient Name: JOSH ROBERT P : 1950 Study Date: 04/18/2025 10:13:09 AM Gender: M Office Rn: RENE Location: [facility] Ref Provider: KAT GRAJEDA Height(Cm): 178 BSA: 2.05 Weight(Kg): 85.3 Heart Rate: 63 BP: 120 / 78 Quality: Good Order Provider: KAT GRAJEDA PROCEDURES: Echocardiographic Report: Transthoracic echocardiogram with complete 2D, M-Mode, color Dopplerexamination and Definity contrast. INDICATIONS: Hx of PFO, I25.5 Ischemic cardiomyopathy, I25.10 Atherosclerotic heartdisease of [place] coronary artery without angina pectoris, and I34.0 Nonrheumatic mitral(valve) insufficiency. MEASUREMENTS: 2D/MM Value Range Doppler ValueRange EF Mod BP 50 % [ 52 - 72 ] KARIS Vmax 2.50cm2 [ 2.00 - 4.00 ] EF Teich MM 53 % [ 52 - 72 ] AV Mean PG 2mmHg Estimated EF 50 % AV Peak Bryant 1.07m/s [ 1.00 - 1.70 ] LV GLS -11.50 % AV Peak PG 5mmHg LVIDd 2D 6.25 cm [ 4.20 - 5.80 ] AV VTI 23.01cm LVIDd MM 6.47 cm [ 4.20 - 5.80 ] LVOT Diam 1.99cm [ 1.70 - 2.10 ] LVIDs 2D 4.81 cm [ 2.50 - 4.00 ] LVOT Peak Bryant 0.86m/s [ 0.70 - 1.10 ] LVIDs MM 4.66 cm [ 2.50 - 4.00 ] LVOT VTI 18.45cm LVPWd 2D 0.96 cm [ 0.60 - 1.00 ] MV E Peak Bryant 0.59m/s [ 0.60 - 1.30 ] LVPWd MM 1.06 cm [ 0.60 - 1.00 ] MV A Peak Bryant 0.81m/s [ 1.00 - 1.20 ] IVSd 2D 0.83 cm [ 0.60 - 1.00 ] MV Decel Time 380msec [ 104 - 258 ] IVSd MM 1.13 cm [ 0.60 - 1.00 ] PV Peak Bryant 0.89m/s [ 0.40 - 0.80 ] LA Dimension MM 4.07 cm [ 3.00 - 4.00 ] RV S` 0.13m/s AoR Diam MM 3.83 cm [ 3.10 - 3.70 ] Lateral E` 0.03m/s [ 0.10 - 0.15 ] LA Volume 47.91 ml [ 18.00 - 58.00 ] Septal E` 0.03m/s [ 0.08 - 0.15 ] LA Volume Index 23 cc/m2 [ 16 - 28 ] E` 0.03m/s ACS MM 1.95 cm [ 1.50 - 2.60 ] E/E` 19 RA Volume 31.50ml 2D/MM Value Range Doppler ValueRange - FINDINGS: Interpretation Site: Exam was interpreted at [facility]. Left Ventricle: Definity contrast agent used to visually enhance endocardial wall motionand contractility. Lot Number: [id number]. Mild concentric left ventricularhypertrophy. Mild enlargement of left ventricle cavity. Left ventricular systolic functionat the lower limit of normal. Impaired diastolic relaxation Grade I. Ejection fractionis measured at 50 %. Ejection Fraction is visually estimated to be 50 %. GlobalLongitudinal Strain is -12 %. GLS is abnormal. Resting Segmental Wall Motion Analysis: Total wall motion score is 1.53. There is akinesis of the entireinferolateral wall. There is akinesis of the basal inferior wall. There is hypokinesis of thebasal to mid anterolateral wall. There is hypokinesis of the mid inferior wall. Theremaining left ventricular segments demonstrate normal wall motion. Right Ventricle: Normal right ventricular size. Normal right ventricular systolicfunction. Left Atrium: There is mild enlargement of left atrium. Right Atrium: The right atrium is normal in size. Atrial Septum: Normal atrial septum. Mitral Valve: Normal appearance of the mitral valve. Mild to moderate mitral valveregurgitation. There is no hemodynamically significant mitral stenosis by Doppler. Aortic Valve: No evidence of hemodynamically significant aortic stenosis by Doppler.Aortic cusps appear mildly sclerotic. Trileaflet aortic valve. Trace aortic valveregurgitation. Tricuspid Valve: Normal appearance of the tricuspid valve. Right ventricular systolicpressure could not be estimated due to inadequate visualization of the tricuspidregurgitation jet. Trivial regurgitation in the tricuspid valve. Pulmonic Valve: Normal appearance of the pulmonic valve. No pulmonic stenosis. Trivialregurgitation in the pulmonic valve. Pericardium: Normal pericardium with no significant pericardial effusion. Aorta: Sinus of Valsalva is dilated. Sinus of Valsalva 3.8 cm. IVC: Normal size and normal respiratory collapse consistent with normal rightatrial pressure (<5 mmHg). CONCLUSIONS: Definity contrast agent used to visually enhance endocardial wall motionand contractility. Lot Number: [id number]. Mild concentric left ventricularhypertrophy. Mild enlargement of left ventricle cavity. Left ventricular systolic functionat the lower limit of normal. Impaired diastolic relaxation Grade I. Ejection fractionis measured at 50 %. Ejection Fraction is visually estimated to be 50 %. GlobalLongitudinal Strain is -12 %. There is mild enlargement of left atrium. Mild to moderate mitral valve regurgitation. Sinus of Valsalva is dilated. Sinus of Valsalva 3.8 cm. Normal sinus rhythm. Electronically Signed By: Kat Grajeda MD 04/18/2025 5:49:01 PM CDT Kat Grajeda MD CV ECHO PROCEDURES Final Result * POCT lipid panel (03/12/2025 11:01 AM CDT) Cholesterol, POC 117 <200 MG/DL HDL, POC 42 >=40 mg/dL Triglycerides, POC 50 <=149 mg/dL LDL Cholesterol POC 65 <=129 mg/dL Chol/HDL Ratio, POC 1.5 NONE Non-HDL Cholesterol, POC 74 NONE mg/dL Cholesterol Total, POC 117 30 - 199 mg/dL Capillary blood 03/12/2025 1 1:01 AM CDT Kat Grajeda MD POINT OF CARE TEST ORDERA BLES Final Result from Last 3 Months Insurance [facility] MEDICARE ADVANTAGE [facility] MEDICARE ADVANTAGE Care Teams Training Officer Relationship Specialty Start Date End Date Javier Hampton DO [address] [place] [address] PCP - General Family Medicine 12/15/21
--- OUTSIDE RECORDS SUMMARY | 2025-05-07 12:47 | XMS_ITS | Encounter Summary ---
Author Organization [facility] Healthcare Address [address] [place] [address] Care Team Providers Care Typing Pool Supervisor Name Role Phone Javier Hampton Primary Care Provider Encounter Details Date Type Department Care Team (Latest Contact Info) Description 04/24/2025 Results Follow-Up [facility] Cardiology [address] [place] [address] Jan Gutierrez MD [address] [facility] [address] [place] [address] Transthoracic Echo (TTE) Complete W Doppler/CF Social History Tobacco Use Types Packs/Day Years [...] on file 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
--- OUTSIDE RECORDS SUMMARY | 2025-05-07 12:47 | XMS_ITS | Clinical Summary ---
Author Organization [facility] Address [address] [place] [address] Care Team Providers Care Dance Master Name Role Phone Harjit Lan MD Primary Care Provider [phone] Source Comments [facility],non-owned Affiliates and Associated Physician Practices is amultiple site organization consisting of ambulatory clinics and hospital sitesin [place], [place], [place] and [place]. This disclosure is being madepursuant to the Care Everywhere program and may not contain all information available regarding this patient. Last updated 18.[facility] Allergies No known active allergies Medications * [...] Comments Blood Pressure 130/80 12/08/2018 10:41 AM MOVABLE BULKHEAD INSTALLER Pulse 76 12/08/2018 10:41 AM MOVABLE BULKHEAD INSTALLER Temperature 36.3 C (97.4 F) 12/08/2018 10:41 AM MOVABLE BULKHEAD INSTALLER Respiratory Rate 16 12/08/2018 10:41 AM MOVABLE BULKHEAD INSTALLER Oxygen Saturation 97% 12/08/2018 10:41 AM MOVABLE BULKHEAD INSTALLER Inhaled Oxygen Concentration - - Weight 89.4 kg (197 lb 3.2 oz) 12/08/2018 10:41 AM MOVABLE BULKHEAD INSTALLER Height 177.8 cm (5' 10) 07/21/2018 1:12 [...] age to complete this topic Insurance MEDICARE [facility] MEDICARE [facility] Care Teams Dance Master Relationship Specialty Start Date End Date Harjit Lan MD [address] [place] [id number] PCP - General 07/21/18
--- OUTSIDE RECORDS SUMMARY | 2025-05-07 12:47 | XMS_ITS | Clinical Summary ---
Author Organization [facility] [place] [address] [facility] [address] [facility] [address] [place] [address] Care Team Providers Care Assistant Real Estate Manager Name Role Phone Javier Hampton Primary Care [...] mouth every morning 07/05/20 22 Active vitamins A,C,G-xgdd-afizzg (ICaps AREDS) 7,160-113-100 ibtz-zk-jvhp tablet,delayed release (DR/EC) Take 1 tablet by [...] ischemic 08/24/2022 Coronary artery disease invo lving [place] coronary artery of [place] heart without angina pectoris 01/06/2022 Dilated cardiomyopathy 01/06/2022 Essential hypertension 01/06/2022 Hyperlipidemia associated with type 2 diabetes m ellitus 01/06/2022 Tobacco use 01/06/2022 Polycythemia 01/06/2022 Falls 01/06/2022 Nonrheumatic mitral valve regurgitation 01/07/20 CKD stage 3 due to type 2 diabetes mellitus 12/10 Current smoker 03/11/2021 Age-related osteoporosis with current pathologic al fracture 07/21/2018 Encounters Date Type Department Care Team Description 04/24/2025 Results Follow-Up [facility] Cardiology [address] [place] [address] Kat Grajeda MD Transthoracic Echo (TTE) Complete W Doppler/CF 04/18/2025 10:15 AM CDT Ancillary Procedure [facility] Cardiology at [address] [place] [address] Cardiomyopathy, ischemic; Coronary artery disease involving [place] coronary artery of [place] heart without angina pectoris; Nonrheumatic mitral valve regurgitation 04/10/2025 Telephone [facility] Cardiology [address] [place] [address] Kat Grajeda MD 03/12/2025 11:15 AM CDT Office Visit [facility] Cardiology [address] [place] [address] Kat Grajeda MD Cardiomyopathy, ischemic (Primary Dx); Coronary artery disease involving [place] coronary artery of [place] heart without angina pectoris; Hyperlipidemia associated with type 2 diabetes mellitus (HCC); Nonrheumatic mitral valve regurgitation; Tobacco use from Last 3 Months Immunizations Immunization Administration Dates Next Due Pneumococcal Polysaccharide PPV23 11/08/2019 ZOSTER LIVE 02/14/2013 Surgical History Surgery Date Site/Laterality Comments GRAFT EAR CARTILAGE 12/14/2024 Ear/Left Procedure: GRAFT EAR CARTILAGE.; Surgeon: Connie Venegas MD; Location: [facility]; Service: Otolaryngology; Laterality: Left; TYMPANOPLASTY W/ MASTOIDECTOMY 12/14/2024 Ear/Left Procedure: TYMPANOPLASTY WITH CANAL WALL DOWN MASTOIDECTOMY.; Surgeon: Connie Venegas MD; Location: [facility]; Service: Otolaryngology; Laterality: Left; Medical [...] on file 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 Gender Identity Not on file Sexual Orientation Not on file Obstetrics History Last Filed Vital Signs Vital Sign Reading Time Taken Comments Blood Pressure 120/78 03/12/2025 10:59 AM CDT Pulse 61 03/12/2025 10:59 AM CDT Temperature 36 C (96.8 F) 12/14/2024 3:30 PM SCHOOL AGE PROGRAM TEACHER Respiratory Rate 15 12/14/2024 4:25 PM SCHOOL AGE PROGRAM TEACHER Oxygen Saturation 95% 03/12/2025 10:59 AM CDT [...] 2 - PCV) 11/08/2020 11/08/2019 Covid-19 Vaccine (4 - 2023-2 5 season) 2024 09/12/2021, 12/05/2020, 11/14/2020 Influenza Vaccine (#1) 2025 Fall Risk Assessment 12/14/2025 12/14/2024 Lipid Panel 03/12/2026 03/12/2025, 11/10, 02/04/2022, Additional history exists Procedures Procedure Name Priority Date/Time Associated Diagnosis Comments TRANSTHORACIC ECHO (TTE) COMPLETE W DOPPLER/CF W CONTRAST Routine 04/18/2025 10:46 AM CDT Cardiomyopathy, ischemic Coronary artery disease involving [place] coronary artery of [place] heart without angina pectoris Nonrheumatic mitral valve regurgitation POCT LIPID PANEL Routine 03/12/2025 11:0 1 AM CDT Coronary artery disease involving [place] coronary artery of [place] heart without angina pectoris Hyperlipidemia associated with type 2 diabetes mellitus (HCC) from Last 3 Months Results * TRANSTHORACIC ECHO (TTE) COMPLETE W DOPPLER/CF W CONTRAST (04/18/2025 10:46 AM CDT) Estimated EF 50 % CONS SCIMAGE EF Mod BP 50 % CONS SCIMAGE Anatomical Region Laterality Modality Ultrasound 04/18/2025 10:1 3 AM CDT Narrative 04/18/2025 5:49 PM CDT [facility] Cardiology [address], [place] [address] P:[phone] P:[phone] Echocardiographic Report Patient Name: JOSH ROBERT P : 1950 Study Date: 04/18/2025 10:13:09 AM Gender: M Certified Physical Therapist Assistant: RENE Location: EDW Ref Provider: KAT GRAJEDA Height(Cm): 178 BSA: 2.05 Weight(Kg): 85.3 Heart Rate: 63 BP: 120 / 78 Quality: Good Order Provider: KAT GRAJEDA PROCEDURES: Echocardiographic Report: Transthoracic echocardiogram with complete 2D, M-Mode, color Doppler examination and Definity contrast. INDICATIONS: Hx of PFO, I25.5 Ischemic cardiomyopathy, I25.10 Atherosclerotic heart disease of [place] coronary artery without angina pectoris, and I34.0 [...] FINDINGS: Interpretation Site: Exam was interpreted at [facility]. Left Ventricle: Definity contrast agent used to [...] Procedure Note Kat Grajeda MD - 04/18/2025 [facility] Cardiology [facility] [facility], [address], [place] [address] P:[phone] P:[phone] Echocardiographic Report Patient Name: JOSH ROBERT P : 1950 Study Date: 04/18/2025 10:13:09 AM Gender: M Certified Physical Therapist Assistant: RENE Location: [facility] Ref Provider: KAT GRAJEDA Height(Cm): 178 BSA: 2.05 Weight(Kg): 85.3 Heart Rate: 63 BP: 120 / 78 Quality: Good Order Provider: KAT GRAJEDA PROCEDURES: Echocardiographic Report: Transthoracic echocardiogram with complete 2D, M-Mode, color Dopplerexamination and Definity contrast. INDICATIONS: Hx of PFO, I25.5 Ischemic cardiomyopathy, I25.10 Atherosclerotic heartdisease of [place] coronary artery without angina pectoris, and I34.0 [...] FINDINGS: Interpretation Site: Exam was interpreted at [facility]. Left Ventricle: Definity contrast agent used to [...] Final Result from Last 3 Months Insurance [facility] MEDICARE ADVANTAGE [facility] MEDICARE ADVANTAGE Care Teams Assistant Real Estate Manager Relationship Specialty Start Date End Date Javier Hampton DO [address] [place] [address] PCP - General Family Medicine 12/15/21
--- OUTSIDE RECORDS SUMMARY | 2025-05-07 12:47 | XMS_ITS | Encounter Summary ---
Author Organization [facility] Address [address] [facility] [place] [address] Phone Care Team Providers Care Offbearer Name Role Phone Syeda Fontanez APRN Primary Care Provider [phone] Javier Hampton MD Primary Care Provider Azeem Coronel MD Unavailable [phone] Encounter Details Date Type Department Care Team (Late st Contact Info) Description 12/03/2021 Telephone [facility] Oncology Services [address] [place] [address] Arnulfo Hull MD [address] [place] [address] Social History Tobacco Use Types [...] heart attack. He was taken to [facility] where a heart attack was ruled out. They do however want to admit him for observation of his lungs and to administer antibiotics. Mrs. Robert is wanting Mr. Robert transferred to [facility]. I instructed her that she could put in a request with [facility] for the transfer and seeif the hospital is able to meet her wishes. LEAF PRINTER documented in this encounter Plan of Treatment Upcoming Encounters Date Type Department Care Team (Late st Contact Info) Description 05/28/2025 9:30 AM CDT Office Visit [facility] - Neurology - [place] [address] [place] [address] Azeem Coronel MD [address] [place] [address] documented as of this encounter Visit Diagnoses Not on filedocumented in this encounter Care Teams Offbearer Relationship Specialty Start Date End Date Syeda Fontanez APRN [address] [place] [address] PCP - General Family Medicine 02/12/21 12/08/21 Jaiver Hampton MD [address] [place] [address] PCP - General Family Medicine 12/09/21 Azeem Coronel MD [address] [place] [address] Consulting Physician Neurology 01/26/22 documented as of this encounter
== END 2025-05-07 12:43 | disposition home or self-care (01) ==
LOC: CHSIMG 12:44
PROVIDERS: PCP Nurse Practitioner Family; Visit Provider Nurse Practitioner Family
DX: M81.0 Age-related osteoporosis without current pathological fracture (principal); Z87.891 Personal history of nicotine dependence; Z12.2 Encounter for screening for malignant neoplasm of respiratory organs; M85.89 Other specified disorders of bone density and structure, multiple sites
CPT/HCPCS: 71271; 77080

== ENCOUNTER 2025-06-20 07:41 | Outpatient (CLI) | payer MEDICARE, SELFPAY ==
[2025-06-20 08:03] LABS: Total Protein Urine Random 23 mg/dL; Ur Ttl Prot Creatinine Ratio 0.20 mg/mg (0-0.20)
--- OUTSIDE RECORDS SUMMARY | 2025-06-20 08:03 | XMS_ITS | Clinical Summary ---
Author Organization [facility] Address [address] [place] [address] Phone Care Team Providers Care Curriculum And Instruction Specialist Name Role Phone Javier Hampton MD Primary Care Provider [phone] Azeem Coronel MD Unavailable [phone] Allergies Active Allergy Reactions Criticality Noted Date [...] Device by Does not apply route. Active Docusate Sodium (COLACE PO) Take by mouth. Active losartan (COZAAR) 50 MG Tablet Take 50 mg by mouth daily. Active atorvastatin (LIPITOR) 40 MG Tablet Take 1 Tablet by mouth daily. Active carbidopa-levodo pa (SINEMET) 25-100 MG Tablet Take 1 Tablet by mouth 3 times daily. 90 Tablet 2 Active atorvastatin (LIPITOR) 40 MG Tablet Take 40 mg by mouth 3 times daily. 06/03/20 Discontinu ed(Dose adjustment ) carbidopa-levodo pa (SINEMET) 25-100 MG Tablet Take 1 Tablet by mouth 3 times daily. 90 Tablet 2 5 06/11/20 Discontinu ed(Reorder ) Active Problems Problem Noted Date Diagnosed Date Parkinson's disease 05/10/2022 Current smoker 03/11/2021 Polycythemia 02/12/2021 Encounters Date Type Department Care Team Description 06/11/2025 Refill [facility] Neurology [facility] [address] [place] [address] Azeem Coronel MD 06/03/2025 9:45 AM CDT Office Visit [facility] [address] [place] [address] Azeem Coronel MD Parkinson's disease without dyskinesia or fluctuating manifestations (HCC) (Primary Dx) Discharge Disposition: Discharged to home or Selfcare 06/03/2025 Travel from Last 3 Months Immunizations Immunization Administration Dates Next Due Pneumococcal Vaccine Adult - 23 Valent 0 Family History Medical History Relation Name Comments Coronary Artery Disease Brother Diabetes Brother Diabetes Father Breast Cancer Mother Relation Name Status Comments Brother Father Mother Social History Tobacco Use Types Packs/Day Years Used Date Smoking Tobacco: Every Day Cigarettes 0.5 67.7 Started: 10/10/1977 Smokeless Tobacco: Never Tobacco Cessation:Ready to Q uit: No; Counseling Given: Yes Alcohol Use Standard Drinks/Week Comments Not Currently 0 (1 standard drink = 0.6 oz pur e alcohol) Sex and Gender Information Value Date Recorded Sex Assigned at Not on file Legal Sex Male 1:50 PM CDT Gender Identity Not on file Sexual Orientation Not on file Last Filed Vital Signs Vital Sign Reading Time Taken Comments Blood Pressure 126/76 06/03/2025 9:48 AM CDT Pulse 64 06/03/2025 9:48 AM CDT Temperature 36.3 C (97.3 F) 06/03/2025 9:48 AM CDT Respiratory Rate 16 06/03/2025 9:48 AM CDT Oxygen Saturation 99% 06/03/2025 9:48 AM CDT Inhaled Oxygen Concentration - - Weight 85.3 kg (188 lb) 06/03/2025 9:48 AM CDT Height 180.3 cm (5' 11) 06/03/2025 9:48 AM CDT Body Mass Index 26.22 06/03/2025 9:48 AM CDT Plan of Treatment Upcoming Encounters Date Type Department Care Team (Late st Contact Info) Description 12/09/2025 9:30 AM LOCKSTITCH HEMMER Office Visit [facility] - Neurology [facility] [address] [place] [address] Azeem Coronel MD [address] [place] [address] Health Maintenance Due Date Last Done Comments Hepatitis C Virus (HCV) Screening 1950 TdaP Immunization 1950 Cologuard 1997 Colonoscopy 1997 Colorectal Cancer Screening 1997 Immunochemical Fecal Occult Blood 1997 Lung Cancer Screening 2002 Respiratory Syncytial Virus (RSV) Immunization (Adult) (1 - Risk 60-74 years 1-dose series) 2012 AAA Screening Ultrasound 2017 Influenza Immunization (#1) 2025 SARS-COV-2 Immunization ( season) 2025 06/29/2024, 09/12/2021, 12/05/2020, Additional history exists Pneumococcal Immunization (50+ years) Completed 11/08/2019, 10/27/2018 Zoster Immunization Completed 10/31/2024, 08/07/2024, 02/14/2013 Hepatitis [...] to complete this topic Insurance MEDICARE C [facility] Care Teams Curriculum And Instruction Specialist Relationship Specialty Start Date End Date Javier Hampton MD [address] [place] [address] PCP - General Family Medicine 12/09/21 Azeem Coronel MD [address] [place] [id number] Consulting Physician Neurology 01/26/22
--- OUTSIDE RECORDS SUMMARY | 2025-06-20 08:03 | XMS_ITS | Clinical Summary ---
Author Organization [facility] [address] [facility] [address] Address [address] [facility] [address] [place] [address] Care Team Providers Care Airbrush Artist Technical Name Role Phone Javier Hampton Primary Care [...] mouth every morning 07/05/20 22 Active vitamins A,C,T-yahv-rnrtdj (ICaps AREDS) 7,160-113-100 lsgg-um-yakj tablet,delayed release (DR/EC) Take 1 tablet by [...] Active Problems Problem Noted Date Diagnosed Date Conductive hearing loss, uni lateral, left ear, with unrestricted hearing on the contralateral side 05/09/2025 Cholesteatoma of mastoid, left ear 12/18/2024 Chronic mastoiditis of left side 12/18/2024 Parkinson's disease 03/01/2023 Cardiomyopathy, ischemic 08/24/2022 Coronary artery disease invo lving modoc coronary artery of modoc heart without angina pectoris 01/06/2022 Dilated cardiomyopathy 01/06/2022 Essential hypertension 01/06/2022 Hyperlipidemia associated with type 2 diabetes m ellitus 01/06/2022 Tobacco use 01/06/2022 Polycythemia 01/06/2022 Falls 01/06/2022 Nonrheumatic mitral valve regurgitation 01/07/20 CKD stage 3 due to type 2 diabetes mellitus 12/10 Current smoker 03/11/2021 Age-related osteoporosis with current pathologic al fracture 07/21/2018 Encounters Date Type Department Care Team Description 05/09/2025 11:40 AM CDT Office Visit [facility] [address] [facility] [address] [place] [address] Connie Venegas MD Cholesteatoma of mastoid, left ear (Primary Dx); Conductive hearing loss, unilateral, left ear, with unrestricted hearing on the contralateral side 05/09/2025 11:20 AM CDT Procedure visit [facility] Otolaryngology [address] [facility] [address] [place] [address] Mixed conductive and sensorineural hearing loss of left ear with restricted hearing of right ear (Primary Dx); Sensorineural hearing loss (SNHL) of right ear with restricted hearing of left ear 04/24/2025 Results Follow-Up [facility] [address] [facility] [address] [place] [address] Kat Grajeda MD Transthoracic Echo (TTE) Complete W Doppler/CF 04/18/2025 10:15 AM CDT Ancillary Procedure [facility] at [address] [place] [address] Cardiomyopathy, ischemic; Coronary artery disease involving modoc coronary artery of modoc heart without angina pectoris; Nonrheumatic mitral valve regurgitation 04/10/2025 Telephone [facility] [address] [facility] [address] [place] [address] Kat Grajeda MD from Last 3 Months Immunizations Immunization Administration Dates Next Due Pneumococcal Polysaccharide PPV23 11/08/2019 ZOSTER LIVE 02/14/2013 Surgical History Surgery Date Site/Laterality Comments GRAFT EAR CARTILAGE 12/14/2024 Ear/Left Procedure: GRAFT EAR CARTILAGE.; Surgeon: Connie Venegas MD; Location: [facility]; Service: Otolaryngology; Laterality: Left; TYMPANOPLASTY W/ MASTOIDECTOMY 12/14/2024 Ear/Left Procedure: TYMPANOPLASTY WITH CANAL WALL DOWN MASTOIDECTOMY.; Surgeon: Connie Venegas MD; Location: [facility]; Service: Otolaryngology; Laterality: Left; Medical [...] on file Legal Sex Male 9:34 AM STRIP CATCHER Gender Identity Not on file Sexual Orientation Not on file Obstetrics History Last Filed Vital Signs Vital Sign Reading Time Taken Comments Blood Pressure 120/78 03/12/2025 10:59 AM CDT Pulse 61 03/12/2025 10:59 AM CDT Temperature 36 C (96.8 F) 12/14/2024 3:30 PM STRIP CATCHER Respiratory Rate 15 12/14/2024 4:25 PM STRIP CATCHER Oxygen Saturation 95% 03/12/2025 10:59 AM CDT [...] PCV) 11/08/2020 11/08/2019 Covid-19 Vaccine (4 - 2024-2 6 season) 2025 09/12/2021, 12/05/2020, 11/14/2020 Influenza Vaccine (#1) 2025 Fall Risk Assessment 12/14/2025 12/14/2024 Lipid Panel 03/12/2026 03/12/2025, 11/10, 02/04/2022, Additional history exists Procedures Procedure Name Priority Date/Time Associated Diagnosis Comments AUDBASE RESULTS 05/09/2025 11:13 AM CDT TRANSTHORACIC ECHO (TTE) COMPLETE W DOPPLER/CF W CONTRAST Routine 04/18/2025 10:46 AM CDT Cardiomyopathy, ischemic Coronary artery disease involving modoc coronary artery of modoc heart without angina pectoris Nonrheumatic mitral valve regurgitation POCT LIPID PANEL Routine 03/12/2025 11:0 1 AM CDT Coronary artery disease involving modoc coronary artery of modoc heart without angina pectoris Hyperlipidemia associated with type 2 diabetes mellitus (HCC) from Last 3 Months or Most Recently Relevant to Health Maintenance Results * AudBase Results (05/09/2025 11:13 AM CDT) us Provider Scanning AUDIOLOGY SERVICES ORDERABLES Final Result * TRANSTHORACIC ECHO (TTE) COMPLETE W DOPPLER/CF W CONTRAST (04/18/2025 10:46 AM CDT) Estimated EF 50 % CONS SCIMAGE EF Mod BP 50 % CONS SCIMAGE Anatomical Region Laterality Modality Ultrasound 04/18/2025 10:1 3 AM CDT Narrative 04/18/2025 5:49 PM CDT [facility] Cardiology [address] , [address], [place] [address] P:[phone] P:[phone] Echocardiographic Report Patient Name: JOSH ROBERT P : 1950 Study Date: 04/18/2025 10:13:09 AM Gender: M Rubber Grinder: RENE Location: [facility] Ref Provider: KAT GRAJEDA Height(Cm): 178 BSA: 2.05 Weight(Kg): 85.3 Heart Rate: 63 BP: 120 / 78 Quality: Good Order Provider: KAT GRAJEDA PROCEDURES: Echocardiographic Report: Transthoracic echocardiogram with complete 2D, M-Mode, color Doppler examination and Definity contrast. INDICATIONS: Hx of PFO, I25.5 Ischemic cardiomyopathy, I25.10 Atherosclerotic heart disease of modoc coronary artery without angina pectoris, and I34.0 [...] FINDINGS: Interpretation Site: Exam was interpreted at [facility] [place]. Left Ventricle: Definity contrast agent used to [...] Procedure Note Kat Grajeda MD - 04/18/2025 [facility] Medical Group Cardiology [address] [facility], [address], [place] [address] P:[phone] P:[phone] Echocardiographic Report Patient Name: JOSH ROBERT P : 1950 Study Date: 04/18/2025 10:13:09 AM Gender: M Rubber Grinder: RENE Location: [facility] Ref Provider: KAT GRAJEDA Height(Cm): 178 BSA: 2.05 Weight(Kg): 85.3 Heart Rate: 63 BP: 120 / 78 Quality: Good Order Provider: KAT GRAJEDA PROCEDURES: Echocardiographic Report: Transthoracic echocardiogram with complete 2D, M-Mode, color Dopplerexamination and Definity contrast. INDICATIONS: Hx of PFO, I25.5 Ischemic cardiomyopathy, I25.10 Atherosclerotic heartdisease of modoc coronary artery without angina pectoris, and I34.0 [...] FINDINGS: Interpretation Site: Exam was interpreted at [facility]. Left Ventricle: Definity contrast agent [...] Kat Grajeda MD 04/18/2025 5:49:01 PM CDT us Kat Grajeda MD CV ECHO PROCEDURES Final Result * POCT lipid panel (03/12/2025 11:01 AM CDT) Cholesterol, POC 117 <200 MG/DL HDL, POC 42 >=40 mg/dL Triglycerides, POC 50 <=149 mg/dL LDL Cholesterol POC 65 <=129 mg/dL Chol/HDL Ratio, POC 1.5 NONE Non-HDL Cholesterol, POC 74 NONE mg/dL Cholesterol Total, POC 117 30 - 199 mg/dL Capillary blood 03/12/2025 1 1:01 AM CDT us Kat Grajeda MD POINT OF CARE TEST ORDERA BLES Final Result from Last 3 Months or Most Recently Relevant to Health Maintenance Insurance [facility] MEDICARE ADVANTAGE [facility] Address: [facility] [address] [place] [address] [facility] MEDICARE ADVANTAGE [facility] Address: [address] [address] [place] [address] Care Teams Airbrush Artist Technical Relationship Specialty Start Date End Date Javier Hampton DO [address] [place] [address] PCP - General Family Medicine 12/15/21
--- OUTSIDE RECORDS SUMMARY | 2025-06-20 08:03 | XMS_ITS | Encounter Summary ---
Author Organization [facility] Address [address] [place] [address] Care Team Providers Care Sales Service Route Manager Name Role Phone Javier Hampton Primary Care Provider Encounter Details Date Type Department Care Team (Latest Contact Info) Description 04/24/2025 Results Follow-Up [facility] Group Cardiology [address] [place] [address] Jan Gutierrez MD [address] [facility] [address] [place] [address] Transthoracic Echo (TTE) Complete W [...] file Legal Sex Male 9:34 AM CERTIFIED JUVENILE PROBATION OFFICER Gender Identity Not on file Sexual Orientation Not on file documented as of this encounter Plan of Treatment Not on file documented as of this encounter Visit Diagnoses Not on filedocumented in this encounter Care Teams Sales Service Route Manager Relationship Specialty Start Date End Date Javier Hampton DO [address] [place] [address] PCP - General Family Medicine 12/15/21 documented as of this encounter
--- OUTSIDE RECORDS SUMMARY | 2025-06-20 08:03 | XMS_ITS | Encounter Summary ---
Author Organization [facility] Address [address] [facility] [address] Phone Care Team Providers Care Market Reporter Name Role Phone Syeda Fontanez APRN Primary Care Provider [phone] Javier Hampton MD Primary Care Provider [phone] Azeem Coronel MD Unavailable [phone] Encounter Details Date Type Department Care Team (Late st Contact Info) Description 12/03/2021 Telephone [facility] Oncology Services [address] [place] [address] Arnulfo Hull MD [address] [place] [address] Social History Tobacco Use Types [...] heart attack. He was taken to [facility] where a heart attack was ruled out. They do however want to admit him for observation of his lungs and to administer antibiotics. Mrs. Robert is wanting Mr. Robert transferred to [facility]. I instructed her that she could put in a request with [facility] for the transfer and seeif the hospital is able to meet her wishes. T COLOR MATCHER documented in this encounter Plan of Treatment Upcoming Encounters Date Type Department Care Team (Late st Contact Info) Description 12/09/2025 9:30 AM PRINT COLOR MATCHER Office Visit [facility] - Neurology - [place] [address] [place] [address] Azeem Coronel MD [address] [place] [address] documented as of this encounter Visit Diagnoses Not on filedocumented in this encounter Care Teams Market Reporter Relationship Specialty Start Date End Date Syeda Fontanez APRN [address] [place] [address] PCP - General Family Medicine 02/12/21 12/08/21 Javier Hampton MD [address] [place] [address] PCP - General Family Medicine 12/09/21 Azeem Coronel MD [address] [place] [address] Consulting Physician Neurology 01/26/22 documented as of this encounter
[2025-06-20 08:49] LABS: Albumin Level 4.3 g/dL (3.5-5.1); Anion Gap 8 mmol/L (4-12); Blood Urea Nitrogen 33 mg/dL (9-20); Calcium 10.4 mg/dL (8.4-10.2); Carbon Dioxide 30 mmol/L (22-30); Chloride 102 mmol/L (98-107); Estimated Glomerular Filt Rate 50; Glucose 189 mg/dL (65-110); Osmolality Calculated 302 mOsm/kg (285-295); Potassium 5.5 mmol/L (3.4-5.0); Sodium 140 mmol/L (137-145)
== END 2025-06-20 07:42 | disposition home or self-care (01) ==
LOC: CHSLAB 07:43
PROVIDERS: PCP Family Medicine; Visit Provider Internal Medicine Nephrology
DX: E11.22 Type 2 diabetes mellitus with diabetic chronic kidney disease (principal); R80.9 Proteinuria, unspecified; N18.31 Chronic kidney disease, stage 3a
CPT/HCPCS: 36415; 80069; 82570; 84156

== ENCOUNTER 2025-08-01 09:15 | Outpatient (CLI) | payer MEDICARE, SELFPAY ==
[2025-08-01 09:29] LABS: Hematocrit 55.4 % (37.0-46.0); Hemoglobin 18.4 g/dL (12.4-15.3); Immature Granulocyte Percent A 0.2 % (0.0-0.0); Lymphocytes Absolute Auto 1.16 K/mm3 (1.10-4.50); Mean Corpuscular HGB Conc 33.2 g/dL (32-36); Mean Corpuscular Hemoglobin 31.5 pg (27.0-31.0); Mean Corpuscular Volume 94.7 fL (78.0-102.0); Nucleated Red Blood Cells Absolute Auto 0.00 K/mm3 (0.00-0.00); Nucleated Red Blood Cells Perc 0.0 % (0-0.0); Platelet Count Result 239 K/mm3 (150-420); Red Blood Count 5.85 M/mm3 (4.70-6.10); White Blood Count 5.9 K/mm3 (4.8-10.8)
--- OUTSIDE RECORDS SUMMARY | 2025-08-01 09:43 | XMS_ITS | Encounter Summary ---
Author Organization [facility] Address [address] [facility] [place] [address] Phone Care Team Providers Care Core Setter Name Role Phone Syeda Fontanez APRN Primary Care Provider [phone] Javier Hampton MD Primary Care Provider [phone] Azeem Coronel MD Unavailable [phone] Encounter Details Date Type Department Care Team (Late st Contact Info) Description 12/03/2021 Telephone [facility] Oncology Services [address] [place] [address] Arnulfo Hull MD [address] [place] [address] Social History Tobacco Use Types [...] a heart attack. He was taken to [facility] where a heart attack was ruled out. They do however want to admit him for observation of his lungs and to administer antibiotics. Mrs. Robert is wanting Mr. Robert transferred to [facility]. I instructed her that she could put in a request with [facility] for the transfer and seeif the hospital is able to meet her wishes. ICE CHECKER documented in this encounter Plan of Treatment Upcoming Encounters Date Type Department Care Team (Late st Contact Info) Description 12/09/2025 9:30 AM INVOICE CHECKER Office Visit [facility] - Neurology - [place] [address] [place] [address] Azeem Coronel MD [address] [place] [address] documented as of this encounter Visit Diagnoses Not on filedocumented in this encounter Care Teams Core Setter Relationship Specialty Start Date End Date Syeda Fontanez APRN [address] [place] [address] PCP - General Family Medicine 02/12/21 12/08/21 Javier Hampton MD [address] [place] [address] PCP - General Family Medicine 12/09/21 Azeem Coronel MD [address] [place] [address] Consulting Physician Neurology 01/26/22 documented as of this encounter
--- OUTSIDE RECORDS SUMMARY | 2025-08-01 09:43 | XMS_ITS | Clinical Summary ---
Author Organization [facility] Address [address] [place] [address] Care Team Providers Care Molding Machine Tender Name Role Phone Harjit Lan MD Primary Care Provider [phone] Source Comments [facility],non-owned Affiliates and Associated Physician Practices is amultiple site organization consisting of ambulatory clinics and hospital sitesin [place], [place], [place] and [place]. This disclosure is being madepursuant to the Care Everywhere program and may not contain all information available regarding this patient. Last updated 18.[facility] Allergies No known active allergies Medications * [...] Comments Blood Pressure 130/80 12/08/2018 10:41 AM MANIPULATIVE THERAPY SPECIALIST Pulse 76 12/08/2018 10:41 AM MANIPULATIVE THERAPY SPECIALIST Temperature 36.3 C (97.4 F) 12/08/2018 10:41 AM MANIPULATIVE THERAPY SPECIALIST Respiratory Rate 16 12/08/2018 10:41 AM MANIPULATIVE THERAPY SPECIALIST Oxygen Saturation 97% 12/08/2018 10:41 AM MANIPULATIVE THERAPY SPECIALIST Inhaled Oxygen Concentration - - Weight 89.4 kg (197 lb 3.2 oz) 12/08/2018 10:41 AM MANIPULATIVE THERAPY SPECIALIST Height 177.8 cm (5' 10) 07/21/2018 1:12 [...] 2017 SCREENING FOR DIABETES 07/21/2018 DEPRESSION SCREENING 10/10/2024 MEDICARE AWV CALENDAR YEAR 2024 COVID-19 VACCINE (1 - 2023-2 5 season) 2025 INFLUENZA VACCINE (#1) 2025 COLOGUARD (AGES 45-75) - COL ON [...] age to complete this topic Insurance MEDICARE [facility] MEDICARE [facility] Care Teams Molding Machine Tender Relationship Specialty Start Date End Date Harjit Lan MD [address] [place] [address] PCP - General 07/21/18
--- OUTSIDE RECORDS SUMMARY | 2025-08-01 09:43 | XMS_ITS | Clinical Summary ---
Author Organization [facility] [address] [facility] [address] Address [address] [facility] [address] [place] [address] Care Team Providers Care Vegetable Scullion Name Role Phone FranLetitia fieldmarge PeaceMary Primary Care Provider Allergies Active Allergy Reactions Criticality Noted Date Comments Penicillins Rash Medium 02/12/2021 Medications metoprolol XL (TOPROL-XL) 25 mg extended release tablet Take 0.5 tablets (12.5 mg total) by mouth every morning 022 Active aspirin 81 mg enteric coated tablet Take 1 tablet (81 mg total) by mouth every morning Active cholecalciferol (VITAMIN D-3) 1,000 unit capsule Take 2 capsules (2,000 Units total) by mouth every morning Active calcium carbonate (CALCIUM 600 ORAL) Take by mouth every morning Active carbidopa-levodop a (SINEMET) 25-100 mg per tablet Take 1 tablet by mouth 3 (three) times a day 022 Active Farxiga 10 mg tablet Take 1 tablet (10 mg total) by mouth every morning 022 Active vitamins A,C,B-pseh-dqffcf (ICaps AREDS) 7,160-113-100 ayjf-qd-feqd tablet,delayed release (DR/EC) Take 1 tablet by mouth daily after lunch Active amitriptyline (ELAVIL) 25 mg tablet Take 1 tablet (25 mg total) by mouth nightly Active Trulicity 1.5 mg/0.5 mL pen injector Inject 0.5 mL (1.5 mg total) under the skin once a week 025 Active famotidine (PEPCID ORAL) Take by mouth as needed Active docusate sodium (COLACE) 100 mg capsule Take 1 capsule (100 mg total) by mouth every morning Active ofloxacin (FLOXIN) 0.3 % otic solution Administer 5 drops into the left ear 2 (two) times a day Start 3 days after surgery and continue until your follow up appointment 10 mL 3 025 Active HYDROcodone-aceta minophen (NORCO) 5-325 mg per tabletIndications :Pain Take 1 tablet by mouth every 6 (six) hours as needed for pain (breakthrough pain) 15 tablet 025 Active atorvastatin (LIPITOR) 40 mg tabletIndications :Hyperlipidemia associated with type 2 diabetes mellitus (HCC),Coronary artery calcification TAKE 1 TABLET(40 MG) BY MOUTH DAILY 90 tablet 2 025 Active losartan (COZAAR) 50 mg tabletIndications :Cardiomyopathy, ischemic,Essentia l hypertension,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),Dilated cardiomyopathy (HCC) TAKE 1 TABLET(50 MG) BY MOUTH DAILY 90 tablet 2 025 Active atorvastatin (LIPITOR) 40 mg tabletIndications :Hyperlipidemia associated with type 2 diabetes mellitus (HCC),Coronary artery calcification Take 1 tablet (40 mg total) by mouth daily 90 tablet 3 024 2024 Discontinued losartan (COZAAR) 50 mg tabletIndications :Cardiomyopathy, ischemic,Essentia l hypertension,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),Dilated cardiomyopathy (HCC) Take 1 tablet (50 mg total) by mouth daily 90 tablet 3 024 2024 Discontinued Active Problems Problem Noted Date Diagnosed Date Conductive hearing loss, uni lateral, left ear, with unrestricted hearing on the contralateral side 05/09/2025 Cholesteatoma of mastoid, left ear 12/18/2024 Chronic mastoiditis of left side 12/18/2024 Parkinson's disease 03/01/2023 Cardiomyopathy, ischemic 08/24/2022 Coronary artery disease invo lving eagle coronary artery of eagle heart without angina pectoris 01/06/2022 Dilated cardiomyopathy [...] Description 05/09/2025 11:40 AM CDT Office Visit [facility] Medicine ENT [address] [facility] Office Building [address] [address] Connie Venegas MD Cholesteatoma of mastoid, left ear (Primary Dx); Conductive hearing loss, unilateral, left ear, with unrestricted hearing on the contralateral side 05/09/2025 11:20 AM CDT Procedure visit [facility] Otolaryngology [address] [facility] [address] [address] Mixed conductive and sensorineural hearing loss of left ear with restricted hearing of right ear (Primary Dx); Sensorineural hearing loss (SNHL) of right ear with restricted hearing of left ear from Last 3 Months Immunizations Immunization Administration Dates Next Due Pneumococcal Polysaccharide PPV23 11/08/2019 ZOSTER LIVE 02/14/2013 Surgical History Surgery Date Site/Laterality Comments GRAFT EAR CARTILAGE 12/14/2024 Ear/Left Procedure: GRAFT EAR CARTILAGE.; Surgeon: Connie Venegas MD; Location: [facility] OPERATING [facility]OM; Service: Otolaryngology; Laterality: Left; TYMPANOPLASTY W/ MASTOIDECTOMY 12/14/2024 Ear/Left Procedure: TYMPANOPLASTY WITH CANAL WALL DOWN MASTOIDECTOMY.; Surgeon: Connie Venegas MD; Location: [facility] OPERATING [facility]OM; Service: Otolaryngology; Laterality: Left; Medical History Medical History Date Comments Hypertension 2021 Diabetes mellitus [address] Nichole Hyperlipidemia 2021 Chronic [...] on file Legal Sex Male 9:34 AM WELFARE SERVICE AIDE Gender Identity Not on file Sexual Orientation Not on file Obstetrics History Last Filed Vital Signs Vital Sign Reading Time Taken Comments Blood Pressure 120/78 03/12/2025 10:59 AM CDT Pulse 61 03/12/2025 10:59 AM CDT Temperature 36 C (96.8 F) 12/14/2024 3:30 PM WELFARE SERVICE AIDE Respiratory Rate 15 12/14/2024 4:25 PM WELFARE SERVICE AIDE Oxygen Saturation 95% 03/12/2025 10:59 AM CDT [...] Comments AUDBASE RESULTS 05/09/2025 11:13 AM CDT POCT LIPID PANEL Routine 03/12/2025 11:0 1 AM CDT Coronary artery disease involving eagle coronary artery of eagle heart without angina pectoris Hyperlipidemia associated with type 2 diabetes mellitus (HCC) from Last 3 Months or Most Recently Relevant to Health Maintenance Results * AudBase Results (05/09/2025 11:13 AM CDT) Provider Scanning AUDIOLOGY SERVICES ORDERABLES Final Result * POCT lipid panel (03/12/2025 [...] Most Recently Relevant to Health Maintenance Insurance [facility] MEDICARE [facility] Address: [address] [place], [place] [id number] [facility] MEDICARE [facility] Address: [address] [place], [place] [id number] Care Teams Vegetable Scullion Relationship Specialty Start Date End Date Javier Hampton DO [address] [place] [address] PCP - General Family Medicine 12/15/21
--- OUTSIDE RECORDS SUMMARY | 2025-08-01 09:43 | XMS_ITS | Clinical Summary ---
Author Organization [facility] Address [address] [place] [address] Phone Care Team Providers Care Gasfitter Name Role Phone Javier Hampton MD Primary Care Provider [phone] Azeem Coronel MD Unavailable [phone] Allergies Active Allergy Reactions Criticality Noted Date [...] Tablet Take 1 Tablet by mouth daily. 06/03/2025 Active carbidopa-levodo pa (SINEMET) 25-100 MG Tablet Take 1 Tablet by mouth 3 times daily. 90 Tablet 2 06/11/2025 Active Active Problems Problem Noted Date Diagnosed Date Parkinson's disease 05/10/2022 Current smoker 03/11/2021 Polycythemia 02/12/2021 Encounters Date Type Department Care Team Description 06/11/2025 [facility] [address] [place] [address] Azeem Coronel MD 06/03/2025 9:45 AM CDT Office Visit [facility] [address] [place] [address] Azeem Coronel MD Parkinson's disease without dyskinesia [...] Date Smoking Tobacco: Every Day Cigarettes 0.5 67.8 Started: 10/10/1977 Smokeless Tobacco: Never Tobacco Cessation:Ready [...] st Contact Info) Description 12/09/2025 9:30 AM ASSOCIATE VICE PRESIDENT Office Visit [facility] [address] [place] [address] Azeem Coronel MD [address] [place] [address] Health Maintenance Due Date Last Done Comments Hepatitis C Virus (HCV) Screening 1950 TdaP Immunization 1950 Cologuard 1997 Colonoscopy 1997 Colorectal Cancer Screening 1997 Immunochemical Fecal Occult Blood 1997 Lung Cancer Screening 2002 Respiratory Syncytial Virus (RSV) Immunization (Adult) (1 - Risk 60-74 years 1-dose series) 2012 AAA Screening Ultrasound 2017 Medicare Initial AWV [id number] 07/10/2018 Influenza Immunization (#1) 2025 SARS-COV-2 Immunization ( [...] to complete this topic Insurance [facility]IC[id number] [place] [id number] Care Teams Gasfitter Relationship Specialty Start Date End Date Javier Hampton MD [address] [place] [address] PCP - General Family Medicine 12/09/21 Azeem Coronel MD [address] [place] [address] Consulting Physician Neurology 01/26/22
[2025-08-01 10:13] LABS: Blood Urea Nitrogen 22 mg/dL (9-20)
[2025-08-01 10:28] LABS: Alanine Aminotransferase 8 U/L (6-50); Albumin Level 4.4 g/dL (3.5-5.1); Alkaline Phosphatase 61 U/L (38-126); Anion Gap 9 mmol/L (4-12); Aspartate Amino Transferase 21 U/L (17-59); Bilirubin,Total 1.0 mg/dL (0.2-1.3); CRP 1.0 mg/dL (<1.0); Calcium 10.6 mg/dL (8.4-10.2); Carbon Dioxide 33 mmol/L (22-30); Chloride 97 mmol/L (98-107); Estimated Glomerular Filt Rate 52; Glucose 212 mg/dL (65-110); Osmolality Calculated 297 mOsm/kg (285-295); Potassium 5.2 mmol/L (3.4-5.0); Sodium 139 mmol/L (137-145); Total Protein 8.7 g/dL (6.3-8.2)
[2025-08-02 12:08] LABS: ANA by IFA Rfx Titer/Pattern Negative (.); RPR Reactive (Non Reactive); RPR, Quant. YES YES
== END 2025-08-01 09:16 | disposition home or self-care (01) ==
LOC: CHSLAB 09:16
PROVIDERS: PCP Family Medicine; Visit Provider Family Medicine
DX: H49.22 Sixth [abducent] nerve palsy, left eye (principal)
CPT/HCPCS: 36415; 80053; 85025; 86038; 86140; 86592; 86593; 86618

== ENCOUNTER 2025-08-07 09:44 | Outpatient (CLI) | payer MEDICARE, SELFPAY ==
--- OUTSIDE RECORDS SUMMARY | 2025-08-07 10:42 | XMS_ITS | Encounter Summary ---
Author Organization [facility] Address [address] [place] [address] Phone Care Team Providers Care Automobile Drivers Name Role Phone Syeda Fontanez APRN Primary Care Provider [phone] Javier Hampton MD Primary Care Provider [phone] Azeem Coronel MD Unavailable [phone] Encounter Details Date Type Department Care Team (Late st Contact Info) Description 12/03/2021 Telephone [facility] Oncology Services [address] [place] [address] Arnulfo Hull MD [address] [place] [address] Social History Tobacco Use Types [...] was taken to [facility] where a heart attack was ruled out. They do however want to admit him for observation of his lungs and to administer antibiotics. Mrs. Robert is wanting Mr. Robert transferred to [facility]. I instructed her that she could put in a request with [facility] for the transfer and seeif the hospital is able to meet her wishes. ITE CHIP TERRAZZO FINISHER documented in this encounter Plan of Treatment Upcoming Encounters Date Type Department Care Team (Late st Contact Info) Description 12/09/2025 9:30 AM GRANITE CHIP TERRAZZO FINISHER Office Visit [facility] - Neurology - [place] [address] [place] [address] Azeem Coronel MD [address] [place] [address] documented as of this encounter Visit Diagnoses Not on filedocumented in this encounter Care Teams Automobile Drivers Relationship Specialty Start Date End Date Syeda Fontanez APRN [address] [place] [address] PCP - General Family Medicine 02/12/21 12/08/21 Javier Hampton MD [address] [place] [address] PCP - General Family Medicine 12/09/21 Azeem Coronel MD [address] [place] [address] Consulting Physician Neurology 01/26/22 documented as of this encounter
--- OUTSIDE RECORDS SUMMARY | 2025-08-07 10:42 | XMS_ITS | Clinical Summary ---
Author Organization [facility] Address [address] [place] [address] Phone Care Team Providers Care Specification Manager Name Role Phone Javier Hampton MD Primary Care Provider [phone] Azeem Coronel MD Unavailable [phone] Allergies Active Allergy Reactions Criticality Noted Date [...] Type Department Care Team Description [facility] [address] [place] [address] Azeem Coronel MD 06/03/2025 9:45 AM CDT Office Visit [facility] [address] [place] [address] Azeem Coronel MD Parkinson's disease without dyskinesia [...] st Contact Info) Description 12/09/2025 9:30 AM HIGH SCHOOL SOCIAL SCIENCE TEACHER Office Visit [facility] [address] [place] [address] Azeem oCronel MD [address] [place] [address] Health Maintenance Due Date Last Done Comments [...] to complete this topic Insurance MEDICARE C [employer] [facility] [place] [id number] Care Teams Specification Manager Relationship Specialty Start Date End Date Javier Hampton MD [address] [place] [address] PCP - General Family Medicine 12/09/21 Azeem Coronel MD [address] [place] [address] Consulting Physician Neurology 01/26/22
--- OUTSIDE RECORDS SUMMARY | 2025-08-07 10:42 | XMS_ITS | Clinical Summary ---
Author Organization [facility] Address [address] [place] [address] Care Team Providers Care Sales Representative Name Role Phone Harjit Lan MD Primary Care Provider [phone] Source Comments [facility],non-owned Affiliates and Associated Physician Practices is amultiple site organization consisting of ambulatory clinics and hospital sitesin [place], [place], [place] and [place]. This disclosure is being madepursuant to the Care Everywhere program and may not contain all information available regarding this patient. Last updated 18.[facility] Allergies No known active allergies Medications * [...] Comments Blood Pressure 130/80 12/08/2018 10:41 AM BELLY DUMP DRIVER Pulse 76 12/08/2018 10:41 AM BELLY DUMP DRIVER Temperature 36.3 C (97.4 F) 12/08/2018 10:41 AM BELLY DUMP DRIVER Respiratory Rate 16 12/08/2018 10:41 AM BELLY DUMP DRIVER Oxygen Saturation 97% 12/08/2018 10:41 AM BELLY DUMP DRIVER Inhaled Oxygen Concentration - - Weight 89.4 kg (197 lb 3.2 oz) 12/08/2018 10:41 AM BELLY DUMP DRIVER Height 177.8 cm (5' 10) 07/21/2018 1:12 [...] age to complete this topic Insurance MEDICARE [facility] MEDICARE [facility] Care Teams Sales Representative Relationship Specialty Start Date End Date Harjit Lan MD [address] [place] [address] PCP - General 07/21/18
--- OUTSIDE RECORDS SUMMARY | 2025-08-07 10:42 | XMS_ITS | Clinical Summary ---
Author Organization [facility] [address] [facility] 162 Address [address] [facility] [address] [place] [address] Care Team Providers Care Global Consumer Sector Vice President Name Role Phone FranJavier field Mary Primary Care Provider Allergies Active Allergy Reactions [...] by mouth every morning 022 Active vitamins A,C,A-tolw-xviher (ICaps AREDS) 7,160-113-100 fwgx-lr-unjt tablet,delayed release (DR/EC) Take 1 tablet by [...] ischemic 08/24/2022 Coronary artery disease invo lving osage coronary artery of osage heart without angina pectoris 01/06/2022 Dilated cardiomyopathy [...] Description 05/09/2025 11:40 AM CDT [facility] Medicine [facility] [address] [facility] Office Building [address] [address] Connie Venegas MD Cholesteatoma of mastoid, left ear (Primary Dx); Conductive hearing loss, unilateral, left ear, with unrestricted hearing on the contralateral side 05/09/2025 11:20 AM CDT Procedure visit [facility] Otolaryngology [address] [facility] [address] [address] Mixed conductive and sensorineural hearing loss of [...] EAR CARTILAGE.; Surgeon: Connie Venegas MD; Location: [facility] OPERATING [facility]; Service: Otolaryngology; Laterality: Left; TYMPANOPLASTY W/ MASTOIDECTOMY 12/14/2024 Ear/Left Procedure: TYMPANOPLASTY WITH CANAL WALL DOWN MASTOIDECTOMY.; Surgeon: Connie Venegas MD; Location: [facility]; Service: Otolaryngology; Laterality: Left; [...] on file Legal Sex Male 9:34 AM CHANGE MANAGEMENT LEAD Gender Identity Not on file Sexual Orientation Not on file Obstetrics History Last Filed Vital Signs Vital Sign Reading Time Taken Comments Blood Pressure 120/78 03/12/2025 10:59 AM CDT Pulse 61 03/12/2025 10:59 AM CDT Temperature 36 C (96.8 F) 12/14/2024 3:30 PM CHANGE MANAGEMENT LEAD Respiratory Rate 15 12/14/2024 4:25 PM CHANGE MANAGEMENT LEAD Oxygen Saturation 95% 03/12/2025 10:59 AM CDT [...] 1 AM CDT Coronary artery disease involving osage coronary artery of osage heart without angina pectoris Hyperlipidemia associated with [...] Most Recently Relevant to Health Maintenance Insurance [facility] MEDICARE [facility] MEDICARE Address: [address] [place], [place] [id number] [facility] MEDICARE [facility] MEDICARE Address: [address] [place], [place] [id number] Care Teams Global Consumer Sector Vice President Relationship Specialty Start Date End Date Javier Hampton DO [address] [place] [address] PCP - General Family Medicine 12/15/21
== END 2025-08-07 09:45 | disposition home or self-care (01) ==
LOC: CHSLAB 09:44
PROVIDERS: PCP Family Medicine; Visit Provider Family Medicine
DX: A53.0 Latent syphilis, unspecified as early or late (principal); R76.89 Other specified abnormal immunological findings in serum; Z11.3 Encounter for screening for infections with a predominantly sexual mode of transmission
CPT/HCPCS: 86780

== ENCOUNTER 2025-08-15 15:09 | Outpatient (CLI) | payer MEDICARE, SELFPAY ==
--- NOTE | ~2025-08-15 | MR_ITS ---
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 Sequences included sagittal and axial T1-weighted SE, axial diffusion-weighted FS EPI, axial T2*-weighted GRE, axial T2-weighted FLAIR Propeller, and axial T2-weighted Propeller. Small fie ld-of-view sequences of the orbits included coronal and axial T2-weighted FS FSE and T1-weighted FSE. Apparent diffusion coefficient (ADC) maps were created. COMPARISON: Brain MR dated 12/05/2021 FINDINGS: There are no areas of restricted diffusion to suggest acute infarction. No intracranial hemorrhage or abnormal intracranial mass lesion. There are scattered areas of nonspecific increased T2-weighted signal intensity in the cerebral white matter, predominantly involving the deep and periventricular whi te matter. In these regions of white matter T2 hyperintensity are a few unchanged small old lacunar infarcts within the periventricular left trigonal and bilateral parietal regions. There are no intraparenchymal signal abnormalities seen on the other pulse sequences. No significant change in disproportionate enlargement of the lateral and third ventricles relative to the sulci which can be seen with central predominant atrophy or normal pressure hydrocephalus. There are no abnormal extra-axial fluid collections. Basilar cisterns are patent with no abnormal masses or impinging lesions evident along t he course of the cranial nerves. Flow voids are seen in the cerebral arteries on the T2-weighted sequences consistent with their expected patency. Mucosal thickening in the bilateral posterior ethmoid air cells and in the posterior left sphenoid sinus. Changes of bilateral intraocular lens replacement. There appears be increased fluid along the bilateral optic nerve sheaths which measure slightly greater than 6 mm in diameter measured 3 mm from the optic discs in between 5-6 mm in diameter measured 8 mm in the disc which can also be sign of increased intracranial pressure. IMPRESSION: 1. Stable appearance of nonspecific moderate periventricular predominant white matter T2 hyperintensity consistent with chronic small vessel ischemic disease with few unchanged small old lacunar infarcts in the periventricular white matter. No acute intracranial process. 2. Stable appearance of disproportionate enlargement of the ventricles relative to the sulci and mildly increased fluid with borderline dilation of the bilateral optic nerve sheaths, both findings suggestive of increased intracranial pressures. Reviewed, dictated and finalized at location A. OPERATOR IMPRESSION: 1. Stable appearance of nonspecific moderate periventricular predominant white matter T2 hyperintensity consistent with chronic small vessel ischemic disease with few unchanged small old lacunar infarcts in the periventricular white sue er. No acute intracranial process. 2. Stable appearance of disproportionate enlargement of the ventricles relative to the sulci and mildly increased fluid with borderline dilation of the bilate ral optic nerve sheaths, both findings suggestive of increased intracranial pre ssures.
--- OUTSIDE RECORDS SUMMARY | 2025-08-15 20:51 | XMS_ITS | Encounter Summary ---
Author Organization [facility] Address [address] [place] [address] Phone Care Team Providers Care Light Truck Driver Name Role Phone Syeda Fontanez APRN Primary Care Provider [phone] Javier Hampton MD Primary Care Provider [phone] Azeem Coronel MD Unavailable [phone] Encounter Details Date Type Department Care Team (Late st Contact Info) Description 12/03/2021 Telephone [facility] Oncology Services [address] [place] [address] Arnulfo Hull MD [address] [place] [address] Social History Tobacco Use Types [...] Notes * Telephone Encounter - Analia Bautista - 12/03/2021 8:42 AM CST The patient's called stating Mr. Robert had fallen at their home at approximately 3 a.m.. Whenshe was able to get to him, she states he felt as if he had a heart attack. He was taken to [facility] where a heart attack was ruled out. They do however want to admit him for observation of his lungs and to administer antibiotics. Mrs. Robert is wanting Mr. Robert transferred to [facility]. I instructed her that she could put in a request with [facility] for the transfer and seeif the hospital is able to meet her wishes. E ENGINEER documented in this encounter Plan of Treatment Upcoming Encounters Date Type Department Care Team (Late st Contact Info) Description 12/09/2025 9:30 AM LOKIE ENGINEER Office Visit [facility] - Neurology - [place] [address] [place] [address] Azeem Coronel MD [address] [place] [address] documented as of this encounter Visit Diagnoses Not on filedocumented in this encounter Care Teams Light Truck Driver Relationship Specialty Start Date End Date Syeda Fontanez APRN [address] [place] [address] PCP - General Family Medicine 02/12/21 12/08/21 Javier Hampton MD [address] [place] [address] PCP - General Family Medicine 12/09/21 Azeem Coronel MD [address] [place] [address] Consulting Physician Neurology 01/26/22 documented as of this encounter
--- OUTSIDE RECORDS SUMMARY | 2025-08-15 20:51 | XMS_ITS | Clinical Summary ---
Author Organization [facility] Address [address] [place] [address] Phone Care Team Providers Care Hi Lo Driver Name Role Phone Javier Hampton MD Primary Care Provider [phone] Azeem Coronel MD Unavailable [phone] Allergies Active Allergy Reactions Criticality Noted Date [...] Type Department Care Team Description [facility] [address] [place] [address] Azeem Croonel MD 06/03/2025 9:45 AM CDT Office Visit [facility] [address] [place] [address] Azeem Coronel MD Parkinson's disease without dyskinesia [...] st Contact Info) Description 12/09/2025 9:30 AM ENTERTAINMENT PRODUCTION PROFESSIONAL Office Visit [facility] [address] [place] [address] Azeem Coronel MD [address] [place] [address] Health Maintenance Due Date Last Done Comments Hepatitis C Virus (HCV) Screening 1950 TdaP Immunization 1952 Cologuard 1997 Colonoscopy 1997 Colorectal Cancer Screening 1997 Immunochemical Fecal Occult Blood 1997 Lung Cancer Screening 2002 Respiratory Syncytial Virus (RSV) Immunization (Adult) (1 - Risk 50-74 years 1-dose series) 2002 AAA Screening Ultrasound 2017 Medicare Initial AWV [...] to complete this topic Insurance MEDICARE C [facility] [place] [id number] Care Teams Hi Lo Driver Relationship Specialty Start Date End Date Javier Hampton MD [address] [place] [address] PCP - General Family Medicine 12/09/21 Azeem Coronel MD [address] [place] [address] Consulting Physician Neurology 01/26/22
--- OUTSIDE RECORDS SUMMARY | 2025-08-15 20:51 | XMS_ITS | Clinical Summary ---
Author Organization [facility] [address] [facility] [address] [facility] [address] [place] [address] Care Team Providers Care Diet Therapist Name Role Phone CarlynLetitia reyesmarge PeaceMary Primary Care Provider Allergies Active Allergy [...] by mouth every morning 022 Active vitamins A,C,R-gszz-rdqprk (ICaps AREDS) 7,160-113-100 htaj-mo-mrbh tablet,delayed release (DR/EC) Take 1 tablet by [...] ischemic 08/24/2022 Coronary artery disease invo lving [place] coronary artery of [place] heart without angina pectoris 01/06/2022 Dilated cardiomyopathy [...] EAR CARTILAGE.; Surgeon: Connie Venegas MD; Location: [facility]; Service: Otolaryngology; Laterality: Left; TYMPANOPLASTY W/ MASTOIDECTOMY 12/14/2024 Ear/Left Procedure: TYMPANOPLASTY WITH CANAL WALL DOWN MASTOIDECTOMY.; Surgeon: Connie Venegas MD; Location: [facility]; Service: Otolaryngology; Laterality: Left; [...] on file Legal Sex Male 9:34 AM REGISTERED RADIOLOGIC TECHNOLOGIST Gender Identity Not on file Sexual Orientation Not on file Last Filed Vital Signs Vital Sign Reading Time Taken Comments Blood Pressure 120/78 03/12/2025 10:59 AM CDT Pulse 61 03/12/2025 10:59 AM CDT Temperature 36 C (96.8 F) 12/14/2024 3:30 PM REGISTERED RADIOLOGIC TECHNOLOGIST Respiratory Rate 15 12/14/2024 4:25 PM REGISTERED RADIOLOGIC TECHNOLOGIST Oxygen Saturation 95% 03/12/2025 10:59 AM CDT [...] 1 AM CDT Coronary artery disease involving [place] coronary artery of [place] heart without angina pectoris Hyperlipidemia associated with type 2 diabetes mellitus (HCC) from Last 3 Months or Most Recently Relevant to Health Maintenance Results * POCT lipid panel (03/12/2025 11:01 [...] Most Recently Relevant to Health Maintenance Insurance [facility] MEDICARE ADVANTAGE [facility] Address: [facility] [address] [place] [address] UHC MEDICARE ADVANTAGE Care Teams Diet Therapist Relationship Specialty Start Date End Date Javier Hampton DO [address] [place] [address] PCP - General Family Medicine 12/15/21
--- OUTSIDE RECORDS SUMMARY | 2025-08-15 20:51 | XMS_ITS | Clinical Summary ---
Author Organization [facility] Address [address] [place] [address] Care Team Providers Care Cadmium Liquor Maker Name Role Phone Harjit Lan MD Primary Care Provider [phone] Source Comments [facility],non-owned Affiliates and Associated Physician Practices is amultiple site organization consisting of ambulatory clinics and hospital sitesin [place], [place], [place] and [place]. This disclosure is being madepursuant to the Care Everywhere program and may not contain all information available regarding this patient. Last updated 18.[facility] Allergies No known active allergies Medications * [...] Comments Blood Pressure 130/80 12/08/2018 10:41 AM SURFACE SUPERVISOR Pulse 76 12/08/2018 10:41 AM SURFACE SUPERVISOR Temperature 36.3 C (97.4 F) 12/08/2018 10:41 AM SURFACE SUPERVISOR Respiratory Rate 16 12/08/2018 10:41 AM SURFACE SUPERVISOR Oxygen Saturation 97% 12/08/2018 10:41 AM SURFACE SUPERVISOR Inhaled Oxygen Concentration - - Weight 89.4 kg (197 lb 3.2 oz) 12/08/2018 10:41 AM SURFACE SUPERVISOR Height 177.8 cm (5' 10) 07/21/2018 1:12 PM CDT Body Mass Index 28.3 07/21/2018 1:12 PM CDT Plan of Treatment Health Maintenance Due Date Last Done Comments BONE DENSITY TESTING 1952 COLON MONITORING 1952 COLONOSCOPY - COLON CA SCREENING 1952 CT COLONOGRAPHY - COLON CA SCREENING 1952 FIT - COLON CA SCREENING 1952 FLEX SIG - COLON CA SCREENING 1952 LIPID TESTING 1952 HEPATITIS C SCREENING 08/02/1970 DTAP/TDAP/TD VACCINES [...] age to complete this topic Insurance MEDICARE [facility] UHC MANAGED MEDICARE ADV Care Teams Cadmium Liquor Maker Relationship Specialty Start Date End Date Harjit aLn MD [address] [place] [id number] PCP - General 07/21/18
== END 2025-08-15 15:10 | disposition home or self-care (01) ==
LOC: CHSIMG 15:11
PROVIDERS: PCP Family Medicine; Visit Provider Family Medicine
DX: H49.22 Sixth [abducent] nerve palsy, left eye (principal); R90.89 Other abnormal findings on diagnostic imaging of central nervous system
CPT/HCPCS: 70551